=== PATIENT | female | born 1980 | race African-American/Black ===

== ENCOUNTER → 2022-03-19 09:12 | Outpatient (BNVA) | payer OTHER, SELFPAY | PROVIDERS: PCP Internal Medicine; Visit Provider Internal Medicine Rheumatology | DX: Z13.89 Encounter for screening for other disorder (principal) ==

== ENCOUNTER 2022-06-19 11:01 | Outpatient (REF) | payer OTHER, SELFPAY ==
[2022-06-19 11:21] LABS: MANUAL DIFF FLAG NO
[2022-06-19 11:35] LABS: Basophils Percent Auto 0.3 % (0-2); Eosinophils Absolute Auto 0.1 X10*3/uL (0.0-0.4); Eosinophils Percent Auto 0.7 % (0-4); Hematocrit 36.7 % (37.0-47.0); Hemoglobin 11.4 g/dl (12.0-16.0); Imm Gran Abs Auto 0.05 X10*3/uL (0.00-0.03); Imm Gran Pct Auto 0.6 % (0.0-0.4); Lymphocytes Absolute Auto 1.2 X10*3/uL (1.2-4.9); Lymphocytes Percent Auto 14.2 % (20-40); Mean Corpuscular HGB Conc 31.1 g/dl (31.0-35.0); Mean Corpuscular Hemoglobin 27.6 pg (27.0-33.0); Mean Corpuscular Volume 88.9 fL (80.0-98.0); Mean Platelet Volume 9.9 fL (9.4-12.3); Monocytes Absolute Auto 0.6 X10*3/uL (0.1-1.2); Monocytes Percent Auto 6.9 % (2-11); Neutrophils Absolute Auto 6.7 x10*3/uL (2.0-8.3); Neutrophils Percent Auto 77.3 % (45-73); Platelet Count 180 X10*3/uL (160-400); Red Blood Count 4.13 X10*6/uL (4.20-5.50); Red Cell Distribution Width 13.2 % (11.0-16.0); White Blood Count 8.7 X10*3/uL (4.8-10.8)
[2022-06-19 12:08] LABS: Estimated Glomerular Filt Rate 36
[2022-06-19 13:09] LABS: Creatinine Urine 136.45 mg/dL; Total Protein Urine Random < 7 mg/dL (<12)
[2022-06-23 11:56] LABS: Complement C3 126 mg/dL (83-193)
[2022-06-23 15:03] LABS: Anti DNA DS Antibody 11 IU/mL
== END 2022-06-19 11:02 | disposition home or self-care (01) ==
LOC: HO.LAB 11:01
PROVIDERS: PCP Internal Medicine; Visit Provider Internal Medicine Rheumatology
DX: M32.14 Glomerular disease in systemic lupus erythematosus (principal); M32.9 Systemic lupus erythematosus, unspecified
CPT/HCPCS: 36415; 82565; 84156; 85025; 86140; 86160; 86225

== ENCOUNTER 2022-10-01 09:51 | Outpatient (REF) | payer OTHER, SELFPAY | END 2022-10-01 09:52 | disposition home or self-care (01) | LOC: HO.10HDL 09:51 | PROVIDERS: Visit Provider Internal Medicine Rheumatology | DX: Z13.89 Encounter for screening for other disorder (principal) ==

== ENCOUNTER 2023-01-26 13:20 | Outpatient (REF) | payer OTHER, SELFPAY ==
[2023-01-30 06:08] LABS: PTT (LAC) Screen 30 sec (<=40)
== END 2023-01-26 13:21 | disposition home or self-care (01) ==
LOC: HO.LAB 13:20
PROVIDERS: PCP Internal Medicine; Visit Provider Internal Medicine Rheumatology
DX: M32.9 Systemic lupus erythematosus, unspecified (principal); Z86.711 Personal history of pulmonary embolism
CPT/HCPCS: 36415; 85597; 85613; 85730

== ENCOUNTER 2023-01-29 08:47 | Outpatient (REF) | payer OTHER, SELFPAY ==
--- NOTE | ~2023-01-29 | XR_ITS ---
EXAMINATION: XR CHEST CLINICAL INFORMATION: Dyspnea COMPARISON: None available. TECHNIQUE: 2 views of the chest were obtained. FINDINGS: The lungs are clear with no focal consolidation. No evidence of pneumothorax, pulmonary edema, or pleural effusions. Cardiac silhouette appears at the upper limits of normal in size. Multilevel endplate osteophytes noted in the spine. Partially visualized gastric band in the upper abdomen. XR/XR chest 2V IMPRESSION: No acute cardiopulmonary findings.
--- NOTE | ~2023-01-29 | XR_ITS ---
EXAMINATION: XR KNEE, LEFT CLINICAL INFORMATION: Left knee pain COMPARISON: None available. TECHNIQUE: Three views of the left knee. FINDINGS: Osseous alignment is anatomic. Joint spaces are relatively well-preserved. Spurring is noted most prominently along the medial and lateral compartments. No evidence of acute fracture. Patellar spurring is present at the attachment sites of the quadriceps and patellar tendons. Trace joint effusion noted. XR/XR knee LT 3V IMPRESSION: No acute osseous findings. Trace joint effusion. Osteophyte formation.
== END 2023-01-29 08:48 | disposition home or self-care (01) ==
LOC: HO.XRAY 08:47
PROVIDERS: PCP Internal Medicine; Visit Provider Internal Medicine Rheumatology
DX: M32.9 Systemic lupus erythematosus, unspecified (principal); E66.01 Morbid (severe) obesity due to excess calories; R06.00 Dyspnea, unspecified; M25.562 Pain in left knee; M32.14 Glomerular disease in systemic lupus erythematosus; D84.821 Immunodeficiency due to drugs; Z86.711 Personal history of pulmonary embolism; Z79.899 Other long term (current) drug therapy
CPT/HCPCS: 71046; 73562

== ENCOUNTER 2023-02-10 14:54 | Outpatient (REF) | payer OTHER, SELFPAY ==
--- NOTE | 2023-02-10 16:51 | PFT_ITS ---
Forced vital capacity 80%, FEV1 80%, FEV1/FVC ratio 81. PCK19-20 69% and MVV is 74%. Post bronchodilator therapy, there is a significant improvement in [id number]. Total lung capacity 78%. Residual volume 92%. Diffusion capacity 113% CONCLUSION: There may be a borderline or very mild degree of restrictive pulmonary disorder. The patient has significant response to bronchodilator therapy indicating mild bronchial asthma. Clinical correlation is recommended. MD MORGAN Hair/AUGUSTINE / [id number]
== END 2023-02-10 14:55 | disposition home or self-care (01) ==
LOC: HO.RESP 14:54
PROVIDERS: PCP Internal Medicine; Visit Provider Internal Medicine Rheumatology
DX: M32.9 Systemic lupus erythematosus, unspecified (principal); R06.00 Dyspnea, unspecified
CPT/HCPCS: 94060; 94727; 94729

== ENCOUNTER → 2023-04-06 14:57 | Outpatient (BNVA) | payer OTHER, SELFPAY | PROVIDERS: PCP Internal Medicine; Visit Provider Hospitalist ==

== ENCOUNTER 2023-04-20 10:04 | Outpatient (REF) | payer OTHER, SELFPAY ==
--- NOTE | ~2023-04-20 | XR_ITS ---
EXAMINATION: XR CHEST CLINICAL INFORMATION: Dyspnea. COMPARISON: None available. TECHNIQUE: 2 views of the chest were obtained. FINDINGS: No significant abnormality is noted involving the heart, lungs, mediastinum, bony thorax or soft tissues. XR/XR chest 2V IMPRESSION: Unremarkable chest examination.
== END 2023-04-20 10:05 | disposition home or self-care (01) ==
LOC: HO.XRAY 10:04
PROVIDERS: PCP Internal Medicine; Visit Provider Hospitalist
DX: I26.99 Other pulmonary embolism without acute cor pulmonale (principal); R06.00 Dyspnea, unspecified
CPT/HCPCS: 71046

== ENCOUNTER → 2023-04-21 13:02 | Outpatient (REF) | payer OTHER, SELFPAY ==
--- NOTE | ~2023-04-21 | NM_ITS ---
EXAMINATION: PULMONARY PERFUSION STUDY CLINICAL INFORMATION: Dyspnea, unspecified. COMPARISON: No previous lung scan is available for comparison. Radiographs the chest dated 04/20/2023 are available for comparison. TECHNIQUE: Following the intravenous injection of 4.0 mCi Tc-99m MAA, the lungs were imaged in the anterior and posterior, left and right lateral and AV, TIWARI, LPO, and RPO projections using a gamma scintillation camera. FINDINGS: No segmental perfusion defects are present. There is homogeneous distribution of activity bilaterally. There are no focal anatomic appearing perfusion defects present. NM/NM pul perfusion IMPRESSION: Normal radionuclide lung perfusion scan.
== END ==
LOC: HO.NUCMED 13:02
PROVIDERS: Visit Provider Hospitalist
DX: R06.00 Dyspnea, unspecified (principal); I26.99 Other pulmonary embolism without acute cor pulmonale
CPT/HCPCS: 78580; A9540

== ENCOUNTER → 2023-04-30 10:55 | Outpatient (REF) | payer OTHER, SELFPAY ==
--- NOTE | 2023-04-30 10:58 | CA_ITS ---
Transthoracic Echocardiogram Patient (Last, First, Middle): Rodri Su, Gender: Female Date of : 1980 Age: 42 Procedure Date: 04/30/2023 Procedure Type: Transthoracic Echocardiogram Location: OP Height: 162.56 cm Weight: 164.66 kg BSA: 2.52 m2 Heart Rate: 60 bpm BP: 150 / 100 mmHg Auto Bumper Straightener: ROSELYN Referring MD: Jah Cole MD Ice Cream Maker: Michael Roger MD Symptoms: I27.20 - Pulmonary hypertension, unspecified Study Quality: Fair ECG Rhythm: Sinus Conclusions: - Essentially normal study with no clear evidence of significant pulmonary hypertension Findings Left Ventricle Normal left ventricular size, thickness, and systolic function. The visually estimated ejection fraction is between 55-60%. Regional wall motion abnormalities can not be excluded due to suboptimal endocardial definition. Spectral Doppler is indicative of a normal filling pattern. Right Ventricle Normal right ventricular cavity size and systolic function. Atria The left atrium is normal in size. Interatrial shunt cannot be excluded. The right atrium was not well visualized. Aortic Valve Normal aortic valve structure and function. There is no aortic valve stenosis. There is no aortic valve regurgitation. Mitral Valve Normal mitral valve structure and function. There is trace mitral valve regurgitation. There is no mitral valve stenosis. Pulmonic Valve The pulmonic valve was not well visualized. Tricuspid Valve Likely normal tricuspid valve structure and function. There is trace tricuspid valve regurgitation. The right ventricular systolic pressure is normal. The right ventricular systolic pressure is 18 mmHg. Normal right atrial pressure. There is no evidence of pulmonary hypertension. Great Vessels All visible segments of the aorta are normal in size. The pulmonary artery was not well visualized. Venous The inferior vena cava is normal in size and collapses greater than 50% with inspiration. There is evidence of a dilated coronary sinus. Consider possibility of persistent left superior vena cava, consider saline contrast study Pericardium/Pleural There is no evidence of pericardial effusion. Prior Study Comparison No prior study available for comparison. Recommendations, Care & Conclusions Recommend contrast in the future to improve endocardial definition and saline contrast study for persistent left sided SVC. Measurements 2D Linear Measurements IVSd: 0.98 0.6-0.9/0.6-1.0 cm LVIDd: 5.55 3.9-5.3/4.2-5.9 cm LVIDd Index: 2.20 2.4-3.2/2.2-3.1 cm/m2 LVIDs: 3.62 2.0-3.6 cm LVPWd: 1.07 0.7-1.1 cm LA Diam: 3.50 2.7-3.8/3.0-4.0 cm LAIDs Index: 1.39 1.5-2.3 cm/m2 LV Mass: 278.92 67-162/88-224 g LV Mass Index: 110.68 43-95/49-115 g/m2 LVOT Diam: 2.20 3.0+(-)1.3 cm 2D Systolic Function EF 4C: 55.90 >55% EF 2C: 57.10 >55% EF BiP: 56.10 >55% Mitral Valve MV Pk E: 1.00 MV PK A: 0.79 MV Decel Time: 229.00 E/A: 1.30 E'Lateral: 8.27 E'Medial: 7.29 E/E' Med: 13.70 E/E' Lat: 12.10 PHT: 67.00 MVA PHT: 3.28 Decel Yellow Medicine: 4.38 Aortic Valve AoV Pk Basim: 1.35 AoV Mn Basim: 1.00 AoV VTI: 0.28 AoV Pk Grad: 7.00 Aov Mn Grad: 4.00 ADRIANNE Cont.VTI: 3.35 LVOT LVOT Pk Basim: 1.12 LVOT Mn Basim: 0.77 LVOT VTI: 0.25 LVOT Pk Grad: 5.00 LVOT Mn Grad: 3.00 LVOT Diam: 2.20 LVOT Area: 3.80 Diastolic Function MV Pk E: 1.00 MV Pk A: 0.79 E/A: 1.30 E'Medial: 7.29 E/E' Med: 13.70 E' Laterial: 8.27 E/E' Lat: 12.10 Right Ventricle TAPSE (mm): 29.00 TVS' Basim: 15.00 Tricuspid Valve TR Pk Basim: 1.62 TR Pk Grad: 10.00 RA Press: 8.00 RVSP: 18.00 Great Vessels Aorta Sinus of Valsalva: 3.30 2.0-3.5 cm Ao Asc: 3.40 2.1-3.4 cm Pulmonary Valve PV Pk Basim: 0.79 Peak PV Grad: 2.00 Updated in Other Vendor System with Status of Final Michael Roger MD electronically signed on 05/02/2023 12:43:38 PM with status of Final
== END ==
LOC: HO.CARD 10:55
PROVIDERS: Visit Provider Hospitalist
DX: I27.20 Pulmonary hypertension, unspecified (principal); R06.00 Dyspnea, unspecified; I26.99 Other pulmonary embolism without acute cor pulmonale
CPT/HCPCS: 93306

== ENCOUNTER → 2023-05-06 08:54 | Outpatient (BNVA) | payer OTHER, SELFPAY | PROVIDERS: PCP Internal Medicine; Visit Provider Internal Medicine Rheumatology ==

== ENCOUNTER 2023-06-23 15:26 | Outpatient (AMB) | payer OTHER, SELFPAY ==
[2023-06-23 15:30] VITALS: PULSE 64; O2SAT 100; BMI 63.1
--- NOTE | 2023-06-23 15:30 | A.OFFVIS_ITS ---
Intake Vital Signs 06/23/23 15:30 Height 5 ft 4 in Weight 367 lb 8.169 oz BMI 63.1 Pulse 64 Pulse Source Pulse Oximeter Pulse Oximetry (%) 100 Oxygen Delivery Method Room Air Intake Visit Reasons: Dyspnea Car Servicer Required: No Allergies hydralazine Allergy (Severe, Verified 06/23/23 15:33) induced lupus Penicillins Allergy (Intermediate, Verified 06/23/23 15:33) hives HPI HPI Comments History of Present Illness Details The patient is a 42-year-old woman with ongoing dyspnea. Per the patient had been in her usual state health until early 2020 when she was diagnosed with lupus. Apparently she was evaluated by Rheumatology at time in felt to be drug induced since she was on hydralazine. Subsequently after that the patient started developing lower extremity edema pain and shortness of breath. She was admitted to the hospital with pulmonary emboli. There was a limited study because of her respiratory symptoms although definitive defect in the right lower lobe vasculature. The patient also had what appeared to be a patchy consolidation in the left lower lobe with small effusion. The patient was not hospital for prolonged care time approximately 2-3 weeks. She was discharged on anticoagulation. After that she ended up having COVID-19. Since then the patient has been having issues with dyspnea on exertion. Mild to moderate with severity. She did undergo pulmonary function studies which I did personally soon early review with her. The patient does have some evidence of small airways disease. In addition to that no other significant findings. During the office visit we did go for a 6 minutes walk test. The patient with activity had a pulse ox of 99%. Although her heart rate did increase to about 120 beats per minute when she was dyspneic with a dyspnea score of 7/10. The patient continues to be on anticoagulation. Based on her event is consider an unprovoked event. Possibly related to her connective tissue disease although is not for certain. Based on her ongoing dyspnea in addition to significant tachycardia with minimal activity will request a V/Q scan to address the question of any chronic thromboembolic disease. In addition to this when echocardiogram will be helpful. She did have an echo back in 2020 although it was poorly visualized in the right ventricle and therefore cannot comment on the right ventricle function or appearance. 06/23/2023 the patient is here for pulmonary follow-up visit. He continues to have dyspnea on exertion. [id number]-ci-[id number] severity. Difficult to perform her activities of daily living though. The patient did have a 6 minute walk test with significant tachycardia with minimal activity during the last visit. We had her undergo an echocardiogram which is reassuring. Pulmonary pressures were estimated to be normal. Subsequently after that had a V/Q scan without any evidence of any residual defects suggesting no further residual clots. However, the patient continued to have symptoms therefore she underwent a cardiopulmonary exercise tolerance test at [facility]. We did follow-up with the results. The patient did have a normal aerobic capacity. However with exercise she did develop significant systemic hypertension. The patient also was noted to have a decreased pulse ox down to 90% with exercise suggesting a pulmonary limitation. 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 Explained to the patient that will have to further evaluate this for definitive diagnosis. If the patient does have pulmonary hypertension that is exercise induced with a history of lupus she will benefit from basal dilatory therapy. The patient also was recommended a referral to [place] to be evaluated by a pulmonary hypertension clinic. The patient is agreeable to this as well. Will try to perform an exercise echo to assess for any cardiac disease in addition to see if we can estimate pulmonary pressures with exercise. In addition to this the patient will be referred to pulmonary rehabilitation for her underlying post COVID syndrome. 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 Pulmonary emboli Pulmonary hypertension Systemic lupus erythematosus Surgical History Hx of laparoscopic gastric banding Social History Household Members: Family Housing: House Are you a primary hospice home care coordinator to a significant other at home: No Do you presently have visiting nurse or other home services: No 75 years or older and lives alone: No Alcohol intake: never Patient Tobacco Use Status: Never used Tobacco e-Cigarette/Vaping Use: Never Used Second Hand Smoke Exposure: No service: No Current occupational status: employed 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 Denies headache(s) Card Details: Negative chest pain, edema and syncope Reports dyspnea and Reports dyspnea on exertion Resp Reports dyspnea, Reports dyspnea on exertion and Denies wheezing GI Details: Negative indigestion/heartburn, nausea, abdominal pain, bowel changes, diarrhea, constipation and bloody stool. Reports no additional complaints Musc Reports no additional complaints Skin/Breast Details: Negative for itching, rash, hives, Raynaud's symptoms, sun sensitivity, and skin cancer Denies rash Neuro Details: Negative for epilepsy, palsy, stroke, changes in speech, tingling and weakness Reports no additional complaints and Denies headache(s) Endo Details: Negative for polyuria and polydypsia Alok/Lymph Details: Negative for excessive bruising or bleeding. Denies easy bleeding and Denies easy bruising Aller/Immun Denies wheezing Physical Exam Vital Signs: Last Vital Signs Pulse 64 06/23/23 15:30 Pulse Ox 100 06/23/23 15:30 Oxygen Delivery Method Room Air 06/23/23 15:30 BMI result Body Mass Index 63.1 Const General: comfortable HEENT Head: Yes normal to inspection Neck Neck: Yes supple Chest Chest palpation & inspection: normal inspection of the chest Resp Effort & Inspection: normal respiratory effort Auscultation: no rhonchi, no wheezes and diminished lung sounds Cardio Rate: tachycardic Rhythm: regular rhythm Heart sounds: S1 normal heart sound present and S2 normal heart sound present GI Palpation (GI): Soft to palpation Extrem General: No clubbing and No cyanosis Assessment & Plan Assessment & Plan (1) DEL ANGEL (dyspnea on exertion): Comment: Likely multifactorial. CPET appears to suggest a pulmonary limitation, suggesting pulmonary vascular disease Code(s): R06.00 - Dyspnea, unspecified (2) Pulmonary emboli: Comment: VQ scan is reassuring Code(s): I26.99 - Other pulmonary embolism without acute cor pulmonale (3) Asthma: Code(s): J45.909 - Unspecified asthma, uncomplicated (4) Pulmonary hypertension: Comment: Exercise induced Code(s): I27.20 - Pulmonary hypertension, unspecified Plan continue Symbicort continue Eliquis BID will be evaluated by Cardiology soon I will request a stress ECHO here to r/o CAD and also assess for the exercise induced pulmonary htn start pulmonary rehab may benifit from a referral to a pulmonary HTN clinic in [place], but will wait to see her respose to rehab/cardiology imput and stress ECHO F/U 2-3 months Orders: Orders Pulmonary Rehab Today U09.9 - Post COVID-19 condition, unspecified CA echo stress exercise Today I27.20 - Pulmonary hypertension, unspecified Coding Level of Care Code Est Pt Level 5 (98826) Diagnoses DEL ANGEL (dyspnea on exertion) R06.00 Pulmonary emboli I26.99 Asthma J45.909 Pulmonary hypertension I27.20 Time Spent (min) 45
== END 2023-06-23 16:11 | disposition home or self-care (01) ==
PROVIDERS: PCP Internal Medicine; Visit Provider Hospitalist
DX: R06.00 Dyspnea, unspecified (principal); I26.99 Other pulmonary embolism without acute cor pulmonale; J45.909 Unspecified asthma, uncomplicated; I27.20 Pulmonary hypertension, unspecified
CPT/HCPCS: 99215

== ENCOUNTER → 2023-06-23 15:26 | Outpatient (BNVA) | payer OTHER, SELFPAY | PROVIDERS: PCP Internal Medicine; Visit Provider Hospitalist | DX: J44.9 Chronic obstructive pulmonary disease, unspecified (principal) ==

== ENCOUNTER → 2023-07-03 10:49 | Outpatient (REF) | payer OTHER, SELFPAY ==
--- NOTE | 2023-07-03 10:52 | CA_ITS ---
Acquisition Time: 2023-07-03 11:00:43 Total Exercise Time: 00:04:28 Test Indications: Dyspnea Medications: SEE HX Protocol: WHITNEY Max HR: 160 BPM 95% of Pred: 167 BPM Max BP: 128/078 mmHG Max Work Load: 6.3 METS Exercise stress test exercise 4 min 28 sec of Whitney protocol achieving 94% MPHR, with moderate to severe SOB, no chest discomfort, without arrhythmias, with normotensive response to exercise, without EKG changes. Echo images obtained by tech at rest and immediately post peak exercise. Definity contrast used. Test reviewed with Dr. Roger Referred By: Jah Cole Overread By: Yuly Khan
== END ==
LOC: HO.CARD 10:49
PROVIDERS: Visit Provider Hospitalist
DX: I27.20 Pulmonary hypertension, unspecified (principal)
CPT/HCPCS: 93350; Q9957

== ENCOUNTER → 2023-07-03 10:52 | Outpatient (BNV) | payer OTHER, SELFPAY | PROVIDERS: Visit Provider Nurse Practitioner | DX: R06.02 Shortness of breath (principal); I27.20 Pulmonary hypertension, unspecified | CPT/HCPCS: 93016; 93018; 93350; 93352 ==

== ENCOUNTER 2023-08-03 10:23 | Outpatient (AMB) | payer OTHER, SELFPAY ==
[2023-08-03 10:43] VITALS: BP 132/72; PULSE 81; TEMP 36.2; O2SAT 99; BMI 64.9
--- NOTE | 2023-08-03 10:43 | MHC.OFFVIS ---
Intake Vital Signs 08/03/23 10:43 Height 5 ft 4 in Weight 377 lb 13.957 oz BMI 64.9 BP 132/72 Blood Pressure Location Lt radial Position Sitting Pulse 81 Pulse Source Pulse Oximeter Temp 97.2 F Temp Source Skin Pulse Oximetry (%) 99 Oxygen Delivery Method Room Air Intake Visit Reasons: sle Intake Note: Patient here to follow up on SLE. Enterprise Architect Manager Required: No Accompanied by: Self / Same As Patient Allergies hydralazine Allergy (Severe, Verified 08/03/23 10:44) induced lupus Penicillins Allergy (Intermediate, Verified 08/03/23 10:44) hives Medication List - Last Reconciled 08/03/23 by Hiren Minor MD albuterol sulfate 90 mcg/actuation (ProAir HFA) 2 puffs inhalation Q6H PRN apixaban (Eliquis) 5 mg PO BID diltiazem HCl ER mg PO diltiazem HCl ER (Tiadylt ER) 180 mg PO DAILY fluticasone propionate 50 mcg/actuation (Allergy Relief (fluticasone)) 2 sprays intranasal DAILY PRN hydroxychloroquine 200 mg PO BID mycophenolate mofetil 1,000 mg PO BID pantoprazole 40 mg PO DAILY prednisone 5 mg (2 x 2.5 mg) PO DAILY Symbicort 160-4.5 mcg/actuation (budesonide-formoterol) 2 puffs inhalation BID 30 days NS HPI HPI Comments History of Present Illness Details The patient returns for evaluation of her SLE. She had called us a few weeks with a flare-up of symptoms. She felt fine in the morning but by the end of the day she had pain and swelling she says in the hands, elbows, shoulders, and knees. She felt miserable and presented to the emergency room. They felt like she had a flare of lupus. They treated her with a 60 mg dose of prednisone and tapered over the next week. She felt better within 2 days. She has remained on the mycophenolate 1 g b.i.d., prednisone 5 mg daily, and hydroxychloroquine 200 mg b.i.d.. She was having persistent exertional dyspnea since episode of COVID last year. Extensive workup failed to reveal any evidence of heart disease or significant pulmonary disease. So now the conclusion is that she suffered from some deconditioning and perhaps some restrictive symptoms related to her obesity. There are plans for her to attend pulmonary rehab. This will be for 2 our sessions, twice a week for 18 weeks. She may need some [facility] support to carry that out. Cardiology switched her from the amlodipine to diltiazem thinking taht it would give her less ankle edema. She has yet to make that that switch. She does see Nephrology again in a few days. 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) Systemic lupus erythematosus Surgical History Hx of laparoscopic gastric banding Social History Household Members: Family Household Members Other:: Mom and brother Housing: House Are you a primary laboratory animal caretaker to a significant other at home: No Do you presently have visiting nurse or other home services: No 75 years or older and lives alone: No Alcohol intake: never Patient Tobacco Use Status: Never used Tobacco e-Cigarette/Vaping Use: Never Used Second Hand Smoke Exposure: No service: No Current occupational status: employed 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 Negative for appetite change, weight change, fever, chills, malaise Eyes Details: Negative for vision change, dry eyes,headaches and dizziness ENT Details: Negative for hearing change, tinnitus, oral ulcer, nose bleeds and oral dryness. Card Details: Negative chest pain, edema and syncope Resp Details: Exertional dyspnea as noted above. She remains on inhalers for asthma. Negative for cough and wheezing GI Details: Negative indigestion/heartburn, nausea, abdominal pain, bowel changes, diarrhea, constipation and bloody stool. Details: Negative for dysuria, hematuria, nocturia, decreased force/flow and genital discharge Skin/Breast Details: Negative for itching, rash, hives, Raynaud's symptoms, sun sensitivity, and skin cancer Psych Details: She is now back to work full-time. Denies anxiety, depression and stress Alok/Lymph Details: Negative for excessive bruising or bleeding. Physical Exam Vital Signs: Last Vital Signs Temp 97.2 F 08/03/23 10:43 Pulse 81 08/03/23 10:43 BP 132/72 08/03/23 10:43 Pulse Ox 99 08/03/23 10:43 Oxygen Delivery Method Room Air 08/03/23 10:43 BMI result Body Mass Index 64.9 APPEARANCE: Patient in no acute distress EYES no redness, pupils equal and reactive to light, eyelids normal EARS: External ear normal, canal clear and tympanic membrane normal. NOSE/SINUS: Airflow through both nares, no nasal discharge, no bleeding THROAT: Oral mucosa moist, no ulcerations NECK: No thyromegaly or masses, no adenopathy, trachea midline. HEART: Regulrar rhythm, S1-S2 heard, no murmurs, rubs or gallops. LUNG: Clear to percussion and auscultation ABD: Normal bowel sounds, no organomegaly, masses or tenderness. EXTREMITIES: No edema, no calf tenderness, normal peripheral pulses. NEURO: Oriented and alert x3. No focal weakness. Reflexes symmetric. Gait normal. SKIN: No inflammatory or neoplastic lesions. Normal color and turgor JOINT EXAM:.?? EXTREMITIES: No edema, no calf tenderness, normal peripheral pulses. NEURO: Oriented and alert x3. No focal weakness. Reflexes symmetric. Gait normal. SKIN: No inflammatory or neoplastic lesions. Normal color and turgor JOINT EXAM:?? Cervical Spine:.? Full range of motion without pain; no tenderness. Thoracic Spine:.? No scoliosis.? No tenderness on palpation. Lumbar Spine:.? Alignment normal.? Full range of motion without pain, no tenderness. Chest Wall:.? No tenderness, swelling, increased warmth or erythema. Hands:.? Normal pain-free range of motion without tenderness, swelling, increased warmth or erythema. Able to make a full fist and has a good social media campaign manager strength. Wrists:.? Normal pain-free range of motion without tenderness, swelling, increased warmth or erythema. Elbows:. Normal pain-free range of motion without tenderness, swelling, increased warmth or erythema. Shoulders:.?? Full range of motion without pain. No tenderness, weakness, swelling, increased warmth or erythema. Hips:.? Full range of motion without pain. Hip bursa:.? No tenderness. Knees:.?? Normal pain-free range of motion without tenderness, swelling, increased warmth or erythema.? There is no effusion or crepitation Ankles:.? Normal pain-free range of motion without tenderness, swelling, increased warmth or erythema. Feet:.? Normal pain-free range of motion without tenderness, swelling, increased warmth or erythema. Tender points:? No tenderness to digital palpation at the occiput, trapezius, second rib, lateral epicondyle, knees, greater trochanter and gluteal area bilaterally. Results Reviewed Results Reviewed: 06/30/2023 lab work from [facility]: White count 4000, hemoglobin 12.2, platelet count 028418, creatinine 1.5 Assessment & Plan Assessment & Plan (1) Morbid obesity due to excess calories: Code(s): E66.01 - Morbid (severe) obesity due to excess calories (2) Systemic lupus erythematosus: Comment: Onset 11/2020 - on hydralazine - ? 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 2020 hydroxychloroquine started: Eye exam okay March 2023 anti-DNA pos. Anti DEE DEE and complements normal. 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 For now we will continue with current mycophenolate, hydroxychlorquine and prednisone. She has appointment with Nephrology where they usually check her kidney function and other markers so I will not draw any blood today. I will put in for lab work to be done before next visit in 3 months. She is course severely obese. I think that contributes to her exertional dyspnea. She questions whether she could go on Ozempic. I told her I did not have much experience with its use so I would send her to the weight Management people. She is afraid of any kind of surgical procedure, apparently a family member after gastric bypass surgery years ago. We will aim for follow-up in about 3 months. Orders: Orders Complement C3 Today M32.9 - Systemic lupus erythematosus, unspecified Complement C4 Today M32.9 - Systemic lupus erythematosus, unspecified Creatinine Today M32.9 - Systemic lupus erythematosus, unspecified Complete Blood Count Auto Diff Today M32.9 - Systemic lupus erythematosus, unspecified C Reactive Protein Today M32.9 - Systemic lupus erythematosus, unspecified Protein Creatinine Ratio, Ur Today M32.9 - Systemic lupus erythematosus, unspecified Referrals Medical Weight Management Referral E66.01 - Morbid (severe) obesity due to excess calories Coding Level of Care Code Est Pt Level 3 (27409) Diagnoses Morbid obesity due to excess calories E66.01 Systemic lupus erythematosus M32.9
== END 2023-08-03 11:41 | disposition home or self-care (01) ==
PROVIDERS: PCP Internal Medicine; Visit Provider Internal Medicine Rheumatology
DX: E66.01 Morbid (severe) obesity due to excess calories (principal); M32.9 Systemic lupus erythematosus, unspecified
CPT/HCPCS: 99213

== ENCOUNTER → 2023-08-03 10:23 | Outpatient (BNVA) | payer OTHER, SELFPAY | PROVIDERS: PCP Internal Medicine; Visit Provider Internal Medicine Rheumatology ==

== ENCOUNTER 2023-08-25 14:51 | Outpatient (AMB) | payer OTHER, SELFPAY ==
[2023-08-25 14:55] VITALS: PULSE 86; O2SAT 95; BMI 63.5
--- NOTE | 2023-08-25 14:55 | MHC.OFFVIS ---
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 Per the patient had been in her usual state health until early 2020 when she was diagnosed with lupus. Apparently she was evaluated by Rheumatology at time in felt to be drug induced since she was on hydralazine. Subsequently after that the patient started developing lower extremity edema pain and shortness of breath. She was admitted to the hospital with pulmonary emboli. There was a limited study because of her respiratory symptoms although definitive defect in the right lower lobe vasculature. The patient also had what appeared to be a patchy consolidation in the left lower lobe with small effusion. The patient was not hospital for prolonged care time approximately 2-3 weeks. She was discharged on anticoagulation. After that she ended up having COVID-19. Since then the patient has been having issues with dyspnea on exertion. Mild to moderate with severity. She did undergo pulmonary function studies which I did personally soon early review with her. The patient does have some evidence of small airways disease. In addition to that no other significant findings. During the office visit we did go for a 6 minutes walk test. The patient with activity had a pulse ox of 99%. Although her heart rate did increase to about 120 beats per minute when she was dyspneic with a dyspnea score of 7/10. The patient continues to be on anticoagulation. Based on her event is consider an unprovoked event. Possibly related to her connective tissue disease although is not for certain. Based on her ongoing dyspnea in addition to significant tachycardia with minimal activity will request a V/Q scan to address the question of any chronic thromboembolic disease. In addition to this when echocardiogram will be helpful. She did have an echo back in 2020 although it was poorly visualized in the right ventricle and therefore cannot comment on the right ventricle function or appearance. 06/23/2023 the patient is here for pulmonary follow-up visit. He continues to have dyspnea on exertion. [id number] severity. Difficult to perform her activities of daily living though. The patient did have a 6 minute walk test with significant tachycardia with minimal activity during the last visit. We had her undergo an echocardiogram which is reassuring. Pulmonary pressures were estimated to be normal. Subsequently after that had a V/Q scan without any evidence of any residual defects suggesting no further residual clots. However, the patient continued to have symptoms therefore she underwent a cardiopulmonary exercise tolerance test at [facility]. We did follow-up with the results. The patient did have a normal aerobic capacity. However with exercise she did develop significant systemic hypertension. The patient also was noted to have a decreased pulse ox down to 90% with exercise suggesting a pulmonary limitation. 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 Explained to the patient that will have to further evaluate this for definitive diagnosis. If the patient does have pulmonary hypertension that is exercise induced with a history of lupus she will benefit from basal dilatory therapy. The patient also was recommended a referral to [place] to be evaluated by a pulmonary hypertension clinic. The patient is agreeable to this as well. Will try to perform an exercise echo to assess for any cardiac disease in addition to see if we can estimate pulmonary pressures with exercise. In addition to this the patient will be referred to pulmonary rehabilitation for her underlying post COVID syndrome. 08/25/2023 the patient is here for a pulmonary follow-up visit. She is starting to feel little better. She did follow-up with Cardiology and she was reassured. The patient is can be starting pulmonary rehabilitation soon which I believe is going to be a great addition to her therapy and hopeful that she will continue to feel better. The patient is aware that if her symptoms worsen or if she does not see any improvement we can also consider referral to [place] to have further evaluation of her dyspnea symptoms. Seems that she is doing better from the lupus standpoint. She had a flare-up sometime in the summer but she is doing better at this time. She is tolerating the Eliquis and therefore she has no recurrence of any clotting at this time. The patient will start pulmonary rehabilitation. Plan to follow-up in 4 months if the patient has any worsening symptoms prior to that she is to call the office for an earlier assessment. 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) Systemic lupus erythematosus Surgical History Hx of laparoscopic gastric banding Social History Household Members: Family Household Members Other:: Mom and brother Housing: House Are you a primary child care sitter to a significant other at home: No Do you presently have visiting nurse or other home services: No 75 years or older and lives alone: No Alcohol intake: never Patient Tobacco Use Status: Never used Tobacco e-Cigarette/Vaping Use: Never Used Second Hand Smoke Exposure: No service: No Current occupational status: employed 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 Denies headache(s) Card Details: Negative chest pain, edema and syncope Reports dyspnea and Reports dyspnea on exertion Resp Reports dyspnea, Reports dyspnea on exertion and Denies wheezing GI Details: Negative indigestion/heartburn, nausea, abdominal pain, bowel changes, diarrhea, constipation and bloody stool. Reports no additional complaints Musc Reports no additional complaints Skin/Breast Details: Negative for itching, rash, hives, Raynaud's symptoms, sun sensitivity, and skin cancer Denies rash Neuro Details: Negative for epilepsy, palsy, stroke, changes in speech, tingling and weakness Reports no additional complaints and Denies headache(s) Endo Details: Negative for polyuria and polydypsia Alok/Lymph Details: Negative for excessive bruising or bleeding. Denies easy bleeding and Denies easy bruising Aller/Immun Denies wheezing Physical Exam Vital Signs: Last Vital Signs Pulse 86 08/25/23 14:55 Pulse Ox 95 08/25/23 14:55 Oxygen Delivery Method Room Air 08/25/23 14:55 BMI result Body Mass Index 63.5 Const General: comfortable HEENT Head: Yes normal to inspection Neck Neck: Yes supple Chest Chest palpation & inspection: normal inspection of the chest Resp Effort & Inspection: normal respiratory effort Auscultation: no rhonchi, no wheezes and diminished lung sounds Cardio Rate: regular rate Rhythm: regular rhythm Heart sounds: S1 normal heart sound present and S2 normal heart sound present GI Palpation (GI): Soft to palpation Extrem General: No clubbing and No cyanosis Assessment & Plan Assessment & Plan (1) DEL ANGEL (dyspnea on exertion): Comment: Likely multifactorial. CPET appears to suggest a pulmonary limitation, suggesting pulmonary vascular disease Code(s): R06.00 - Dyspnea, unspecified (2) Pulmonary emboli: Comment: VQ scan is reassuring Code(s): I26.99 - Other pulmonary embolism without acute cor pulmonale Qualifiers: Pulmonary embolism type: multiple subsegmental (without acute cor pulmonale) Qualified Code(s): I26.94 - Multiple subsegmental pulmonary emboli without acute cor pulmonale (3) Asthma: Code(s): J45.909 - Unspecified asthma, uncomplicated Qualifiers: Asthma complication type: uncomplicated Asthma persistence: persistent Asthma severity: moderate Qualified Code(s): J45.40 - Moderate persistent asthma, uncomplicated (4) Pulmonary hypertension: Comment: Exercise induced Code(s): I27.20 - Pulmonary hypertension, unspecified Plan continue Symbicort continue Eliquis BID start pulmonary rehab if no better may benifit from a referral to a pulmonary HTN clinic in [place], for a level 3 CPET F/U 4-6 months Coding Level of Care Code Est Pt Level 4 (98008) Diagnoses DEL ANGEL (dyspnea on exertion) R06.00 Multiple subsegmental pulmonary emboli without acute cor pulmonale I26.94 Pulmonary embolism type: multiple subsegmental (without acute cor pulmonale) Moderate persistent asthma without complication J45.40 Asthma complication type: uncomplicated Asthma persistence: persistent Asthma severity: moderate Pulmonary hypertension I27.20 Time Spent (min) 16
== END 2023-08-25 15:13 | disposition home or self-care (01) ==
PROVIDERS: PCP Internal Medicine; Visit Provider Hospitalist
DX: R06.00 Dyspnea, unspecified (principal); I26.94 Multiple subsegmental thrombotic pulmonary emboli without acute cor pulmonale; J45.40 Moderate persistent asthma, uncomplicated; I27.20 Pulmonary hypertension, unspecified
CPT/HCPCS: 99214

== ENCOUNTER → 2023-08-25 14:51 | Outpatient (BNVA) | payer OTHER, SELFPAY | PROVIDERS: PCP Internal Medicine; Visit Provider Hospitalist | DX: J44.9 Chronic obstructive pulmonary disease, unspecified (principal); U09.9 Post COVID-19 condition, unspecified; I27.20 Pulmonary hypertension, unspecified ==

== ENCOUNTER 2023-11-02 13:52 | Outpatient (REF) | payer OTHER, SELFPAY ==
[2023-11-02 14:10] LABS: MANUAL DIFF FLAG NO
[2023-11-02 14:28] LABS: Basophils Percent Auto 0.4 % (0-2); Eosinophils Percent Auto 0.1 % (0-4); Hematocrit 38.6 % (37.0-47.0); Hemoglobin 11.9 g/dl (12.0-16.0); Imm Gran Abs Auto 0.03 X10*3/uL (0.00-0.03); Imm Gran Pct Auto 0.4 % (0.0-0.4); Lymphocytes Absolute Auto 1.1 X10*3/uL (1.2-4.9); Lymphocytes Percent Auto 14.3 % (20-40); Mean Corpuscular HGB Conc 30.8 g/dl (31.0-35.0); Mean Corpuscular Hemoglobin 27.4 pg (27.0-33.0); Mean Corpuscular Volume 88.9 fL (80.0-98.0); Mean Platelet Volume 9.7 fL (9.4-12.3); Monocytes Absolute Auto 0.6 X10*3/uL (0.1-1.2); Monocytes Percent Auto 8.1 % (2-11); Neutrophils Percent Auto 76.7 % (45-73); Platelet Count 205 X10*3/uL (160-400); Red Blood Count 4.34 X10*6/uL (4.20-5.50); Red Cell Distribution Width 13.1 % (11.0-16.0); White Blood Count 7.8 X10*3/uL (4.8-10.8)
[2023-11-02 14:50] LABS: C Reactive Protein 0.11 mg/dL (< or = 0.50); Estimated Glomerular Filt Rate 40
[2023-11-02 16:13] LABS: Creatinine Urine 83.73 mg/dL; Protein/Creatinine Ratio, Ur 0.16 (<0.2); Total Protein Urine Random 13 mg/dL (<12)
[2023-11-04 18:18] LABS: Complement C3 133 mg/dL (83-193)
== END 2023-11-02 13:53 | disposition home or self-care (01) ==
LOC: HO.LAB 13:52
PROVIDERS: PCP Internal Medicine; Visit Provider Internal Medicine Rheumatology
DX: M32.9 Systemic lupus erythematosus, unspecified (principal)
CPT/HCPCS: 36415; 82565; 82570; 84156; 85025; 86140; 86160

== ENCOUNTER 2023-11-03 09:29 | Outpatient (AMB) | payer OTHER, SELFPAY ==
[2023-11-03 09:36] VITALS: BP 128/86; PULSE 88; O2SAT 98; BMI 63.3
--- NOTE | 2023-11-03 09:36 | A.OFFVIS_ITS ---
Intake Vital Signs 11/03/23 09:36 Height 5 ft 4 in Weight 368 lb 13.334 oz BMI 63.3 BP 128/86 Blood Pressure Location Lt brachial Position Sitting Pulse 88 Pulse Source Pulse Oximeter Pulse Oximetry (%) 98 Oxygen Delivery Method Room Air Intake Visit Reasons: sle Intake Note: Patient last seen 08/03/23 , presents today for follow up and test results. Coremaker Floor Required: No Accompanied by: Self / Same As Patient Allergies hydralazine Allergy (Severe, Verified 11/03/23 09:41) induced lupus Penicillins Allergy (Intermediate, Verified 11/03/23 09:41) hives Medication List - Last Reconciled 11/03/23 by Hiren Minor MD albuterol sulfate 90 mcg/actuation (ProAir HFA) 2 puffs inhalation Q6H PRN amlodipine 10 mg PO DAILY apixaban (Eliquis) 5 mg PO BID hydroxychloroquine 200 mg PO BID mycophenolate mofetil 1,000 mg PO BID pantoprazole 40 mg PO DAILY prednisone 5 mg (2 x 2.5 mg) PO DAILY Symbicort 160-4.5 mcg/actuation (budesonide-formoterol) 2 puffs inhalation BID 30 days NS HPI HPI Comments History of Present Illness Details The patient returns for evaluation of her SLE. She is going to pulmonary rehab twice a week. This seems to be helpful at improving her exertional dyspnea. She remains on apixaban because of recurrent DVT, hydroxychloroquine 200 b.i.d., mycophenolate 1 g b.i.d., occasional albuterol inhaler, and prednisone 5 mg daily. She has occasional discomfort in the left knee but otherwise does not seem to have any joint pains. There have been no pr oblems recently with chest pain or abdominal pain, oral ulcers, or skin rashes. 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) Systemic lupus erythematosus Surgical History Hx of laparoscopic gastric banding Social History Household Members: Family Household Members Other:: Mom and brother Housing: House Are you a primary career center advisor to a significant other at home: No Do you presently have visiting nurse or other home services: No 75 years or older and lives alone: No Alcohol intake: never Patient Tobacco Use Status: Never used Tobacco e-Cigarette/Vaping Use: Never Used Second Hand Smoke Exposure: No service: No Current occupational status: employed 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 Card Details: Occasional ankle edema on the left where she had her DVT. Negative chest pain, palpitations and syncope Resp Details: Still some exertional dyspnea. Negative for cough and wheezing GI Details: Negative indigestion/heartburn, nausea, abdominal pain, bowel changes, diarrhea, constipation and bloody stool. Skin/Breast Details: Negative for itching, rash, hives, Raynaud's symptoms, sun sensitivity, and skin cancer Neuro Details: Negative for epilepsy, palsy, stroke, changes in speech, tingling and weakness Endo Details: Negative for polyuria and polydypsia Alok/Lymph Details: Negative for excessive bruising or bleeding. Physical Exam Vital Signs: Last Vital Signs Pulse 88 11/03/23 09:36 BP 128/86 11/03/23 09:36 Pulse Ox 98 11/03/23 09:36 Oxygen Delivery Method Room Air 11/03/23 09:36 BMI result Body Mass Index 63.3 APPEARANCE: Patient in no acute distress EYES no redness, pupils equal and reactive to light, eyelids normal EARS: External ear normal, canal clear and tympanic membrane normal. NOSE/SINUS: Airflow through both nares, no nasal discharge, no bleeding THROAT: Oral mucosa moist, no ulcerations NECK: No thyromegaly or masses, no adenopathy, trachea midline. HEART: Regulrar rhythm, S1-S2 heard, no murmurs, rubs or gallops. LUNG: Clear to percussion and auscultation ABD: Normal bowel sounds, no organomegaly, masses or tenderness. EXTREMITIES: No edema, no calf tenderness, normal peripheral pulses. NEURO: Oriented and alert x3. No focal weakness. Reflexes symmetric. Gait normal. SKIN: No inflammatory or neoplastic lesions. Normal color and turgor JOINT EXAM:? The joints have normal pain-free range of motion without tenderness or swelling.? Results Reviewed Results Reviewed: Laboratory Tests 11/02/23 14:08 WBC 7.8 Hgb 11.9 L Plt Count 205 Creatinine 1.42 H C-Reactive Protein 0.11 Laboratory Tests 11/02/23 11/02/23 14:06 14:08 C-Reactive Protein 0.11 Protein/Creatinin Ratio 0.16 Assessment & Plan Assessment & Plan (1) Immunodeficiency due to treatment with immunosuppressive medication: Code(s): D84.821 - Immunodeficiency due to drugs; Z79.899 - Other group home (current) drug therapy (2) Systemic lupus erythematosus: Comment: Onset 11/2020 - on hydralazine - ? 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 2020 hydroxychloroquine started: Eye exam okay March 2023 anti-DNA pos. Anti DEE DEE and complements normal. 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 She does have history of renal disease currently treated in nephrology with the mycophenolate. The proteinuria is minimal at the most currently. Creatinine is stable in the 1.4 range. She does not seem to have any active synovitis, skin rash or mucosal ulcers suggesting lupus activity. I encouraged her to follow through with pulmonary rehab. I will ask her to try to reduce the prednisone to 2.5 mg daily in the middle November. Follow-up in 2 months is recommended. Orders: Orders Anti DNA DS Antibody Today D84.821 - Immunodeficiency due to drugs, M32.9 - Systemic lupus erythematosus, unspecified, Z79.899 - Other group home (current) drug therapy C Reactive Protein 1 Month D84.821 - Immunodeficiency due to drugs, M32.9 - Systemic lupus erythematosus, unspecified, Z79.899 - Other group home (current) drug therapy Comprehensive Met. Panel Today D84.821 - Immunodeficiency due to drugs, M32.9 - Systemic lupus erythematosus, unspecified, Z79.899 - Other rat exterminator (current) drug therapy Protein Creatinine Ratio, Ur Today D84.821 - Immunodeficiency due to drugs, M32.9 - Systemic lupus erythematosus, unspecified, Z79.899 - Other group home (current) drug therapy Erythrocyte Sedimentation Rate Today D84.821 - Immunodeficiency due to drugs, M32.9 - Systemic lupus erythematosus, unspecified, Z79.899 - Other group home (current) drug therapy Complement C3 Today D84.821 - Immunodeficiency due to drugs, M32.9 - Systemic lupus erythematosus, unspecified, Z79.899 - Other rat exterminator (current) drug therapy Complement C4 Today D84.821 - Immunodeficiency due to drugs, M32.9 - Systemic lupus erythematosus, unspecified, Z79.899 - Other rat exterminator (current) drug therapy Complete Blood Count Auto Diff 1 Month D84.821 - Immunodeficiency due to drugs, M32.9 - Systemic lupus erythematosus, unspecified, Z79.899 - Other group home (current) drug therapy Coding Level of Care Code Est Pt Level 3 (61304) Diagnoses Immunodeficiency due to treatment with immunosuppressive medication D84.821; Z79.899 Systemic lupus erythematosus M32.9
== END 2023-11-03 10:14 | disposition home or self-care (01) ==
PROVIDERS: PCP Internal Medicine; Visit Provider Internal Medicine Rheumatology
DX: D84.821 Immunodeficiency due to drugs (principal); Z79.899 Other long term (current) drug therapy; M32.9 Systemic lupus erythematosus, unspecified
CPT/HCPCS: 99213

== ENCOUNTER → 2023-11-03 09:29 | Outpatient (BNVA) | payer OTHER, SELFPAY | PROVIDERS: PCP Internal Medicine; Visit Provider Internal Medicine Rheumatology ==

== ENCOUNTER 2023-12-01 08:30 | Outpatient (RCR) | payer OTHER, SELFPAY ==
[2023-07-13 13:07] VITALS: PULSE 61
--- NOTE | 2023-07-13 14:52 | MHC.PR.IN ---
[address] [phone] F: [phone] Pulmonary Rehabilitation Individual Treatment Plan Rodri Su is a 42 year old (F) who was referred to the Pulmonary Rehabilitation program by Jah Cole. This patient who has a primary diagnosis of Post Covid will begin pulmonary rehabilitation with monitored exercise and education to optimize both physical and social performance, autonomy, increase strength and endurance, and control dypsnea. The following information was gathered from the patient: Smoking History Current smoking status: Never Smoked Years smoked: Last time smoked: Quit Date: Assistance with quitting needed: Past Medical History Medical History: Pulmonary Embolism Pneumonia Vision Problems Surgeries: Past Pulmonary Hospitalizations # of hospitalizations in the past year: # of ER vists due to breathing troubles in the past year: 3 for upper respiratory issues august/November/February Current Pulmonary Medications Symbicort once daily Albuterol PRN Elliquis 2X daily micophenalate Amodepine Pantoprazol prednisone Allergy History Allergies: hydralazine/ penicillin Current Oxygen Use Supplemental Oxygen Device Used: Liter flow: How often: Pulmonary History Cough: No Sputum: Sleep device: No Other pulmonary devices: Peak flow meter: No Nebulizer: No Suction: No Ventilator: No Secretion clearance: No PEP: No Influenza vaccine: No Pneumonia vaccine: No Patient Questionaire Scores MRC Dyspnea Scale (mRC): 3 CAT Score: PHQ-9 Score: 2 Pulmonary Function Test and Vital Signs Pulmonary Function Test Date of PFT FVC Actual % FVC Predicted % FEV1 Actual % FEV1 Predicted % FEV1/FVC Actual % FEV1/FVC Predicted % DLCO Vital Signs Heart Rate 61 Blood Pressure SpO2 100% Respiratory Rate 18 normal shallow breaths Six Minute Walk Test Supplemental Oxygen O2 L/min: RA FiO2: Resting Vitals SpO2: 99% BP: 158/90mmHg HR: 78 bpm Total Distance 630 Number/ Time of Rests (sec) 3 rests for 6/30/10 seconds in that order 3 AMNA 0 METS 1.91 SpO2 100 HR (bpm) 61 MPH 1.19 Meters/Minute 32 Post-walk Vitals SpO2: 99 BP: 152/88 HR: 91 Performance Observations Pt walker a moderate pace, unassisted, for 6 minutes. Pt took 3 breaks and began testing again after recovery without prompts. Pulmonary Rehabilitation Plan Topic Problem Goal Plan Comment Education Knowledge deficit of disease self management strategies Verbalize adequate disease self-management skills Effective control of dyspnea Advanced directives Disease overview Exacerbation prevention and management Home exercise program Panic Control Respiratory medication education initiated and ongoing. Educated on A&P of good lung vs. bad lungs, and how lungs work. Pt educated on pulmonary embolism and post covid. Hypoxia N/A, no s/s of hypoxemia SpO2 >90 Appropriate portable oxygen system obtained Using oxygen as ordered Monitor oxygen saturation with rest and exercise Recommend appropriate liter flow to patient and physician Educate appropriate use of oxygen at rest and with activity Pt does not require oxygen use at this time. Psychosocial N/A, PHQ-9 score <5 Adequate treatment of depression Referral to MD for counseling Verbalizes improved psychosocial coping strategies & mechanisms Review screening results Benefits of exercise Coping techniques Stress management On medications currently Stress/coping/and worry education initiated and ongoing. Activities of Daily Living Impaired ADL management ADL management and control of dyspnea ADL performance with pacing and pursed lip breathing Educate on pursed lip breathing and pacing with stairs and activity Mcallister coughing and diaphragmatic breathing education initiated and ongoing. Nutrition & Weight Management Obese Lose weight during program Education classes Education re ongoing weight monitoring Nutrition consult Pt states she has always been obese. She would like to lose weight during program. Dash diet education initiated and ongoing. Tobacco Managment NA pt has never been a smoker Medication Medication non-adherence Adherence to prescribed medications Importance of medication compliance Medications purpose Medication schedule Medication side-effects Prescribed medications PT states she uses all medications as prescribed. Medication purpose/side effects education initiated and ongoing. Inhaled Medication Incorrect inhaled prescription use Correct technique/timing and care of inhaled medications Demo of MDI with spacer device MDI with spacer device Spacer teaching and cleaning education initiated and ongoing. Secretion Management Ineffective airway clearance Patient demonstrates effective cough and airway clearance Patient demonstrates effective cough and airway clearance education inititated and ongoing. Exercise & Fitness Decreased strength & endurance Knowledge deficit of exercise guidelines & safety No regular exercise Pulmonary Rehab 2-3x/week Weight or resistance training 2-3x/week Aerobic Exercise: 30-60mins x 9 weeks Review benefits & core components of exercise program Review how to measure and monitor dyspnea level Review exercise safety guidelines Review frequency and duration of exercise Review exercise intensity AMNA RPD 3-4/10 Review home exercise guidelines 6 minute walk UBE RPD 3 1.5 METs Treadmill RPD 3-4 METS 1.56 Nustep RPD 3 METs 1.72 Diabetes Management Does patient have DM?: No Diabetes Type: Current Blood Glucose Level: Current A1C Level: Self Check: PT is not a diabetic Patient's Goals and Concerns Pt states she would like to get back to her baseline breathing. Pt states she is ready to feel better and committed to giving it her all during our program. . 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 The treatment plan and goals support the patient's needs and abilities, and thereby recommend that the exercise plan be completed as documented. Special precautions or modifications to the treatment plan include:
--- NOTE | 2023-09-16 07:15 | MHC.PR.DC ---
[address] [phone] F: [phone] Pulmonary Rehabilitation Discharge Rodri Su is a 42 year old (F) who was referred to the Pulmonary Rehabilitation program by Jah Cole. This patient who has a primary diagnosis of Post Covid has completed sessions of the pulmonary rehabilitation program with monitored exercise and education to optimize both physical and social performance, autonomy, increase strength and endurance, and control dypsnea. They were evaluated on . Discharge summary and tests are below. Initial MRC Score: 3 Discharge MRC Score: Six Minute Walk Test Initial 6MWT Discharge 6MWT Supplemental Oxygen O2 L/min: RA FiO2: O2 L/min: FiO2: Resting Vitals SpO2: 99% BP: 158/90mmHg HR: 78 bpm SpO2: % BP: mmHg HR: bpm Total Distance (ft) 630 Number/ Time of Rests (sec) 3 rests for 6/30/10 seconds in that order 3 AMNA 0 Walk Vitals SpO2: 100 HR: 61 SpO2: HR: Post-Walk Vitals SpO2: 99 BP: 152/88 HR: 91 SpO2: BP: HR: Performance Observations Pt walker a moderate pace, unassisted, for 6 minutes. Pt took 3 breaks and began testing again after recovery without prompts. Exercise Assessment on : Pre-exercise Post-exercise SpO2 Heart Rate AMNA METS Exercise Assessment on : Pre-exercise Post-exercise SpO2 Heart Rate AMNA METS Exercise Assessment on : Pre-exercise Post-exercise SpO2 Heart Rate AMNA METS Topic Education/Progress Progress Comments Education Hypoxia Current oxygen Use: Psychosocial PHQ-9 Score: 2 Activities of Daily Living Nutrition and Weight Managment Current weight: 372 BMI: Weight change: Tobacco Stages of Change: Tobacco Use: Cigerettes/Day: Any nicotine replacement: Any cessation medication: Smoking quit date: Smokeless tobacco use and amount: Medications Inhaled Medications Patient verbalizes correct technique of: MDI: DPI: SMI: NEBULIZER: Secretion Management Patient provides adequate return demonstration of: Controlled cough: Mcallister cough: Acapella/ PEP Device: CPT: Sputum management: Exercise and Fitness Aerobic Exercise Frequency: Target heart range: Heart rate range: SpO2 Range: AMNA RPD: Time (minutes): O2 use with exercise: Current HEP: Discharge Assessment: Discharged Discharge Reason: Pt never participated in rehab Discharge Recommendation: :
--- NOTE | 2023-11-02 09:37 | MHC.PR.RE ---
[address] [phone] F: [phone] Pulmonary Rehabilitation Reassessment Rodri Su is a 42 year old (F) who was referred to the Pulmonary Rehabilitation program by Jah oCle. This patient who has a primary diagnosis of Post Covid has completed 10 sessions of the pulmonary rehabilitation program thus far with monitored exercise and education to optimize both physical and social performance, autonomy, increase strength and endurance, and control dypsnea. They were evaluated on 11/02/23. Reassessment Type: 30-day reassessment Topic Education/ Progress Progress Comments Education Demonstrates disease self-management strategies Using medications as directed Mobilizes secretions successfully Demonstrates strategies for anxiety and depression management Hypoxia Current oxygen Use: Demonstrates knowledge of O2 prescription at rest & with activity Demonstrates knowledge of O2 safety Pt non adherent; notify MD Pt using per Rx 100% of time Psychosocial PHQ-9 Score: 2 Activities of Daily Living Management of ADL with Control of Dyspnea Appropriate Stair Climbing Goal Met Progressing Not Progressing Nutrition & Weight Management Current weight: 372 BMI: Weight change: Weight Stable Progressing Tobacco Stages of Change: Tobacco Use: Cigerettes/Day: Any nicotine replacement: Any cessation medication: Smoking quit date: Smokeless tobacco use and amount: Medication Met, taking 100% of time Symbicort once daily Albuterol PRN Elliquis 2X daily micophenalate Amodepine Pantoprazol prednisone Inhaled Medication Patient verbalizes correct technique of: MDI: Yes DPI: Yes SMI: Yes NEBULIZER: Yes Secretion Management Patient provides adequate return demonstration of: Controlled cough: Yes Mcallister cough: Acapella/ PEP Device: CPT: Sputum management: Exercise & Fitness Aerobic Exercise Frequency: 2X weekly Target heart range: 120 Heart rate range: SpO2 Range: AMNA RPD: 3-4 Time (minutes): 31 O2 use with exercise: Current HEP: treadmill 2X weekly 11 min elliptical 2x weekly 10 min ube 2x weekly 11 minutes 10 min warm up 10 min cool down] Retail Operations Specialist Review I have reviewed the outcome re-assessment and treatment plan. The treatment plan and goals support the patient's needs and abilities, and thereby recommend that the exercise plan be completed as documented. Special precautions or modifications to the treatment plan include:
--- NOTE | 2023-11-27 07:16 | MHC.PR.RE ---
[address] [phone] F: [phone] Pulmonary Rehabilitation Reassessment Rodri Su is a 42 year old (F) who was referred to the Pulmonary Rehabilitation program by Jah Cole. This patient who has a primary diagnosis of Post Covid has completed 17 sessions of the pulmonary rehabilitation program thus far with monitored exercise and education to optimize both physical and social performance, autonomy, increase strength and endurance, and control dypsnea. They were evaluated on 11/27/23. Reassessment Type: 60-day reassessment Topic Education/ Progress Progress Comments Education Demonstrates disease self-management strategies Using medications as directed Mobilizes secretions successfully Demonstrates strategies for anxiety and depression management Hypoxia Current oxygen Use: Demonstrates knowledge of O2 prescription at rest & with activity Demonstrates knowledge of O2 safety Pt non adherent; notify MD Pt using per Rx 100% of time Psychosocial PHQ-9 Score: 2 Activities of Daily Living Management of ADL with Control of Dyspnea Appropriate Stair Climbing Goal Met Progressing Not Progressing Nutrition & Weight Management Current weight: 372 BMI: Weight change: Weight Stable Progressing Tobacco Stages of Change: Tobacco Use: Cigerettes/Day: Any nicotine replacement: Any cessation medication: Smoking quit date: Smokeless tobacco use and amount: Medication Met, taking 100% of time Symbicort once daily Albuterol PRN Elliquis 2X daily micophenalate Amodepine Pantoprazol prednisone Inhaled Medication Patient verbalizes correct technique of: MDI: Yes DPI: Yes SMI: Yes NEBULIZER: Yes Secretion Management Patient provides adequate return demonstration of: Controlled cough: Yes Mcallister cough: Acapella/ PEP Device: CPT: Sputum management: Exercise & Fitness Aerobic Exercise Frequency: 2X weekly Target heart range: 120 Heart rate range: SpO2 Range: AMNA RPD: 3-4 Time (minutes): 31 O2 use with exercise: Current HEP: treadmill 2X weekly 11 min elliptical 2x weekly 10 min ube 2x weekly 11 minutes 10 min warm up 10 min cool down] Biomedical Engineer Review I have reviewed the outcome re-assessment and treatment plan. The treatment plan and goals support the patient's needs and abilities, and thereby recommend that the exercise plan be completed as documented. Special precautions or modifications to the treatment plan include:
--- NOTE | 2023-12-02 09:28 | MHC.PR.DC ---
[address] [phone] F: [phone] Pulmonary Rehabilitation Discharge Rodri Su is a 42 year old (F) who was referred to the Pulmonary Rehabilitation program by Jah Cole. This patient who has a primary diagnosis of Post Covid has completed 17 sessions of the pulmonary rehabilitation program with monitored exercise and education to optimize both physical and social performance, autonomy, increase strength and endurance, and control dypsnea. They were evaluated on 11/27/23. Discharge summary and tests are below. Initial MRC Score: 3 Discharge MRC Score: Six Minute Walk Test Initial 6MWT Discharge 6MWT Supplemental Oxygen O2 L/min: RA FiO2: O2 L/min: FiO2: Resting Vitals SpO2: 99% BP: 158/90mmHg HR: 78 bpm SpO2: % BP: mmHg HR: bpm Total Distance (ft) 630 920 Number/ Time of Rests (sec) 3 rests for 6/30/10 seconds in that order 3 0 AMNA 0 4 Walk Vitals SpO2: 100 HR: 61 SpO2: 98 HR: 124 Post-Walk Vitals SpO2: 99 BP: 152/88 HR: 91 SpO2: 98 BP: HR: 83 Performance Observations Pt walker a moderate pace, unassisted, for 6 minutes. Pt took 3 breaks and began testing again after recovery without prompts. Pt walked unassisted at a moderate pace, with a boot on her foot from a recent injury. She did not stop to take a break Exercise Assessment on : Pre-exercise Post-exercise SpO2 Heart Rate AMNA METS Exercise Assessment on : Pre-exercise Post-exercise SpO2 Heart Rate AMNA METS Exercise Assessment on : Pre-exercise Post-exercise SpO2 Heart Rate AMNA METS Topic Education/Progress Progress Comments Education Demonstrates disease self-management strategies Using medications as directed Mobilizes secretions successfully Demonstrates strategies for anxiety and depression management Hypoxia Current oxygen Use: Demonstrates knowledge of O2 prescription at rest & with activity Demonstrates knowledge of O2 safety Pt non adherent; notify MD Pt using per Rx 100% of time Psychosocial PHQ-9 Score: 2 Activities of Daily Living Management of ADL with Control of Dyspnea Appropriate Stair Climbing Goal Met Progressing Not Progressing Nutrition and Weight Managment Current weight: 372 BMI: Weight change: Weight Stable Progressing Tobacco Stages of Change: Tobacco Use: Cigerettes/Day: Any nicotine replacement: Any cessation medication: Smoking quit date: Smokeless tobacco use and amount: Medications Met, taking 100% of time Inhaled Medications Patient verbalizes correct technique of: MDI: Yes DPI: Yes SMI: Yes NEBULIZER: Yes Secretion Management Patient provides adequate return demonstration of: Controlled cough: Yes Mcallister cough: Acapella/ PEP Device: CPT: Sputum management: Exercise and Fitness Aerobic Exercise Frequency: 2X weekly Target heart range: 120 Heart rate range: SpO2 Range: AMNA RPD: 3-4 Time (minutes): 31 O2 use with exercise: Current HEP: treadmill 2X weekly 11 min elliptical 2x weekly 10 min ube 2x weekly 11 minutes 10 min warm up 10 min cool down] Discharge Assessment: Discharged Discharge Reason: Pt completed pulmonary rehab. Pt documentation on LSI Discharge Recommendation: :
== END 2023-12-02 09:29 | disposition home or self-care (01) ==
LOC: HO.PR 08:30
PROVIDERS: PCP Internal Medicine; Visit Provider Hospitalist
DX: U09.9 Post COVID-19 condition, unspecified (principal)
CPT/HCPCS: 94625; G0239

== ENCOUNTER 2024-01-19 14:36 | Outpatient (REF) | payer OTHER, SELFPAY ==
[2024-01-19 14:54] LABS: MANUAL DIFF FLAG NO
[2024-01-19 16:13] LABS: Basophils Percent Auto 0.5 % (0-2); Eosinophils Absolute Auto 0.1 X10*3/uL (0.0-0.4); Eosinophils Percent Auto 1.2 % (0-4); Hematocrit 37.8 % (37.0-47.0); Hemoglobin 11.7 g/dl (12.0-16.0); Imm Gran Abs Auto 0.02 X10*3/uL (0.00-0.03); Imm Gran Pct Auto 0.3 % (0.0-0.4); Lymphocytes Absolute Auto 1.3 X10*3/uL (1.2-4.9); Lymphocytes Percent Auto 22.3 % (20-40); Mean Corpuscular Hemoglobin 27.1 pg (27.0-33.0); Mean Corpuscular Volume 87.5 fL (80.0-98.0); Monocytes Absolute Auto 0.5 X10*3/uL (0.1-1.2); Monocytes Percent Auto 8.4 % (2-11); Neutrophils Percent Auto 67.3 % (45-73); Platelet Count 228 X10*3/uL (160-400); Red Blood Count 4.32 X10*6/uL (4.20-5.50); Red Cell Distribution Width 13.5 % (11.0-16.0); White Blood Count 5.9 X10*3/uL (4.8-10.8)
[2024-01-19 16:46] LABS: Creatinine Urine 110.77 mg/dL; Protein/Creatinine Ratio, Ur 0.09 (<0.2); Total Protein Urine Random 10 mg/dL (<12)
[2024-01-19 16:50] LABS: Alanine Aminotransferase 6 U/L (0-31); Alkaline Phosphatase 65 U/L (39-117); Anion Gap 11 (12-20); Aspartate Amino Transferase 14 U/L (5-31); Bilirubin Total 0.7 mg/dL (0.0-1.0); Blood Urea Nitrogen 18 mg/dL (9-16); C Reactive Protein 0.22 mg/dL (< or = 0.50); Carbon Dioxide 23 mmol/L (22-29); Chloride 106 mmol/L (96-108); Estimated Glomerular Filt Rate 36; Glucose Random 70 mg/dL (60-115); Potassium 4.4 mmol/L (3.3-5.1); Sodium 136 mmol/L (135-145); Total Protein 7.3 g/dL (6.5-8.0)
[2024-01-19 16:58] LABS: Erythrocyte Sedimentation Rate 17 MM/HR (0-20)
[2024-01-20 13:34] LABS: Anti DNA DS Antibody 7 IU/mL
[2024-01-20 19:29] LABS: Complement C3 142 mg/dL (83-193)
== END 2024-01-19 14:37 | disposition home or self-care (01) ==
LOC: HO.LAB 14:36
PROVIDERS: PCP Internal Medicine; Referring Provider Student in an Organized Health Care Education/Training Program; Visit Provider Internal Medicine Rheumatology
DX: M32.9 Systemic lupus erythematosus, unspecified (principal); D84.821 Immunodeficiency due to drugs; Z79.899 Other long term (current) drug therapy
CPT/HCPCS: 36415; 80053; 82570; 84156; 85025; 85652; 86140; 86160; 86225

== ENCOUNTER 2024-01-21 11:03 | Outpatient (AMB) | payer OTHER, SELFPAY ==
--- NOTE | 2024-01-21 11:25 | MHC.OFFVIS ---
Intake Vital Signs 01/21/24 11:26 Height 5 ft 4 in Weight 356 lb 4.272 oz BMI 61.1 BP 118/72 Blood Pressure Location Lt radial Position Sitting Pulse 97 Pulse Source Pulse Oximeter Pulse Oximetry (%) 96 Oxygen Delivery Method Room Air Intake Visit Reasons: SLE Intake Note: Patient last seen by Dr Minor on 11/03/23 presents today for follow up and test results. Recovering from shingles going on 5 weeks. She was seen at [facility] in [facility] 01/14 discharged 01/15; treated with IV abx, gabapentin, tylenol. Electronic Controls Repairer Supervisor Required: No Accompanied by: Self / Same As Patient Allergies hydralazine Allergy (Severe, Verified 01/21/24 11:28) induced lupus Penicillins Allergy (Intermediate, Verified 01/21/24 11:28) hives Medication List - Last Reconciled 01/21/24 by Nicole Hoffman MD acetaminophen ER 650 mg PO Q8H PRN albuterol sulfate 90 mcg/actuation (ProAir HFA) 2 puffs inhalation Q6H PRN amlodipine 10 mg PO DAILY apixaban (Eliquis) 5 mg PO BID doxycycline hyclate 100 mg PO BID gabapentin 300 mg PO TID hydroxychloroquine 200 mg PO BID mycophenolate mofetil 1,000 mg PO BID pantoprazole 40 mg PO DAILY prednisone 2.5 mg PO DAILY Symbicort 160-4.5 mcg/actuation (budesonide-formoterol) 2 puffs inhalation BID 30 days NS HPI HPI Comments History of Present Illness Details 43-year-old female with SLE returns for follow-up. She is on hydroxychloroquine 200 mg Twice daily and CellCept 1 g Twice daily. Is on 2.5 mg daily since November. She stated that last month she developed burning rash on her left leg. She went to the ER and was told that she had shingles and was told that she was out of the window for antivirals. She was prescribed a short prednisone taper and discharged. Last week she presented to the hospital with cellulitis of her left lower extremity. She stated that her wounds got infected she was admitted for 24 hours, received IV doxycycline, she is currently finishing up a 9 day course of doxycycline. Her shingles lesions have crusted over. She has been feeling well otherwise. She denies any chest pain or shortness of breath. No other rashes. No oral ulcers. States that she will follow-up next month with her production control technologist Dr. Swain and there is a chance she will reduce her CellCept. Most recent history by Dr. Minor's 10/2023: The patient returns for evaluation of her SLE. She is going to pulmonary rehab twice a week. This seems to be helpful at improving her exertional dyspnea. She remains on apixaban because of recurrent DVT, hydroxychloroquine 200 b.i.d., mycophenolate 1 g b.i.d., occasional albuterol inhaler, and prednisone 5 mg daily. She has occasional discomfort in the left knee but otherwise does not seem to have any joint pains. There have been no problems recently with chest pain or abdominal pain, oral ulcers, or skin rashes. 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) Systemic lupus erythematosus Surgical History Hx of laparoscopic gastric banding Social History Household Members: Family Household Members Other:: Mom and brother Housing: House Are you a primary care program director to a significant other at home: No Do you presently have visiting nurse or other home services: No 75 years or older and lives alone: No Alcohol intake: never Patient Tobacco Use Status: Never used Tobacco e-Cigarette/Vaping Use: Never Used Second Hand Smoke Exposure: No service: No Current occupational status: employed 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 Review of Systems [facility] Denies arthralgias and Denies joint swelling Skin/Breast Details: Left leg cellulitis Physical Exam Vital Signs: Last Vital Signs Pulse 97 01/21/24 11:26 BP 118/72 01/21/24 11:26 Pulse Ox 96 01/21/24 11:26 Oxygen Delivery Method Room Air 01/21/24 11:26 BMI result Body Mass Index 61.1 Const General: cooperative, healthy appearing and comfortable Nutritional Appearance: obese morbidly obese Orientation/consciousness: patient oriented x3 Limitations: no limitations HEENT Head: Yes normocephalic and Yes atraumatic Mouth: moist mucous membranes Resp Effort & Inspection: normal respiratory effort and able to speak in complete sentences Cardio Rate: regular rate Skin Other: Multiple small crusted over lesions left leg Erythema and warmth of left leg Neuro General: patient oriented x3 Extrem Other: No active synovitis Normal nailfold capillaroscopy Assessment & Plan Assessment & Plan (1) Systemic lupus erythematosus: Comment: Onset 11/2020 - on hydralazine - ? 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 2020 hydroxychloroquine started: Eye exam okay March 2023 anti-DNA pos. Anti DEE DEE and complements normal. 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 She is doing well overall from lupus standpoint. Creatinine stable, normal C3/C4, dsDNA stable, no proteinuria. She is on CellCept 1 g Twice daily, hydroxychloroquine 200 mg Twice daily and prednisone 2.5 mg daily. She had shingles infection of left leg followed by cellulitis. She is currently finishing up a doxycycline course for cellulitis. Continue current meds. She states that she has a follow-up appointment next month with her production control technologist Dr. Swain and there is a chance her CellCept dose will be reduced. Follow-up in about 4 months. I advised patient to send us any blood work she does with her production control technologist before her next appointment with me Plan I spent 45 minutes reviewing patient's chart, evaluating patient, ordering diagnostic workup, counseling patient and documenting in the chart Coding Level of Care Code Est Pt Level 4 (46286) Diagnoses Other systemic lupus erythematosus with glomerular disease M32.14 Systemic lupus erythematosus type: other Systemic lupus erythematosus organ involvement: glomerular disease
[2024-01-21 11:26] VITALS: BP 118/72; PULSE 97; O2SAT 96; BMI 61.1
== END 2024-01-21 11:55 | disposition home or self-care (01) ==
PROVIDERS: PCP Internal Medicine; Visit Provider Student in an Organized Health Care Education/Training Program
DX: M32.14 Glomerular disease in systemic lupus erythematosus (principal)
CPT/HCPCS: 99214

== ENCOUNTER → 2024-01-21 11:03 | Outpatient (BNVA) | payer OTHER, SELFPAY | PROVIDERS: PCP Internal Medicine; Visit Provider Student in an Organized Health Care Education/Training Program ==

== ENCOUNTER 2024-01-29 14:16 | Outpatient (AMB) | payer OTHER, SELFPAY ==
[2024-01-29 14:27] VITALS: PULSE 77; O2SAT 97; BMI 60.8
--- NOTE | 2024-01-29 14:27 | MHC.OFFVIS ---
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 Per the patient had been in her usual state health until early 2020 when she was diagnosed with lupus. Apparently she was evaluated by Rheumatology at time in felt to be drug induced since she was on hydralazine. Subsequently after that the patient started developing lower extremity edema pain and shortness of breath. She was admitted to the hospital with pulmonary emboli. There was a limited study because of her respiratory symptoms although definitive defect in the right lower lobe vasculature. The patient also had what appeared to be a patchy consolidation in the left lower lobe with small effusion. The patient was not hospital for prolonged care time approximately 2-3 weeks. She was discharged on anticoagulation. After that she ended up having COVID-19. Since then the patient has been having issues with dyspnea on exertion. Mild to moderate with severity. She did undergo pulmonary function studies which I did personally soon early review with her. The patient does have some evidence of small airways disease. In addition to that no other significant findings. During the office visit we did go for a 6 minutes walk test. The patient with activity had a pulse ox of 99%. Although her heart rate did increase to about 120 beats per minute when she was dyspneic with a dyspnea score of 7/10. The patient continues to be on anticoagulation. Based on her event is consider an unprovoked event. Possibly related to her connective tissue disease although is not for certain. Based on her ongoing dyspnea in addition to significant tachycardia with minimal activity will request a V/Q scan to address the question of any chronic thromboembolic disease. In addition to this when echocardiogram will be helpful. She did have an echo back in 2020 although it was poorly visualized in the right ventricle and therefore cannot comment on the right ventricle function or appearance. 06/23/2023 the patient is here for pulmonary follow-up visit. He continues to have dyspnea on exertion. [id number] severity. Difficult to perform her activities of daily living though. The patient did have a 6 minute walk test with significant tachycardia with minimal activity during the last visit. We had her undergo an echocardiogram which is reassuring. Pulmonary pressures were estimated to be normal. Subsequently after that had a V/Q scan without any evidence of any residual defects suggesting no further residual clots. However, the patient continued to have symptoms therefore she underwent a cardiopulmonary exercise tolerance test at [facility]. We did follow-up with the results. The patient did have a normal aerobic capacity. However with exercise she did develop significant systemic hypertension. The patient also was noted to have a decreased pulse ox down to 90% with exercise suggesting a pulmonary limitation. 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 Explained to the patient that will have to further evaluate this for definitive diagnosis. If the patient does have pulmonary hypertension that is exercise induced with a history of lupus she will benefit from basal dilatory therapy. The patient also was recommended a referral to [place] to be evaluated by a pulmonary hypertension clinic. The patient is agreeable to this as well. Will try to perform an exercise echo to assess for any cardiac disease in addition to see if we can estimate pulmonary pressures with exercise. In addition to this the patient will be referred to pulmonary rehabilitation for her underlying post COVID syndrome. 08/25/2023 the patient is here for a pulmonary follow-up visit. She is starting to feel little better. She did follow-up with Cardiology and she was reassured. The patient is can be starting pulmonary rehabilitation soon which I believe is going to be a great addition to her therapy and hopeful that she will continue to feel better. The patient is aware that if her symptoms worsen or if she does not see any improvement we can also consider referral to [facility] to have further evaluation of her dyspnea symptoms. Seems that she is doing better from the lupus standpoint. She had a flare-up sometime in the summer but she is doing better at this time. She is tolerating the Eliquis and therefore she has no recurrence of any clotting at this time. The patient will start pulmonary rehabilitation. Plan to follow-up in 4 months if the patient has any worsening symptoms prior to that she is to call the office for an earlier assessment. 01/29/2024 the patient is here for a pulmonary follow-up visit. The patient overall has been feeling better. She did complete pulmonary rehabilitation. She did find a very useful and helpful for her. In addition to that she is working with a new bioinformatics programmer. They are working on getting her off the mycophenolate and then potentially a different regimen. Unfortunately she did develop a course of cellulitis in her lower extremity and then developed significant shingles in the lower extremity as well. Therefore, the immunosuppression due to the immunomodulator therapy has resulted in significant issues. Therefore she will work closely with bioinformatics programmer in regards of her lupus and immunosuppressive therapy. From a respiratory status the patient has been doing a lot better. Denies any significant shortness of breath at rest. Mild dyspnea on exertion with activity. She continues on the Eliquis 5 mg b.i.d.. At this point is still considered unprovoked and the patient is high risk for developing a recurrent clot if she stopped the anticoagulation. Therefore she should continue with lifelong anticoagulation at this time. We did briefly talk about the prophylactic dose but I am wary about the dose in view of her body weight A medication distribution. 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) Systemic lupus erythematosus Surgical History Hx of laparoscopic gastric banding Social History Household Members: Family Household Members Other:: Mom and brother Housing: House Are you a primary customer care professional to a significant other at home: No Do you presently have visiting nurse or other home services: No 75 years or older and lives alone: No Alcohol intake: never Patient Tobacco Use Status: Never used Tobacco e-Cigarette/Vaping Use: Never Used Second Hand Smoke Exposure: No service: No Current occupational status: employed 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 Denies headache(s) Card Details: Negative chest pain, edema and syncope Reports dyspnea and Reports dyspnea on exertion Resp Reports dyspnea, Reports dyspnea on exertion and Denies wheezing GI Details: Negative indigestion/heartburn, nausea, abdominal pain, bowel changes, diarrhea, constipation and bloody stool. Reports no additional complaints Musc Reports no additional complaints Skin/Breast Details: Negative for itching, rash, hives, Raynaud's symptoms, sun sensitivity, and skin cancer Denies rash Neuro Details: Negative for epilepsy, palsy, stroke, changes in speech, tingling and weakness Reports no additional complaints and Denies headache(s) Endo Details: Negative for polyuria and polydypsia Alok/Lymph Details: Negative for excessive bruising or bleeding. Denies easy bleeding and Denies easy bruising Aller/Immun Denies wheezing Physical Exam Vital Signs: Last Vital Signs Pulse 77 01/29/24 14:27 Pulse Ox 97 01/29/24 14:27 Oxygen Delivery Method Room Air 01/29/24 14:27 BMI result Body Mass Index 60.8 Const General: comfortable HEENT Head: Yes normal to inspection Neck Neck: Yes supple Chest Chest palpation & inspection: normal inspection of the chest Resp Effort & Inspection: normal respiratory effort Auscultation: no rhonchi, no wheezes and diminished lung sounds Cardio Rate: regular rate Rhythm: regular rhythm Heart sounds: S1 normal heart sound present and S2 normal heart sound present GI Palpation (GI): Soft to palpation Extrem General: No clubbing and No cyanosis Assessment & Plan Assessment & Plan (1) DEL ANGEL (dyspnea on exertion): Comment: Likely multifactorial. CPET appears to suggest a pulmonary limitation, suggesting pulmonary vascular disease Code(s): R06.00 - Dyspnea, unspecified (2) Pulmonary emboli: Comment: VQ scan is reassuring Code(s): I26.99 - Other pulmonary embolism without acute cor pulmonale Qualifiers: Pulmonary embolism type: multiple subsegmental (without acute cor pulmonale) Qualified Code(s): I26.94 - Multiple subsegmental pulmonary emboli without acute cor pulmonale (3) Asthma: Code(s): J45.909 - Unspecified asthma, uncomplicated Qualifiers: Asthma complication type: uncomplicated Asthma persistence: persistent Asthma severity: moderate Qualified Code(s): J45.40 - Moderate persistent asthma, uncomplicated (4) Pulmonary hypertension: Comment: Exercise induced Code(s): I27.20 - Pulmonary hypertension, unspecified Plan continue Symbicort continue Eliquis 5mg BID for the unprovoked PE. Should continue on the anticoagulation completed pulmonary rehab F/U 8-12 months Coding Level of Care Code Est Pt Level 4 (59643) Diagnoses DEL ANGEL (dyspnea on exertion) R06.00 Multiple subsegmental pulmonary emboli without acute cor pulmonale I26.94 Pulmonary embolism type: multiple subsegmental (without acute cor pulmonale) Moderate persistent asthma without complication J45.40 Asthma complication type: uncomplicated Asthma persistence: persistent Asthma severity: moderate Pulmonary hypertension I27.20 Time Spent (min) 17
== END 2024-01-29 14:51 | disposition home or self-care (01) ==
PROVIDERS: PCP Internal Medicine; Visit Provider Hospitalist
DX: R06.00 Dyspnea, unspecified (principal); I26.94 Multiple subsegmental thrombotic pulmonary emboli without acute cor pulmonale; J45.40 Moderate persistent asthma, uncomplicated; I27.20 Pulmonary hypertension, unspecified
CPT/HCPCS: 99214

== ENCOUNTER → 2024-01-29 14:16 | Outpatient (BNVA) | payer OTHER, SELFPAY | PROVIDERS: PCP Internal Medicine; Visit Provider Hospitalist | DX: J44.9 Chronic obstructive pulmonary disease, unspecified (principal); U09.9 Post COVID-19 condition, unspecified; I27.20 Pulmonary hypertension, unspecified ==

== ENCOUNTER 2024-07-26 10:38 | Outpatient (AMB) | payer OTHER, SELFPAY ==
--- NOTE | 2024-07-26 10:51 | MHC.OFFVIS ---
Vital Signs 07/26/24 10:56 Height 5 ft 4 in Weight 346 lb 2.012 oz BMI 59.4 BP 128/72 Blood Pressure Location Lt brachial Position Sitting Pulse 66 Pulse Source Pulse Oximeter Pulse Oximetry (%) 97 Oxygen Delivery Method Room Air Intake Visit Reasons: SLE/CM Intake Note: Patient presents for SLE. Allergies hydralazine Allergy (Severe, Verified 07/26/24 10:54) induced lupus Penicillins Allergy (Intermediate, Verified 07/26/24 10:54) hives Medication List - Last Reconciled 07/26/24 by Nicole Hoffman MD acetaminophen ER 650 mg PO Q8H PRN albuterol sulfate 90 mcg/actuation (ProAir HFA) 2 puffs inhalation Q6H PRN amlodipine 10 mg PO DAILY apixaban (Eliquis) 5 mg PO BID gabapentin 300 mg PO TID hydroxychloroquine 200 mg PO BID mycophenolate mofetil 1,000 mg PO BID pantoprazole 40 mg PO DAILY prednisone 2.5 mg PO DAILY Symbicort 160-4.5 mcg/actuation (budesonide-formoterol) 2 puffs inhalation BID 30 days NS HPI Comments Details: 43-year-old female with SLE returns for follow-up. She is on prednisone 2.5 mg daily, hydroxychloroquine 200 mg Twice daily and CellCept 500 mg Twice daily. She states that her SLE is doing relatively well overall. She states that the CellCept is being tapered by her patient coordinator. She is now down to CellCept 500 mg Twice daily. She gets blood work monthly now. She states that the shingles infection of her left leg has cleared up. She states that she was quite active with her hands at work over the last 2 weeks, she has noted intermittent tingling of her left thumb and left index fingers. Most recent history by Dr. Minor's 10/2023: The patient returns for evaluation of her SLE. She is going to pulmonary rehab twice a week. This seems to be helpful at improving her exertional dyspnea. She remains on apixaban because of recurrent DVT, hydroxychloroquine 200 b.i.d., mycophenolate 1 g b.i.d., occasional albuterol inhaler, and prednisone 5 mg daily. She has occasional discomfort in the left knee but otherwise does not seem to have any joint pains. There have been no problems recently with chest pain or abdominal pain, oral ulcers, or skin rashes. 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) Systemic lupus erythematosus Surgical History Hx of laparoscopic gastric banding Social History Household Members: Family Household Members Other:: Mom and brother Housing: House Are you a primary child care group leader to a significant other at home: No Do you presently have visiting nurse or other home services: No 75 years or older and lives alone: No Alcohol intake: never Patient Tobacco Use Status: Never used Tobacco e-Cigarette/Vaping Use: Never Used Second Hand Smoke Exposure: No service: No Current occupational status: employed 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 Review of Systems [facility] [place] arthralgias, Denies joint swelling and Reports numbness Neuro Reports numbness Physical Exam Vital Signs: Last Vital Signs Pulse 66 07/26/24 10:56 BP 128/72 07/26/24 10:56 Pulse Ox 97 07/26/24 10:56 Oxygen Delivery Method Room Air 07/26/24 10:56 BMI result Body Mass Index 59.4 Const General: cooperative, healthy appearing and comfortable Nutritional Appearance: obese morbidly obese Orientation/consciousness: patient oriented x3 Limitations: no limitations HEENT Head: Yes normocephalic and Yes atraumatic Mouth: moist mucous membranes Resp Effort & Inspection: normal respiratory effort and able to speak in complete sentences Cardio Rate: regular rate Skin Other: multiple hyperpigmented lesions of left leg Neuro General: patient oriented x3 Extrem Other: No active synovitis Normal nailfold capillaroscopy Positive Durkan's test left hand Assessment & Plan Assessment & Plan (1) Systemic lupus erythematosus: Comment: Onset 11/2020 - on hydralazine - ? 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 2020 hydroxychloroquine started: Eye exam okay March 2023 anti-DNA pos. Anti DEE DEE and complements normal. 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 She is on hydroxychloroquine 200 mg Twice daily, CellCept 500 mg Twice daily and prednisone 2.5 mg daily. Patient has been following up regularly with her patient coordinator Dr. Swain. States that he is trying to taper her CellCept. She has been getting monthly labs. On clinical exam I do not see any signs of active SLE. Advised patient to discuss with her patient coordinator, send me most recent set of labs Continue meds Follow-up in 1 month to do FMLA paperwork (2) Need for shingles vaccine: Code(s): Z23 - Encounter for immunization Category: Medical Plan: Patient developed shingles infection her left leg. I think patient would benefit from Shingrix vaccine. Patient has lupus and is immune suppressed and should get Shingrix vaccine. Advised patient to to get the Shingrix vaccine and let us know if there is any paperwork required on our and (3) Left hand paresthesia: Code(s): R20.2 - Paresthesia of skin Category: Medical Plan: Minimal symptoms, possible mild carpal tunnel that was provoked by increased manual activity over the last few weeks. If symptoms persist, we will consider EMG/NCV of left upper extremity and/or left wrist splint Plan I spent 25 minutes reviewing patient's chart, evaluating patient, counseling patient and documenting in the chart Coding Level of Care Code Est Pt Level 4 (15675) Diagnoses Other systemic lupus erythematosus with glomerular disease M32.14 Systemic lupus erythematosus type: other Systemic lupus erythematosus organ involvement: glomerular disease Need for shingles vaccine Z23 Left hand paresthesia R20.2
[2024-07-26 10:56] VITALS: BP 128/72; PULSE 66; O2SAT 97; BMI 59.4
== END 2024-07-26 11:31 | disposition home or self-care (01) ==
PROVIDERS: PCP Internal Medicine; Visit Provider Student in an Organized Health Care Education/Training Program
DX: M32.14 Glomerular disease in systemic lupus erythematosus (principal); Z23 Encounter for immunization; R20.2 Paresthesia of skin
CPT/HCPCS: 99214

== ENCOUNTER → 2024-07-26 10:38 | Outpatient (BNVA) | payer OTHER, SELFPAY | PROVIDERS: PCP Internal Medicine; Visit Provider Student in an Organized Health Care Education/Training Program ==

== ENCOUNTER 2024-08-30 08:38 | Outpatient (AMB) | payer OTHER, SELFPAY ==
--- NOTE | 2024-08-30 08:46 | A.OFFVIS_ITS ---
Vital Signs 08/30/24 08:49 Height 5 ft 4 in Weight 348 lb 12.34 oz BMI 59.9 BP 120/70 Blood Pressure Location Rt radial Pulse 81 Pulse Source Pulse Oximeter Pulse Oximetry (%) 99 Oxygen Delivery Method Room Air Intake Visit Reasons: SLE Intake Note: Patient presents for SLE. Allergies hydralazine Allergy (Severe, Verified 08/30/24 08:49) induced lupus Penicillins Allergy (Intermediate, Verified 08/30/24 08:49) hives Medication List - Last Reconciled 08/30/24 by Nicole Hoffman MD acetaminophen ER 650 mg PO Q8H PRN albuterol sulfate 90 mcg/actuation (ProAir HFA) 2 puffs inhalation Q6H PRN amlodipine 10 mg PO DAILY apixaban (Eliquis) 5 mg PO BID gabapentin 300 mg PO TID hydroxychloroquine 200 mg PO BID mycophenolate mofetil 1,000 mg PO BID pantoprazole 40 mg PO DAILY prednisone 2.5 mg PO DAILY Symbicort 160-4.5 mcg/actuation (budesonide-formoterol) 2 puffs inhalation BID 30 days NS HPI Comments Details: 43-year-old female with SLE returns for [place] paperwork completion. Most recent history by Dr. Minor's 10/2023: The patient returns for evaluation of her SLE. She is going to pulmonary rehab twice a week. This seems to be helpful at improving her exertional dyspnea. She remains on a pixaban because of recurrent DVT, hydroxychloroquine 200 b.i.d., mycophenolate 1 g b.i.d., occasional albuterol inhaler, and prednisone 5 mg daily. She has occasional discomfort in the left knee but otherwise does not seem to have any joint pains. There have been no problems recently with chest pain or abdominal pain, oral ulcers, or skin rashes. 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) Systemic lupus erythematosus Surgical History Hx of laparoscopic gastric banding Social History Household Members: Family Household Members Other:: Mom and brother Housing: House Are you a primary home care music therapist to a significant other at home: No Do you presently have visiting nurse or other home services: No 75 years or older and lives alone: No Alcohol intake: never Patient Tobacco Use Status: Never used Tobacco e-Cigarette/Vaping Use: Never Used Second Hand Smoke Exposure: No service: No Current occupational status: employed 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 Review of Systems [facility] [place] Reports arthralgias Physical Exam Vital Signs: Last Vital Signs Pulse 81 08/30/24 08:49 BP 120/70 08/30/24 08:49 Pulse Ox 99 08/30/24 08:49 Oxygen Delivery Method Room Air 08/30/24 08:49 BMI result Body Mass Index 59.9 Const General: cooperative, healthy appearing and comfortable Nutritional Appearance: obese morbidly obese Orientation/consciousness: patient oriented x3 Limitations: no limitations HEENT Head: Yes normocephalic and Yes atraumatic Resp Effort & Inspection: normal respiratory effort and able to speak in complete sentences Neuro General: patient oriented x3 Assessment & Plan Assessment & Plan (1) Systemic lupus erythematosus: Comment: Onset 11/2020 - on hydralazine - ? 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 2020 hydroxychloroquine started: Eye exam okay March 2023 anti-DNA pos. Anti DEE DEE and complements normal. 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 Paperwork completed in the office today Follow-up in 4 months Plan I spent 15 minutes reviewing patient's chart, completing FMLA paperwork & documenting in the chart Coding Level of Care Code Est Pt Level 3 (19446) Diagnoses Other systemic lupus erythematosus with glomerular disease M32.14 Systemic lupus erythematosus type: other Systemic lupus erythematosus organ involvement: glomerular disease
[2024-08-30 08:49] VITALS: BP 120/70; PULSE 81; O2SAT 99; BMI 59.9
== END 2024-08-30 09:12 | disposition home or self-care (01) ==
PROVIDERS: PCP Internal Medicine; Visit Provider Student in an Organized Health Care Education/Training Program
DX: M32.14 Glomerular disease in systemic lupus erythematosus (principal)
CPT/HCPCS: 99213

== ENCOUNTER → 2024-08-30 08:38 | Outpatient (BNVA) | payer OTHER, SELFPAY | PROVIDERS: PCP Internal Medicine; Visit Provider Student in an Organized Health Care Education/Training Program ==

== ENCOUNTER 2024-11-10 07:43 | Outpatient (AMB) | payer OTHER, SELFPAY ==
--- NOTE | 2024-11-10 07:45 | MHC.OFFVIS ---
Vital Signs 11/10/24 07:48 Height 5 ft 4 in Weight 362 lb 7.039 oz BMI 62.2 BP 142/84 H Blood Pressure Location Rt brachial Position Sitting Pulse 52 Pulse Source Pulse Oximeter Pulse Oximetry (%) 99 Oxygen Delivery Method Simple Mask Intake Visit Reasons: FMLA paperwork discussion Intake Note: Patient presents for FMLA paperwork discussion. Allergies hydralazine Allergy (Severe, Verified 11/10/24 07:48) induced lupus Penicillins Allergy (Intermediate, Verified 11/10/24 07:48) hives Medication List - Last Reconciled 11/10/24 by Nicole Hoffman MD acetaminophen ER 650 mg PO Q8H PRN albuterol sulfate 90 mcg/actuation (ProAir HFA) 2 puffs inhalation Q6H PRN amlodipine 10 mg PO DAILY apixaban (Eliquis) 5 mg PO BID Benlysta (belimumab) 200 mg subcut QWEEK NS gabapentin 300 mg PO TID hydroxychloroquine 200 mg PO BID mycophenolate mofetil 500 mg PO BID pantoprazole 40 mg PO DAILY prednisone 2.5 mg PO DAILY Symbicort 160-4.5 mcg/actuation (budesonide-formoterol) 2 puffs inhalation BID 30 days NS HPI Comments Details: 43-year-old female with SLE returns for for follow-up and FMLA paperwork completion. She states that she has been following up regularly with her jeweler apprentice Dr. Grey's. There has been no major change in her medication regimen. She remains on mycophenolate 500 mg Twice daily, prednisone 2.5 mg daily, hydroxychloroquine 200 mg Twice daily. Benlysta was approved but has not been shipped yet she states that she will have her lap band removed in the near future and then will have a sleeve operation Most recent history by Dr. Minor'natalie 10/2023: The patient returns for evaluation of her SLE. She is going to pulmonary rehab twice a week. This seems to be helpful at improving her exertional dyspnea. She remains on apixaban because of recurrent DVT, hydroxychloroquine 200 b.i.d., mycophenolate 1 g b.i.d., occasional albuterol inhaler, and prednisone 5 mg daily. She has occasional discomfort in the left knee but otherwise does not seem to have any joint pains. There have been no problems recently with chest pain or abdominal pain, oral ulcers, or skin rashes. 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) Systemic lupus erythematosus Surgical History Hx of laparoscopic gastric banding Social History Household Members: Family Household Members Other:: Mom and brother Housing: House Are you a primary healthcare business analyst to a significant other at home: No Do you presently have visiting nurse or other home services: No 75 years or older and lives alone: No Alcohol intake: never Patient Tobacco Use Status: Never used Tobacco e-Cigarette/Vaping Use: Never Used Second Hand Smoke Exposure: No service: No Current occupational status: employed 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 Reports myalgias and Denies joint swelling Physical Exam Vital Signs: Last Vital Signs Pulse 52 11/10/24 07:48 BP 142/84 H 11/10/24 07:48 Pulse Ox 99 11/10/24 07:48 Oxygen Delivery Method Simple Mask 11/10/24 07:48 BMI result Body Mass Index 62.2 Const General: cooperative, healthy appearing and comfortable Nutritional Appearance: obese morbidly obese Orientation/consciousness: patient oriented x3 Limitations: no limitations HEENT Head: Yes normocephalic and Yes atraumatic Resp Effort & Inspection: normal respiratory effort and able to speak in complete sentences Cardio Rate: regular rate Rhythm: regular rhythm Skin General skin exam: no rashes or lesions noted Neuro General: patient oriented x3 Extrem Other: No active synovitis today Normal range of motion of hands, wrists, elbows and shoulders without pain Normal nailfold capillaroscopy Proximal muscle strength 5/5 all 4 extremities Assessment & Plan Assessment & Plan (1) Systemic lupus erythematosus: Comment: Onset 11/2020 - on hydralazine - ? 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 2020 hydroxychloroquine started: Eye exam okay March 2023 anti-DNA pos. Anti DEE DEE and complements normal. 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 She is on hydroxychloroquine 200 mg Twice daily, CellCept 500 mg Twice daily and prednisone 2.5 mg daily. Patient has been following up regularly with her jeweler apprentice Dr. Swain. Per patient in the last 1-2 months her kidney function has declined and she had required monthly labs as well as multiple office visits to closely monitor her kidney function. She has been off of work since October 03 due to her active lupus with generalized fatigue, weakness, brain fog. Inability to perform at her job. We had discussed adding Benlysta injections. It has been approved and is waiting on delivery at this time. I completed her short term disability paperwork. Patient is to return to work 11/17/2023. Follow-up in 2 months Plan I spent 25 minutes reviewing patient's chart, evaluating patient, counseling patient completing short term disability paperwork and documenting in the chart Coding Level of Care Code Est Pt Level 4 (68382) Diagnoses Other systemic lupus erythematosus with glomerular disease M32.14 Systemic lupus erythematosus type: other Systemic lupus erythematosus organ involvement: glomerular disease
[2024-11-10 07:48] VITALS: BP 142/84; PULSE 52; O2SAT 99; BMI 62.2
== END 2024-11-10 08:17 | disposition home or self-care (01) ==
PROVIDERS: PCP Internal Medicine; Visit Provider Student in an Organized Health Care Education/Training Program
DX: M32.14 Glomerular disease in systemic lupus erythematosus (principal)
CPT/HCPCS: 99214

== ENCOUNTER 2024-12-02 09:59 | Outpatient (AMB) | payer OTHER, SELFPAY ==
--- NOTE | 2024-12-02 10:00 | MHC.OFFVIS ---
Vital Signs 12/02/24 10:02 Height 5 ft 4 in Weight 356 lb 0.745 oz BMI 61.1 BP 138/76 Blood Pressure Location Rt brachial Position Sitting Pulse 75 Pulse Source Pulse Oximeter Pulse Oximetry (%) 100 Oxygen Delivery Method Room Air Intake Visit Reasons: asthma Allergies hydralazine Allergy (Severe, Verified 12/02/24 10:07) induced lupus Penicillins Allergy (Intermediate, Verified 12/02/24 10:07) hives HPI Comments Details: The patient is a 43-year-old woman with ongoing dyspnea. Per the patient had been in her usual state health until early 2020 when she was diagnosed with lupus. Apparently she was evaluated by Rheumatology at time in felt to be drug induced since she was on hydralazine. Subsequently after that the patient started developing lower extremity edema pain and shortness of breath. She was admitted to the hospital with pulmonary emboli. There was a limited study because of her respiratory symptoms although definitive defect in the right lower lobe vasculature. The patient also had what appeared to be a patchy consolidation in the left lower lobe with small effusion. The patient was not hospital for prolonged care time approximately 2-3 weeks. She was discharged on anticoagulation. After that she ended up having COVID-19. Since then the patient has been having issues with dyspnea on exertion. Mild to moderate with severity. She did undergo pulmonary function studies which I did personally soon early review with her. The patient does have some evidence of small airways disease. In addition to that no other significant findings. During the office visit we did go for a 6 minutes walk test. The patient with activity had a pulse ox of 99%. Although her heart rate did increase to about 120 beats per minute when she was dyspneic with a dyspnea score of 7/10. The patient continues to be on anticoagulation. Based on her event is consider an unprovoked event. Possibly related to her connective tissue disease although is not for certain. Based on her ongoing dyspnea in addition to significant tachycardia with minimal activity will request a V/Q scan to address the question of any chronic thromboembolic disease. In addition to this when echocardiogram will be helpful. She did have an echo back in 2020 although it was poorly visualized in the right ventricle and therefore cannot comment on the right ventricle function or appearance. 06/23/2023 the patient is here for pulmonary follow-up visit. He continues to have dyspnea on exertion. [id number] severity. Difficult to perform her activities of daily living though. The patient did have a 6 minute walk test with significant tachycardia with minimal activity during the last visit. We had her undergo an echocardiogram which is reassuring. Pulmonary pressures were estimated to be normal. Subsequently after that had a V/Q scan without any evidence of any residual defects suggesting no further residual clots. However, the patient continued to have symptoms therefore she underwent a cardiopulmonary exercise tolerance test at [facility]. We did follow-up with the results. The patient did have a normal aerobic capacity. However with exercise she did develop significant systemic hypertension. The patient also was noted to have a decreased pulse ox down to 90% with exercise suggesting a pulmonary limitation. 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 Explained to the patient that will have to further evaluate this for definitive diagnosis. If the patient does have pulmonary hypertension that is exercise induced with a history of lupus she will benefit from basal dilatory therapy. The patient also was recommended a referral to [place] to be evaluated by a pulmonary hypertension clinic. The patient is agreeable to this as well. Will try to perform an exercise echo to assess for any cardiac disease in addition to see if we can estimate pulmonary pressures with exercise. In addition to this the patient will be referred to pulmonary rehabilitation for her underlying post COVID syndrome. 08/25/2023 the patient is here for a pulmonary follow-up visit. She is starting to feel little better. She did follow-up with Cardiology and she was reassured. The patient is can be starting pulmonary rehabilitation soon which I believe is going to be a great addition to her therapy and hopeful that she will continue to feel better. The patient is aware that if her symptoms worsen or if she does not see any improvement we can also consider referral to [place] to have further evaluation of her dyspnea symptoms. Seems that she is doing better from the lupus standpoint. She had a flare-up sometime in the summer but she is doing better at this time. She is tolerating the Eliquis and therefore she has no recurrence of any clotting at this time. The patient will start pulmonary rehabilitation. Plan to follow-up in 4 months if the patient has any worsening symptoms prior to that she is to call the office for an earlier assessment. 01/29/2024 the patient is here for a pulmonary follow-up visit. The patient overall has been feeling better. She did complete pulmonary rehabilitation. She did find a very useful and helpful for her. In addition to that she is working with a new lens generator. They are working on getting her off the mycophenolate and then potentially a different regimen. Unfortunately she did develop a course of cellulitis in her lower extremity and then developed significant shingles in the lower extremity as well. Therefore, the immunosuppression due to the immunomodulator therapy has resulted in significant issues. Therefore she will work closely with lens generator in regards of her lupus and immunosuppressive therapy. From a respiratory status the patient has been doing a lot better. Denies any significant shortness of breath at rest. Mild dyspnea on exertion with activity. She continues on the Eliquis 5 mg b.i.d.. At this point is still considered unprovoked and the patient is high risk for developing a recurrent clot if she stopped the anticoagulation. Therefore she should continue with lifelong anticoagulation at this time. We did briefly talk about the prophylactic dose but I am wary about the dose in view of her body weight A medication distribution. 12/02/2024 the patient is here for a pulmonary follow-up visit. Overall she is doing well. She continues on the Symbicort. She completed happened now she exercising on her own. She is about to start Benlysta for her lupus. Although she needs to 1st get her shingles vaccine and also get a potentially other vaccines. Looks like she needs to get her pertussis booster and also should get her pneumonia shot. She will talk to the pharmacist when she goes to the pharmacy. I did send her a script to get the Shingrix because although she is not 48 the patient is significantly immunocompromised. No recent imaging to review will plan to have her have imaging studies the next visit. Will have her come back in the fall. As far as the hypercoagulable state she continues on the Eliquis good good results. No evidence of any minor major bleeding. The patient has not had any further recurrent clotting while on the Eliquis. 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) Systemic lupus erythematosus Surgical History Hx of laparoscopic gastric banding Social History Household Members: Family Household Members Other:: Mom and brother Housing: House Are you a primary career technical supervisor to a significant other at home: No Do you presently have visiting nurse or other home services: No 75 years or older and lives alone: No Alcohol intake: never Patient Tobacco Use Status: Never used Tobacco e-Cigarette/Vaping Use: Never Used Second Hand Smoke Exposure: No service: No Current occupational status: employed 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 Denies headache(s) Card Details: Negative chest pain, edema and syncope Reports dyspnea on exertion Resp Reports dyspnea on exertion and Denies wheezing GI Details: Negative indigestion/heartburn, nausea, abdominal pain, bowel changes, diarrhea, constipation and bloody stool. Reports no additional complaints Musc Reports no additional complaints Skin/Breast Details: Negative for itching, rash, hives, Raynaud's symptoms, sun sensitivity, and skin cancer Denies rash Neuro Details: Negative for epilepsy, palsy, stroke, changes in speech, tingling and weakness Reports no additional complaints and Denies headache(s) Endo Details: Negative for polyuria and polydypsia Alok/Lymph Details: Negative for excessive bruising or bleeding. Denies easy bleeding and Denies easy bruising Aller/Immun Denies wheezing Physical Exam Vital Signs: Last Vital Signs Pulse 75 12/02/24 10:02 BP 138/76 12/02/24 10:02 Pulse Ox 100 12/02/24 10:02 Oxygen Delivery Method Room Air 12/02/24 10:02 BMI result Body Mass Index 61.1 Const General: comfortable HEENT Head: Yes normal to inspection Neck Neck: Yes supple Chest Chest palpation & inspection: normal inspection of the chest Resp Effort & Inspection: normal respiratory effort Auscultation: no rhonchi, no wheezes and diminished lung sounds Cardio Rate: regular rate Rhythm: regular rhythm Heart sounds: S1 normal heart sound present and S2 normal heart sound present GI Palpation (GI): Soft to palpation Extrem General: No clubbing and No cyanosis Assessment & Plan Assessment & Plan (1) DEL ANGEL (dyspnea on exertion): Comment: Likely multifactorial. CPET appears to suggest a pulmonary limitation, suggesting pulmonary vascular disease Code(s): R06.00 - Dyspnea, unspecified Category: Medical (2) Pulmonary emboli: Comment: VQ scan is reassuring Code(s): I26.99 - Other pulmonary embolism without acute cor pulmonale Category: Medical Qualifiers: Pulmonary embolism type: multiple subsegmental (without acute cor pulmonale) Qualified Code(s): I26.94 - Multiple subsegmental pulmonary emboli without acute cor pulmonale (3) Asthma: Code(s): J45.909 - Unspecified asthma, uncomplicated Category: Medical Qualifiers: Asthma complication type: uncomplicated Asthma persistence: persistent Asthma severity: moderate Qualified Code(s): J45.40 - Moderate persistent asthma, uncomplicated (4) Pulmonary hypertension: Comment: Exercise induced Code(s): I27.20 - Pulmonary hypertension, unspecified Category: Medical (5) Systemic lupus erythematosus: Comment: Onset 11/2020 - on hydralazine - ? 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 2020 hydroxychloroquine started: Eye exam okay March 2023 anti-DNA pos. Anti DEE DEE and complements normal. 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 Should continue on the anticoagulation completed pulmonary rehab should get Shingrix before starting Benlysta F/U 8-12 months Medications: New varicella-zoster gE-AS01B (PF) 50 mcg/0.5 mL (Shingrix (PF)) 0.5 mL IM ONCE 1 ea 0RF D84.821 - Immunodeficiency due to drugs, M32.14 - Glomerular disease in systemic lupus erythematosus, Z79.899 - Other continuous churn buttermaker (current) drug therapy varicella-zoster gE-AS01B (PF) 50 mcg/0.5 mL (Shingrix (PF)) 0.5 mL IM ONCE 1 ea 0RF D84.821 - Immunodeficiency due to drugs, M32.14 - Glomerular disease in systemic lupus erythematosus, Z79.899 - Other jail (current) drug therapy varicella-zoster gE-AS01B (PF) 50 mcg/0.5 mL (Shingrix (PF)) 0.5 mL IM ONCE 1 ea 0RF D84.821 - Immunodeficiency due to drugs, M32.14 - Glomerular disease in systemic lupus erythematosus, Z79.899 - Other jail (current) drug therapy varicella-zoster gE-AS01B (PF) 50 mcg/0.5 mL (Shingrix (PF)) 0.5 mL IM ONCE 1 ea 0RF D84.821 - Immunodeficiency due to drugs, M32.14 - Glomerular disease in systemic lupus erythematosus, Z79.899 - Other jail (current) drug therapy Coding Level of Care Code Est Pt Level 4 (80381) Diagnoses DEL ANGEL (dyspnea on exertion) R06.00 Multiple subsegmental pulmonary emboli without acute cor pulmonale I26.94 Pulmonary embolism type: multiple subsegmental (without acute cor pulmonale) Moderate persistent asthma without complication J45.40 Asthma complication type: uncomplicated Asthma persistence: persistent Asthma severity: moderate Pulmonary hypertension I27.20 Other systemic lupus erythematosus with glomerular disease M32.14 Systemic lupus erythematosus organ involvement: glomerular disease Systemic lupus erythematosus type: other Immunodeficiency due to treatment with immunosuppressive medication D84.821; Z79.899 Time Spent (min) 16
[2024-12-02 10:02] VITALS: BP 138/76; PULSE 75; O2SAT 100; BMI 61.1
== END 2024-12-02 10:25 | disposition home or self-care (01) ==
PROVIDERS: PCP Internal Medicine; Visit Provider Hospitalist
DX: R06.00 Dyspnea, unspecified (principal); I26.94 Multiple subsegmental thrombotic pulmonary emboli without acute cor pulmonale; J45.40 Moderate persistent asthma, uncomplicated; I27.20 Pulmonary hypertension, unspecified; M32.14 Glomerular disease in systemic lupus erythematosus; D84.821 Immunodeficiency due to drugs; Z79.899 Other long term (current) drug therapy
CPT/HCPCS: 99214

== ENCOUNTER → 2024-12-02 09:59 | Outpatient (BNVA) | payer OTHER, SELFPAY | PROVIDERS: PCP Internal Medicine; Visit Provider Hospitalist ==

== ENCOUNTER 2024-12-29 08:17 | Outpatient (REF) | payer OTHER, SELFPAY ==
--- OUTSIDE RECORDS SUMMARY | 2024-12-29 09:46 | XMS_ITS | Encounter Summary ---
Author Organization [facility], Address [address] [place] [address] Phone Care Team Providers Care Residential Door Unit Installer Name Role Phone Sruthi Liao MD Primary Care Provider [phone] Encounter Details Date Type Department Care Team (Late st Contact Info) Description 12/02/2024 2:15 PM EST Office Visit [facility] [address] [place] [phone] Scott Swain MD [address] [place] [address] [place] [phone] Social History Tobacco Use Types Packs/Day Years Used Date Smoking Tobacco: Never Smokeless Tobacco: Never Alcohol Use Standard Drinks/Week Comments No 0 (1 standard drink = 0.6 oz pur e alcohol) Comments Unknown Sex and Gender Information Value Date Recorded Sex Assigned at Not on file Legal Sex Female 4:33 PM EST Gender Identity Not on file Sexual Orientation Not on file documented as of this encounter Last Filed Vital Signs Vital Sign Reading Time Taken Comments Blood Pressure 127/84 12/02/2024 2:39 PM EST Pulse - - Temperature - - Respiratory Rate - - Oxygen Saturation - - Inhaled Oxygen Concentration - - Weight - - Height - - Body Mass Index - - documented in this encounter Plan of Treatment Upcoming Encounters Date Type Department Care Team (Late st Contact Info) Description 03/03/2025 2:15 PM EDT Office Visit [facility] [address] [place] [address] Scott Swain MD [address] [place] [address] documented as of this encounter Visit Diagnoses Not on filedocumented in this encounter Care Teams Residential Door Unit Installer Relationship Specialty Start Date End Date Sruthi Liao MD PCP - General 09/20/19 documented as of this encounter
--- OUTSIDE RECORDS SUMMARY | 2024-12-29 09:46 | XMS_ITS | Encounter Summary ---
Author Organization [facility], Address [address] [place] [address] Phone Care Team Providers Care Pneumatic Tester Name Role Phone Sruthi Liao MD Primary Care Provider [phone] Encounter Details Date Type Department Care Team (Late st Contact Info) Description 07/26/2024 Documentation Only [facility] [address] [place] [address] Elenita Nichols [address] [place] [address] Social History Tobacco Use Types Packs/Day Years [...] on file documented as of this encounter Plan of Treatment Upcoming Encounters Date Type Department Care Team (Late st Contact Info) Description 03/03/2025 2:15 PM EDT Office Visit [facility] [address] [place] [address] Scott Swain MD [address] [place] [address] [place] [address] documented as of this encounter Visit Diagnoses Not on filedocumented in this encounter Care Teams Pneumatic Tester Relationship Specialty Start Date End Date Sruthi Liao MD PCP - General 09/20/19 documented as of this encounter
--- OUTSIDE RECORDS SUMMARY | 2024-12-29 09:46 | XMS_ITS | Encounter Summary ---
Author Organization [facility] [place], Address [address] [place] [address] Phone Care Team Providers Care Hr Consultant Name Role Phone Sruthi Liao MD Primary Care Provider [phone] Encounter Details Date Type Department Care Team (Late st Contact Info) Description 12/13/2024 Documentation Only [facility] [address] [place] [address] Elenita Nichols [address] [place] [phone] Social History Tobacco Use Types Packs/Day Years [...] Visit [facility] [place], [address] [place] [address] Scott Swain MD [address] [place] [address] [place] [address] documented as of this encounter Visit Diagnoses Not on filedocumented in this encounter Care Teams Hr Consultant Relationship Specialty Start Date End Date Sruthi Liao MD PCP - General 09/20/19 documented as of this encounter
--- OUTSIDE RECORDS SUMMARY | 2024-12-29 09:46 | XMS_ITS | Clinical Summary ---
Author Organization [facility], Address [address] [place] [address] [place] [address] Phone Care Team Providers Care Telesales Manager Name Role Phone Sruthi Liao MD Primary Care Provider [phone] Allergies Active Allergy Reactions Criticality Noted Date Comments Azithromycin Other (see comments) 01/04/2020 Hydralazine Other (see comments) High 08/28/2021 Ibuprofen 07/01/2024 Penicillins Other (see comments),Rash Low 0 Prednisone Other (see comments) High 01/04/2020 Medications albuterol HFA (PROAIR HFA) 108 (90 Base) MCG/ACT inhaler ProAir HFA 90 mcg/actuation aerosol inhaler INHALE 2 PUFFS INTO THE LUNGS EVERY 6 HOURS NEEDED FOR COUGH, WHEEZING OR SHORTNESS OF BREATH. Active fluticasone (FLONASE) 50 MCG/ACT nasal spray fluticasone propionate 50 mcg/actuation nasal spray,suspension USE 2 SPRAYS IN EACH NOSTRIL ONCE A DAY Active lisinopril (PRINIVIL,ZESTR IL) 40 MG tablet Take 40 mg by mouth 1 (one) time each day Active Eliquis 5 MG tablet Take 5 mg by mouth 1 Active cloNIDine (CATAPRES) 0.1 MG tablet TAKE 1 TAB BY MOUTH AT BEDTIME FOR 180 DAYS. 1 Active hydroxychloroqu ine (PLAQUENIL) 200 MG tablet Take 200 mg by mouth 1 Active pantoprazole (PROTONIX) 40 MG EC tablet Take 40 mg by mouth 1 (one) time each day For 30 days 1 Active predniSONE (DELTASONE) 10 MG tablet Take 15 mg by mouth 1 (one) time each day 1 Active predniSONE (DELTASONE) 20 MG tablet TAKE 2 TABLETS BY MOUTH EVERY MORNING AND 1 TABLET IN THE EVENING. TAKE WITH FOOD OR MILK 1 Active furosemide (LASIX) 20 MG tablet Take 1 tablet (20 mg total) by mouth 1 (one) time each day 30 tablet 6 1 Active carvedilol (Coreg) 3.125 MG tablet Take 1 tablet (3.125 mg total) by mouth in the morning and 1 tablet (3.125 mg total) in the evening. Take with meals. 60 tablet 5 2 Active mycophenolate (CellCept) 250 MG capsule Take 3 capsules (750 mg total) by mouth in the morning and 3 capsules (750 mg total) in the evening. 180 capsule 11 4 04/01/20 25 Active ferrous sulfate (Fe Tabs) 325 (65 Fe) MG EC tablet Take 1 tablet (325 mg total) by mouth 1 (one) time each day Do not crush, chew, or split. 30 tablet 11 4 09/02/20 25 Active amLODIPine (NORVASC) 10 MG tablet TAKE 1 TABLET BY MOUTH 1 TIME EACH DAY. 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/2024): secondary to hydralazine History of acute kidney injury Resolved Problems Problem Noted Date Diagnosed Date Resolved Date Morbid obesity 01/04/2020 08/29/2020 Vertigo 05/04/2017 08/29/2020 Menorrhagia 10/17/2016 08/29/2020 Encounters Date Type Department Care Team Description 12/13/2024 Documentation Only [facility], [address] [place] [id number] Elenita Nichols 12/02/2024 2:15 PM EST Office Visit [facility], [address] [address] Scott Swain MD 10/31/2024 Refill [facility], [address] [place] [address] Scott Swain MD from Last 3 Months Immunizations Name Administration Dates Next Due DTP 04/16/1983,01/14/1981,02/15/1980 ,06/16/1979,02/14/1979 Hepatitis B 10/16/1997,11/16/1996,09/16/1996 MMR 06/02/1991,05/09/1980 OPV 04/16/1983,01/14/1981,06/16/1979 ,03/16/1979,01/14/1979 Td 06/04/2021,02/08/2004 Td, Unspecified 06/04/2021,02/08/2004 Tdap 04/21/2011 Social History Tobacco Use Types Packs/Day Years Used Date Smoking Tobacco: Never Smokeless Tobacco: Never Alcohol Use Standard Drinks/Week Comments No 0 (1 standard drink = 0.6 oz pur e alcohol) Comments Unknown Sex and Gender Information Value Date Recorded Sex Assigned at Not on file Legal Sex Female 4:33 PM EST Gender Identity Not on file Sexual Orientation Not on file Last Filed Vital Signs Vital Sign Reading Time Taken Comments Blood Pressure 127/84 12/02/2024 2:39 PM EST Pulse 80 04/21/2023 3:55 PM EDT Temperature - - Respiratory Rate - - Oxygen Saturation - - Inhaled Oxygen Concentration - - Weight 170 kg (374 lb 6.4 oz) 01/20/2020 9:31 AM EST Height 162.6 cm (5' 4 ) 01/04/2020 2:20 PM EST Body Mass Index 64.27 01/04/2020 2:20 PM EST Plan of Treatment Upcoming Encounters Date Type Department Care Team (Late st Contact Info) Description 03/03/2025 2:15 PM EDT Office Visit [facility], [address] [place] [phone] Scott Swain MD [address] [place] [phone] Health Maintenance Due Date Last Done Comments Pneumococcal Vaccine: Pediat rics (0 to 5 Years) and At-Risk Patients (6 to 64 Years) (1 of 2 - PCV) 1984 Influenza Vaccine (#1) 2024 Hepatitis B Vaccine Completed 10/16/1997, 11/16/1996, 09/16/1996 Procedures Procedure Name Priority Date/Time Associated Diagnosis Comments REFLEXIVE URINE CULTURE (HC) Routine 11/29/2024 1:41 PM EST URINALYSIS, COMPLETE Routine 11/29/2024 1:41 PM EST Stage 3a chronic kidney disease (HCC) SLE glomerulonephritis syndrome (HCC) History of acute kidney injury Drug-induced systemic lupus erythematosus (HCC) Hypertension Routine general medical examination at a health care facility PROTEIN / CREATININE RATIO, URINE Routine 11/29/2024 1:41 PM EST Stage 3a chronic kidney disease (HCC) SLE glomerulonephritis syndrome (HCC) History of acute kidney injury Drug-induced systemic lupus erythematosus (HCC) Hypertension Routine general medical examination at a health care facility VITAMIN D 25 HYDROXY Routine 11/29/2024 1:41 PM EST Stage 3a chronic kidney disease (HCC) SLE glomerulonephritis syndrome (HCC) History of acute kidney injury Drug-induced systemic lupus erythematosus (HCC) Hypertension Routine general medical examination at a health care facility URINE ALBUMIN / CREATININE RATIO Routine 11/29/2024 1:41 PM EST Stage 3a chronic kidney disease (HCC) SLE glomerulonephritis syndrome (HCC) History of acute kidney injury Drug-induced systemic lupus erythematosus (HCC) Hypertension Routine general medical examination at a health care facility CYSTATIN C WITH EGFR Routine 11/29/2024 1:41 PM EST Stage 3a chronic kidney disease (HCC) SLE glomerulonephritis syndrome (HCC) History of acute kidney injury Drug-induced systemic lupus erythematosus (HCC) Hypertension Routine general medical examination at a health care facility ANTI-DNA ANTIBODY, DOUBLE-STRANDED Routine 11/29/2024 1:41 PM EST Stage 3a chronic kidney disease (HCC) SLE glomerulonephritis syndrome (HCC) History of acute kidney injury Drug-induced systemic lupus erythematosus (HCC) Hypertension Routine general medical examination at a health care facility C4 COMPLEMENT Routine 11/29/2024 1:41 PM EST Stage 3a chronic kidney disease (HCC) SLE glomerulonephritis syndrome (HCC) History of acute kidney injury Drug-induced systemic lupus erythematosus (HCC) Hypertension Routine general medical examination at a health care facility C3 COMPLEMENT Routine 11/29/2024 1:41 PM EST Stage 3a chronic kidney disease (HCC) SLE glomerulonephritis syndrome (HCC) History of acute kidney injury Drug-induced systemic lupus erythematosus (HCC) Hypertension Routine general medical examination at a health care facility PTH, INTACT Routine 11/29/2024 1:41 PM EST Stage 3a chronic kidney disease (HCC) SLE glomerulonephritis syndrome (HCC) History of acute kidney injury Drug-induced systemic lupus erythematosus (HCC) Hypertension Routine general medical examination at a health care facility FERRITIN Routine 11/29/2024 1:41 PM EST Stage 3a chronic kidney disease (HCC) SLE glomerulonephritis syndrome (HCC) History of acute kidney injury Drug-induced systemic lupus erythematosus (HCC) Hypertension Routine general medical examination at a health care facility IRON PANEL (FE, TIBC, TSAT) Routine 11/29/2024 1:41 PM EST Stage 3a chronic kidney disease (HCC) SLE glomerulonephritis syndrome (HCC) History of acute kidney injury Drug-induced systemic lupus erythematosus (HCC) Hypertension Routine general medical examination at a health care facility CBC AND DIFFERENTIAL Routine 11/29/2024 1:41 PM EST Stage 3a chronic kidney disease (HCC) SLE glomerulonephritis syndrome (HCC) History of acute kidney injury Drug-induced systemic lupus erythematosus (HCC) Hypertension Routine general medical examination at a health care facility RENAL FUNCTION PANEL Routine 11/29/2024 1:41 PM EST Stage 3a chronic kidney disease (HCC) SLE glomerulonephritis syndrome (HCC) History of acute kidney injury Drug-induced systemic lupus erythematosus (HCC) Hypertension Routine general medical examination at a health care facility MICROSCOPIC EXAMINATION - DO NOT USE Routine 11/29/2024 1:41 PM EST from Last 3 Months Results * Reflexive Urine Culture (11/29/2024 1:41 PM EST) Culture Result, Urine Final report [facility] Result Comment [facility] Comment: Mixed urogenital katelynn 50,000-100,000 colony forming units per mL 11/29/2024 1:41 PM EST 11/29/2024 Scott Swain MD LAB [id number] SOLICITED RESULTS Final Result [facility] [address], [address] [place] [address] * (ABNORMAL) CYSTATIN C W EGFR (11/29/2024 1:41 PM EST) Cystatin C 1.24(H) 0.60 - 1.00 mg/L [facility] [place] eGFR by Cystatin C 58(L) >59 mL/min/1.7 3 [facility] 11/29/2024 1:41 PM EST 11/29/2024 Scott Swain MD LAB BLOOD ORDERABLES Final Re sult [facility] [address] [place] [address] * (ABNORMAL) Urinalysis, Complete w/reflex to Culture (11/29/2024 1:41 PM EST) Specific [place], Urine 1.019 1.005 - 1.030 [facility] pH Urine 6.0 5.0 - 7.5 [facility] [phone] Color, Urine Yellow Yellow [facility] Appearance Urine Clear [facility] [place] [facility] [phone] WBC Esterase Urine Negative Negative [facility] Protein, Ur Trace Negative/Tra ce [facility] Glucose, Ur Negative Negative [facility] Ketones, Urine Negative Negative [facility] [place] Blood Urine Trace(A) Negative [facility] Bilirubin Urine Negative Negative [facility] [place] Urobilinogen Urine 0.2 0.2 - 1.0 mg/dL [facility] Nitrite, Urine Negative Negative [facility] Microscopic Examination See below: [facility] Comment:Microscopic was maritza cated and was performed. URINALYSIS REFLEX Comment [facility] Comment:This specimen has re flexed to a Urine Culture. Urine (Urine, Clean Catch) 11/29/2024 1:41 PM EST 11/29/2024 us Scott Swain MD LAB URINE ORDERABLES Final Re sult [facility] [address] [place] [address] * (ABNORMAL) Microscopic Examination (11/29/2024 1:41 PM EST) Pathologist [facility] WBC, Urine >30(A) 0 - 5 /hpf [facility] RBC, Urine 0-2 0 - 2 /hpf [facility] Squamous Epithelial, Urine 0-10 0 - 10 /hpf [facility] Casts None seen None seen /lpf [facility] Bacteria, Urine Few None seen/Few [facility] 11/29/2024 1:41 PM EST 11/29/2024 Scott Swain MD LAB MICROBIOLOGY - GENERAL OR DERABLES Final Result Performing Organization Address [facility] Co de Phone Number [facility] [address] [place] [address] * (ABNORMAL) Iron Panel (Fe, TIBC, TSAT) (11/29/2024 1:41 PM EST) Pathologist [facility] TIBC 345 250 - 450 ug/dL [facility] UIBC 304 131 - 425 ug/dL [facility] Iron 41 27 - 159 ug/dL [facility] Iron Saturation (TSat) 12(L) 15 - 55 % [facility] Blood (Blood, Venous) 11/29/2024 1:41 PM EST 11/29/2024 Scott Swain MD LAB BLOOD ORDERABLES Final Re sult Performing Organization Address City/[facility]/ZIP Co de Phone Number [facility] [address] [place] [address] * Urine Protein / creatinine ratio (11/29/2024 1:41 PM EST) Pathologist [facility] Creatinine, Ur 119.8 Not Estab. mg/dL [facility] Protein, Ur 21.5 Not Estab. mg/dL [facility] Urine Protein/Creatin ine Ratio 179 0 - 200 mg/g creat [facility] Urine (Urine, Clean Catch) 11/29/2024 1:41 PM EST 11/29/2024 Scott Swain MD LAB URINE ORDERABLES Final Re sult Performing Organization Address [facility] de Phone Number [facility] [address] [place] [address] * (ABNORMAL) Urine Albumin / Creatinine Ratio (11/29/2024 1:41 PM EST) [facility] Albumin, Urine 65.5 Not Estab. ug/mL [facility] Albumin/Creatin ine Ratio 55(H) 0 - 29 mg/g creat [facility] Comment: ? Normal: ?0 - ??29 ? Moderately increased: 30 - 300 ? Severely increased: ? >300 Urine (Urine, Clean Catch) 11/29/2024 1:41 PM EST 11/29/2024 Scott Swain MD LAB URINE ORDERABLES Final Re sult Performing Organization Address [facility] de Phone Number [facility] [address] [place] [address] * Anti-DNA antibody, double-stranded (11/29/2024 1:41 PM EST) [facility] DS DNA Ab 7 0 - 9 IU/mL [facility] Comment: ? Negative ?<5 ? Equivocal ??5 - 9 ? Positive ?>9 Blood (Blood, Venous) 11/29/2024 1:41 PM EST 11/29/2024 us Scott Swain MD LAB BLOOD ORDERABLES Final Re sult [facility] [address] [place] [address] * (ABNORMAL) Vitamin D 25 hydroxy (11/29/2024 1:41 PM EST) Vitamin D, 25-OH, Total 14.3(L) 30.0 - 100.0 ng/mL [facility] Comment: Vitamin D deficiency has been defined by the [place] of [employer] and an Endocrine Society practice guideline as a level of serum 25-OH vitamin D less than 20 ng/mL (1,2). The Endocrine Society went on to further define vitamin D insufficiency as a level between 21 and 29 ng/mL (2). 1. IOM ([place] [employer]). 2010. Dietary reference ?? intakes for calcium and D. [place]: The ?? National Academies Press. 2. Umang MF, Kristy NC, Delmar GUSTAFSON, et al. ?? Evaluation, treatment, and prevention of vitamin D ?? deficiency: an Endocrine Society clinical practice ?? guideline. JCEM. 2010; 96(7):1911-30. Blood (Blood, Venous) 11/29/2024 1:41 PM EST 11/29/2024 us Scott Swain MD LAB BLOOD ORDERABLES Final Re sult [facility] [address] [place] [address] * (ABNORMAL) CBC and differential (11/29/2024 1:41 PM EST) WBC 6.2 3.4 - 10.8 x10E3/uL [facility] RBC 4.61 3.77 - 5.28 x10E6/uL [facility] Hemoglobin 12.4 11.1 - 15.9 g/dL [facility] Hematocrit 39.6 34.0 - 46.6 % [facility] MCV 86 79 - 97 fL [facility] MCH 26.9 26.6 - 33.0 pg [facility] MCHC 31.3(L) 31.5 - 35.7 g/dL [facility] RDW 15.0 11.7 - 15.4 % [facility] Platelets 214 150 - 450 x10E3/uL [facility] Neutrophils Relative 65 Not Estab. % [facility] Lymphocytes Relative 23 Not Estab. % [facility] Monocytes 9 Not Estab. % [facility] Eosinophils Relative 1 Not Estab. % [facility] Basophils Relative 1 Not Estab. % [facility] Neutrophils Absolute 4.2 1.4 - 7.0 x10E3/uL [facility] Lymphocytes Absolute 1.4 0.7 - 3.1 x10E3/uL [facility] Monocytes Absolute 0.6 0.1 - 0.9 x10E3/uL [facility] Eosinophils Absolute 0.0 0.0 - 0.4 x10E3/uL [facility] Basophils Absolute 0.0 0.0 - 0.2 x10E3/uL [facility] Immature Granulocytes 1 Not Estab. % [facility] Immature Grans (Absolute) 0.0 0.0 - 0.1 x10E3/uL [facility] Blood (Blood, Venous) 11/29/2024 1:41 PM EST 11/29/2024 Scott Swain MD LAB BLOOD ORDERABLES Final Re sult Performing Organization Address City/[facility]/ZIP Co de Phone Number [facility] [address] [place] [address] * C3 complement (11/29/2024 1:41 PM EST) C3 Complement 132 82 - 167 mg/dL [facility] Blood (Blood, Venous) 11/29/2024 1:41 PM EST 11/29/2024 us Scott Swain MD LAB BLOOD ORDERABLES Final Re sult Performing Organization Address City/[facility]/ZIP Co de Phone Number [facility] [address] [place] [address] * C4 complement (11/29/2024 1:41 PM EST) C4 Complement 36 12 - 38 mg/dL [facility] Blood (Blood, Venous) 11/29/2024 1:41 PM EST 11/29/2024 us Scott Swain MD LAB BLOOD ORDERABLES Final Re sult Performing Organization Address City/[facility]/ZIP Co de Phone Number [facility] [address] [place] [address] * (ABNORMAL) PTH, intact (11/29/2024 1:41 PM EST) Pathologist [facility] PTH 72(H) 15 - 65 pg/mL [facility] Blood (Blood, Venous) 11/29/2024 1:41 PM EST 11/29/2024 Scott Swain MD LAB BLOOD ORDERABLES Final Re sult Performing Organization Address City/[facility]/ZIP Co de Phone Number [facility] [address] [place] [address] * Ferritin (11/29/2024 1:41 PM EST) Pathologist [facility] Ferritin 17 15 - 150 ng/mL [facility] Blood (Blood, Venous) 11/29/2024 1:41 PM EST 11/29/2024 Scott Swain MD LAB BLOOD ORDERABLES Final Re sult Performing Organization Address City/[facility] Co de Phone Number [facility] [address] [place] [address] * (ABNORMAL) Renal function panel (11/29/2024 1:41 PM EST) Pathologist [facility] Glucose 79 70 - 99 mg/dL [facility] BUN 20 6 - 24 mg/dL [facility] Sodium 138 134 - 144 mmol/L [facility] Potassium 4.9 3.5 - 5.2 mmol/L [facility] Chloride 102 96 - 106 mmol/L [facility] Bicarbonate (CO2) 22 20 - 29 mmol/L [facility] Calcium 9.3 8.7 - 10.2 mg/dL [facility] Phosphorus 3.9 3.0 - 4.3 mg/dL [facility] Albumin 4.3 3.9 - 4.9 g/dL [facility] Creatinine 1.54(H) 0.57 - 1.00 mg/dL [facility] eGFR CKD-EPI CR 2020 42(L) >59 mL/min/1.7 3 [facility] BUN/Creatinine Ratio 13 9 - 23 [facility] Blood (Blood, Venous) 11/29/2024 1:41 PM EST 11/29/2024 us Scott Swain MD LAB BLOOD ORDERABLES Final Re sult [facility] [address] [place] [address] from Last 3 Months Insurance [facility] Care Teams Telesales Manager Relationship Specialty Start Date End Date Sruthi Liao MD [facility] - General 09/20/19
--- OUTSIDE RECORDS SUMMARY | 2024-12-29 09:46 | XMS_ITS ---
Author Organization [facility] Address [address] [place] [address] Care Team Providers Care Rate Reviewer Name Role Phone COY FOX Unavailable [phone] KOSTAS IVAN Unavailable [phone] REASON FOR VISIT .25 Encounters Encounter Location Date Provider Diagnosis [facility] [address] [place] [phone] 08/05/2024 KOSTAS IVAN PLAN OF TREATMENT No Information Progress Notes * GEORGES AdelinaaDOB: [birth year] (44 yo F)Acc No.[id number]:08/05/2024 Patient:??GEORGES Rodri Provider:??Kostas Ivan MD :1980?Age:43 Y?Sex:Fe male Date:08/05/2024 Address:[address] [place], [place] [id number] Subjective: * Chief Complaints: * ?1. .25. * Medical History:?? Objective: Assessment: Plan: * Treatment: * Images: Billing Information: * Visit Code:?? * Procedure Codes:?? * Sign off status: Pending * Provider:??Kostas Ivan MD Date:??08/05
--- OUTSIDE RECORDS SUMMARY | 2024-12-29 09:46 | XMS_ITS ---
Author Organization [facility] Address [address] [facility] [address] [place] [address] Care Team Providers Care Wellness Nurse Name Role Phone Sruthi Liao Primary Care Provider HATTIE Valles Unavailable [phone] Allergies Allergen (clinical drug ingredient) Drug/Non Drug Allergy documented on EMR Reaction Allergy Type Onset Date Status hydralazine hydrALAZINE HCl lupus syndrome Drug Allergy Active Penicillin hives/urticaria Drug Allergy Active REASON FOR VISIT 2 MONTH Medications Medication SIG (Take, Route, Frequency, Duration) Notes Start Date End Date Status Furosemide 20 MG 1 tablet Orally Once a day Not-Taking Symbicort PRN Active Iron Active Apixaban 5 MG as directed Orally BID 5 mg PO BID Active amLODIPine Besylate 10 MG 1 tablet Orall y Once a day Active Diclofenac Sodium 1 % 1 gm to the affected foot Externally twice daily for 30 days 02/11/2022 Not-Taking Acyclovir 200 MG 1 capsule Orally five times a day for 10 days 12/31/2023 Not-Taking Carvedilol 3.125 MG 1 tablet with food Orally Twice a day Not-Taking Doxycycline Monohydrate 100 MG 1 capsule Orally Twice a day Not-Taking predniSONE 5 MG 1 tablet Orally Once a day for 14 days 01/22/2024 Not-Taking Albuterol Sulfate 108 (90 Base) MCG/ACT 1 puff as needed Inhalation every 4 hrs PRN Active predniSONE 2.5 MG as directed Orally Once a day Active Diclofenac Sodium 1 % 1 gm to the left foot Externally Twice a day for 30 days Active Ketoconazole 2 % 1 application to each affected toenail Externally Once a day for 30 days PRN Active Gabapentin 300 MG 1 capsule Orally Three times a day Not-Taking Hydroxychloroquine Sulfate 200 MG as directed Orally BID Active Mycophenolate Mofetil 500 MG as directed Orally BID Active Pantoprazole Sodium 40 MG 1 tablet Orall y Once a day Active Vital Signs Weight 348.6 lbs 10/03/2024 Height 5ft 4in in 10/03/2024 BMI 59.83 kg/m2 10/03/2024 Heart Rate 86 /min 10/03/2024 Temperature 97.6 degrees Fahrenheit 10/03/20 Respiratory Rate 16 /min 10/03/2024 Encounters Encounter Location Date Provider Diagnosis [facility] [address] [place] [address] 10/03/2024 HATTIE CERVANTES Peroneal tendinitis, left M76.72 ; Pain in left foot M79.672 and Pes planus of left foot M21.42 Assessments Encounter Date Diagnosis (ICD Code) Assessment Notes Treatment Notes Treatment Clinical Notes Section Notes 10/03/2024 Peroneal tendinitis, left (ICD-10 - M76.72) Her strength is greatly improved, and I see no evidence of returned peroneal tendinitis though the sheath, and she has no pain on ROM or movement. Her peroneal tendinitis is resolved. She has weighted bands at home and continues to do the exercises daily. The lymphedema wraps should help with compression. We discussed uneven surfaces may be a trigger for her right now. She is back into most of her normal shoes. At this point, her issue has resolved. I encouraged the patient to contact my office if anything changes. She is in agreement with this plan. 10/03/2024 Pain in left foot (ICD-10 - M79.672) 10/03/2024 Pes planus of left foot (ICD-10 - M21.42) Plan Of Treatment Treatment Notes Assessment Notes Peroneal tendinitis, left Her strength is greatly improved, and I see no evidence of returned peroneal tendinitis though the sheath, and she has no pain on ROM or movement. Her peroneal tendinitis is resolved. She has weighted bands at home and continues to do the exercises daily. The lymphedema wraps should help with compression. We discussed uneven surfaces may be a trigger for her right now. She is back into most of her normal shoes. At this point, her issue has resolved. I encouraged the patient to contact my office if anything changes. She is in agreement with this plan. Next Appt Details Follow Up: prn, Reason: Progress Notes * Amisha SUB: 9 (43 yo F)Acc No.[id number]:10/03/2024 Progress Note Patient:?Rodri SU Provider:?Hattie Cervantes DPM :1980???Age:43 Y???Sex:Female D ate:10/03/2024 Address:[address] [place] [id number] Pcp:Sruthi Liao Subjective: * Chief Complaints: * ???2 MONTH * HPI: ???Constitutional:? This 43 y/o female returns to my office as a follow-up to left foot pain. She was discharged from physical therapy about 6 weeks ago. She states the foot has been improving. She states the tenderness on the lateral side of the foot has resolved. 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 She has been wearing her dress shoes 1-2 times a week when she is not standing as much at work. She has been using her lymphedema wraps with some improvement. She has no other foot complaints this visit. * ROS:?GENERAL: Pt denies nausea, fever, vomiting, chills, or shortness of breath. Pt in NAD. ALLERGY: patient denies any new allergy HEME/ONC: patient denies any bleeding or clotting disorders CARDIOLOGY: pt denies chest pain, palpitations LUNGS: pt denies shortness of breath ABDOMEN: patient denies any bloating, abdominal pain, or swelling MUSCULOSKELETAL: See HPI, otherwise no joint pain or swelling, back pain, or muscle pain. SKIN: see HPI, otherwise no lesions, rash or itching NEURO: No persistent headache, weakness or numbness PSYCH: patient denies any current anxiety or depression The remainder of the review of systems is noncontributory. * Medical History:? * Surgical History:?lap adjust able gastric band * Hospitalization/Major Diagno stic Procedure:?respiratory and renal failure (Lupus) hospitalized for 22 days 2/2021left leg cellulitis 01/15/2024 * Family History:? Mother: Arthritis Father: HTN, hemorrhagic stroke Maternal Gma: Diabetes, CA Breast (age 75), Arthritis Cousin: post gastric bypass surgery. * Social History:?Tobacco: no Alcohol: no. * Medications:?TakingIron Symb icort , Notes to Pharmacist: PRNamLODIPine Besylate 10 MG Tablet 1 tablet Orally Once a day Apixaban 5 MG Tablet as directed Orally BID , Notes to Pharmacist: 5 mg PO BIDHydroxychloroquine Sulfate 200 MG Tablet as directed Orally BID Pantoprazole Sodium 40 MG Tablet Delayed Release 1 tablet Orally Once a day Mycophenolate Mofetil 500 MG Tablet as directed Orally BID predniSONE 2.5 MG Tablet as directed Orally Once a day Albuterol Sulfate 108 (90 Base) MCG/ACT Aerosol Powder Breath Activated 1 puff as needed Inhalation every 4 hrs , Notes to Pharmacist: PRNKetoconazole 2 % Cream 1 application to each affected toenail Externally Once a day , Notes to Pharmacist: PRNDiclofenac Sodium 1 % Gel 1 gm to the left foot Externally Twice a day Taking Iron Taking Symbicort , Notes to Pharmacist: PRNTaking amLODIPine Besylate 10 MG Tablet 1 tablet Orally Once a day Taking Apixaban 5 MG Tablet as directed Orally BID , Notes to Pharmacist: 5 mg PO BIDTaking Hydroxychloroquine Sulfate 200 MG Tablet as directed Orally BID Taking Pantoprazole Sodium 40 MG Tablet Delayed Release 1 tablet Orally Once a day Taking Mycophenolate Mofetil 500 MG Tablet as directed Orally BID Taking predniSONE 2.5 MG Tablet as directed Orally Once a day Taking Albuterol Sulfate 108 (90 Base) MCG/ACT Aerosol Powder Breath Activated 1 puff as needed Inhalation every 4 hrs , Notes to Pharmacist: PRNTaking Ketoconazole 2 % Cream 1 application to each affected toenail Externally Once a day , Notes to Pharmacist: PRNTaking Diclofenac Sodium 1 % Gel 1 gm to the left foot Externally Twice a day Not-TakingGabapentin 300 MG Capsule 1 capsule Orally Three times a day Doxycycline Monohydrate 100 MG Capsule 1 capsule Orally Twice a day predniSONE 5 MG Tablet 1 tablet Orally Once a day Acyclovir 200 MG Capsule 1 capsule Orally five times a day Diclofenac Sodium 1 % Gel 1 gm to the affected foot Externally twice daily Carvedilol 3.125 MG Tablet 1 tablet with food Orally Twice a day Furosemide 20 MG Tablet 1 tablet Orally Once a day Medication List reviewed and reconciled with the patientNot-Taking Gabapentin 300 MG Capsule 1 capsule Orally Three times a day Not-Taking Doxycycline Monohydrate 100 MG Capsule 1 capsule Orally Twice a day Not-Taking predniSONE 5 MG Tablet 1 tablet Orally Once a day Not-Taking Acyclovir 200 MG Capsule 1 capsule Orally five times a day Not- Taking Diclofenac Sodium 1 % Gel 1 gm to the affected foot Externally twice daily Not- Taking Carvedilol 3.125 MG Tablet 1 tablet with food Orally Twice a day Not-Taking Furosemide 20 MG Tablet 1 tablet Orally Once a day Medication List reviewed and reconciled with the patient * Allergies:?hydrALAZINE HCl: lupus syndromePenicillin: hives/urticariano[Allergies Verified] Objective: * Vitals:?Wt:348.6lbs, Ht: 5ft 4in, BMI:59.83Index, HR:86/min, Temp:97.6F, RR:16/min, Ht-cm: 162.56, Wt-k.12 kg. * Examination: ???General Examination: ???GENERAL: Patient appears well nourished, with NAD. ?VASCULAR: Dorsalis pedis pulses are 2/4 bilaterally and Posterior tibial pulses are 2/4 bilaterally. Capillary filling time within normal limits the digits. No pallor on elevation or rubor on dependency. Each foot temperature is within normal limits. ?NEUROLOGICAL: Sharp/dull sensation intact bilaterally, position sense intact bilaterally to the tibial tuberosity. ?ORTHOPEDIC: Muscle strength 4/5 of all flexors and extensors. Dorsi flexion of ankle , 0 degrees, plantar flexion WNL. No muscle atrophy. Pes planus bilaterally. No pain on palpation of the 5th metatarsophalangeal joint of the left foot. No tenderness on palpation of the styloid process of the left foot, no pain along the peroneal brevis, no pain on inversion or eversion of the left foot with 4/5 weakness. ?DERMATOLOGICAL: Edema of the left leg. Normal skin temperature, normal skin turgor. Dystrophic 5th toenails of both feet. ?SHOES: sneakers. Assessment: * Assessment: 1.?Peroneal tendinitis, left - M76.72 (Primary)?2.?Pain in left foot - M79.672?3.?Pes planus of left foot - M21.42? Plan: * Treatment: * Procedure Codes:? * Follow Up:?prn * Billing Information: * Visit Code:? 18128 Office Visit, Est Pt., Level 3. * Procedure Codes:? * Sign off status: Completed true * Provider:?Hattie Cervantes DPM Date:? 10/03/2024 Generated for Renu mccormick/Sheila/Nancy on:?12/29/2024 09:45 AM EST History and Physical Notes * HPI (History of Present Illness) Category Sub-Category Detail Notes Category Not es Constitutional This 43 y/o f kb returns to my office as a follow-up to left foot pain. She was discharged from physical therapy about 6 weeks ago. She states the foot has been improving. She states the tenderness on the lateral side of the foot has resolved. She notes one or two days of rebound discomfort but overall, nothing skilled nursing. She did get new sneakers which is helping. She has been wearing her dress shoes 1-2 times a week when she is not standing as much at work. She has been using her lymphedema wraps with some improvement. She has no other foot complaints this visit. Examination Category Sub-Category Detail Notes Category Not es General Examination GENERAL: Patient appears well nourished, with NAD. VASCULAR: Dorsalis pedis pulses are 2/4 bilaterally and Posterior tibial pulses are 2/4 bilaterally. Capillary filling time within normal limits the digits. No pallor on elevation or rubor on dependency. Each foot temperature is within normal limits. NEUROLOGICAL: Sharp/dull sensation intact bilaterally, position sense intact bilaterally to the tibial tuberosity. ORTHOPEDIC: Muscle strength 4/5 of all flexors and extensors. Dorsi flexion of ankle , 0 degrees, plantar flexion WNL. No muscle atrophy. Pes planus bilaterally. No pain on palpation of the 5th metatarsophalangeal joint of the left foot. No tenderness on palpation of the styloid process of the left foot, no pain along the peroneal brevis, no pain on inversion or eversion of the left foot with 4/5 weakness. DERMATOLOGICAL: Edema of the left leg. Normal skin temperature, normal skin turgor. Dystrophic 5th toenails of both feet. SHOES: sneakers
--- OUTSIDE RECORDS SUMMARY | 2024-12-29 09:46 | XMS_ITS | Encounter Summary ---
Author Organization [facility], Address [address] [place] [address] Phone Care Team Providers Care Speedometer Inspector Name Role Phone Sruthi Liao MD Primary Care Provider [phone] Encounter Details Date Type Department Care Team (Late st Contact Info) Description 07/27/2024 Documentation Only [facility] [address] [place] [address] [place] [address] [place] [address] Social History Tobacco Use Types [...] Visit [facility] [address] [place] [address] Scott Swain MD [address] [place] [address] documented as of this encounter Visit Diagnoses Not on filedocumented in this encounter Care Teams Speedometer Inspector Relationship Specialty Start Date End Date Sruthi Liao MD PCP - General 09/20/19 documented as of this encounter
--- OUTSIDE RECORDS SUMMARY | 2024-12-29 09:46 | XMS_ITS ---
Author Organization [facility] Address [address] [place] [address] Care Team Providers Care Production Specialist Name Role Phone COY FOX Unavailable [phone] KOSTAS IVAN Unavailable [phone] REASON FOR VISIT pt is here for sema 0.25....pt signed consent and left the office in stable condition MEDICATIONS Medication SIG (Take, Route, Frequency, Duration) Notes Start Date End Date Status Pantoprazole Sodium 40 MG 1 tablet Orall y Once a day Active predniSONE 2.5 MG 1 tablet Orally Once a day Active Hydroxychloroquine Sulfate 2 00 MG as directed Orally twice daily Active amLODIPine Besylate 10 MG 1 tablet Orall y Once a day Active Mycophenolate Mofetil 500 MG 750 mg Oral ly Twice a day Active Eliquis 5 MG 1 tablet Orally Twic e a day Active Encounters Encounter Location Date Provider Diagnosis [facility] [address] [place] [id number] 07/30/2024 KOSTAS IVAN PLAN OF TREATMENT No Information MEDICATIONS ADMINISTERED Medication Instructions Date of Administration Dosage Notes Semaglutide 07/30/2024 0.25 mg Progress Notes * Amisha SUB: 9 (44 yo F)Acc No.[id number]:07/30/2024 Patient:??Rodri SU Provider:??Kostas Ivan MD :1980?Age:43 Y?Sex:Fe male Date:07/30/2024 Address:[address] [place], [place] [id number] Subjective: * Chief Complaints: * ?1. Pt is here for sema 0.25....pt signed consent and left the office in stable condition. * Medical History:?? * Medications:??Taking amLODIP ine Besylate 10 MG Tablet 1 tablet Orally Once a day , Taking Pantoprazole Sodium 40 MG Tablet Delayed Release 1 tablet Orally Once a day , Taking Hydroxychloroquine Sulfate 200 MG Tablet as directed Orally twice daily , Taking predniSONE 2.5 MG Tablet 1 tablet Orally Once a day , Taking Eliquis 5 MG Tablet 1 tablet Orally Twice a day , Taking Mycophenolate Mofetil 500 MG Tablet 750 mg Orally Twice a day Objective: Assessment: Plan: * Treatment: * Therapeutic Injections:? Semaglutide : 0.25 mg (Route: Subcutaneous) given by Sergei Canales on left arm subcutaneous * Images: Billing Information: * Visit Code:?? * Procedure Codes:?? * Sign off status: Pending * Provider:??Kostas Ivan MD Date:??07/30
--- OUTSIDE RECORDS SUMMARY | 2024-12-29 09:46 | XMS_ITS | Encounter Summary ---
Author Organization [facility], Address [address] [place] [address] Phone Care Team Providers Care Vp Purchasing Name Role Phone Sruthi Liao MD Primary Care Provider [phone] Encounter Details Date Type Department Care Team (Late st Contact Info) Description 07/01/2024 Documentation Only [facility] [address] [place] [address] Elenita Nichols [address] [place] [address] Social History Tobacco Use Types [...] Visit [facility] [address] [place] [address] Scott Swain MD [address] [place] [address] [place] [address] documented as of this encounter Visit Diagnoses Not on filedocumented in this encounter Care Teams Vp Purchasing Relationship Specialty Start Date End Date Sruthi Liao MD PCP - General 09/20/19 documented as of this encounter
--- OUTSIDE RECORDS SUMMARY | 2024-12-29 09:46 | XMS_ITS ---
Author Organization [facility] Address [address] [facility] [address] [place] [address] Care Team Providers Care Hospice Volunteer Name Role Phone Sruthi Liao Primary Care Provider HATTIE Valles Unavailable [phone] Allergies Allergen (clinical drug ingredient) Drug/Non Drug Allergy documented on EMR Reaction Allergy Type Onset Date Status hydralazine hydrALAZINE HCl lupus syndrome Drug Allergy Active Penicillin hives/urticaria Drug Allergy Active REASON FOR VISIT 4 wk f/u Medications Medication SIG (Take, Route, Frequency, Duration) Notes Start Date End Date Status Pantoprazole Sodium 40 MG 1 tablet Orall y Once a day Active Hydroxychloroquine Sulfate 200 MG as directed Orally BID Active Apixaban 5 MG as directed Orally BID 5 mg PO BID Active amLODIPine Besylate 10 MG 1 tablet Orall y Once a day Active Mycophenolate Mofetil 500 MG as directed Orally BID 750MG BID Active Carvedilol 3.125 MG 1 tablet with food Orally Twice a day Not-Taking Diclofenac Sodium 1 % 1 gm to the affected foot Externally twice daily for 30 days 02/11/2022 Not-Taking Acyclovir 200 MG 1 capsule Orally five times a day for 10 days 12/31/2023 Not-Taking Furosemide 20 MG 1 tablet Orally Once a day Not-Taking Symbicort PRN Active predniSONE 5 MG 1 tablet Orally Once a day for 14 days 01/22/2024 Not-Taking Ketoconazole 2 % 1 application to each affected toenail Externally Once a day for 30 days PRN Active Gabapentin 300 MG 1 capsule Orally Three times a day Not-Taking Diclofenac Sodium 1 % 1 gm to the left foot Externally Twice a day for 30 days Active Doxycycline Monohydrate 100 MG 1 capsule Orally Twice a day Not-Taking Albuterol Sulfate 108 (90 Base) MCG/ACT 1 puff as needed Inhalation every 4 hrs PRN Active predniSONE 2.5 MG as directed Orally Once a day Active Encounters Encounter Location Date Provider Diagnosis [facility] [address] [facility] [address] [place] [address] 08/01/2024 HATTIE CERVANTES Peroneal tendinitis, left M76.72 ; Pain in left foot M79.672 and Pes planus of left foot M21.42 Assessments Encounter Date Diagnosis (ICD Code) Assessment Notes Treatment Notes Treatment Clinical Notes Section Notes 08/01/2024 Peroneal tendinitis, left (ICD-10 - M76.72) Her strength is greatly improved this visit. She also bought new sneakers which are helping. She has no tenderness at the styloid process this visit. I see no evidence of returned peroneal tendinitis though the sheath, and she has no pain on ROM or movement. She has weighted bands at home and continues to do the exercises daily. We discussed a discharge from physical therapy after next week. She is in agreement with this plan. At this time, she can try to wear her dress shoes starting with an hour or two at a time. If no pain, she can slowly increase. The lymphedema wraps should help with compression. We discussed uneven surfaces may be a trigger for her right now. I would like to see her back in 2 months. She is in agreement with this plan. 08/01/2024 Pain in left foot (ICD-10 - M79.672) 08/01/2024 Pes planus of left foot (ICD-10 - M21.42) Plan Of Treatment Treatment Notes Assessment Notes Peroneal tendinitis, left Her strength is greatly improved this visit. She also bought new sneakers which are helping. She has no tenderness at the styloid process this visit. I see no evidence of returned peroneal tendinitis though the sheath, and she has no pain on ROM or movement. She has weighted bands at home and continues to do the exercises daily. We discussed a discharge from physical therapy after next week. She is in agreement with this plan. At this time, she can try to wear her dress shoes starting with an hour or two at a time. If no pain, she can slowly increase. The lymphedema wraps should help with compression. We discussed uneven surfaces may be a trigger for her right now. I would like to see her back in 2 months. She is in agreement with this plan. Next Appt Details Follow Up: 2 Months, Reason: Progress Notes * Amisha SUB: 9 (43 yo F)Acc No.[id number]:08/01/2024 Progress Note Patient:?Rodri SU Provider:?Hattie Cervantes DPM :1980???Age:43 Y???Sex:Female D ate:08/01/2024 Address:[address] [place], [place] [id number] Pcp:Sruthi Liao Subjective: * Chief Complaints: * ???4 wk f/u * HPI: ???Constitutional:? This 43 y/o female returns to my office as a follow-up to left foot pain. She has been going to physical therapy once a week. They have been working on strength and have started her proprioception training. She states if her foot is inflamed, they do give her a session of manipulation and not strengthening. She states the foot has been improving. She states the tenderness on the lateral side of the foot has improved. She did get new sneakers which is helping. She has been wearing her dress shoes 1-2 times a week when she is not standing as much at work.She has been using her lymphedema wraps for 1 week with some improvement. She has no other [...] renal failure (Lupus) hospitalized for 22 days eft leg cellulitis 01/15/2024 * Family History:? Mother: Arthritis Father: HTN, hemorrhagic stroke Maternal Gma: Diabetes, CA Breast (age 75), Arthritis Cousin: post gastric bypass surgery. * Social History:?Tobacco: no Alcohol: no. * Medications:?TakingSymbicort , Notes to Pharmacist: PRNamLODIPine Besylate 10 MG Tablet 1 tablet Orally Once a day Apixaban 5 MG Tablet as directed Orally BID , Notes to Pharmacist: 5 mg PO BIDHydroxychloroquine Sulfate 200 MG Tablet as directed Orally BID Pantoprazole Sodium 40 MG Tablet Delayed Release 1 tablet Orally Once a day Mycophenolate Mofetil 500 MG Tablet as directed Orally BID , Notes to Pharmacist: 750MG BIDpredniSONE 2.5 MG Tablet as directed Orally Once [...] left foot Externally Twice a day Taking Symbicort , Notes to Pharmacist: PRNTaking [...] 500 MG Tablet as directed Orally BID , Notes to Pharmacist: 750MG BIDTaking predniSONE 2.5 MG Tablet as directed Orally [...] 1 tablet Orally Once a day Not-Taking Gabapentin 300 MG Capsule 1 capsule Orally Three times a day Not- Taking Doxycycline Monohydrate 100 MG Capsule 1 capsule Orally Twice a day Not-Taking predniSONE 5 MG Tablet 1 tablet Orally Once a day Not-Taking Acyclovir 200 MG Capsule 1 capsule Orally five times a day Not-Taking Diclofenac Sodium 1 % Gel 1 gm to the affected foot Externally twice daily Not-Taking Carvedilol 3.125 MG Tablet 1 tablet with food Orally Twice a day Not-Taking Furosemide 20 MG Tablet 1 tablet Orally Once a day * Allergies:?hydrALAZINE HCl: lupus syndromePenicillin: hives/urticaria Objective: * Examination: ???General Examination: ???GENERAL: Patient appears [...] * Treatment: * Procedure Codes:? * Follow Up:?2 Months * Billing Information: * Visit Code:? 94896 Office Visit, Est Pt., Level 3. * Procedure Codes:? * Sign off status: Completed true * Provider:?Hattie Cervantes DPM Date:? 08/01/2024 Generated for Renu mccormick/Sheila/Treyitting on:?12/29/2024 09:46 AM EST History and Physical Notes * HPI (History of Present Illness) Category Sub-Category Detail Notes Category Not es Constitutional This 43 y/o f kb returns to my office as a follow-up to left foot pain. She has been going to physical therapy once a week. They have been working on strength and have started her proprioception training. She states if her foot is inflamed, they do give her a session of manipulation and not strengthening. She states the foot has been improving. She states the tenderness on the lateral side of the foot has improved. She did get new sneakers which is helping. She has been wearing her dress shoes 1-2 times a week when she is not standing as much at work.She has been using her lymphedema wraps for 1 week with some improvement. She has no other [...]
--- OUTSIDE RECORDS SUMMARY | 2024-12-29 09:47 | XMS_ITS | Encounter Summary ---
Author Organization [facility], Address [address] [place] [address] Phone Care Team Providers Care Instructional Assistant Name Role Phone Sruthi Liao MD Primary Care Provider [phone] Encounter Details Date Type Department Care Team (Late st Contact Info) Description 02/10/2023 Documentation Only [facility] [address] [place] [address] Hiren Minor MD [address] [place] [address] [address] [place] [address] Social History Tobacco Use Types Packs/Day Years Used Date Smoking Tobacco: Never Alcohol Use Standard Drinks/Week Comments [...] Visit [facility] [address] [place] [address] Scott Swain MD [address] [place] [address] [place] [address] documented as of this encounter Visit Diagnoses Not on filedocumented in this encounter Care Teams Instructional Assistant Relationship Specialty Start Date End Date Sruthi Liao MD PCP - General 09/20/19 documented as of this encounter
--- OUTSIDE RECORDS SUMMARY | 2024-12-29 09:47 | XMS_ITS | Encounter Summary ---
Author Organization [facility], Address [address] [place] [address] Phone Care Team Providers Care Glass Beveller Name Role Phone Sruthi Liao MD Primary Care Provider [phone] Encounter Details Date Type Department Care Team (Late st Contact Info) Description 08/04/2023 Documentation Only [facility] [address] [place] [address] Hiren Minor MD [address] [place] [address] [address] [place] [address] Social History Tobacco Use Types Packs/Day Years [...] Visit [facility] [address] [place] [address] Scott Swain MD [address] [place] [address] [place] [address] documented as of this encounter Visit Diagnoses Not on filedocumented in this encounter Care Teams Glass Beveller Relationship Specialty Start Date End Date Sruthi Liao MD PCP - General 09/20/19 documented as of this encounter
--- OUTSIDE RECORDS SUMMARY | 2024-12-29 09:47 | XMS_ITS | Encounter Summary ---
Author Organization [facility], Address [address] [place] [address] Phone Care Team Providers Care Rod Greaser Name Role Phone Sruthi Liao MD Primary Care Provider [phone] Encounter Details Date Type Department Care Team (Late st Contact Info) Description 01/25/2024 Documentation Only [facility] [address] [place] [address] [place] [address] [place] [id number] Social History Tobacco Use Types Packs/Day Years [...] Visit [facility] [address] [place] [address] Scott Swain MD [address] [place] [address] [place] [phone] documented as of this encounter Visit Diagnoses Not on filedocumented in this encounter Care Teams Rod Greaser Relationship Specialty Start Date End Date Sruthi Liao MD PCP - General 09/20/19 documented as of this encounter
--- OUTSIDE RECORDS SUMMARY | 2024-12-29 09:47 | XMS_ITS | Encounter Summary ---
Author Organization [facility], Address [address] [place] [address] Phone Care Team Providers Care Firearms Expert Name Role Phone Sruthi Liao MD Primary Care Provider [phone] Encounter Details Date Type Department Care Team (Late st Contact Info) Description 03/27/2023 Documentation Only [facility] [address] [place] [address] Scott Swain MD [address] [place] [address] [place] [address] Social History Tobacco Use Types Packs/Day Years [...] Visit [facility] [address] [place] [address] Scott Swain MD [address] [place] [address] [place] [address] documented as of this encounter Procedures Procedure Name Priority Date/Time Associated Diagnosis Comments URINE ALBUMIN / CREATININE RATIO Routine 03/27/2023 2:04 PM EDT SLE glomerulonephritis syndrome (HCC) ANTI-DNA ANTIBODY, DOUBLE-STRANDED Routine 03/27/2023 2:04 PM EDT SLE glomerulonephritis syndrome (HCC) URINALYSIS WITH MICROSCOPIC Routine 03/27/2023 2:04 PM EDT SLE glomerulonephritis syndrome (HCC) CBC AND DIFFERENTIAL Routine 03/27/2023 2:04 PM EDT SLE glomerulonephritis syndrome (HCC) C3 COMPLEMENT Routine 03/27/2023 2:04 PM EDT SLE glomerulonephritis syndrome (HCC) C4 COMPLEMENT Routine 03/27/2023 2:04 PM EDT SLE glomerulonephritis syndrome (HCC) RENAL FUNCTION PANEL Routine 03/27/2023 2:04 PM EDT SLE glomerulonephritis syndrome (HCC) documented in this encounter Results * (ABNORMAL) C4 Complement (03/27/2023 2:04 PM EDT) C4 Complement 44(H) (10-40) MG/DL [facility] Comment: Testing performed or reported by [facility], a Service of [facility], [address] [place] [address] Jasen Finley MD, Manager Integrated [facility]# [id number] Blood (Blood, Venous) 03/27/2023 2:04 PM EDT 03/27/2023 2:05 PM EDT us Scott Swain MD LAB BLOOD ORDERABLES Final Re sult [facility] * C3 Complement (03/27/2023 2:04 PM EDT) C3 Complement 141 (90-180) MG/DL [facility] Comment: Testing performed or reported by [facility], a Service of [address] [address] Jasen Finley MD, Manager Integrated [facility]# [id number] Blood (Blood, Venous) 03/27/2023 2:04 PM EDT 03/27/2023 2:05 PM EDT Scott Swain MD LAB BLOOD ORDERABLES Final Re sult Performing Organization Address [facility] Co de Phone Number [facility] * Anti-DNA antibody, double-stranded (03/27/2023 2:04 PM EDT) Anti DNA, [place] [address] [facility] Comment: Reference range: 0 to 9 Unit: IU/mL (NOTE) ?Negative ?<5 ?Equivocal ??5 - 9 ?Positive ?>9 [facility], [address] [place] [address] Testing performed or reported by [facility], a Service of [facility], [address] [place] [address] Jasen Finley MD, Manager Integrated [facility]# [id number] Blood (Blood, Venous) 03/27/2023 2:04 PM EDT 03/27/2023 2:05 PM EDT Scott Swain MD LAB BLOOD ORDERABLES Final Re sult Performing Organization Address [facility] de Phone Number [facility] * (ABNORMAL) Urine Albumin / Creatinine Ratio (03/27/2023 2:04 PM EDT) Urine Microalbumin 50.5(H) (<20) MG/L [facility] Comment: The urine microalbumin test is designed to monitor renal function. When screening for Bence Uribe proteinuria, urine electrophoresis is recommended. Microalbumin/Creati nine Ratio 142.3(H) (0-20) MG/GM [facility] Microalb/Creat Ratio 35.5 MG/DL [facility] Comment: Testing performed or reported by [facility], a Service of [facility], [address] [place] [address] Jasen Finley MD, Manager Integrated [facility]# [id number] Urine (Urine, Clean Catch) 03/27/2023 2:04 PM EDT 03/27/2023 2:06 PM EDT Scott Swain MD LAB URINE ORDERABLES Final Re sult Performing Organization Address [facility] de Phone Number [facility] * (ABNORMAL) Urinalysis with microscopic (03/27/2023 2:04 PM EDT) Appearance COLORLESS [facility] Comment:CLEAR Specific [place] 1.007 (1.002-1. 030) [facility] pH Urine 7.0 (5.0-8.0) [facility] Albumin, Urine NEGATIVE (NEG) [facility] Glucose, Ur NEGATIVE (NEG) [facility] Ketones, Urine NEGATIVE (NEG) [facility] Bilirubin Urine NEGATIVE (NEG) [facility] Hemoglobin Presence in Urine 1+(A) (NEG) [facility] Nitrite, Urine NEGATIVE (NEG) [facility] Leukocyte Esterase Urine NEGATIVE (NEG) [facility] Urobilinogen Urine NORMAL (NORM) MG/DL [facility] WBC, Urine <1 (0-5) /HPF [facility] RBC, Urine 1 (0-3) /HPF [facility] Squamous Epithelial, Urine 2 (0-8) /HPF [facility] Comment: Testing performed or reported by [facility], a Service of [facility], [address] [place] [address] Jasen Finley MD, Manager Integrated CLIA# [id number] Urine (Urine, Clean Catch) 03/27/2023 2:04 PM EDT 03/27/2023 2:06 PM EDT Scott Swain MD LAB URINE ORDERABLES Final Re sult Performing Organization Address [facility] Co de Phone Number [facility] * (ABNORMAL) Renal Function Panel (03/27/2023 2:04 PM EDT) Glucose 90 (70-99) MG/DL [facility] BUN 14 (6-20) MG/DL [facility] Creatinine 1.5(H) (0.5-1.0) MG/DL [facility] Sodium 138 (133-145) MMOL/L [facility] Potassium 4.6 (3.6-5.2) MMOL/L [facility] Chloride 104 (98-107) MMOL/L [facility] Bicarbonate (CO2) 23 (22-29) MMOL/L [facility] Anion Gap 11 (4-17) [facility] Albumin 4.6 (3.4-4.8) GM/DL [facility] Calcium 9.6 (8.6-10.5) MG/DL [facility] Phosphorus, Serum 3.7 (2.5-4.5) MG/DL [facility] Est GFR Non 46 ML/MIN/1.7 3 M2 [facility] Comment: Creatinine based estimated glomerular filtration (eGFR) in adults is calculated using the National [employer] recommended 2020 CKD-EPI equation. Estimates GFR from serum creatinine, age and sex. Testing performed or reported by [facility], a Service of [facility], [address] [place] [address] Jasen Finley MD, Manager Integrated [facility]# [id number] Blood (Blood, Venous) 03/27/2023 2:04 PM EDT 03/27/2023 2:05 PM EDT us Scott Swain MD LAB BLOOD ORDERABLES Final Re sult Performing Organization Address [facility] de Phone Number [facility] * (ABNORMAL) CBC and Differential (03/27/2023 2:04 PM EDT) White Blood Cells 7.0 (4.0-11.0) K/MM3 [facility] RBC 4.41 (4.20-5.40 ) M/MM3 [facility] Hgb 11.8 (11.7-15.5 ) GM/DL [facility] Hematocrit 39.5 (35.7-45.8 ) % [facility] MCV 89.6 (80.0-100. 0) FL [facility] MCH 26.8(L) (27.0-34.0 ) PG [facility] MCHC 29.9(L) (33.0-37.0 ) g/dL [facility] Platelets 212 (150-460) K/MM3 [facility] RDW-SD 44.1 (<47.0) FL [facility] MPV 10.7 (9.4-12.4) [place] [facility] nRBC Count 0.0 #/100 WBC'S [facility] NRBC Absolute 0.0 K/MM3 [facility] Neutrophils Abs Auto 4.9 (1.3-7.0) K/MM3 [facility] Lymphocytes Relative 1.5 (0.8-3.1) K/MM3 [facility] Monocytes 0.6 (0.4-0.9) K/MM3 [facility] Eosinophils Relative 0.0 (0.0-0.4) K/MM3 [facility] Basophil ABS 0.0 (0.0-0.1) K/MM3 [facility] Granulocytes Absolute 0.0 K/MM3 [facility] Neutrophils % Auto 69.0 (44-76) % [facility] Lymphs 20.9 (15-43) % [facility] Monocytes Absolute 8.9 (4.5-10.5) % [facility] Eosinophils 0.6 (0-6) % [facility] Basophils Relative 0.3 (0-2) % [facility] Immature Granulocytes 0.3 % [facility] Comment: Testing performed or reported by [facility], a Service of [facility], [address] [place] [address] Jasen Finley MD, Manager Integrated [facility]# [id number] Blood (Blood, Venous) 03/27/2023 2:04 PM EDT 03/27/2023 2:05 PM EDT us Scott Swain MD LAB BLOOD ORDERABLES Final Re sult [facility] documented in this encounter Visit Diagnoses Diagnosis SLE glomerulonephritis syndrome (HCC)- Primary documented in this encounter Care Teams Firearms Expert Relationship Specialty Start Date End Date Sruthi Liao MD PCP - General 11/5/19 documented as of this encounter
--- OUTSIDE RECORDS SUMMARY | 2024-12-29 09:47 | XMS_ITS ---
Author Organization [facility] Address [address] [place] [address] Care Team Providers Care Wet And Dry Sugar Bin Operator Name Role Phone COY FOX Unavailable [phone] Encounters Encounter Location Date Provider Diagnosis [facility] [address] [place] [address] 08/03/2024 COY FOX PLAN OF TREATMENT No Information Progress Notes * GEORGESManiEllisB: 9 (44 yo F)Acc No.[id number]:08/03/2024 Patient:??Mani SUdonovan Provider:??COY FOX PA-C :1980?Age:43 Y?Sex:Fe male Date:08/03/2024 Address:[address] [place], [place] [id number] Subjective: * Chief Complaints: * ? * Medical History:?? Objective: Assessment: Plan: * Treatment: * Images: Billing Information: * Visit Code:?? * Procedure Codes:?? * Sign off status: Pending * Provider:??COY FOX PA-C Date:??07/17
--- OUTSIDE RECORDS SUMMARY | 2024-12-29 09:47 | XMS_ITS | Clinical Summary ---
Author Organization [address] [place] [address] [place] [phone] Phone Care Team Providers Care Vessel Crew Member Name Role Phone Sruthi Liao MD Primary Care Provider [phone] Allergies Active Allergy Reactions Criticality Noted Date Comments Azithromycin Other,Swelling 01/03/2019 Submandibular swelling Hydralazine Other High 01/16/2021 Lupus syndrome Ibuprofen 07/01/2024 Penicillins Hives,Other,Rash Low 02/09/2011 Prednisone Other High 01/04/2020 Medications amLODIPine (NORVASC) 10 mg tablet Take 1 tablet (10 mg total) by mouth 1 (one) time each day. 4 Active albuterol HFA (PROAIR HFA ; PROVENTIL HFA ; VENTOLIN HFA) 90 mcg/actuation inhaler Inhale 2 puffs by mouth. 4 Active acetaminophen (TYLENOL 8 HOUR) 650 mg 8 hr tablet Take 1 tablet (650 mg total) by mouth every 8 (eight) hours if needed. 4 Active Eliquis 5 mg tablet Take 1 tablet (5 mg total) by mouth 2 (two) times a day. 1 Active Symbicort 160-4.5 mcg/actuation inhaler INHALE 2 PUFFS BY MOUTH 2 TIMES A DAY FOR 30 DAYS 3 Active carvediloL (COREG) 3.125 mg tablet Take 1 tablet (3.125 mg total) by mouth. 2 Active cloNIDine (CATAPRES) 0.1 mg tablet TAKE 1 TAB BY MOUTH AT BEDTIME FOR 180 DAYS. 1 Active diclofenac (VOLTAREN) 1 % topical gel APPLY 1 GM TO THE LEFT FOOT EXTERNALLY TWICE A DAY 30 DAYS 4 Active ferrous sulfate 325 mg (65 mg iron) EC tablet TAKE 1 TABLET (325 MG TOTAL) BY MOUTH 1 (ONE) TIME EACH DAY DO NOT CRUSH, CHEW, OR SPLIT. 4 Active fluticasone propionate (FLONASE) 50 mcg/actuation nasal spray Administer 1 spray into affected nostril(s). 4 Active furosemide (LASIX) 20 mg tablet Take 1 tablet (20 mg total) by mouth 1 (one) time each day. 1 Active gabapentin (NEURONTIN) 300 mg capsule Take 1 capsule (300 mg total) by mouth. 4 Active ketoconazole (NIZORAL) 2 % cream APPLY TO EACH AFFECTED TOENAIL EXTERNALLY ONCE A DAY 30 DAYS Active lisinopril (PRINIVIL,ZESTR IL) 40 mg tablet Take 1 tablet (40 mg total) by mouth 1 (one) time each day. Active loratadine (CLARITIN) 10 mg tablet TAKE 1 TABLET BY MOUTH DAILY NEEDED FOR ALLERGIES. Active Lagevrio, EUA, 200 mg capsule TAKE 4 CAPSULES BY MOUTH TWICE A DAY FOR 5 DAYS 4 Active mycophenolate (CELLCEPT) 500 mg tablet TAKE 2 TABLETS BY MOUTH IN THE MORNING AND 2 TABLETS IN THE EVENING 1 Active oxyCODONE (ROXICODONE) 5 mg immediate release tablet TAKE 1 TABLET BY MOUTH EVERY 6 HOURS FOR 5 DAYS NEEDED FOR PAIN 4 Active pantoprazole (PROTONIX) 40 mg EC tablet Take 1 tablet (40 mg total) by mouth. 1 Active predniSONE (DELTASONE) 10 mg tablet Take 1.5 tablets (15 mg total) by mouth 1 (one) time each day. 1 Active predniSONE (DELTASONE) 1 mg tablet Take 2.5 tablets (2.5 mg total) by mouth. 4 Active predniSONE (DELTASONE) 50 mg tablet Take 1 tablet (50 mg total) by mouth 1 (one) time each day. for 5 days 4 Active sulfamethoxazol e-trimethoprim (BACTRIM DS,SEPTRA DS) 800-160 mg per tablet Take 1 tablet by mouth 2 (two) times a day. for 10 days 4 Active triamcinolone (KENALOG) 0.5 % ointment APPLY 1 EACH TOPICALLY 2 TIMES DAILY. 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 anti-DNA pos. Anti DEE DEE and complements normal. 02/2021 rnenal biopsy showing class III GN Cellcept started - March 2021 Vitamin D deficiency 01/17/2019 Acne vulgaris 02/16/2013 Seborrheic dermatitis 02/16/2013 Allergic rhinitis 04/21/2011 Wheezing 04/21/2011 Diverticulosis of sigmoid colon 11/17/2009 Overview (11/11/2024): On CT scan 2005 Spina bifida occulta 01/19/2006 Encounters Date Type Department Care Team Description 10/01/2024 11:30 AM EST Office Visit [facility] - [address] [address] Lizett Higuera NP Upper respiratory tract infection, unspecified type (Primary Dx) from Last 3 Months Immunizations Name Administration Dates Next Due DTP 04/16/1983, 1,02/15/1980,1978,02/14/1979 Hepatitis B (Itcqeww-Z-Bvlet , Recombivax HB-Adult) 19yo and older 10/16/1997,11/16/1996,09/16/1996 MMR, measles mumps and rubel la Live (Priorix; M-M-R II) 12mo and older 06/02/1991,05/09/1980 OPV 04/16/1983, 1,06/16/1979,1978,01/14/1979 Td Tetanus diptheria (Tdvax) 7yo and older 06/04/2021,02/08/2004 Td, Unspecified 02/08/2004 Tdap Tetanus diptheria acell ular pertussis (Boostrix; Adacel) 7yo and older 04/21/2011 Surgical History Surgery Date Site/Laterality Comments LAPAROSCOPIC GASTRIC BANDING PROCEDURE: LAP ADJUSTABLE GASTRIC BAND Medical History Medical History Date Comments Morbid obesity ([facility]) 01/19/2006 DX:Morb id obesity ([facility]) Lumbago 01/19/2006 DX:Lumbago Spina bifida occulta 01/19/2006 DX:Spina bi fida occulta Historical Medical DX 11/17/2009 DX:Diverti culosis of sigmoid Allergic rhinitis 04/21/2011 DX:Allergic rh initis Wheezing 04/21/2011 DX:Wheezing Acne vulgaris 02/16/2013 DX:Acne vulgaris Seborrheic dermatitis 02/16/2013 DX:Seborrh eic dermatitis HTN (hypertension) DX:HTN (hyper tension) H/O bariatric surgery 06/28/2018 DX:H/O bar iatric surgery; COMMENT: Lap band 01/03 Vitamin D deficiency 01/17/2019 DX:Vitamin D deficiency SLE (systemic lupus erythema tosus) ([facility]) 01/11/2021 DX:SLE (systemic lupus eryth ematosus) ([facility]); COMMENT: Onset 11/2020 DVT (deep venous thrombosis) ([facility]) 01/16/2021 DX:DVT (deep venous thrombosis) ([facility]); COMMENT: 01/06 left gastroc DVT Pulmonary emboli ([facility]) 04/01/2021 DX:Pu lmonary emboli ([facility]); COMMENT: 02/03 right lower lung History of pulmonary embolism 04/01/2021 DX :History of pulmonary embolism; COMMENT: February 2021: 02/03 right lower lung Family History Medical History Relation Name Comments Other: hemorrhagic stroke Father hy pertension Arthritis Maternal Grandmother Diabetes Maternal Grandmother breast cancer age 75 Arthritis Mother Other: alive and well Mother Other: obesity Other cousin- post gastric bypass surgery Relation Name Status Comments Brother Alive Father Alive Maternal Grandfather (Age 77) Nic green's Maternal Grandmother Alive Mother Alive Other Paternal Grandfather Paternal Grandmother in a fire Social History Tobacco Use Types Packs/Day Years Used Date Smoking Tobacco: Never Smokeless Tobacco: Never Alcohol Use Standard Drinks/Week Comments No 0 (1 standard drink = 0.6 oz pur e alcohol) Comments Unknown Sex and Gender Information Value Date Recorded Sex Assigned at Not on file Legal Sex Female 11:34 PM EST Gender Identity Not on file Sexual Orientation Not on file Obstetrics History Last Filed Vital Signs Vital Sign Reading Time Taken Comments Blood Pressure 126/66 10/01/2024 11:41 AM EST Pulse 78 10/01/2024 11:41 AM EST Temperature 35.9 ??C (96.6 ??F) 10/01/2024 11:[address] Respiratory Rate - - Oxygen Saturation 99% 10/01/2024 11:41 AM EST Inhaled Oxygen Concentration - - Weight 160 kg (352 lb) 05/04/2024 8:31 AM EDT Height 162.6 cm (5' 4 ) 05/04/2024 8:31 AM EDT Body Mass Index 60.42 05/04/2024 8:31 AM EDT Plan of Treatment Health Maintenance Due Date Last Done Comments Breast Cancer Screening 1978 COVID-19 Vaccine (#1) 1983 Pneumococcal Vaccine: Pediatrics (0 to 5 Years) and At-Risk Patients (6 to 64 Years) (1 of 2 - PCV) 1997 Cervical Cancer Screening: Pap Smear 10/20/2016 10/20/2013, 10/20/2013 Colorectal Cancer Screening: Colonoscopy 10/19/2022 Depression Screening 10/19/2022 Social Influencers of Health Screening 10/19/2022 Cholesterol Screening (Lipid Panel) 12/10/2023 12/10/2018 Hypertension/CHF/CAD Annual BMP Blood Test 05/15/2024 05/15/2023 Influenza Vaccine (#1) 2024 DTaP,Tdap,and Td Vaccines (10 - Td or Tdap) 06/04/2031 06/04/2021, 04/21/2011, 02/08/2004, Additional history exists IPV Vaccines Completed 04/16/1983, 11/1980, 06/16/1979, Additional history exists MMR Vaccines Completed 06/02/1991, 05/09/1980 Hepatitis B Vaccines Completed 10/16/1997, 11/16/1996, 09/16/1996 HIV Screening Completed 02/12/2009 Hepatitis C Screening Completed 02/12/2009 HIB Vaccines Aged Out No longer eligi ble based on patient's age to complete this topic HPV Vaccines Aged Out No longer eligi ble based on patient's age to complete this topic Hepatitis A Vaccines Aged Out No long er eligible based on patient's age to complete this topic Meningococcal ACWY Vaccine Aged Out N o longer eligible based on patient's age to complete this topic Meningococcal B Vacine Aged Out No lo nger eligible based on patient's age to complete this topic RSV Immunization Patients Under 20 months Aged Out No longer eligible based on patient's age to complete this topic Varicella Vaccines Aged Out No longer eligible based on patient's age to complete this topic Procedures Procedure Name Priority Date/Time Associated Diagnosis Comments POC RAPID [id number], MOLECULAR Routine 10/01/2024 11:55 AM EST Upper respiratory tract infection, unspecified type ANNUAL BMP BLOOD TEST Routine 05/15/2023 LIPID PANEL Routine 12/10/2018 HPV Routine 10/20/2013 HEPATITIS C SCREENING Routine 02/12/2009 HIV SCREENING Routine 02/12/2009 from Last 3 Months or Most Recently Relevant to Health Maintenance Results * Poc Rapid [id number], MOLECULAR (10/01/2024 11:55 AM EST) COVID-19/SARS- COV-2 Rapid POC Negative Negative Internal Control Pass Yes Yes Swab Nasopharyngeal structure / Unknown 10/01/2024 11:55 AM EST Lizett Higuera NP POINT OF CARE TEST ENTER/EDIT ORDERABLES Final Result * Annual BMP Blood Test (05/15/2023) [facility] Annual BMP Blood Test Abstracted Historical Provider HEALTH MAINTENANCE Final Result * Lipid panel (12/10/2018) [facility] LDL/HDL Ratio 3 0 - 4 Triglycerides 53 0 - 150 mg/dL Cholesterol 154 0 - 200 mg/dL HDL 60 >=40 mg/dL LDL Cholesterol 84 0 - 100 mg/dL Blood Venous blood specimen / Unknown Result [facility] Historical Provider LAB BLOOD ORDERABLES Viridiana l Result * Cervical Cancer Screening: HPV (10/20/2013) [facility] Cervical Cancer Screening: HPV Negative, Abstracted [facility] Provider HEALTH MAINTENANCE Final Result * HIV Screening (02/12/2009) [facility] HIV Screening Abstracted Historical Provider HEALTH MAINTENANCE Final Result * Hepatitis C Screening (02/12/2009) [facility] Hepatitis C Screening Abstracted Historical Provider HEALTH MAINTENANCE Final Result from Last 3 Months or Most Recently Relevant to Health Maintenance Insurance [facility] Care Teams Vessel Crew Member Relationship Specialty Start Date End Date Sruthi Liao MD [address] [place] [address] PCP - General 09/27/03
--- OUTSIDE RECORDS SUMMARY | 2024-12-29 09:47 | XMS_ITS | Encounter Summary ---
Author Organization [facility], Address [address] [place] [address] Phone Care Team Providers Care Crew Member Name Role Phone Sruthi Liao MD Primary Care Provider [phone] Encounter Details Date Type Department Care Team (Late st Contact Info) Description 07/01/2024 Documentation Only [facility] [address] [place] [address] Elenita Nichols [address] [place] [address] Social History Tobacco Use Types [...] Visit [facility] [address] [place] [address] Scott Swain MD [address] [place] [address] [place] [address] documented as of this encounter Visit Diagnoses Not on filedocumented in this encounter Care Teams Crew Member Relationship Specialty Start Date End Date Sruthi Liao MD PCP - General 09/20/19 documented as of this encounter
--- OUTSIDE RECORDS SUMMARY | 2024-12-29 09:47 | XMS_ITS | Encounter Summary ---
Author Organization [facility], Address [address] [place] [address] Phone Care Team Providers Care Rental Manager Name Role Phone Sruthi Liao MD Primary Care Provider [phone] Encounter Details Date Type Department Care Team (Late st Contact Info) Description 06/22/2024 Documentation Only [facility], [address] [place] [address] Elenita Nichols [address] [place] [phone] Social History Tobacco Use Types Packs/Day Years [...] Visit [facility], [address] [place] [address] Scott Swain MD [address] [place] [address] [place] [address] documented as of this encounter Visit Diagnoses Not on filedocumented in this encounter Care Teams Rental Manager Relationship Specialty Start Date End Date Sruthi Liao MD PCP - General 09/20/19 documented as of this encounter
--- OUTSIDE RECORDS SUMMARY | 2024-12-29 09:47 | XMS_ITS | Encounter Summary ---
Author Organization [facility], Address [address] [place] [address] Phone Care Team Providers Care Charge Entry Specialist Name Role Phone Sruthi Liao MD Primary Care Provider [phone] Reason for Visit * Reason Comments Med Refill Encounter Details Date Type Department Care Team (Late st Contact Info) Description 05/29/2020 Refill [facility] [address] [place] [phone] Anai Garcia MD Social History Tobacco Use Types Packs/Day Years Used Date Smoking Tobacco: Never Alcohol Use Standard Drinks/Week Comments No 0 (1 standard drink = 0.6 oz pur e alcohol) Comments Unknown Sex and Gender Information Value Date Recorded Sex Assigned at Not on file Legal Sex Female 4:33 PM EST Gender Identity Not on file Sexual Orientation Not on file COVID-19 Exposure Response Date Recorded In the last month, have you been in contact with someone who was confirmed or suspected to have Coronavirus / COVID-19? No / Unsure 05/03/2020 11:07 AM EDT documented as of this encounter Plan of Treatment Upcoming Encounters Date Type Department Care Team (Late st Contact Info) Description 03/03/2025 2:15 PM EDT Office Visit [facility], [address] [place] [phone] Scott Swain MD [address] [place] [phone] documented as of this encounter Visit Diagnoses Not on filedocumented in this encounter Care Teams Charge Entry Specialist Relationship Specialty Start Date End Date Sruthi Liao MD PCP - General 09/20/19 documented as of this encounter
--- OUTSIDE RECORDS SUMMARY | 2024-12-29 09:47 | XMS_ITS | Data Portability ---
Author Organization [place] [facility],, ZAYRA WHALEY MD Address [address] [address] Care Team Providers Care Commercial Finance Analyst Name Role Phone DYLAN CAMP Primary Care Provider [phone] Assessment No assessment recorded. Plan of Treatment Reminders Order Date Submit Date Provider Last Modified By Organization Details Last Modified Time Details Appointments None recorded. Lab biopsy, endometria l 2023 024 [email or web address], [address] [place], [address], 4 07:17:04 test, urine 2023 024 [email or web address] 1 In-Office Order, Internal Use Only DO Not Attach Compendium DO Not Attach Compendium, Do Not Delete/merge, [id number] 4 10:53:52 cytology report, thin prep, smear or scraping, cervical or vaginal 2023 024 L[place]ETTE [facility], [address], [place], [address], 4 12:06:16 hemoglobin , gastrointe stinal, stool 2023 024 [email or web address] 1 In-Office Order, Internal Use Only DO Not Attach Compendium DO Not Attach Compendium, Do Not Delete/merge, [id number] 4 12:12:05 beta-HCG, qualitativ e, serum or plasma 2023 024 [place] [facility], [address] [place], [address], 4 23:44:23 lh + FSH, serum 2023 024 [email or web address] [facility], [address] [place], [address], 4 08:46:56 CBC w/ auto diff 2023 024 CROG[facility]AN [facility], [address] [place], [address], 4 20:04:23 TSH + free T4, serum 2023 024 [facility], [address] [place], [address], 4 07:57:45 Referral None recorded. Procedures None recorded. Surgeries None recorded. Imaging MAMMO, screening, digital, bilateral - Breast Aspiration and/or Biopsy if needed 2023 024 [facility], [address], [address], [place], [address], 4 16:27:46 US, pelvis, transabdom inal + transvagin al 2023 024 [facility], [address], [place], [address], 4 11:07:31 Medication Orders None recorded. Patient TargetsNo targets recorded. Patient Instructions Encounter Date Encounter Id Patient Instructions Last Modified By Organization Details Last Modified Time 12/15/2023 [id number] heavy menstrual periods: care instructions Not available 12/15/2023 10:59:03 This visit is a phone telehealth visit. The patient consented to the visit by phone. The patient was at home at the time of the call and the provider and patient were the only people on the line. I was at [address] [facility], [address], [place], [place], at the time of the call. She has had 4 periods in 2 months and is worried. She has not been sexually active in 12 years. She was recently discharged from pulmonary rehab. She had PE after covid. She has lost 10 pounds in the past month. She saw Dr. Hankins and has changed her diet and exercise. she is going to see Dr. Bey next month for weight management. Menses were 10/16/23, 11/10/23, 11/30/23, and now again today 12/15/24. Full cycles, full heavy, 5 days, everything. She has new onset menorrhagia, check FSH, lh, tsh, and serum hcg. Check pelvic sonogram to look for thickening of endometrium as her BMI is 54. All questions answered. The patient was agreeable to this plan. She is aware of the limitations caused by the covid restrictions, and this phone call. Face to face discussion 21 minutes [email or web address] Not available 12/15/2023 11:31:31 02/11/2024 [id number] heavy menstrual periods: care instructions [place] [id number] Not available 02/11/2024 16:05:18 This visit is a phone telehealth visit. The patient consented to the visit by phone. The patient was in her car in the [employer] parking lot, at the time of the call and the provider and patient were the only people on the line. I was at [address] [place] [address], [address], [place], [place], at the time of the call. She had a recent sonogram to assess the uterus due to abnormal uterine bleeding. the sono shows a 5 mm likely endometrial polyp, and possible adenomyosis, but no other abnormality. She notes that since we last spoke in November her menses have gone back to normal, without abnormal flow or timing anymore. ____ Note from 12/15/23: She has had 4 periods in 2 months and is worried. She has not been sexually active in 12 years. She was recently discharged from pulmonary rehab. She had PE after covid. She has lost 10 pounds in the past month. She saw Dr. Hankins and has changed her diet and exercise. she is going to see Dr. Bey next month for weight management. Menses were 10/16/23, 11/10/23, 11/30/23, and now again today 12/15/24. Full cycles, full heavy, 5 days, everything. She has new onset menorrhagia, check FSH, lh, tsh, and serum hcg. Check pelvic sonogram to look for thickening of endometrium as her BMI is 54. All questions answered. __ We discussed al lthis at length. All questions answered. Since the bleeding has normalized, no additional testing is required at this time. Call if cramping resumes then we would check to see if polyp enlarges or spontaneously regresses. The adenomyosis is not symptomatic. We discussed posible IUD or depo provera to create amenorrhea, at present she declines. The patient was agreeable to this plan. She is aware of the limitations caused by the covid restrictions, and this phone call. Face to face discussion 12 minutes [email or web address] Not available 02/11/2024 16:07:19 08/11/2024 [id number] learning about healthy weight Not available 08/11/2024 12:12:05 She is here for annual, doing well. Still on Elaquis after her DVT/PE. 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 She is abstinent. Note from 2022: She is here for annual, doing well, but still wants to lose 150 pounds. Had lap band but it is not helping. Had covid, a PE, now is pulmonary rehab. She appears to be doing well. Monthly self breast exam was taught, and stressed, and is advised to call if she discovers any new mass in the breast. Not available 08/11/2024 12:11:57 10/04/2024 [id number] abnormal uterine bleeding: care instructions Not available 10/04/2024 10:53:52 endometrial biop sy: about this test Not available 10/04/2024 10:53:52 She is here for emb after pap with endometrial cells, and a sono that suggests a possible 5 mm endometrial polyp. Menses regular, abstinent for over 5 years, had a lupus flare recently. She had a DVT with covid, on Elaquis now. She tolerated emb well, tissue was unusually lush, await results. We discussed pathology possible results, including normal, hyperplasia, atypia, EIN and cancer, and the options for treatment for each. Not available 10/04/2024 10:54:54 11/03/2024 [id number] She is here for discussion of her recent emb. It showed disordered proliferative endometrium. She is at increased risk of endometrial cancer due to her morbid obesity. She had a DVT and is on Elaquis now. ___ Note from 10/04/24: She is here for emb after pap with endometrial cells, and a sono that suggests a possible 5 mm endometrial polyp. Menses regular, abstinent for over 5 years, had a lupus flare recently. She had a DVT with covid, on Elaquis now. She tolerated emb well, tissue was unusually lush, await results. We had a long discussion about all this. Normally we would give her oral provera to manage her thickened endometrium, however that could put her at a slightly increased risk for blood clot, and she is on Elaquis. For now we will wait as she is planning on losing weight soon, is in management for this. We discussed the pathophysiology of endometrial pathology, all questions answered. IF she needs treatment we could consider a progestin IUD as that would give her lower blood levels than the oral pills. If she needs to she will discuss with with her social media assistant, but for now the weight loss may help overall in this regard. Face to face discussion, chart review and coordination of care: 25 minutes Not available 11/03/2024 11:54:58 Reason for Referral None Reported. Results Created Date Observation Date Name Description Value Unit Range Abnormal Flag Note LastModifiedBy Organization Detail LastModifiedTime 12/15/19 24 12/15/2023 COMPL ETE CBC WITH DIFF WBC 6.0 K/mm3 (4.0-1 1.0) Not Available [facility] [address], [place], [address], 12/15/2023 20:04:23 12/15/19 24 12/15/2023 COMPL ETE CBC WITH DIFF RBC 4.49 M/mm3 (4.20- 5.40) Not Available [facility] [address], [address], 12/15/2023 20:04:23 12/15/19 24 12/15/2023 COMPL ETE CBC WITH DIFF HGB 12.1 gm/dL (11.7- 15.5) Not Available [facility] [address] [place], [address], 12/15/2023 20:04:23 12/15/19 24 12/15/2023 COMPL ETE CBC WITH DIFF HCT 39.5 % (35.7- 45.8) Not Available [facility] [address] [place], [address], 12/15/2023 20:04:23 12/15/19 24 12/15/2023 COMPL ETE CBC WITH DIFF MCV 88.0 fL (80.0- 100.0) Not Available [facility] [address] [place], [address], 12/15/2023 20:04:23 12/15/19 24 12/15/2023 COMPL ETE CBC WITH DIFF MCH 26.9 pg (27.0- 34.0) low Not Available [facility] [address] [place], [address], 12/15/2023 20:04:23 12/15/19 24 12/15/2023 COMPL ETE CBC WITH DIFF MCHC 30.6 g/dL (33.0- 37.0) low Not Available [facility] [address] [place], [address], 12/15/2023 20:04:23 12/15/19 24 12/15/2023 COMPL ETE CBC WITH DIFF plt 205 K/mm3 (150-4 60) Not Available [facility] [address] [place], [address], 12/15/2023 20:04:23 12/15/19 24 12/15/2023 COMPL ETE CBC WITH DIFF RDW-SD 43.5 fL (<47.0 ) Not Available [facility] [address] [place], [address], 12/15/2023 20:04:23 12/15/19 24 12/15/2023 COMPL ETE CBC WITH DIFF MPV 10.7 fL (9.4-1 2.4) Not Available [facility] [address] [place], [address], 12/15/2023 20:04:23 12/15/19 24 12/15/2023 COMPL ETE CBC WITH DIFF automated NRBC 0.0 #/100 _WBC' s Not Available [facility] [address] [place], [address], 12/15/2023 20:04:23 12/15/19 24 12/15/2023 COMPL ETE CBC WITH DIFF abs. NRBC 0.0 K/mm3 Not Available [facility] [address] [place], [address], 12/15/2023 20:04:23 12/15/19 24 12/15/2023 COMPL ETE CBC WITH DIFF neut # 4.0 K/mm3 (1.3-7 .0) Not Available [facility] [address], [address], 12/15/2023 20:04:23 12/15/19 24 12/15/2023 COMPL ETE CBC WITH DIFF lymph # 1.4 K/mm3 (0.8-3 .1) Not Available [facility] [address] [place], [address], 12/15/2023 20:04:23 12/15/19 24 12/15/2023 COMPL ETE CBC WITH DIFF mono# 0.5 K/mm3 (0.4-0 .9) Not Available [facility] [address] [place], [address], 12/15/2023 20:04:23 12/15/19 24 12/15/2023 COMPL ETE CBC WITH DIFF eo # 0.1 K/mm3 (0.0-0 .4) Not Available [facility] [address] [place], [address], 12/15/2023 20:04:23 12/15/19 24 12/15/2023 COMPL ETE CBC WITH DIFF baso # 0.0 K/mm3 (0.0-0 .1) Not Available [facility] [address] [place], [address], 12/15/2023 20:04:23 12/15/19 24 12/15/2023 COMPL ETE CBC WITH DIFF abs. imm gran 0.0 K/mm3 Not Available [facility] [address] [place], [address], 12/15/2023 20:04:23 12/15/19 24 12/15/2023 COMPL ETE CBC WITH DIFF neut 66.5 % (44-76 ) Not Available [facility] [address] [place], [address], 12/15/2023 20:04:23 12/15/19 24 12/15/2023 COMPL ETE CBC WITH DIFF lymph 23.0 % (15-43 ) Not Available [facility] [address] [place], [address], 12/15/2023 20:04:23 12/15/19 24 12/15/2023 COMPL ETE CBC WITH DIFF monocyte 8.8 % (4.5-1 0.5) Not Available [facility] [address] [place], [address], 12/15/2023 20:04:23 12/15/19 24 12/15/2023 COMPL ETE CBC WITH DIFF eo 1.0 % (0-6) Not Available [facility] [address] [place], [address], 12/15/2023 20:04:23 12/15/19 24 12/15/2023 COMPL ETE CBC WITH DIFF baso 0.5 % (0-2) Not Available [facility] [address] [place], [address], 12/15/2023 20:04:23 12/15/19 24 12/15/2023 COMPL ETE CBC WITH DIFF imm gran 0.2 % Not Available [facility] [address] [place], [address], 12/15/2023 20:04:23 12/15/19 24 12/15/2023 FREE T4 free T4 1.17 NG/dL (0.70- 1.80) Not Available [facility] [address] [place], [address], 12/15/2023 21:51:31 12/15/19 24 12/15/2023 TSH TSH 0.44 uIU/m L (0.4-4 .2) Not Available [facility] [address] [place], [address], 12/15/2023 21:51:32 12/15/19 24 12/15/2023 HCG PLUS BETA HCG plus beta <1 mIU/m L (<5) Males and non-p regna nt femal es: <5 mIU/m L Femal e Pregn leticia (week s of gesta tion) : 4 weeks 5-100 mIU/m L 5 weeks 200-3 000 mIU/m L 6 weeks 10,00 0-80, 000 mIU/m L 7-14 weeks 90,00 0-500 ,000 mIU/m L 15-26 weeks 5,000 -80,0 00 mIU/m L Peak: Late 1st Trime ster 300,0 00 mIU/m L Inter preta tion: hCG level s incre ase expon entia lly durin g very early pregn leticia, after reach ing a plate au durin g the late first trime ster. hCG level s stead donis decli ne until a stead y state which is seen throu ghout the secon d and third trime sters . Altho ugh the main clini kristina utili ty of hCG level s lies withi n early pregn leticia, these findi ngs under line the impor tance of hCG throu ghout gesta rika l physi ology and sugge st that varia tions in hCG level s may be assoc iated with adver se clini kristina outco mes such as loss, preec lamps ia, prete rm deliv pierce and growt h restr ictio n. Not Available [facility] [address], [place], [address], 12/15/2023 23:44:23 08/11/20 24 08/17/2024 IGP, RFX APTIM A HPV ASCU diagnosis: Commen t OTHER : NEGAT ANDRIY FOR SQUAM OUS INTRA EPITH ELIAL LESIO N (NSI) . ENDOM ETRIA L CELLS ARE PRESE NT IN A WOMAN >= 45 YEARS OF AGE. THE VAIBHAV ING OF ENDOM ETRIA L CELLS IN CHRIS- POST MENOP AUSAL WOMEN MAY REPRE SENT BENIG N ENDOM ETRIA L LESIO NS, HORMO NAL ALTER ATION S OR UNCOM MONLY , ENDOM ETRIA L ABNOR MALIT IES. THIS SPECI MEN WAS RESCR EENED PART OF OUR QUALI TY CONTR OL PROGR AM. Not Available [facility] ([facility]) [address] [place], [address], 08/17/2024 12:06:16 08/11/20 24 08/17/2024 IGP, RFX APTIM A HPV ASCU specimen adequacy: Commen t Satis facto ry for evalu ation . Not Available [facility] ([facility]) [address] [place], [address], 08/17/2024 12:06:16 08/11/20 24 08/17/2024 IGP, RFX APTIM A HPV ASCU clinician provided ICD10: Commen t Z01.4 19 Not Available [facility] ([facility]) [address] [place], [address], 08/17/2024 12:06:16 08/11/20 24 08/17/2024 IGP, RFX APTIM A HPV ASCU performed by: Robyn Dejesus , Cytot echno logis t (ASCP ) Not Available [facility] ([facility]) [address] [place], [address], 08/17/2024 12:06:16 08/11/20 24 08/17/2024 IGP, RFX APTIM A HPV ASCU QC reviewed by: Robyn Jones, Cytot echno logis t (ASCP ) Not Available [facility] ([facility]) [address] [place], [address], 08/17/2024 12:06:16 08/11/20 24 08/17/2024 IGP, RFX APTIM A HPV ASCU . . Not Available [facility] ([facility]) [address] [place], [address], 08/17/2024 12:06:16 08/11/20 24 08/17/2024 IGP, RFX APTIM A HPV ASCU note: Robyn angeles The Pap smear is a scree phuc test desig odell to aid in the detec tion of magno ligna nt and malig nant condi tions of the uteri ne cervi x. It is not a diagn ostic proce dure and shoul d not be used as the sole means of detec ting cervi kristina cance r. Both false -posi tive and false -nega tive repor ts do occur . Not Available [facility] ([facility]) [address] [place], [address], 08/17/2024 12:06:16 08/11/20 24 08/17/2024 IGP, RFX APTIM A HPV ASCU test methodology: Robyn angeles This liqui d based ThinP rep(R ) pap test was scree odell with the use of an image guide [place]. Not Available [facility] ([facility]) [address] [facility], [place], [address], 08/17/2024 12:06:16 08/11/20 24 08/17/2024 IGP, RFX APTIM A HPV ASCU . Commen t The HPV DNA refle x crite sahra were not met with this speci men resul t there fore, no HPV testi ng was perfo rmed. Not Available [facility] ([facility]) [address] [facility], [place], [address], 08/17/2024 12:06:16 08/11/20 24 08/11/2024 hemog lobin , gastr ointe niraj l, stool Occult Blood negati ve Not Available In-Office Order Internal Use Only DO Not Attach Compendium DO Not Attach Compendium, Do Not Delete/merge, [id number] 08/11/2024 10:49:41 10/04/20 24 10/04/2024 [facility] SURGI KRISTINA PATHO LOGY results Patie nt Name: JAYSON CADE NA Lab Acces selvin #: [id number] Bela nt : [phone] (Age: 43) Colle ction Date: 10/04 Acces selvin Date: 10/05 Sign Out Date: 10/14 Tissu e Sourc e: 1:EMB Final Diagn osis: Endom etriu m, biops y: - 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 Prima ry Patho logis t:Augustin Landin M.D., Ph.D. elect man sage ildefonso d out by: Daniela Landin M.D., Ph.D. / [facility] [place] Clini kristina Histo ry: Oligo -ovul atory dysfu nctio nal uteri ne bleed ing Gross Descr iptio n: The requi sitio n indic ates endo metri al biops y . Recei ronda in forma liz is a 2.2 x 2.0 x 0.[address] of red, rascon tissu e with trans lucen t mucus . The speci men is entir addison submi tted. 1-mul tiple piece s, x 2. (EG)* As of January 23, 2024, the speci men proce ssing and stain ing is perfo rmed at [facility] [place] [facility] , [address], [place] (CLIA #[id number]). Its perfo rmanc e gaston cteri stics deter mined by [facility]p. Tg Blunt M.D. Medic al D[facility] tor of Surgi kristina Sandra Pierce M.D. Medic al Direc tor Cytop athol ogy Phone #: [phone], On-Ca ll Patho logis t: [id number] Not Available [facility] [address], [place], [address], 10/14/2024 09:22:23 10/04/20 24 10/04/2024 pregn leticia test, urine HCG negati ve Not Available In-Office Order Internal Use Only DO Not Attach Compendium DO Not Attach Compendium, Do Not Delete/merge, [id number] 10/04/2024 10:51:50 01/21/20 24 01/21/2024 US, pelvi s, trans abdom inal + trans vagin al No observ ation record ed. [email or web address] [address] [place], [address], 02/01/2024 11:17:44 10/18/20 24 10/17/2024 MAMMO , scree phuc, digit al, bilat eral No observ ation record ed. [facility] [address], [place], [address], 10/19/2024 07:54:36 Result Notes None recorded. 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 Zayra Whaley MD [address], [place], [address], [place] [facility], 1 09:49:07 Endometria l polyp Active 2023 Zayra Whaley MD [address], [place], [address], [place] [facility], 4 16:05:01 Uterine adenomyosi s 078295001 Active 2023 Zayra Whaley MD [address], [place], [address], [place] [facility], 4 16:05:11 Notes:Has something going on in her lungs, will now be having pulonary therapy. Problem Notes None recorded. Procedures Surgical History Date Name Laterality Status Provider Name and Address Organization Details Recorded Time 4 Endometrial Biopsy completed Zayra Whaley MD [address], [place], [address], [place] - [facility], 10/04/2024 10:55:43 3 Most Recent Mammogram completed Amy Coronel in [facility], 02/11/2024 14:18:08 1 kidney biopsy completed Amy Coronel in [facility], 05/28/2021 09:30:14 8 Other completed Amy Coronel in [facility], 05/04/2018 15:32:37 6 Endometrial Biopsy completed Zayra Whaley MD [address] [facility],[address], [place], [address], [place] in [facility], 06/20/2016 09:42:00 Imaging Results Imaging Date Name Status LastModified by Organization Details LastModified Time 01/21/2024 US, pelvis, transabdominal + transvaginal completed [email or web address] [address] [place], [address], 02/01/2024 11:17:44 10/17/2024 MAMMO, screening, digital, bilateral completed [facility] [address] [place], [address], 10/19/2024 07:54:36 Procedure Notes None recorded. Medical Equipment None Reported. Allergies Allergen ID Allergen Name Allergen Category Reaction Reaction Severity Criticality Documentation Date Start Date Code Code System Note Provider Name and Address Organization Details Recorded Time 55781 Product containin g penicilli n and antibioti c (product) medicatio n rash Not available Not available 05/06/2016 36470 05 SNOMED [place] Field in [facility], 6 09:24:15 97116 prednison e medicatio n other severe Not available 05/06/2016 8640 RxNorm blood clot in lungs Mariella [place] Iqbal in [facility], 2 10:46:06 51657 hydralazi ne medicatio n other severe Not available 05/28/2021 5470 RxNorm lupus [place] Field in [facility], 1 09:23:50 Medications Name Sig Start Date Stop Date Status Note LastModified by Organization Details LastModified Time cyclobenzap rine 10 mg tablet TAKE 1 TAB BY MOUTH DAILY NEEDED FOR MUSCLE SPASMS. AT BEDTIME 05/06 completed Not Available Not Available Not Available medroxyprog esterone 10 mg tablet TAKE 1 TABLET BY MOUTH EVERY DAY FOR 10 DAYS 05/04 completed Not Available Not Available Not Available clonidine HCl 0.1 mg tablet TAKE 1 TAB BY MOUTH AT BEDTIME FOR 180 DAYS. 05/28 completed Not Available Not Available Not Available prednisone 10 mg tablet PLEASE SEE ATTACHED FOR DETAILED DIRECTION S 12/15 completed Not Available Not Available Not Available doxycycline hyclate 100 mg capsule TAKE 1 CAPSULE BY MOUTH 2X/DAY FOR 10 DAYS WITH AT LEAST 8OZ OF WATER DON'T LIE DOWN FOR 30 MIN active Not Available Not Available No t Available ketoconazol e 2 % shampoo APPLY TO DRY SCALP 10 MIN, THEN LATHER FOLLOW WITH MOISTURIZ ING SHAMPOO 05/04 completed Not Available Not Available Not Available cetirizine 10 mg tablet 10/20 completed Not Available Not Available Not Available cefpodoxime 200 mg tablet TAKE 1 TABLET BY MOUTH EVERY 12 HOURS FOR 3 DAYS 05/28 completed Not Available Not Available Not Available azithromyci n 250 mg tablet TAKE 2 TABLETS BY MOUTH TODAY, THEN TAKE 1 TABLET DAILY FOR 4 DAYS 05/12 completed Not Available Not Available Not Available fluconazole 150 mg tablet TAKE 1 TABLET(S) EVERY DAY BY MOUTH AT BEDTIME FOR 1 DAY. 05/28 completed Not Available Not Available Not Available benzonatate 200 mg capsule TAKE 1 CAPSULE 3 TIMES DAILY NEEDED FOR COUGH 06/05 completed Not Available Not Available Not Available tretinoin 0.025 % topical cream APPLY PEA SIZED AMOUNT AT BED EVERY OTHER 3RD NIGHT X 1 WK, EVERY OTHER NIGHT X 1 WK, THEN NIGHTLY 05/04 completed Not Available Not Available Not Available mycophenola te mofetil 250 mg capsule TAKE 3 CAPSULES (750 MG TOTAL) BY MOUTH IN THE MORNING AND 3 CAPSULES (750 MG TOTAL) IN THE EVENING. active Not Available Not Available No t Available ondansetron HCl 4 mg tablet TAKE 1 TAB BY MOUTH EVERY 8 HOURS NEEDED FOR NAUSEA FOR UP TO 7 DAYS. 05/28 completed Not Available Not Available Not Available prednisone 20 mg tablet TAKE 2 TABLETS BY MOUTH EVERY MORNING AND 1 TABLET IN THE EVENING. TAKE WITH FOOD OR MILK 12/15 completed Not Available Not Available Not Available prednisone 5 mg tablet TAKE 3 TABS DAILY FOR 5 DAYS, THEN 2 TABS DAILY FOR 5 DAYS THEN 1 TAB DAILY FOR 5 DAYS THEN STOP 10/04 completed Not Available Not Available Not Available Diocto 50 mg/5 mL oral liquid (NOT COVERED)T REENA 12ML BY MOUTH TWICE A DAY FOR 7 DAYS 05/04 completed Not Available Not Available Not Available hydralazine 25 mg tablet TAKE 1 TABLET BY MOUTH EVERY DAY 05/28 completed Not Available Not Available Not Available triamcinolo ne acetonide 0.5 % topical ointment APPLY 1 EACH TOPICALLY 2 TIMES DAILY. active Not Available Not Available No t Available phentermine 37.5 mg tablet TAKE 1 TABLET BY MOUTH EVERY DAY 05/04 completed Not Available Not Available Not Available acetaminoph en 300 mg-codeine 30 mg tablet 07/02 completed Not Available Not Available Not Available chlorthalid one 25 mg tablet TAKE 1 TABLET BY MOUTH DAILY 05/28 completed Not Available Not Available Not Available amlodipine 5 mg tablet TAKE 1 TABLET BY MOUTH EVERY DAY 05/28 completed Not Available Not Available Not Available sulfamethox azole 800 mg-trimetho prim 160 mg tablet TAKE 1 TABLET BY MOUTH TWICE A DAY FOR 10 DAYS 02/10 completed Not Available Not Available Not Available doxycycline monohydrate 100 mg tablet TAKE 1 TABLET BY MOUTH TWICE A DAY 08/11 completed Not Available Not Available Not Available acetaminoph en 500 mg tablet TAKE 1 TAB BY MOUTH EVERY 6 HOURS NEEDED FOR PAIN FOR UP TO 10 DAYS. 05/28 completed Not Available Not Available Not Available carvedilol 3.125 mg tablet TAKE 1 TABLET BY MOUTH TWICE A DAY WITH MEALS 06/05 completed Not Available Not Available Not Available acetaminoph en ER 650 mg tablet,exte nded release TAKE 1 TABLET BY MOUTH EVERY 8 HOURS NEEDED FOR PAIN active Not Available Not Available No t Available mycophenola te mofetil 500 mg tablet TAKE 2 TABLETS BY MOUTH IN THE MORNING AND 2 TABLETS IN THE EVENING active Not Available Not Available No t Available oxycodone-a cetaminophe n 5 mg-325 mg tablet TAKE 1 - 2 TABLETS BY MOUTH EVERY 6 HOURS NEEDED FOR PAIN 05/28 completed Not Available Not Available Not Available hydrocortis one 2.5 % lotion 05/16 completed Not Available Not Available Not Available meclizine 25 mg tablet TAKE 1 TAB BY MOUTH 3 TIMES DAILY. 05/16 completed Not Available Not Available Not Available amlodipine 10 mg tablet TAKE 1 TABLET BY MOUTH 1 TIME EACH DAY. active Not Available Not Available No t Available prednisone 2.5 mg tablet TAKE 1 TABLET BY MOUTH EVERY DAY active Not Available Not Available No t Available pantoprazol e 40 mg tablet,latonia yed release TAKE 1 TABLET BY MOUTH EVERY DAY active Not Available Not Available No t Available prednisone 50 mg tablet TAKE 1 TABLET BY MOUTH EVERY DAY FOR 5 DAYS 02/10 completed Not Available Not Available Not Available gabapentin 300 mg capsule TAKE 1 CAPSULE BY MOUTH THREE TIMES A DAY 02/10 completed Not Available Not Available Not Available codeine 10 mg-guaifene sin 100 mg/5 mL oral liquid GIVE 10ML BY MOUTH EVERY NIGHT NEEDED FOR COUGH 06/05 completed Not Available Not Available Not Available hydrochloro thiazide 25 mg tablet TAKE 1 TABLET BY MOUTH EVERY DAY 05/28 completed Not Available Not Available Not Available furosemide 20 mg tablet TAKE 1 TABLET BY MOUTH EVERY DAY 07/06 completed Not Available Not Available Not Available ergocalcife rol (vitamin D2) 1,250 mcg (50,000 unit) capsule TAKE 1 CAPSULE BY MOUTH WEEKLY FOR 12 WEEKS 06/05 completed Not Available Not Available Not Available hydroxychlo roquine 200 mg tablet TAKE 1 TABLET BY MOUTH TWICE A DAY active Not Available Not Available No t Available ibuprofen 600 mg tablet 05/28 completed Not Available Not Available Not Available albuterol sulfate HFA 90 mcg/actuati on aerosol inhaler INHALE 2 PUFFS INTO THE LUNGS EVERY 6 HOURS NEEDED FOR COUGH, WHEEZING OR SHORTNESS OF BREATH. active Not Available Not Available No t Available ferrous sulfate 325 mg (65 mg iron) tablet,latonia yed release TAKE 1 TABLET (325 MG TOTAL) BY MOUTH 1 (ONE) TIME EACH DAY DO NOT CRUSH, CHEW, OR SPLIT. active Not Available Not Available No t Available ketoconazol e 2 % topical cream APPLY TO EACH AFFECTED TOENAIL EXTERNALL Y ONCE A DAY 30 DAYS active Not Available Not Available No t Available lisinopril 40 mg tablet TAKE 1 TABLET BY MOUTH EVERY DAY 05/28 completed Not Available Not Available Not Available fluticasone propionate 50 mcg/actuati on nasal spray,suspe nsion USE 2 SPRAYS IN EACH NOSTRIL ONCE A DAY active Not Available Not Available No t Available doxycycline hyclate 100 mg tablet TAKE 1 TABLET BY MOUTH TWICE A DAY FOR 9 DAYS 02/10 completed Not Available Not Available Not Available loratadine 10 mg tablet TAKE 1 TABLET BY MOUTH DAILY NEEDED FOR ALLERGIES . active Not Available Not Available No t Available naproxen 500 mg tablet 05/28 completed Not Available Not Available Not Available oxycodone 5 mg tablet TAKE 1 TABLET BY MOUTH EVERY 6 HOURS FOR 5 DAYS NEEDED FOR PAIN 02/10 completed Not Available Not Available Not Available azithromyci n 500 mg tablet TAKE 1 TABLET BY MOUTH EVERY DAY FOR 3 DAYS 05/28 completed Not Available Not Available Not Available Inger-Ramón he/FS Scalp Oil 0.01 % MASSAGE INTO SCALP OVERNIGHT BEFORE BED THEN WASH WITH KETOCONAZ OLE SHAMPOO 2-3X PER WEEK *BACKORDE R 05/04 completed Not Available Not Available Not Available doxycycline hyclate 100 mg tablet,latonia yed release TAKE 1 TABLET BY MOUTH TWICE A DAY FOR 7 DAYS 07/06 completed Not Available Not Available Not Available Iron (ferrous sulfate) active Not Available Not Available Not Available Delta 3 10/20 completed Not Available Not Available Not Available clobetasol- emollient 0.05 % topical foam APPLY TO SCALP 1-2 TIMES A DAY NEEDED FOR ITCHING 05/04 completed Not Available Not Available Not Available clindamycin 1.2 % (1 % base)-benzo yl peroxide 5 % topical gel 05/04 completed Not Available Not Available Not Available Symbicort 160 mcg-4.5 mcg/actuati on HFA aerosol inhaler INHALE 2 PUFFS BY MOUTH 2 TIMES A DAY FOR 30 DAYS 08/11 completed Not Available Not Available Not Available Flovent Diskus 50 mcg/actuati on powder for inhalation INAHEL 1 PUFF INTO LUNGS 2 TIMES A DAY 07/06 completed Not Available Not Available Not Available diclofenac 1 % topical gel APPLY 1 GM TO THE LEFT FOOT EXTERNALL Y TWICE A DAY 30 DAYS 08/11 completed Not Available Not Available Not Available Eliquis 5 mg tablet TAKE 1 TABLET BY MOUTH TWICE A DAY active Not Available Not Available No t Available Multi Vitamin 10/20 completed Not Available Not Available Not Available Benlysta 200 mg/mL subcutaneou s auto-inject or active Not Available Not Available Not Available Tiadylt ER 180 mg capsule,ext ended release TAKE 1 CAPSULE BY MOUTH EVERY DAY 02/10 completed Not Available Not Available Not Available Lagevrio 200 mg capsule (EUA) TAKE 4 CAPSULES BY MOUTH TWICE A DAY FOR 5 DAYS 08/11 completed Not Available Not Available Not Available Vitals Date Recorded Body height Provider Name an d Address Organization Details Last Updated DateTime 12/15/2023 167.64 cm Amy Barton MA - [facility], 12/15/2023 10:42:31 Date Recorded Body height Provider Name an d Address Organization Details Last Updated DateTime 02/11/2024 167.64 cm Amy elmore in [facility], 02/11/2024 14:15:13 Date Recorded Body weight Body mass index (BMI) Body height Body temperature Heart rate Systolic blood pressure Diastolic blood pressure Provider Name and Address Organization Details Last Updated DateTime 4 639218. 3 g 54.6 kg/m2 165.1 cm 98.1 [degF] 88 /min 141 mm[Hg] 66 mm[Hg] Amy Coronel in [facility], 4 10:46:02 Date Recorded Body height Body mass index (BMI) Body weight Body temperature Heart rate Systolic blood pressure Diastolic blood pressure Provider Name and Address Organization Details Last Updated DateTime 4 165.1 cm 57.9 kg/m2 909396. 14 g 97.6 [degF] 84 /min 147 mm[Hg] 80 mm[Hg] Amy Coronel in [facility], 4 10:30:44 Date Recorded Body height Body mass index (BMI) Body weight Heart rate Systolic blood pressure Diastolic blood pressure Provider Name and Address Organization Details Last Updated DateTime 4 165.1 cm 59.1 kg/m2 871495. 29 g 70 /min 163 mm[Hg] 88 mm[Hg] Amy Broussardkathy Coronel in [facility], 4 09:57:06 Social History Question Answer Notes LastModified by Organizat ion Details LastModified Time Tobacco Smoking Status Never Smoker Amy Larioshomeryoav [place] in [facility], 05/06/2016 09:29:52 What Is Your Level Of Alcohol Consumption? None Information not available 05/06/2016 What Is Your Level Of Caffeine Consumption? Occasional Information not available 05/06/2016 In The 14 Days Before Symptom Onset, Have You Had Close Contact With A Laboratory-confi rmed COVID-19 While That Case Was Ill? No Information not available 06/05/2022 In The 14 Days Before Symptom Onset, Have You Had Close Contact With A Person Who Is Under Investigation For COVID-19 While That Person Was Ill? No Information not available 06/05/2022 Have You Been To An Area Known To Be High Risk For COVID-19? No Information not available 06/05/2022 Are You Currently Employed? Yes Information not available 06/05/2022 What Type Of Diet Are You Following? REGULAR Information not available 05/06/2016 Which Illicit Or Recreational Drugs Have You Used? No Information not available 05/06/2016 Do You Reside In Or Have You Traveled To An Area Where Ebola Virus Transmission Is Active? No Information not available 05/06/2016 Do You Or Have You Ever Used E-cigarettes Or Vape? 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 [employer] Information not available 06/05/2022 What Is Your Occupation? [employer] Information not available 06/05/2022 How Many Days In The Past Year Have You Had A Heavy Drinking Consumption (4+ Female, 5+ Male)? 0 Information not available 07/08/2016 Are There Any Guns Present In Your Home? No Information not available 06/05/2022 High Number Of Sexual Partners Yes Information not available 05/06/2016 To Which Gender Do You Self-identify? Female Information not available 05/06/2016 Marital Status Single Informatio n not available 05/06/2016 What Was The Date Of Your Most Recent Tobacco Screening? 10/04/2024 Information not available 10/04/2024 What Is Your Relationship Status? Single Information not available 06/05/2022 Are You Sexually Active? No Information not available 05/06/2016 Do You Or Have You Ever Used Smokeless Tobacco? Never Used Smokeless Tobacco Information not available 05/16/2020 How Much Tobacco Do You Smoke? No Information not available 05/06/2016 General Stress Level Medium Information not available 12/15/2023 Do You Feel Stressed (tense, Restless, Nervous, Or Anxious, Or Unable To Sleep At Night)? [id number] Information not available 06/05/2022 Do You Use Any Illicit Or Recreational Drugs? No Information not available 06/05/2022 How Many Years Have You Smoked Tobacco? 0 [email or web address] Information not available 05/04/2017 Have You Recently (within The Last 12 Weeks, Or During A Current ) Traveled To Or Lived In A Zika-affected Area? No Information not available 05/06/2016 Do You Or Have You Ever Used Any Other Forms Of Tobacco Or Nicotine? No Information not available 06/05/2022 Sex: Female Functional Status Question Answer Note LastModified by Organizat ion Details LastModified Time What is your exercise level? Occasional Information not available 05/06/2016 Mental Status None recorded. Family History Relationship Description Onset Age of this Age Resolved Age Notes LastModified by Organization Details LastModified Time Maternal Grandmother Malignant tumor of breast [email or web address] Not available 2015 09:27:59 Father Cerebrovascu lar accident [email or web address] Not available 09:28:33 Notes:mother side oesteo art hritis and fibromyalgia several in family Medical History Condition Response Anesthesia complications N High Blood Pressure Y Candidate for MyRisk panel N Autoimmune Condition Y Thyroid Problems N Kidney or Bladder Problems Y GI Problems N Lung Disease N Depression N Defects or Inherited Disease N History of Ovarian Cancer N Anemia N History of Breast Cancer N JOSE exposure N BRCA testing in past N Osteopenia N Psychiatric Illness N Anxiety Disorder N Diabetes N Arthritis N Headaches or Migraines N Infertility N Asthma N History of Cancer N Endometriosis N Hepatitis N Heart Disease N Hypertension Y Osteoporosis N Gynecological History Statement/Question Response Dysmenorrhea Y Flow Heavy Date of LMP 09/29/2024 Frequency of Cycle (Q days) 28 Menses Monthly Y Duration of Flow (days) 5 Age at Menarche 11 Current Control Method Abstinence Most Recent Mammogram 10/03/2023 Age at First Child 1 Obstetrics History GPAL:G 0 P 0 0 0 0 Type Value Living 0 Total 0 Immunizations Vaccine Type Date Status Note Provider Nam e and Address Organization Details Recorded Time MMR 0 completed Amy Meczywor null, [place] - [facility], 12/15/2023 10:42:52 MMR 1 completed Amy Meczywor null, [place] - [facility], 12/15/2023 10:42:52 Td(adult) unspecified formulation 4 completed Amy Meczywor null, [place] - [facility], 12/15/2023 10:42:52 Tdap 1 completed Amy Meczywor null[place] - [facility], 12/15/2023 10:42:52 DTP 1 completed Amy Meczywor null, [place] - [facility], 12/15/2023 10:42:52 DTP 9 completed Amy Meczywor null, [place] - [facility], 12/15/2023 10:42:52 DTP 0 completed Amy Meczywor null, [place] - [facility], 12/15/2023 10:42:52 DTP 3 completed Amy Meczywor null, [place] - [facility], 12/15/2023 10:42:52 DTP 9 completed Amy Meczywor null, [place] - [facility], 12/15/2023 10:42:52 OPV 9 completed Amy Meczywor null, [place] - [facility], 12/15/2023 10:42:52 OPV 1 completed Amy Meczywor null, [place] - [facility], 12/15/2023 10:42:52 OPV 9 completed Amy Meczywor null, [place] - [facility], 12/15/2023 10:42:52 OPV 3 completed Amy Meczywor null, [place] - [facility], 12/15/2023 10:42:52 OPV 9 completed Amy Meczywor null, [place] - [facility], 12/15/2023 10:42:52 Td (adult), 2 Lf tetanus toxoid, preservative free, adsorbed 1 completed Amy Meczywor null, [place] - [facility], 12/15/2023 10:42:52 Hep B, adult 7 completed Amy Meczywor null, [place] - [facility], 12/15/2023 10:42:52 Hep B, adult 6 completed Amy Meczywor null, [place] - [facility], 12/15/2023 10:42:52 Hep B, adult 7 completed Amy Meczywor null, [place] - [facility], 12/15/2023 10:42:52 Past Encounters Encounter ID Performer Location Encounter Start Date Encounter Closed Date Diagnosis/Indication Diagnosis SNOMED-CT Code Diagnosis ICD10 Code Diagnosis Note [id number] MD ZAYRA Spears MD [address] [place] [address] [address] [place] [address] 05/06/2016 09:10:55 05/06/2016 15:32:04 Specialized medical examination 31791384 Z01.419 Venereal d isease screening 238826128 Z11.3 Dysfunctio nal uterine bleeding 12323717 N93.8 [id number] MD ZAYRA Spears MD [address] [place] [address], [place] [address] 05/15/2016 14:59:53 05/16/2016 08:36:34 Dysfunctional uterine bleeding 02304400 N93.8 Menorrhagia 149774866 N9 2.0 Endometrium thickened 44 9243639 R93.8 [id number] MD ZAYRA Spears MD [address] [place] [address], [place] [address] 06/20/2016 08:55:25 06/20/2016 10:14:45 Oligoovulatory dysfunctional uterine bleeding 721049520 N93.8 [id number] MD ZAYRA Spears MD [address] [place] [address] [place] [address] 07/08/2016 15:00:54 07/08/2016 16:13:12 Dysfunctional uterine bleeding 63493375 N93.8 Endometrium thickened 44 3061707 R93.8 [id number] MD ZAYRA Spears MD [address] [place] [address], [place] [address] 10/20/2016 13:27:26 10/20/2016 15:01:41 Menorrhagia 067939137 N92.0 [id number] MD ZAYRA Spears MD [address] [place] [address], [place] [address] 05/04/2017 14:36:05 05/04/2017 15:12:39 Specialized medical examination 20806004 Z01.419 Venereal d isease screening 466857965 Z11.3 [id number] MD ZAYRA Spears MD [address] [place] [address], [place] [address] 05/04/2018 15:16:36 05/04/2018 16:12:16 Specialized medical examination 24493221 Z01.419 Venereal d isease screening 792358843 Z11.3 [id number] MD ZAYRA Spears MD [address] [place] [address],[place] [address] 10/21/2018 12:49:48 10/21/2018 14:46:17 Menorrhagia 642228025 N92.0 [id number] MD ZAYRA Spears MD [address] [place] [address],[place] [address] 05/12/2019 08:08:12 05/12/2019 10:38:45 Specialized medical examination 88867127 Z01.419 Screening for malignant neoplasm of rectum 555210826 Z12.12 Screening mammography 24 663870 Z12.31 [id number] MD ZAYRA Spears MD [address] [place] [address] [place] [address] 05/16/2020 09:52:17 05/16/2020 10:56:43 Specialized medical examination 61989961 Z01.419 Screening for malignant neoplasm of rectum 352390357 Z12.12 Screening mammography 24 733249 Z12.31 [id number] MD ZAYRA Spears MD [address] [place] [address], [place] [address] 07/02/2020 14:59:01 07/02/2020 15:47:49 Abscess of vulva 10123521 N76.4 [id number] MD ZAYRA Spears MD [address] [place] [address] [place] [address] 07/06/2020 08:23:18 07/06/2020 08:53:42 Abscess of vulva 67735541 N76.4 Candidal vulvovaginitis 14911321 B37.3 [id number] MD ZAYRA Spears MD [address] [place], [place] [address] [address] 07/09/2020 08:49:00 07/09/2020 10:15:02 Abscess of vulva 56206440 N76.4 [id number] MD ZAYRA Spears MD [address] [place] [address] [place] [address] 05/28/2021 09:12:09 05/28/2021 10:20:30 Specialized medical examination 94949237 Z01.419 Screening for malignant neoplasm of rectum 893504271 Z12.12 Screening mammography 24 441346 Z12.31 Lupus erythematosus 2008 08006 L93.0 [id number] MD ZAYRA Spears MD [address] [place], [place] [address]E [place] [address] 06/05/2022 10:37:39 06/05/2022 13:44:04 Specialized medical examination 90985321 Z01.419 Screening for malignant neoplasm of rectum 319204850 Z12.12 Screening mammography 24 857454 Z12.31 [id number] MD ZAYRA Spears MD [address] [place], [place] [address] [place] [address] 07/06/2023 08:36:57 07/06/2023 09:53:07 Specialized medical examination 44430634 Z01.419 Screening for malignant neoplasm of rectum 853409401 Z12.12 Screening mammography 24 808141 Z12.31 [id number] MD ZAYRA Spears MD [address] [place] [address] [place] [address] 12/15/2023 10:41:49 12/16/2023 10:33:09 Menorrhagia 338067837 N92.0 Abnormal u terine bleeding 7610791604 9100 N93.9 [id number] MD ZAYRA Spears MD [address] [place] [address] [place] [address] 02/11/2024 13:27:16 02/11/2024 16:27:37 Endometrial polyp 8909845867 N84.0 Menorrhagia 668329180 N9 2.0 Uterine adenomyosis 7843 45036 N80.03 [id number] MD ZAYRA Spears MD [address] [place], [place] [address] [place] [address] 08/11/2024 10:39:32 08/11/2024 12:17:17 Specialized medical examination 55128750 Z01.419 Screening for malignant neoplasm of rectum 589110870 Z12.12 Screening mammography 24 328094 Z12.31 [id number] MD ZAYRA Spears MD [address] [place] [address],[place] [place] [address] 10/04/2024 10:25:59 10/04/2024 15:48:14 Oligoovulatory dysfunctional uterine bleeding 038621753 N93.8 [id number] MD ZAYRA Spears MD [address] [place] [address], [address] [place] [address] 11/03/2024 09:50:33 11/03/2024 13:16:08 Abnormal uterine bleeding 7414241525 9100 N93.9 Endometrium thickened 44 6788589 R93.89 Health Concerns Section Related Observation LastModified by Organization Detai ls LastModified Time None Recorded Concern Status LastModified by Organization Details LastModified Time None Recorded Advance Directives Directive None Recorded Payers Encounter Date Sequence Insurance Name Policy Number Policy Bonilla Covered Member ID Bonilla Member ID Guarantor Name 12/15/2023 1 [facility] [id number] 1 Rodri Su [id number] Rodri Su 02/11/2024 1 [facility] [id number] 1 Rodri Su [id number] Rodri Su 08/11/2024 1 [facility] [id number] 1 Rodri Su [id number] Rodri Su 10/04/2024 1 [facility] [id number] 1 Rodri Su [id number] Rodri Su 11/03/2024 1 [facility] [id number] 1 Rodri Su [id number] Rodri Su Notes Date Note Type Note Provider Name and Address Organization Details Recorded Time 12/15/2023 text/html This visit is a phone telehealth visit. The patient consented to the visit by phone.The patient was at home at the time of the call and the provider and patient were the only people on the line.I was at [address] [facility], [address] [facility], [place], [place], at the time of the call. She has had 4 periods in 2 months and is worried. She has not been sexually active in 12 years. She was recently discharged from pulmonary rehab. She had PE after covid. She has lost 10 pounds in the past month. She saw Dr. Hankins and has changed her diet and exercise. she is going to see Dr. Bey next month for weight management. Menses were 10/16/23, 11/10/23, 11/30/23, and now again today 12/15/24. Full cycles, full heavy, 5 days, everything. Zayra Whaley MD [address] [facility],[address], [place], [address], [place] [facility], 12/15/2023 11:31:52 02/11/2024 text/html This visit is a phone telehealth visit. The patient consented to the visit by phone. The patient was in her car in the [employer] parking lot, at the time of the call and the provider and patient were the only people on the line. I was at [address] [facility], [address], [place], [place], at the time of the call. She had a recent sonogram to assess the uterus due to abnormal uterine bleeding. the sono shows a 5 mm likely endometrial polyp, and possible adenomyosis, but no other abnormality. She notes that since we last spoke in November her menses have gone back to normal, without abnormal flow or timing anymore. ____ Note from 12/15/23: She has had 4 periods in 2 months and is worried. She has not been sexually active in 12 years.She was recently discharged from pulmonary rehab. She had PE after covid.She has lost 10 pounds in the past month. She saw Dr. Hankins and has changed her diet and exercise. she is going to see Dr. Bey next month for weight management.Menses were 10/16/23, 11/10/23, 11/30/23, and now again today 12/15/24. Full cycles, full heavy, 5 days, everything. She has new onset menorrhagia, check FSH, lh, tsh, and serum hcg.Check pelvic sonogram to look for thickening of endometrium as her BMI is 54.All questions answered. Zayra Whaley MD [address] [facility],[address], [place], [address], [facility], 02/11/2024 16:07:47 08/11/2024 text/html She is here for annual, doing well. Still on Elaquis after her DVT/PE. 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 She is abstinent. Note from 2022: She is here for annual, doing well, but still wants to lose 150 pounds. Had lap band but it is not helping.Had covid, a PE, now is pulmonary rehab. Zayra Whaley MD [address], [place], [address], [place] [facility], 08/11/2024 12:15:41 10/04/2024 text/html She is here for emb after pap with endometrial cells, and a sono that suggests a possible 5 mm endometrial polyp. Menses regular, abstinent for over 5 years, had a lupus flare recently. She had a DVT with covid, on Elaquis now. Zayra Whaley MD [address], [place], [address], [place] [facility], 10/04/2024 10:56:00 11/03/2024 text/html She is here for discussion of her recent emb. It showed disordered proliferative endometrium. She is at increased risk of endometrial cancer due to her morbid obesity. She had a DVT and is on Elaquis now. ___ Note from 10/04/24: She is here for emb after pap with endometrial cells, and a sono that suggests a possible 5 mm endometrial polyp.Menses regular, abstinent for over 5 years, had a lupus flare recently.She had a DVT with covid, on Elaquis now.She tolerated emb well, tissue was unusually lush, await results. Zayra Whaley MD [address], [place], [address], [place] - [facility], 11/03/2024 11:55:17 OBGyn Episode No OBEpisode recorded.
--- OUTSIDE RECORDS SUMMARY | 2024-12-29 09:47 | XMS_ITS | Encounter Summary ---
Author Organization [facility], Address [address] [place] [address] Phone Care Team Providers Care Driller Multiple Spindle Name Role Phone Sruthi Liao MD Primary Care Provider [phone] Encounter Details Date Type Department Care Team (Late st Contact Info) Description 05/07/2023 Documentation Only [facility] [address] [place] [address] Hiren [place] MD [address] [place] [address] [address] [place] [address] Social History Tobacco Use Types Packs/Day Years [...] Visit [facility] [address] [place] [address] Scott Swain MD [address] [place] [address] [place] [address] documented as of this encounter Visit Diagnoses Not on filedocumented in this encounter Care Teams Driller Multiple Spindle Relationship Specialty Start Date End Date Sruthi Liao MD PCP - General 09/20/19 documented as of this encounter
--- OUTSIDE RECORDS SUMMARY | 2024-12-29 09:47 | XMS_ITS ---
Author Organization [facility] Address [address] [address] Care Team Providers Care Art Objects Salesperson Name Role Phone Sruthi Liao Primary Care Provider AMISHA Valles [phone] REASON FOR VISIT Referral [facility] Encounters Encounter Location Date Provider Diagnosis [facility] [address] [address] 06/28/2024 AMISHA VIDAL Plan Of Treatment No Information Progress Notes * Amisha SUB: 9 (43 yo F)Acc No.[id number]:06/28/2024 Patient:?Rodri SU :1980???Age:43 Y???Sex:Female Address:[address] [place] [id number] * true * Date:? Generated for Renu mccormick/Sheila/eTransmitting on:?12/29/2024 09:46 AM EST
--- OUTSIDE RECORDS SUMMARY | 2024-12-29 09:48 | XMS_ITS | Encounter Summary ---
Author Organization [facility], Address [address] [place] [address] Phone Care Team Providers Care Research Contracts Supervisor Name Role Phone Sruthi Liao MD Primary Care Provider [phone] Encounter Details Date Type Department Care Team (Late st Contact Info) Description 07/11/2022 Documentation Only [facility] [address] [place] [address] Hiren [place] MD [address] [place] [address] [address] [place] [address] Social History Tobacco Use Types Packs/Day Years [...] Visit [facility] [address] [place] [address] Scott Swain MD [address] [place] [address] [place] [address] documented as of this encounter Visit Diagnoses Not on filedocumented in this encounter Care Teams Research Contracts Supervisor Relationship Specialty Start Date End Date Sruthi Liao MD PCP - General 09/20/19 documented as of this encounter
--- OUTSIDE RECORDS SUMMARY | 2024-12-29 09:48 | XMS_ITS | Encounter Summary ---
Author Organization [facility], Address [address] [place] [address] Phone Care Team Providers Care Building Equipment Operator Name Role Phone Sruthi Liao MD Primary Care Provider [phone] Encounter Details Date Type Department Care Team (Late st Contact Info) Description 03/26/2022 Documentation Only [facility] [address] [place] [address] Hiren [place] MD [address] [place] [address] [address] [place] [address] Social History Tobacco Use Types Packs/Day Years [...] Visit [facility] [address] [place] [address] Scott Swain MD [address] [place] [address] [place] [address] documented as of this encounter Visit Diagnoses Not on filedocumented in this encounter Care Teams Building Equipment Operator Relationship Specialty Start Date End Date Sruthi Liao MD PCP - General 09/20/19 documented as of this encounter
--- OUTSIDE RECORDS SUMMARY | 2024-12-29 09:48 | XMS_ITS | Patient Health Record ---
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 Penicillin hives/urticaria Drug Allergy Active Reason For Referral Reason Patient requests [facility] Address: [address] [place] [address] - Referral for left foot peroneal tendinitis, strengthening and gait training Diagnosis 1 Peroneal tendinitis, left (M76.72) Referral Organization [facility] Referring Provider First Name AMISHA Referring Provider Last Name YOUNG Referring Provider Speciality Podiatry Referred Provider Specialty Physical The rapist General Notes Mariella Yost 08:30:39 AM > Faxed referral, progress note 03/25/2024 and medical summary to [facility] [address] [place] [address] and phone number [phone]. Confirmation received fax scanned into chart. They will contact the patient to schedule appointment. Clinical Notes Mariella Yost 08:42:36 AM > Appointment scheduled 03/30/2024 at 5:30pm. Referral Priority Routine Reason [facility] in [facility]- already being seen. I evaluated the left foot, the lump is her styloid process. She has some insertion tenderness on palpation of the peroneal brevis, but no pain on movement. I am recommending to progress to non weight bearing strengthening with resistance bands. Thank you. Diagnosis 1 Peroneal tendinitis, left (M76.72) Referral Organization [facility] Referring Provider First Name AMISHA Referring Provider Last Name YOUNG Referring Provider Speciality Podiatry Referred Provider Specialty Physical The rapist General Notes Mariella Yost 04:17:19 PM > Faxed updated referral, progress note 04/29/2024 and medical summary to [facility] [address] [place], [place] [phone] and phone number [phone]. Confirmation received fax scanned into chart. Referral Priority Routine Reason Please send new orde r to [facility]- patient is cleared to progress to weight training, gait training, and strengthening of the left side. Thank you. Diagnosis 1 Peroneal tendinitis, left (M76.72) Referral Organization [facility] Referring Provider First Name AMISHA Referring Provider Last Name YOUNG Referring Provider Speciality Podiatry Referred Provider Specialty Physical The rapist General Notes Mariella Yost 08/2024 04:11:17 PM > Faxed updated referral via EMR with progress note 05/25/2024 to [facility] [address] [place] [address] and phone number [phone]. Referral Priority Routine Reason Please send new orde r to [facility] in [place] (see previous referral)- patient is cleared to progress to gait training, strengthening, and proprioception training. If back to baseline in 2-4 weeks, okay to discharge. Thank you. Diagnosis 1 Peroneal tendinitis, left (M76.72) Diagnosis 2 Pain in left foot (M 79.672) Referral Organization [facility] Referring Provider First Name AMISHA Referring Provider Last Name YOUNG Referring Provider Speciality Podiatry Referred Provider Specialty Physical The rapist General Notes Jaylan Mcfadden 06/16 10:57:40 AM >Appointment is 07/04/2024 Referral Priority Routine Medications Medication SIG (Take, Route, Frequency, Duration) Notes Start Date End Date Status Hydroxychloroquine Sulfate 200 MG as directed Orally BID Active Diclofenac Sodium 1 % 1 gm to the affected foot Externally twice daily for 30 days 02/11/2022 Not-Taking Acyclovir 200 MG 1 capsule Orally five times a day for 10 days 12/31/2023 Not-Taking Mycophenolate Mofetil 500 MG as directed Orally BID Active Furosemide 20 MG 1 tablet Orally Once a day Not-Taking Pantoprazole Sodium 40 MG 1 tablet Orall y Once a day Active Carvedilol 3.125 MG 1 tablet with food Orally Twice a day Not-Taking Albuterol Sulfate [...] a day for 30 days PRN Active Symbicort PRN Active Doxycycline Monohydrate 100 MG 1 capsule Orally Twice a day Not-Taking Iron Active Gabapentin 300 MG 1 capsule Orally Three times a day Not-Taking Apixaban 5 MG as directed Orally BID 5 mg PO BID Active amLODIPine Besylate 10 MG 1 tablet Orall y Once a day Active predniSONE 5 MG 1 tablet Orally Once a day for 14 days 01/22/2024 Not-Taking Vital Signs Heart Rate 86 /min 10/03/2024 Temperature 97.6 degrees Fahrenheit 10/03/2024 Respiratory Rate 16 /min 10/03/2024 Height 5ft 4in in 10/03/2024 Weight 348.6 lbs 10/03/2024 BMI 59.83 kg/m2 10/03/2024 Encounters Encounter Location Date Provider Diagnosis [facility] [address] [address] 01/22/2024 AMISHA VIDAL Peroneal tendinitis, left M76.72 ; Capsulitis of metatarsophalangeal (MTP) joint of left foot M77.52 ; Pain in left foot M79.672 and Pes planus of left foot M21.42 [facility] [address] [address] 02/26/2024 AMISHA VIDAL Peroneal tendinitis, left M76.72 ; Capsulitis of metatarsophalangeal (MTP) joint of left foot M77.52 ; Pain in left foot M79.672 and Pes planus of left foot M21.42 [facility] [address] 03/25/2024 AMISHA VIDAL Peroneal tendinitis, left M76.72 ; Pain in left foot M79.672 and Pes planus of left foot M21.42 [facility] [address] 04/29/2024 AMISHA VIDAL Peroneal tendinitis, left M76.72 ; Pain in left foot M79.672 and Pes planus of left foot M21.42 [facility] [address] 05/25/2024 AMISHA VIDAL Peroneal tendinitis, left M76.72 ; Pain in left foot M79.672 and Pes planus of left foot M21.42 [facility] [address] 06/27/2024 AMISHA VIDAL Peroneal tendinitis, left M76.72 ; Pain in left foot M79.672 and Pes planus of left foot M21.42 [facility] [address] 08/01/2024 AMISHA VIDAL Peroneal tendinitis, left M76.72 ; Pain in left foot M79.672 and Pes planus of left foot M21.42 [facility] [address] 10/03/2024 AMISHA VIDAL Peroneal tendinitis, left M76.72 ; Pain in left foot M79.672 and Pes planus of left foot M21.42 [facility] [address] 12/31/2023 AMISHA VIDAL [facility] [address] 05/06/2024 AMISHA VIDAL [facility] [address] 06/28/2024 AMISHA VIDAL Assessments Encounter Date Diagnosis (ICD Code) Assessment Notes Treatment Notes Treatment Clinical Notes Section Notes 01/22/2024 Peroneal tendinitis, left (ICD-10 - M76.72) We discussed she has tendinitis of the distal peroneal tendons of the left ankle. I reviewed her x-rays, and she has no evidence of a fracture. I explained that she can get peroneal subluxation which is when her peroneal tendons can temporarily move out from the fibular groove. She has no evidence of a tear or rupture of the peroneal tendons. She has no weakness of the tendon groups on examination today. We discussed tendon injuries typically do worsen with use or activity. I explained it can take 4-8 weeks for the areas to heal from the point of injury. We discussed ice can be helpful at first, but now I would recommend heat instead. I also recommended that she continue using the Voltaren gel. I also sent Prednisone 5mg PO x 14 days to the pharmacy for the patient. We discussed that she has been unable to wear the walking boot due to the shingles and cellulitis. I am recommending she return to the boot once her cellulitis has resolved. She had improvement of the left foot while using the walking boot for 2 weeks. I would like her to continue in the walking boot multimedia production assistant for another 4 weeks. After 4 weeks, I would like her to wear the boot while at work. I would like her to not use the boot at home during those two weeks. A letter was written for work. I will see the patient back in 4 weeks for another assessment. She is in agreement with this plan. 02/26/2024 Peroneal tendinitis, left (ICD-10 - M76.72) We discussed she has tendinitis of the distal peroneal tendons of the left ankle. I reviewed her x-rays, and she has no evidence of a fracture. I explained that she can get peroneal subluxation which is when her peroneal tendons can temporarily move out from the fibular groove. She has no evidence of a tear or rupture of the peroneal tendons. She has no weakness of the tendon groups on examination today. We discussed tendon injuries typically do worsen with use or activity. I explained it can take 4-8 weeks for the areas to heal from the point of injury. We discussed ice can be helpful at first, but now I would recommend heat instead. I also recommended that she continue using the Voltaren gel. She has improvement of the left foot while using the walking boot for 4 weeks. I would like her to continue in the walking boot multimedia production assistant for another 2 weeks. After 2 weeks, I would like her to wear the boot while at work. I would like her to not use the boot at home during those two weeks. A letter was written for work. I will see the patient back in 4 weeks for another assessment. She is in agreement with this plan. 03/25/2024 Peroneal tendinitis, left (ICD-10 - M76.72) We discussed she has tendinitis of the distal peroneal tendons of the left ankle. I reviewed her x-rays, and she has no evidence of a fracture. I explained that she can get peroneal subluxation which is when her peroneal tendons can temporarily move out from the fibular groove. She has no evidence of a tear or rupture of the peroneal tendons. She has no weakness of the tendon groups on examination today. We discussed tendon injuries typically do worsen with use or activity. I explained it can take 4-8 weeks for the areas to heal from the point of injury. We discussed ice can be helpful at first, but now I would recommend heat instead. I also recommended that she continue using the Voltaren gel. She has been transitioning out of the walking boot. She is wearing it approximately 50% of the time. She had a few episodes of rebound pain but overall improvement. I would like her to try transitioning down to 25% of the time in the boot. Overall the left foot is weak. I would like to refer her to physical therapy for strengthening and gait training. She is in agreement with this plan and requests [facility] in [place]. If she has no pain in 3 weeks, she can try fully transitioning out of the walking boot. She is in agreement with this plan. 04/29/2024 Peroneal tendinitis, left (ICD-10 - M76.72) I discussed with the patient that the lump on the outside is her styloid process which is where her peroneal brevis inserts. We discussed her strength is still very weak. I explained this can keep cycle of discomfort going as the weakness will stress the peroneal brevis more. I see no evidence of returned peroneal tendinitis though the sheath, and she has no pain on ROM or movement. I am recommending they start non weight-bearing strengthening of the peroneal tendons, as I believe the weakness is caused for the insertional pain. She is in agreement with this plan. I will send a letter to physical therapy. She is also fully out of the walking boot. I would like her to continue gait training, and wearing supportive shoes. I would like to see her back in 4 weeks. 05/25/2024 Peroneal tendinitis, left (ICD-10 - M76.72) I discussed with the patient that the lump on the outside is her styloid process which is where her peroneal brevis inserts. We discussed her strength is still slowly improving. I explained this can keep cycle of discomfort going as the weakness will stress the peroneal brevis more. I see no evidence of returned peroneal tendinitis though the sheath, and she has no pain on ROM or movement. At this time, she can progress to weight-bearing strengthening of the left foot and gait training. She is in agreement with this plan. I will send a letter to physical therapy. I would like her to continue gait training, and wearing supportive shoes. We discussed appropriate sneakers for her foot type. I would like to see her back in 4 weeks. 06/27/2024 Peroneal tendinitis, left (ICD-10 - M76.72) Her strength is greatly improved this visit. She also bought new sneakers which are helping. She has no tenderness at the styloid process this visit. I see no evidence of returned peroneal tendinitis though the sheath, and she has no pain on ROM or movement. At this time, she can progress to weight-bearing strengthening/pr oprioception training of the left foot and gait training. She is in agreement with this plan. I will send a letter to physical therapy. At this time, she can try to wear her dress shoes starting with an hour or two at a time. If no pain, she can slowly increase. The lymphedema wraps should help with compression. We discussed uneven surfaces may be a trigger for her right now. We discussed she likely will need another 2-4 weeks to complete physical therapy. She is in agreement with this plan. 08/01/2024 Peroneal tendinitis, left (ICD-10 - M76.72) [...] is in agreement with this plan. 10/03/2024 Peroneal tendinitis, left (ICD-10 - M76.72) [...] in left foot (ICD-10 - M79.672) 08/01/2024 Pain in left foot (ICD-10 - M79.672) 06/27/2024 Pain in left foot (ICD-10 - M79.672) 05/25/2024 Pain in left foot (ICD-10 - M79.672) 04/29/2024 Pain in left foot (ICD-10 - M79.672) 03/25/2024 Pain in left foot (ICD-10 - M79.672) 01/22/2024 Capsulitis of metatarsophalangeal (MTP) joint of left foot (ICD-10 - M77.52) 02/26/2024 Capsulitis of metatarsophalangeal (MTP) joint of left foot (ICD-10 - M77.52) 01/22/2024 Pain in left foot (ICD-10 - M79.672) 02/26/2024 Pain in left foot (ICD-10 - M79.672) 03/25/2024 Pes planus of left foot (ICD-10 - M21.42) I examined her new orthotics. We discussed she is looking for something low profile that will fit in her dress shoes. I will send a letter to [facility] to review the type of orthotic I believe would benefit this patient for the shoes she is looking to use them in. She is in agreement with this plan. 04/29/2024 Pes planus of left foot (ICD-10 - M21.42) I examined her new orthotics. We discussed she is looking for something low profile that will fit in her dress shoes. I will send a letter to [facility] to review the type of orthotic I believe would benefit this patient for the shoes she is looking to use them in. She is in agreement with this plan. 05/25/2024 Pes planus of left foot (ICD-10 - M21.42) I examined her new orthotics. We discussed she is looking for something low profile that will fit in her dress shoes. I will send a letter to [facility] to review the type of orthotic I believe would benefit this patient for the shoes she is looking to use them in. She is in agreement with this plan. 06/27/2024 Pes planus of left foot (ICD-10 - M21.42) I examined her new orthotics. We discussed she is looking for something low profile that will fit in her dress shoes. I will send a letter to [facility] to review the type of orthotic I believe would benefit this patient for the shoes she is looking to use them in. She is in agreement with this plan. 08/01/2024 Pes planus of left foot (ICD-10 - M21.42) 10/03/2024 Pes planus of left foot (ICD-10 - M21.42) 02/26/2024 Pes planus of left foot (ICD-10 - M21.42) I examined her new orthotics. We discussed she is looking for something low profile that will fit in her dress shoes. I will send a letter to [facility] to review the type of orthotic I believe would benefit this patient for the shoes she is looking to use them in. She is in agreement with this plan. 01/22/2024 Pes planus of left foot (ICD-10 - M21.42) I examined her new orthotics. We discussed she is looking for something low profile that will fit in her dress shoes. I will send a letter to [facility] to review the type of orthotic I believe would benefit this patient for the shoes she is looking to use them in. She is in agreement with this plan. 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 Personal history of pulmonary embolism Z 86.711 Acute embolism and thrombosi s of unspecified deep veins of unspecified lower extremity I82.409 Systemic lupus erythematosus, unspecifie d M32.9 Stage 3a chronic kidney disease N18.31 Vitamin D deficiency E55.9 Bariatric surgery status Z98.84 Acne vulgaris L70.0 Seborrheic dermatitis, unspecified L21.9 Allergic rhinitis, unspecified J30.9 Wheezing R06.2 Diverticulosis of large inte eliud without perforation or abscess without bleeding K57.30 Morbid obesity E66.01 Body mass index [BMI] 60.0-69.9, adult Z 68.44 Spina bifida occulta Q76.0 + COVID 11/11/2021 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
--- OUTSIDE RECORDS SUMMARY | 2024-12-29 09:48 | XMS_ITS | Encounter Summary ---
Author Organization [facility], Address [address] [place] [address] Phone Care Team Providers Care Medication Administration Professional Name Role Phone Sruthi Liao MD Primary Care Provider [phone] Encounter Details Date Type Department Care Team (Late st Contact Info) Description 06/24/2022 Documentation Only [facility] [address] [place] [address] Hiren Minor MD [address] [place] [address] [address] [place] [address] Social History Tobacco Use Types Packs/Day Years [...] Visit [facility] [address] [place] [address] Scott Swain MD [address] [place] [address] [place] [address] documented as of this encounter Visit Diagnoses Not on filedocumented in this encounter Care Teams Medication Administration Professional Relationship Specialty Start Date End Date Sruthi Liao MD PCP - General 09/20/19 documented as of this encounter
--- OUTSIDE RECORDS SUMMARY | 2024-12-29 09:48 | XMS_ITS | Encounter Summary ---
Author Organization [facility], Address [address] [place] [address] Phone Care Team Providers Care Clarity Specialists Name Role Phone Sruthi Liao MD Primary Care Provider [phone] Encounter Details Date Type Department Care Team (Late st Contact Info) Description 11/21/2021 Documentation Only [facility] [address] [place] [address] Scott Swain MD [address] [place] [address] [place] [address] Social History Tobacco Use Types [...] Visit [facility] [address] [place] [address] Scott Swain MD [address] [place] [address] [place] [address] documented as of this encounter Procedures Procedure Name Priority Date/Time Associated Diagnosis Comments ANTI-DNA ANTIBODY, DOUBLE-STRANDED Routine 11/21/2021 11:33 AM EST SLE glomerulonephritis syndrome (HCC) CBC AND DIFFERENTIAL Routine 11/21/2021 11:33 AM EST SLE glomerulonephritis syndrome (HCC) C3 COMPLEMENT Routine 11/21/2021 11:33 AM EST SLE glomerulonephritis syndrome (HCC) C4 COMPLEMENT Routine 11/21/2021 11:33 AM EST SLE glomerulonephritis syndrome (HCC) RENAL FUNCTION PANEL Routine 11/21/2021 11:33 AM EST SLE glomerulonephritis syndrome (HCC) PROTEIN / CREATININE RATIO, URINE Routine 11/21/2021 11:15 AM EST SLE glomerulonephritis syndrome (HCC) URINALYSIS WITH MICROSCOPIC Routine 11/21/2021 11:15 AM EST SLE glomerulonephritis syndrome (HCC) documented in this encounter Results * (ABNORMAL) Anti-DNA antibody, double-stranded (11/21/2021 11:33 AM EST) Anti DNA, [place] [address] 14(H) [facility] Comment: Reference range: 0 to 9 Unit: IU/mL (NOTE) ?Negative ?<5 ?Equivocal ??5 - 9 ?Positive ?>9 Test performed by [facility], [address], [place] [address] Testing performed or reported by [facility], a Service of [facility], [address], [place] [address] Jasen Finley MD, Manager Lighting [facility]# [id number] Blood (Blood, Venous) 11/21/2021 11:33 AM EST 11/21/2021 11:54 AM EST Scott Swain MD LAB BLOOD ORDERABLES Final Re sult Performing Organization Address [facility] de Phone Number [facility] * (ABNORMAL) C4 complement (11/21/2021 11:33 AM EST) C4 Complement 42(H) (10-40) MG/DL [facility] Comment: Testing performed or reported by [facility], [place] [address] Delonte Sampson MD, Manager Lighting CLIA# [id number] Blood (Blood, Venous) 11/21/2021 11:33 AM EST 11/21/2021 11:54 AM EST Scott Swain MD LAB BLOOD ORDERABLES Final Re sult Performing Organization Address [facility] de Phone Number [facility] * C3 complement (11/21/2021 11:33 AM EST) C3 Complement 114 (90-180) MG/DL [facility] Comment: Testing performed or reported by [facility], a Service of [facility], [address] [place] [address] Delonte Sampson MD, Manager Lighting CLIA# [id number] Blood (Blood, Venous) 11/21/2021 11:33 AM EST 11/21/2021 11:54 AM EST Scott Swain MD LAB BLOOD ORDERABLES Final Re sult Performing Organization Address [facility] [address]/[facility] Co de Phone Number [facility] * (ABNORMAL) Renal function panel (11/21/2021 11:33 AM EST) Glucose 86 (70-99) MG/DL [facility] BUN 19 (6-20) MG/DL [facility] Creatinine 1.5(H) (0.5-1.0) MG/DL [facility] Sodium 139 (133-145) MMOL/L [facility] Potassium 4.4 (3.6-5.2) MMOL/L [facility] Chloride 103 (98-107) MMOL/L [facility] Bicarbonate (CO2) 29 (22-29) MMOL/L [facility] Anion Gap 7 (4-17) [facility] Albumin 4.6 (3.4-4.8) GM/DL [facility] Calcium 9.5 (8.6-10.5) MG/DL [facility] Phosphorus, Serum 3.6 (2.5-4.5) MG/DL [facility] Est GFR Non 43 ML/MIN/1.7 3 M2 [facility] Comment: Effective 08/07/2021, race modifiers will no longer be included in our creatinine-based CKD-EPI eGFR calculations. Accordingly, eGFR lab report descriptors (i.e., EST GFR NON , EST GFR ) will be discontinued. Please take this into account when utilizing creatinine-based formulations to diagnose and manage chronic kidney disease. Creatinine based estimated glomerular filtration rate (eGFR) is calculated using the Chronic Kidney Disease Epidemiology Collaboration (CKD-EPI). The CKD-EPI calculation is not validated in children (<18 years), woman or in racial or ethnic subgroups. Testing performed or reported by [facility], a Service of [facility], [address] [place] [address] Delonte Sampson MD, Manager Lighting [facility]# [id number] Blood (Blood, Venous) 11/21/2021 11:33 AM EST 11/21/2021 11:54 AM EST us Scott Swain MD LAB BLOOD ORDERABLES Final Re sult [facility] * (ABNORMAL) CBC and differential (11/21/2021 11:33 AM EST) White Blood Cells 8.1 (4.0-11.0) K/MM3 [facility] RBC 4.23 (4.20-5.40 ) M/MM3 [facility] Hgb 11.9 (11.7-15.5 ) GM/DL [facility] Hematocrit 38.3 (35.7-45.8 ) % [facility] MCV 90.5 (80.0-100. 0) FL [facility] MCH 28.1 (27.0-34.0 ) PG [facility] MCHC 31.1(L) (33.0-37.0 ) g/dL [facility] Platelets 237 (150-460) K/MM3 [facility] RDW-SD 41.9 (<47.0) FL [facility] MPV 10.3 (9.4-12.4) FL [facility] nRBC Count 0.0 #/100 WBC'S [facility] NRBC Absolute 0.0 K/MM3 [facility] Neutrophils Abs Auto 6.1 (1.3-7.0) K/MM3 [facility] Lymphocytes Relative 1.4 (0.8-3.1) K/MM3 [facility] Monocytes 0.6 (0.4-0.9) K/MM3 [facility] Eosinophils Relative 0.0 (0.0-0.4) K/MM3 [facility] Basophil ABS 0.0 (0.0-0.1) K/MM3 [facility] Granulocytes Absolute 0.1 K/MM3 [facility] Neutrophils % Auto 74.6 (44-76) % [facility] Lymphs 17.5 (15-43) % [facility] Monocytes Absolute 6.9 (4.5-10.5) % [facility] Eosinophils 0.1 (0-6) % [facility] Basophils Relative 0.2 (0-2) % [facility] Immature Granulocytes 0.7 % [facility] Comment: Testing performed or reported by [facility], a Service of [facility], [address] [place] [address] Delonte Sampson MD, Manager Lighting [facility]# [id number] Blood (Blood, Venous) 11/21/2021 11:33 AM EST 11/21/2021 11:54 AM EST us Scott Swain MD LAB BLOOD ORDERABLES Final Re sult [facility] * Urine Protein / creatinine ratio (11/21/2021 11:15 AM EST) Protein/Creatin e Ratio 0.09 (0-0.2) [facility] Protein, Urine 7 MG/DL [facility] Creatinine, Urine 79.3 MG/DL [facility] Comment: Testing performed or reported by [facility], a Service of [address] [address] Delonte Sampson MD, Manager Lighting CLIA# [id number] Urine (Urine, Clean Catch) 11/21/2021 11:15 AM EST 11/21/2021 11:54 AM EST Scott Swain MD LAB URINE ORDERABLES Final Re sult Performing Organization Address [facility] [address] [facility] Co de Phone Number [facility] * (ABNORMAL) Urinalysis with microscopic (11/21/2021 11:15 AM EST) Appearance COLORLESS [facility] Comment:CLEAR Specific [place] 1.011 (1.002-1. 030) [facility] pH Urine 5.5 (5.0-8.0) [facility] Albumin, Urine NEGATIVE (NEG) [facility] Glucose, Ur NEGATIVE (NEG) [facility] Ketones, Urine NEGATIVE (NEG) [facility] Bilirubin Urine NEGATIVE (NEG) [facility] Hemoglobin Presence in Urine 2+(A) (NEG) [facility] Nitrite, Urine NEGATIVE (NEG) [facility] Leukocyte Esterase Urine NEGATIVE (NEG) [facility] Urobilinogen Urine NORMAL (NORM) MG/DL [facility] WBC, Urine <1 (0-5) /HPF [facility] RBC, Urine 3 (0-3) /HPF [facility] Mucus, Urine SLIGHT /LPF [facility] Squamous Epithelial, Urine 1 (0-8) /HPF [facility] Comment: Testing performed or reported by [facility], a Service of [address] [address] Delonte Sampson MD, Manager Lighting [place]# [id number] Urine (Urine, Clean Catch) 11/21/2021 11:15 AM EST 11/21/2021 11:54 AM EST Scott Swain MD LAB URINE ORDERABLES Final Re sult Performing Organization Address [facility] [address]/ZIP Co de Phone Number [facility] documented in this encounter Visit Diagnoses Diagnosis SLE glomerulonephritis syndrome (HCC)- Primary documented in this encounter Care Teams Clarity Specialists Relationship Specialty Start Date End Date Sruthi Liao MD PCP - General 09/20/19 documented as of this encounter
--- OUTSIDE RECORDS SUMMARY | 2024-12-29 09:48 | XMS_ITS | Encounter Summary ---
Author Organization [facility], Address [address] [place] [address] Phone Care Team Providers Care Flooring Installer Name Role Phone Sruthi Liao MD Primary Care Provider [phone] Encounter Details Date Type Department Care Team (Late st Contact Info) Description 10/02/2022 Documentation Only [facility] [address] [place] [address] Hiren Minor MD [address] [place] [address] [address] [place] [address] Social History Tobacco Use Types Packs/Day Years [...] Visit [facility] [address] [place] [address] Scott Swain MD [address] [place] [address] [place] [address] documented as of this encounter Visit Diagnoses Not on filedocumented in this encounter Care Teams Flooring Installer Relationship Specialty Start Date End Date rSuthi Liao MD PCP - General 09/20/19 documented as of this encounter
--- OUTSIDE RECORDS SUMMARY | 2024-12-29 09:48 | XMS_ITS | Patient Health Record ---
Author Organization [facility] Address [address] [place] [address] Care Team Providers Care Asphalt Layer Name Role Phone COY FOX Unavailable [phone] IVANMARCIANO LAWS Unavailable [phone] ALLERGIES Allergen (clinical drug ingredient) Drug/Non Drug Allergy documented on EMR Reaction Allergy Type Onset Date Status hydralazine Hydralazine lupus Drug Allergy Act aliyah Penicillin rash Drug Allergy Active REASON FOR REFERRAL No Information MEDICATIONS Medication SIG (Take, Route, Frequency, Duration) [...] tablet Orally Twic e a day Active PROBLEMS Problem Type ICD Code Onset Dates Problem Status W/U Status Risk SNOMED Code Notes Problem Other obesity (E66.8) Active confirmed 756051523 Problem Essential hypertension (I10) Active confirmed 62226174 Problem Lupus (M32.9) Active confirmed 93237865 3 Problem Chronic GERD (K21.9) Active confirmed 517744191 Problem BMI 60.0-69.9, adult (Z68.44) Active confirmed 928791398 VITAL SIGNS Heart Rate 83 /min 05/25/2024 Oximetry 98 % 05/25/2024 Blood pressure diastolic 86 mm Hg 05/25/2024 Height 63 in 05/25/2024 Blood pressure systolic 126 mm Hg 05/25/2024 Weight 360.2 lbs 05/25/2024 BMI 63.8 kg/m2 05/25/2024 Encounters Encounter Location Date Provider Diagnosis [facility] [address] [place] [address] 04/25/2024 COY RUDDY [facility] [address] [place] [address] 07/26/2024 MARCIANO IVAN [facility] [address] [facility] [facility] [place] [address] 07/30/2024 TALNOMAN IVAN [facility] [address] [facility] [facility] [place] [address] 08/03/2024 COY RUDDY [facility] [address] [place] [address] 08/05/2024 MARCIANO IVAN [facility] [address] [facility] [address] [facility] [place] [address] 03/29/2024 COY RUDDY Other obesity E66.8 ; BMI 60.0-69.9, adult Z68.44 ; Essential hypertension I10 ; Chronic GERD K21.9 and Lupus M32.9 [facility] [address] [facility] [place] [address] 05/25/2024 COY RUDDY Other obesity E66.8 ; BMI 60.0-69.9, adult Z68.44 ; Essential hypertension I10 ; Chronic GERD K21.9 and Lupus M32.9 [facility] [address] [facility] [address] [facility] [place] [address] 03/28/2024 COY RUDDY ASSESSMENTS Encounter Date Diagnosis Assessment Notes Treatment Notes Treatment Clinical Notes Section Notes 03/29/2024 BMI 60.0-69.9, adult (ICD-10 - Z68.44) Rodri Is a 43-year-old female who presents the office for weight management consultation. Patient is new patient to the practice today for new patient paperwork reviewed. Medical conditions managed as stated below. 03/29/2024:Weight two 349.8, BMI 61.96. Patient welcomed to the practice. Extensively educated on lifestyle modifications occluding high-protein foods, low carb rigid snacks, healthy fats, sleep hygiene, stress reduction. Provided with educational documentation in regards to all of this. Patient is interested in weight management medications. Had a gastric sleeve in 2018, lost 60 pounds and was able to maintain it. Wants to submit for Wegovy. Is aware of national shortage, and prior authorization process. Discussed semaglutide which she would not like to start at this time, would like to see if she can get the medication covered through health insurance # Hypertension: Continue amlodipine 10 mg, mycophenolate 500 mg twice daily # GERD: Continue pantoprazole 40 mg # Lupus: Continue hydroxychloroquine 200 mg twice daily, prednisone 2.5 mg once daily, Eliquis 5 mg Patient was reassured and welcomed to the practice. We discussed that we stress a hollistic medical approach with emphasis on lifestyle modification. Patient was informed that a healthy lifestyle with exercise and good eating habits can help reduce his risk of medical complications. Patient is explained that obesity increases his risk of diabetes, cardiovascular disease, or organ damage. We spent a lot of time discussing the relationship between food, exercise, sleep, mental health and obesity. Patient was counseled on the importance EATING local, organic food when possible. Patient was educated on clean 15 and dirty dozen. I provided information about reading books called The Food Rules by Ld Bennett and Eat Fat Get Lean by Dr Can Son. Self education is important in the journey for weight management. Patient was offered diagnostic testing/ SECA scale. We want to measure visceral adiposity, advanced body composition, adverse lipids, fatty acid balance, risk for heart disease and atherosclerosis, markers of inflammation and genetic susceptibility. Patient was counseled on weight management and was advised to lose weight using A. Meal Replacement Products Patient was educated on the replacement products called optifast. This is a good way of taking fixed amount of calories. It has been shown in studies to be ineffective weight management tool. This however has to be coupled with lifestyle intervention as well as laboratory data and EKG monitoring. It is impossible to know how a person will tolerate complete meal replacement. The side effects of meal replacement and weight loss could include syncopal attacks, dizziness, gallstones, potential cholecystectomy, possible heart attack and even . The benefits of meal replacement would be potential weight loss but no guarantees can be made. Meal replacement products are not covered by insurance. Once the patient has bought these products we cannot return them B. Lifestyle management which includes several strategies as below 1. Eat a low carbohydrate good fat good protein diet. Eliminate refined carbohydrates from the diet. Limit sugared beverages. Eat local organic when possible. Cook your own meals. Read food labels. Focus on healthy snacks. Portion control and food with low glycemic index 2. Exercise regularly. Try to get at least 6000 steps a day. Use a predominant to track activity level. Consider using apps like 7 minute excercise, [employer], lose it, stick as needed for self-monitoring and weight management. Consider group exercises. Consider hiring a racehorse trainer. Regular exercise is hood to sustainable health and prevents as a buffer against weight regain 3. Sleep is most important for healing. Try to sleep at least 6-8 hours a night. A good quality sleep needs a sleep ritual with ideal room temperature of around 68. It might help to take a shower and have no electronics in the room and sleep in a very dark room without artificial light. Start sleep routine and get up early in the morning and go to bed on time. 4. Make a social connection. Surround yourself with positive people with positive energy. Connect with friends and family. 5. Get into the habit of meditating and mindfulness while doing everything. 6. Go outside and connect with nature. C. Prescription medications Patient was educated on the use of prescription medications for medical weight loss. This is a growing list and includes phentermine, Topamax,Qsymia, contrave, belviq and saxenda, wegovy etc. All prescription medications could have side effects including but not limited to kidney stones, seizure disorder cardiac arrhythmias heart attack pancreatitis, GI effects, Etc. Patient was encouraged to read the prescription insert and have coaching with their pharmacist and make an informed decision about taking medication and know that these medications are being prescribed with good intentions and we do not know how a patient would react to her medication. Some medications are FDA approved for weight loss and there is also off label use depending on patient's inability to afford medications in an attempt to lose weight D. Behavioral counseling was done to establish a relationship between food and an mood. Patient was provided information about local counseling and psychiatry and Dr Strange at [facility]. We would like to cover regular topics and build on low glycemic eating exercise mindful eating, using yoga and meditation along with deep breathing and connecting with friends and family. E. MASS PAT reviewed, Patient's current medications were reviewed and opinion was given on medication that can cause weight gain and can be substituted F. Patient was assessed for risk with obesity including and not limiting to atherosclerosis heart disease stroke kidney disease, restrictive lung disease, irritable bowel syndrome and overall mortality. Risk of developing prediabetes diabetes and metabolic syndrome was discussed G. Therapeutic plan: We have decided to make therapeutic plan which would include choosing wisely on calories restricting portion getting active, tracking weight, getting good quality sleep and working on time management H. Patient will follow up in 4 weeks for weight management Total time spent today was 60 minutes of which greater than 50% was spent on coordinating and counseling Case discussed with collaborating physician Cory Ivan who reviewed the assessment and plan. Chart, medications, labs, vital signs reviewed. Dictation was accomplished with the use of [employer] voice recognition software, prone to medical misidentifications and grammatical errors. This is unintentional and the practitioner does try to identify and correct these, but some could still be present. Please do not hesitate to contact practitioner for clarification. All quetsions answered to patients satisfaction. Patient verbalized understanding of diagnosis and treatments explained. To call sooner prior to next visit it any questions/concerns arise. 05/25/2024 Other obesity (ICD-10 - E66.8) Rodri Is a 43-year-old female who presents the office for weight management f/u. 03/29/2024:Weight two 349.8, BMI 61.96. Patient welcomed to the practice. Extensively educated on lifestyle modifications occluding high-protein foods, low carb rigid snacks, healthy fats, sleep hygiene, stress reduction. Provided with educational documentation in regards to all of this. Patient is interested in weight management medications. Had a gastric sleeve in 2018, lost 60 pounds and was able to maintain it. Wants to submit for Wegovy. Is aware of national shortage, and prior authorization process. Discussed semaglutide which she would not like to start at this time, would like to see if she can get the medication covered through health insurance 05/25/2024: Weight 360, BMI 63.8. Patient has gained weight since last visit but when reviewing body scan she has lost 1 pound of fat, and gained 6 pounds of muscle. Has been going to physical therapy for tendinitis. Wegovy was denied because she has not followed with our weight loss program for 6 consecutive months, but she has followed with a weight loss program with gastric band in 2018. She was following with Dr. Ford. She is wondering if this can help with an appeal. She is going to contact [employer] to see. Patient is considering trialing compounded semaglutide in office, as Wegovy most likely would not be covered until September. # Hypertension: Continue amlodipine 10 mg, mycophenolate 750 mg twice daily instead of 1000 BID. they are tapering her down. # GERD: Continue pantoprazole 40 mg # Lupus: Continue hydroxychloroquine 200 mg twice daily, prednisone 2.5 mg once daily, Eliquis 5 mg Time sent with patient 30 minutes or greater than 50% of patient case and care coordination. Follow-up in July, sooner as needed. All quetsions answered to patients satisfaction. Patient verbalized understanding of diagnosis and treatments explained. To call sooner prior to next visit it any questions/concerns arise. Case discussed with collaborating physician Taisha Ivan who reviewed the assessment and plan. Chart, medications, labs, vital signs reviewed. Dictation was accomplished with the use of [employer] voice recognition software, prone to medical misidentifications and grammatical errors. This is unintentional and the practitioner does try to identify and correct these, but some could still be present. Please do not hesitate to contact practitioner for clarification. 03/29/2024 Other obesity (ICD-10 - E66.8) Rodri Is a 43-year-old female who presents the office for weight management consultation. Patient is new patient to the practice today for new patient paperwork reviewed. Medical conditions managed as stated below. 03/29/2024:Weight two 349.8, BMI 61.96. Patient welcomed to the practice. Extensively educated on lifestyle modifications occluding high-protein foods, low carb rigid snacks, healthy fats, sleep hygiene, stress reduction. Provided with educational documentation in regards to all of this. Patient is interested in weight management medications. Had a gastric sleeve in 2018, lost 60 pounds and was able to maintain it. Wants to submit for Wegovy. Is aware of national shortage, and prior authorization process. Discussed semaglutide which she would not like to start at this time, would like to see if she can get the medication covered through health insurance # Hypertension: Continue amlodipine 10 mg, mycophenolate 500 mg twice daily # GERD: Continue pantoprazole 40 mg # Lupus: Continue hydroxychloroquine 200 mg twice daily, prednisone 2.5 mg once daily, Eliquis 5 mg Patient was reassured and welcomed to the practice. We discussed that we stress a hollistic medical approach with emphasis on lifestyle modification. Patient was informed that a healthy lifestyle with exercise and good eating habits can help reduce his risk of medical complications. Patient is explained that obesity increases his risk of diabetes, cardiovascular disease, or organ damage. We spent a lot of time discussing the relationship between food, exercise, sleep, mental health and obesity. Patient was counseled on the importance EATING local, organic food when possible. Patient was educated on clean 15 and dirty dozen. I provided information about reading books called The Food Rules by Ld Bennett and Eat Fat Get Lean by Dr Can Son. Self education is important in the journey for weight management. Patient was offered diagnostic testing/ SECA scale. We want to measure visceral adiposity, advanced body composition, adverse lipids, fatty acid balance, risk for heart disease and atherosclerosis, markers of inflammation and genetic susceptibility. Patient was counseled on weight management and was advised to lose weight using A. Meal Replacement Products Patient was educated on the replacement products called optifast. This is a good way of taking fixed amount of calories. It has been shown in studies to be ineffective weight management tool. This however has to be coupled with lifestyle intervention as well as laboratory data and EKG monitoring. It is impossible to know how a person will tolerate complete meal replacement. The side effects of meal replacement and weight loss could include syncopal attacks, dizziness, gallstones, potential cholecystectomy, possible heart attack and even . The benefits of meal replacement would be potential weight loss but no guarantees can be made. Meal replacement products are not covered by insurance. Once the patient has bought these products we cannot return them B. Lifestyle management which includes several strategies as below 1. Eat a low carbohydrate good fat good protein diet. Eliminate refined carbohydrates from the diet. Limit sugared beverages. Eat local organic when possible. Cook your own meals. Read food labels. Focus on healthy snacks. Portion control and food with low glycemic index 2. Exercise regularly. Try to get at least 6000 steps a day. Use a predominant to track activity level. Consider using apps like 7 minute excercise, [employer], lose it, stick as needed for self-monitoring and weight management. Consider group exercises. Consider hiring a racehorse trainer. Regular exercise is hood to sustainable health and prevents as a buffer against weight regain 3. Sleep is most important for healing. Try to sleep at least 6-8 hours a night. A good quality sleep needs a sleep ritual with ideal room temperature of around 68. It might help to take a shower and have no electronics in the room and sleep in a very dark room without artificial light. Start sleep routine and get up early in the morning and go to bed on time. 4. Make a social connection. Surround yourself with positive people with positive energy. Connect with friends and family. 5. Get into the habit of meditating and mindfulness while doing everything. 6. Go outside and connect with nature. C. Prescription medications Patient was educated on the use of prescription medications for medical weight loss. This is a growing list and includes phentermine, Topamax,Qsymia, contrave, belviq and saxenda, wegovy etc. All prescription medications could have side effects including but not limited to kidney stones, seizure disorder cardiac arrhythmias heart attack pancreatitis, GI effects, Etc. Patient was encouraged to read the prescription insert and have coaching with their pharmacist and make an informed decision about taking medication and know that these medications are being prescribed with good intentions and we do not know how a patient would react to her medication. Some medications are FDA approved for weight loss and there is also off label use depending on patient's inability to afford medications in an attempt to lose weight D. Behavioral counseling was done to establish a relationship between food and an mood. Patient was provided information about local counseling and psychiatry and Dr Strange at [facility]. We would like to cover regular topics and build on low glycemic eating exercise mindful eating, using yoga and meditation along with deep breathing and connecting with friends and family. E. MASS PAT reviewed, Patient's current medications were reviewed and opinion was given on medication that can cause weight gain and can be substituted F. Patient was assessed for risk with obesity including and not limiting to atherosclerosis heart disease stroke kidney disease, restrictive lung disease, irritable bowel syndrome and overall mortality. Risk of developing prediabetes diabetes and metabolic syndrome was discussed G. Therapeutic plan: We have decided to make therapeutic plan which would include choosing wisely on calories restricting portion getting active, tracking weight, getting good quality sleep and working on time management H. Patient will follow up in 4 weeks for weight management Total time spent today was 60 minutes of which greater than 50% was spent on coordinating and counseling Case discussed with collaborating physician Cory Ivan who reviewed the assessment and plan. Chart, medications, labs, vital signs reviewed. Dictation was accomplished with the use of [employer] voice recognition software, prone to medical misidentifications and grammatical errors. This is unintentional and the practitioner does try to identify and correct these, but some could still be present. Please do not hesitate to contact practitioner for clarification. All quetsions answered to patients satisfaction. Patient verbalized understanding of diagnosis and treatments explained. To call sooner prior to next visit it any questions/concerns arise. 03/29/2024 Essential hypertension (ICD-10 - I10) Rodri Is a 43-year-old female who presents the office for weight management consultation. Patient is new patient to the practice today for new patient paperwork reviewed. Medical conditions managed as stated below. 03/29/2024:Weight two 349.8, BMI 61.96. Patient welcomed to the practice. Extensively educated on lifestyle modifications occluding high-protein foods, low carb rigid snacks, healthy fats, sleep hygiene, stress reduction. Provided with educational documentation in regards to all of this. Patient is interested in weight management medications. Had a gastric sleeve in 2018, lost 60 pounds and was able to maintain it. Wants to submit for [employer]. Is aware of national shortage, and prior authorization process. Discussed semaglutide which she would not like to start at this time, would like to see if she can get the medication covered through health insurance # Hypertension: Continue amlodipine 10 mg, mycophenolate 500 mg twice daily # GERD: Continue pantoprazole 40 mg # Lupus: Continue hydroxychloroquine 200 mg twice daily, prednisone 2.5 mg once daily, Eliquis 5 mg Patient was reassured and welcomed to the practice. We discussed that we stress a hollistic medical approach with emphasis on lifestyle modification. Patient was informed that a healthy lifestyle with exercise and good eating habits can help reduce his risk of medical complications. Patient is explained that obesity increases his risk of diabetes, cardiovascular disease, or organ damage. We spent a lot of time discussing the relationship between food, exercise, sleep, mental health and obesity. Patient was counseled on the importance EATING local, organic food when possible. Patient was educated on clean 15 and dirty dozen. I provided information about reading books called The Food Rules by Ld Bennett and Eat Fat Get Lean by Dr Can Son. Self education is important in the journey for weight management. Patient was offered diagnostic testing/ SECA scale. We want to measure visceral adiposity, advanced body composition, adverse lipids, fatty acid balance, risk for heart disease and atherosclerosis, markers of inflammation and genetic susceptibility. Patient was counseled on weight management and was advised to lose weight using A. Meal Replacement Products Patient was educated on the replacement products called optifast. This is a good way of taking fixed amount of calories. It has been shown in studies to be ineffective weight management tool. This however has to be coupled with lifestyle intervention as well as laboratory data and EKG monitoring. It is impossible to know how a person will tolerate complete meal replacement. The side effects of meal replacement and weight loss could include syncopal attacks, dizziness, gallstones, potential cholecystectomy, possible heart attack and even . The benefits of meal replacement would be potential weight loss but no guarantees can be made. Meal replacement products are not covered by insurance. Once the patient has bought these products we cannot return them B. Lifestyle management which includes several strategies as below 1. Eat a low carbohydrate good fat good protein diet. Eliminate refined carbohydrates from the diet. Limit sugared beverages. Eat local organic when possible. Cook your own meals. Read food labels. Focus on healthy snacks. Portion control and food with low glycemic index 2. Exercise regularly. Try to get at least 6000 steps a day. Use a predominant to track activity level. Consider using apps like 7 minute excercise, myfitnesspal, lose it, stick as needed for self-monitoring and weight management. Consider group exercises. Consider hiring a racehorse trainer. Regular exercise is hood to sustainable health and prevents as a buffer against weight regain 3. Sleep is most important for healing. Try to sleep at least 6-8 hours a night. A good quality sleep needs a sleep ritual with ideal room temperature of around 68. It might help to take a shower and have no electronics in the room and sleep in a very dark room without artificial light. Start sleep routine and get up early in the morning and go to bed on time. 4. Make a social connection. Surround yourself with positive people with positive energy. Connect with friends and family. 5. Get into the habit of meditating and mindfulness while doing everything. 6. Go outside and connect with nature. C. Prescription medications Patient was educated on the use of prescription medications for medical weight loss. This is a growing list and includes phentermine, Topamax,Qsymia, contrave, belviq and saxenda, wegovy etc. All prescription medications could have side effects including but not limited to kidney stones, seizure disorder cardiac arrhythmias heart attack pancreatitis, GI effects, Etc. Patient was encouraged to read the prescription insert and have coaching with their pharmacist and make an informed decision about taking medication and know that these medications are being prescribed with good intentions and we do not know how a patient would react to her medication. Some medications are FDA approved for weight loss and there is also off label use depending on patient's inability to afford medications in an attempt to lose weight D. Behavioral counseling was done to establish a relationship between food and an mood. Patient was provided information about local counseling and psychiatry and Dr Strange at [facility]. We would like to cover regular topics and build on low glycemic eating exercise mindful eating, using yoga and meditation along with deep breathing and connecting with friends and family. E. MASS PAT reviewed, Patient's current medications were reviewed and opinion was given on medication that can cause weight gain and can be substituted F. Patient was assessed for risk with obesity including and not limiting to atherosclerosis heart disease stroke kidney disease, restrictive lung disease, irritable bowel syndrome and overall mortality. Risk of developing prediabetes diabetes and metabolic syndrome was discussed G. Therapeutic plan: We have decided to make therapeutic plan which would include choosing wisely on calories restricting portion getting active, tracking weight, getting good quality sleep and working on time management H. Patient will follow up in 4 weeks for weight management Total time spent today was 60 minutes of which greater than 50% was spent on coordinating and counseling Case discussed with collaborating physician Cory Ivan who reviewed the assessment and plan. Chart, medications, labs, vital signs reviewed. Dictation was accomplished with the use of [employer] voice recognition software, prone to medical misidentifications and grammatical errors. This is unintentional and the practitioner does try to identify and correct these, but some could still be present. Please do not hesitate to contact practitioner for clarification. All quetsions answered to patients satisfaction. Patient verbalized understanding of diagnosis and treatments explained. To call sooner prior to next visit it any questions/concerns arise. 05/25/2024 BMI 60.0-69.9, adult (ICD-10 - Z68.44) Rodri Is a 43-year-old female who presents the office for weight management f/u. 03/29/2024:Weight two 349.8, BMI 61.96. Patient welcomed to the practice. Extensively educated on lifestyle modifications occluding high-protein foods, low carb rigid snacks, healthy fats, sleep hygiene, stress reduction. Provided with educational documentation in regards to all of this. Patient is interested in weight management medications. Had a gastric sleeve in 2018, lost 60 pounds and was able to maintain it. Wants to submit for Wegovy. Is aware of national shortage, and prior authorization process. Discussed semaglutide which she would not like to start at this time, would like to see if she can get the medication covered through health insurance 05/25/2024: Weight 360, BMI 63.8. Patient has gained weight since last visit but when reviewing body scan she has lost 1 pound of fat, and gained 6 pounds of muscle. Has been going to physical therapy for tendinitis. Wegovy was denied because she has not followed with our weight loss program for 6 consecutive months, but she has followed with a weight loss program with gastric band in 2018. She was following with Dr. Ford. She is wondering if this can help with an appeal. She is going to contact [employer] [facility] to see. Patient is considering trialing compounded semaglutide in office, as Wegovy most likely would not be covered until September. # Hypertension: Continue amlodipine 10 mg, mycophenolate 750 mg twice daily instead of 1000 BID. they are tapering her down. # GERD: Continue pantoprazole 40 mg # Lupus: Continue hydroxychloroquine 200 mg twice daily, prednisone 2.5 mg once daily, Eliquis 5 mg Time sent with patient 30 minutes or greater than 50% of patient case and care coordination. Follow-up in July, sooner as needed. All quetsions answered to patients satisfaction. Patient verbalized understanding of diagnosis and treatments explained. To call sooner prior to next visit it any questions/concerns arise. Case discussed with collaborating physician Taisha Ivan who reviewed the assessment and plan. Chart, medications, labs, vital signs reviewed. Dictation was accomplished with the use of Dragon voice recognition software, prone to medical misidentifications and grammatical errors. This is unintentional and the practitioner does try to identify and correct these, but some could still be present. Please do not hesitate to contact practitioner for clarification. 03/29/2024 Chronic GERD (ICD-10 - K21.9) Rodri Is a 43-year-old female who presents the office for weight management consultation. Patient is new patient to the practice today for new patient paperwork reviewed. Medical conditions managed as stated below. 03/29/2024:Weight two 349.8, BMI 61.96. Patient welcomed to the practice. Extensively educated on lifestyle modifications occluding high-protein foods, low carb rigid snacks, healthy fats, sleep hygiene, stress reduction. Provided with educational documentation in regards to all of this. Patient is interested in weight management medications. Had a gastric sleeve in 2018, lost 60 pounds and was able to maintain it. Wants to submit for Wegovy. Is aware of national shortage, and prior authorization process. Discussed semaglutide which she would not like to start at this time, would like to see if she can get the medication covered through health insurance # Hypertension: Continue amlodipine 10 mg, mycophenolate 500 mg twice daily # GERD: Continue pantoprazole 40 mg # Lupus: Continue hydroxychloroquine 200 mg twice daily, prednisone 2.5 mg once daily, Eliquis 5 mg Patient was reassured and welcomed to the practice. We discussed that we stress a hollistic medical approach with emphasis on lifestyle modification. Patient was informed that a healthy lifestyle with exercise and good eating habits can help reduce his risk of medical complications. Patient is explained that obesity increases his risk of diabetes, cardiovascular disease, or organ damage. We spent a lot of time discussing the relationship between food, exercise, sleep, mental health and obesity. Patient was counseled on the importance EATING local, organic food when possible. Patient was educated on clean 15 and dirty dozen. I provided information about reading books called The Food Rules by Ld Bennett and Eat Fat Get Lean by Dr Can Son. Self education is important in the journey for weight management. Patient was offered diagnostic testing/ SECA scale. We want to measure visceral adiposity, advanced body composition, adverse lipids, fatty acid balance, risk for heart disease and atherosclerosis, markers of inflammation and genetic susceptibility. Patient was counseled on weight management and was advised to lose weight using A. Meal Replacement Products Patient was educated on the replacement products called optifast. This is a good way of taking fixed amount of calories. It has been shown in studies to be ineffective weight management tool. This however has to be coupled with lifestyle intervention as well as laboratory data and EKG monitoring. It is impossible to know how a person will tolerate complete meal replacement. The side effects of meal replacement and weight loss could include syncopal attacks, dizziness, gallstones, potential cholecystectomy, possible heart attack and even . The benefits of meal replacement would be potential weight loss but no guarantees can be made. Meal replacement products are not covered by insurance. Once the patient has bought these products we cannot return them B. Lifestyle management which includes several strategies as below 1. Eat a low carbohydrate good fat good protein diet. Eliminate refined carbohydrates from the diet. Limit sugared beverages. Eat local organic when possible. Cook your own meals. Read food labels. Focus on healthy snacks. Portion control and food with low glycemic index 2. Exercise regularly. Try to get at least 6000 steps a day. Use a predominant to track activity level. Consider using apps like 7 minute excercise, [employer], lose it, stick as needed for self-monitoring and weight management. Consider group exercises. Consider hiring a racehorse trainer. Regular exercise is hood to sustainable health and prevents as a buffer against weight regain 3. Sleep is most important for healing. Try to sleep at least 6-8 hours a night. A good quality sleep needs a sleep ritual with ideal room temperature of around 68. It might help to take a shower and have no electronics in the room and sleep in a very dark room without artificial light. Start sleep routine and get up early in the morning and go to bed on time. 4. Make a social connection. Surround yourself with positive people with positive energy. Connect with friends and family. 5. Get into the habit of meditating and mindfulness while doing everything. 6. Go outside and connect with nature. C. Prescription medications Patient was educated on the use of prescription medications for medical weight loss. This is a growing list and includes phentermine, Topamax,Qsymia, contrave, belviq and saxenda, wegovy etc. All prescription medications could have side effects including but not limited to kidney stones, seizure disorder cardiac arrhythmias heart attack pancreatitis, GI effects, Etc. Patient was encouraged to read the prescription insert and have coaching with their pharmacist and make an informed decision about taking medication and know that these medications are being prescribed with good intentions and we do not know how a patient would react to her medication. Some medications are FDA approved for weight loss and there is also off label use depending on patient's inability to afford medications in an attempt to lose weight D. Behavioral counseling was done to establish a relationship between food and an mood. Patient was provided information about local counseling and psychiatry and Dr Strange at [facility]. We would like to cover regular topics and build on low glycemic eating exercise mindful eating, using yoga and meditation along with deep breathing and connecting with friends and family. E. MASS PAT reviewed, Patient's current medications were reviewed and opinion was given on medication that can cause weight gain and can be substituted F. Patient was assessed for risk with obesity including and not limiting to atherosclerosis heart disease stroke kidney disease, restrictive lung disease, irritable bowel syndrome and overall mortality. Risk of developing prediabetes diabetes and metabolic syndrome was discussed G. Therapeutic plan: We have decided to make therapeutic plan which would include choosing wisely on calories restricting portion getting active, tracking weight, getting good quality sleep and working on time management H. Patient will follow up in 4 weeks for weight management Total time spent today was 60 minutes of which greater than 50% was spent on coordinating and counseling Case discussed with collaborating physician Cory Ivan who reviewed the assessment and plan. Chart, medications, labs, vital signs reviewed. Dictation was accomplished with the use of [employer] voice recognition software, prone to medical misidentifications and grammatical errors. This is unintentional and the practitioner does try to identify and correct these, but some could still be present. Please do not hesitate to contact practitioner for clarification. All quetsions answered to patients satisfaction. Patient verbalized understanding of diagnosis and treatments explained. To call sooner prior to next visit it any questions/concerns arise. 05/25/2024 Essential hypertension (ICD-10 - I10) Rodri Is a 43-year-old female who presents the office for weight management f/u. 03/29/2024:Weight two 349.8, BMI 61.96. Patient welcomed to the practice. Extensively educated on lifestyle modifications occluding high-protein foods, low carb rigid snacks, healthy fats, sleep hygiene, stress reduction. Provided with educational documentation in regards to all of this. Patient is interested in weight management medications. Had a gastric sleeve in 2018, lost 60 pounds and was able to maintain it. Wants to submit for Wegovy. Is aware of national shortage, and prior authorization process. Discussed semaglutide which she would not like to start at this time, would like to see if she can get the medication covered through health insurance 05/25/2024: Weight 360, BMI 63.8. Patient has gained weight since last visit but when reviewing body scan she has lost 1 pound of fat, and gained 6 pounds of muscle. Has been going to physical therapy for tendinitis. Wegovy was denied because she has not followed with our weight loss program for 6 consecutive months, but she has followed with a weight loss program with gastric band in 2018. She was following with Dr. Ford. She is wondering if this can help with an appeal. She is going to contact [employer] [facility] to see. Patient is considering trialing compounded semaglutide in office, as Wegovy most likely would not be covered until September. # Hypertension: Continue amlodipine 10 mg, mycophenolate 750 mg twice daily instead of 1000 BID. they are tapering her down. # GERD: Continue pantoprazole 40 mg # Lupus: Continue hydroxychloroquine 200 mg twice daily, prednisone 2.5 mg once daily, Eliquis 5 mg Time sent with patient 30 minutes or greater than 50% of patient case and care coordination. Follow-up in July, sooner as needed. All quetsions answered to patients satisfaction. Patient verbalized understanding of diagnosis and treatments explained. To call sooner prior to next visit it any questions/concerns arise. Case discussed with collaborating physician Taisha Ivan who reviewed the assessment and plan. Chart, medications, labs, vital signs reviewed. Dictation was accomplished with the use of [employer] voice recognition software, prone to medical misidentifications and grammatical errors. This is unintentional and the practitioner does try to identify and correct these, but some could still be present. Please do not hesitate to contact practitioner for clarification. 05/25/2024 Chronic GERD (ICD-10 - K21.9) Rodri Is a 43-year-old female who presents the office for weight management f/u. 03/29/2024:Weight two 349.8, BMI 61.96. Patient welcomed to the practice. Extensively educated on lifestyle modifications occluding high-protein foods, low carb rigid snacks, healthy fats, sleep hygiene, stress reduction. Provided with educational documentation in regards to all of this. Patient is interested in weight management medications. Had a gastric sleeve in 2018, lost 60 pounds and was able to maintain it. Wants to submit for Wegovy. Is aware of national shortage, and prior authorization process. Discussed semaglutide which she would not like to start at this time, would like to see if she can get the medication covered through health insurance 05/25/2024: Weight 360, BMI 63.8. Patient has gained weight since last visit but when reviewing body scan she has lost 1 pound of fat, and gained 6 pounds of muscle. Has been going to physical therapy for tendinitis. Wegovy was denied because she has not followed with our weight loss program for 6 consecutive months, but she has followed with a weight loss program with gastric band in 2018. She was following with Dr. Ford. She is wondering if this can help with an appeal. She is going to contact [facility] to see. Patient is considering trialing compounded semaglutide in office, as Wegovy most likely would not be covered until September. # Hypertension: Continue amlodipine 10 mg, mycophenolate 750 mg twice daily instead of 1000 BID. they are tapering her down. # GERD: Continue pantoprazole 40 mg # Lupus: Continue hydroxychloroquine 200 mg twice daily, prednisone 2.5 mg once daily, Eliquis 5 mg Time sent with patient 30 minutes or greater than 50% of patient case and care coordination. Follow-up in July, sooner as needed. All quetsions answered to patients satisfaction. Patient verbalized understanding of diagnosis and treatments explained. To call sooner prior to next visit it any questions/concerns arise. Case discussed with collaborating physician Taisha Ivan who reviewed the assessment and plan. Chart, medications, labs, vital signs reviewed. Dictation was accomplished with the use of [employer] voice recognition software, prone to medical misidentifications and grammatical errors. This is unintentional and the practitioner does try to identify and correct these, but some could still be present. Please do not hesitate to contact practitioner for clarification. 03/29/2024 Lupus (ICD-10 - M32.9) Rodri Is a 43-year-old female who presents the office for weight management consultation. Patient is new patient to the practice today for new patient paperwork reviewed. Medical conditions managed as stated below. 03/29/2024:Weight two 349.8, BMI 61.96. Patient welcomed to the practice. Extensively educated on lifestyle modifications occluding high-protein foods, low carb rigid snacks, healthy fats, sleep hygiene, stress reduction. Provided with educational documentation in regards to all of this. Patient is interested in weight management medications. Had a gastric sleeve in 2018, lost 60 pounds and was able to maintain it. Wants to submit for Wegovy. Is aware of national shortage, and prior authorization process. Discussed semaglutide which she would not like to start at this time, would like to see if she can get the medication covered through health insurance # Hypertension: Continue amlodipine 10 mg, mycophenolate 500 mg twice daily # GERD: Continue pantoprazole 40 mg # Lupus: Continue hydroxychloroquine 200 mg twice daily, prednisone 2.5 mg once daily, Eliquis 5 mg Patient was reassured and welcomed to the practice. We discussed that we stress a hollistic medical approach with emphasis on lifestyle modification. Patient was informed that a healthy lifestyle with exercise and good eating habits can help reduce his risk of medical complications. Patient is explained that obesity increases his risk of diabetes, cardiovascular disease, or organ damage. We spent a lot of time discussing the relationship between food, exercise, sleep, mental health and obesity. Patient was counseled on the importance EATING local, organic food when possible. Patient was educated on clean 15 and dirty dozen. I provided information about reading books called The Food Rules by Ld Bennett and Eat Fat Get Lean by Dr Can Son. Self education is important in the journey for weight management. Patient was offered diagnostic testing/ SECA scale. We want to measure visceral adiposity, advanced body composition, adverse lipids, fatty acid balance, risk for heart disease and atherosclerosis, markers of inflammation and genetic susceptibility. Patient was counseled on weight management and was advised to lose weight using A. Meal Replacement Products Patient was educated on the replacement products called optifast. This is a good way of taking fixed amount of calories. It has been shown in studies to be ineffective weight management tool. This however has to be coupled with lifestyle intervention as well as laboratory data and EKG monitoring. It is impossible to know how a person will tolerate complete meal replacement. The side effects of meal replacement and weight loss could include syncopal attacks, dizziness, gallstones, potential cholecystectomy, possible heart attack and even . The benefits of meal replacement would be potential weight loss but no guarantees can be made. Meal replacement products are not covered by insurance. Once the patient has bought these products we cannot return them B. Lifestyle management which includes several strategies as below 1. Eat a low carbohydrate good fat good protein diet. Eliminate refined carbohydrates from the diet. Limit sugared beverages. Eat local organic when possible. Cook your own meals. Read food labels. Focus on healthy snacks. Portion control and food with low glycemic index 2. Exercise regularly. Try to get at least 6000 steps a day. Use a predominant to track activity level. Consider using apps like 7 minute excercise, [employer]art[employer]seekpal, lose it, stick as needed for self-monitoring and weight management. Consider group exercises. Consider hiring a racehorse trainer. Regular exercise is hood to sustainable health and prevents as a buffer against weight regain 3. Sleep is most important for healing. Try to sleep at least 6-8 hours a night. A good quality sleep needs a sleep ritual with ideal room temperature of around 68. It might help to take a shower and have no electronics in the room and sleep in a very dark room without artificial light. Start sleep routine and get up early in the morning and go to bed on time. 4. Make a social connection. Surround yourself with positive people with positive energy. Connect with friends and family. 5. Get into the habit of meditating and mindfulness while doing everything. 6. Go outside and connect with nature. C. Prescription medications Patient was educated on the use of prescription medications for medical weight loss. This is a growing list and includes phentermine, Topamax,Qsymia, contrave, belviq and saxenda, wegovy etc. All prescription medications could have side effects including but not limited to kidney stones, seizure disorder cardiac arrhythmias heart attack pancreatitis, GI effects, Etc. Patient was encouraged to read the prescription insert and have coaching with their pharmacist and make an informed decision about taking medication and know that these medications are being prescribed with good intentions and we do not know how a patient would react to her medication. Some medications are FDA approved for weight loss and there is also off label use depending on patient's inability to afford medications in an attempt to lose weight D. Behavioral counseling was done to establish a relationship between food and an mood. Patient was provided information about local counseling and psychiatry and Dr Strange at [facility]. We would like to cover regular topics and build on low glycemic eating exercise mindful eating, using yoga and meditation along with deep breathing and connecting with friends and family. E. MASS PAT reviewed, Patient's current medications were reviewed and opinion was given on medication that can cause weight gain and can be substituted F. Patient was assessed for risk with obesity including and not limiting to atherosclerosis heart disease stroke kidney disease, restrictive lung disease, irritable bowel syndrome and overall mortality. Risk of developing prediabetes diabetes and metabolic syndrome was discussed G. Therapeutic plan: We have decided to make therapeutic plan which would include choosing wisely on calories restricting portion getting active, tracking weight, getting good quality sleep and working on time management H. Patient will follow up in 4 weeks for weight management Total time spent today was 60 minutes of which greater than 50% was spent on coordinating and counseling Case discussed with collaborating physician Cory Ivan who reviewed the assessment and plan. Chart, medications, labs, vital signs reviewed. Dictation was accomplished with the use of [employer] voice recognition software, prone to medical misidentifications and grammatical errors. This is unintentional and the practitioner does try to identify and correct these, but some could still be present. Please do not hesitate to contact practitioner for clarification. All quetsions answered to patients satisfaction. Patient verbalized understanding of diagnosis and treatments explained. To call sooner prior to next visit it any questions/concerns arise. 05/25/2024 Lupus (ICD-10 - M32.9) Rodri Is a 43-year-old female who presents the office for weight management f/u. 03/29/2024:Weight two 349.8, BMI 61.96. Patient welcomed to the practice. Extensively educated on lifestyle modifications occluding high-protein foods, low carb rigid snacks, healthy fats, sleep hygiene, stress reduction. Provided with educational documentation in regards to all of this. Patient is interested in weight management medications. Had a gastric sleeve in 2018, lost 60 pounds and was able to maintain it. Wants to submit for Wegovy. Is aware of national shortage, and prior authorization process. Discussed semaglutide which she would not like to start at this time, would like to see if she can get the medication covered through health insurance 05/25/2024: Weight 360, BMI 63.8. Patient has gained weight since last visit but when reviewing body scan she has lost 1 pound of fat, and gained 6 pounds of muscle. Has been going to physical therapy for tendinitis. Wegovy was denied because she has not followed with our weight loss program for 6 consecutive months, but she has followed with a weight loss program with gastric band in 2018. She was following with Dr. Ford. She is wondering if this can help with an appeal. She is going to contact [employer] to see. Patient is considering trialing compounded semaglutide in office, as Wegovy most likely would not be covered until September. # Hypertension: Continue amlodipine 10 mg, mycophenolate 750 mg twice daily instead of 1000 BID. they are tapering her down. # GERD: Continue pantoprazole 40 mg # Lupus: Continue hydroxychloroquine 200 mg twice daily, prednisone 2.5 mg once daily, Eliquis 5 mg Time sent with patient 30 minutes or greater than 50% of patient case and care coordination. Follow-up in July, sooner as needed. All quetsions answered to patients satisfaction. Patient verbalized understanding of diagnosis and treatments explained. To call sooner prior to next visit it any questions/concerns arise. Case discussed with collaborating physician Taisha Ivan who reviewed the assessment and plan. Chart, medications, labs, vital signs reviewed. Dictation was accomplished with the use of [employer] voice recognition software, prone to medical misidentifications and grammatical errors. This is unintentional and the practitioner does try to identify and correct these, but some could still be present. Please do not hesitate to contact practitioner for clarification. PLAN OF TREATMENT No Information Insurance Providers Payer Name Payer Address Payer Phone Subscriber Number Group Number Insured Name Patient Relationship to Insured Coverage Start Date Coverage End Date [facility] [address] [facility] [place] [id number] Rodri Su Self - patient is the insured 3 MEDICATIONS ADMINISTERED Medication Instructions Date of Administration Dosage Notes Semaglutide 07/30/2024 0.25 mg MEDICAL (GENERAL) HISTORY Medical History History ICD Code lupus weight gain GERD HTN Surgical History Surgery Date(Month/Year) lap band 2017 Hospitalization History Reason Date(Month/Year) shingles January 2024 lupus 2020
[2024-12-29 09:49] LABS: MANUAL DIFF FLAG NO
[2024-12-29 10:26] LABS: Basophils Percent Auto 0.6 % (0-2); Eosinophils Percent Auto 0.6 % (0-4); Hematocrit 37.7 % (37.0-47.0); Hemoglobin 11.6 g/dl (12.0-16.0); Imm Gran Abs Auto 0.03 X10*3/uL (0.00-0.03); Imm Gran Pct Auto 0.5 % (0.0-0.4); Lymphocytes Absolute Auto 1.2 X10*3/uL (1.2-4.9); Lymphocytes Percent Auto 17.8 % (20-40); Mean Corpuscular HGB Conc 30.8 g/dl (31.0-35.0); Mean Corpuscular Hemoglobin 27.2 pg (27.0-33.0); Mean Corpuscular Volume 88.5 fL (80.0-98.0); Mean Platelet Volume 10.3 fL (9.4-12.3); Monocytes Absolute Auto 0.6 X10*3/uL (0.1-1.2); Monocytes Percent Auto 8.9 % (2-11); Neutrophils Absolute Auto 4.7 x10*3/uL (2.0-8.3); Neutrophils Percent Auto 71.6 % (45-73); Platelet Count 201 X10*3/uL (160-400); Red Blood Count 4.26 X10*6/uL (4.20-5.50); Red Cell Distribution Width 14.2 % (11.0-16.0); White Blood Count 6.5 X10*3/uL (4.8-10.8)
[2024-12-29 10:54] LABS: Alanine Aminotransferase 13 U/L (0-31); Albumin Level 3.9 g/dL (3.5-5.0); Alkaline Phosphatase 62 U/L (39-117); Anion Gap 11 (12-20); Aspartate Amino Transferase 22 U/L (5-31); Bilirubin Total 0.8 mg/dL (0.0-1.0); Blood Urea Nitrogen 18 mg/dL (9-16); Calcium 9.1 mg/dL (8.4-10.2); Carbon Dioxide 24 mmol/L (22-29); Chloride 106 mmol/L (96-108); Estimated Glomerular Filt Rate 46; Glucose Random 84 mg/dL (60-115); Potassium 4.2 mmol/L (3.3-5.1); Sodium 137 mmol/L (135-145); Total Protein 7.4 g/dL (6.5-8.0)
[2024-12-29 11:08] LABS: Erythrocyte Sedimentation Rate 13 MM/HR (0-20)
[2024-12-29 11:16] LABS: HBS Num1 1.56 mIU/mL (0-7.99); HBsAGNum1 0.24 S/CO (0.00-0.99); HIV AB/AG Nonreactive (Nonreactive); HIV Num 1 0.06 S/CO (0.00-0.99); Hepatitis A Antibody IgM 0.18 Index (0-0.79); Hepatitis B Core Antibody Nonreactive (Nonreactive); Hepatitis B Surface Antigen Negative (Negative); ~HepC Num1 0.09 S/CO (0.00-0.79); ~Hepatitis A Antibody IgM Nonreactive (Nonreactive); ~Hepatitis B Surface Antibody NONREACTIVE (Nonreactive); ~Hepatitis C Antibody Nonreactive (Nonreactive)
[2024-12-30 12:29] LABS: Complement C3 136 mg/dL (83-193)
[2024-12-30 17:57] LABS: Anti DNA DS Antibody 6 IU/mL
[2025-01-01 17:59] LABS: TS Negative Control Passed; TS Panel A 0; TS Panel B 0; TS Positive Control Passed; TSpotTB Negative (Negative)
[2025-01-03 06:08] LABS: Beta-2 Glycoprotein IgA <2.0 U/mL (<20.0); Beta-2 Glycoprotein IgG <2.0 U/mL (<20.0); Beta-2 Glycoprotein IgM <2.0 U/mL (<20.0)
[2025-01-03 08:44] LABS: Cardiolipin IgG Ab <2.0 GPL-U/mL; Cardiolipin IgM Ab <2.0 MPL-U/mL
[2025-01-03 22:32] LABS: PTT (LAC) Screen 38 sec (<=40)
== END 2024-12-29 08:18 | disposition home or self-care (01) ==
LOC: HO.LAB 08:17
PROVIDERS: PCP Internal Medicine; Visit Provider Student in an Organized Health Care Education/Training Program
DX: M32.14 Glomerular disease in systemic lupus erythematosus (principal); Z51.81 Encounter for therapeutic drug level monitoring; Z79.620 Long term (current) use of immunosuppressive biologic; Z79.52 Long term (current) use of systemic steroids; Z79.624 Long term (current) use of inhibitors of nucleotide synthesis; Z79.899 Other long term (current) drug therapy
CPT/HCPCS: 36415; 80053; 85025; 85597; 85598; 85613; 85652; 85730; 86140; 86146; 86147; 86160; 86225; 86481; 86704; 86706; 86709; 86803; 87340; 87389

== ENCOUNTER 2024-12-29 08:17 | Outpatient (AMB) | payer OTHER, SELFPAY ==
--- NOTE | 2024-12-29 08:28 | A.OFFVIS_ITS ---
Vital Signs 12/29/24 08:31 Height 5 ft 4 in Weight 362 lb 14.094 oz BMI 62.3 BP 132/90 H Blood Pressure Location Rt brachial Position Sitting Pulse 80 Pulse Source Pulse Oximeter Pulse Oximetry (%) 99 Oxygen Delivery Method Room Air Intake Visit Reasons: SLE Intake Note: Patient presents for SLE. Allergies hydralazine Allergy (Severe, Verified 12/29/24 08:31) induced lupus Penicillins Allergy (Intermediate, Verified 12/29/24 08:31) hives Medication List - Last Reconciled 12/29/24 by Nadiya Zaidi MD acetaminophen ER 650 mg PO Q8H PRN albuterol sulfate 90 mcg/actuation (ProAir HFA) 2 puffs inhalation Q6H PRN amlodipine 10 mg PO DAILY apixaban (Eliquis) 5 mg PO BID Benlysta (belimumab) 200 mg subcut QWEEK NS gabapentin 300 mg PO TID hydroxychloroquine 200 mg PO BID mycophenolate mofetil 500 mg PO BID pantoprazole 40 mg PO DAILY prednisone 2.5 mg PO DAILY Symbicort 160-4.5 mcg/actuation (budesonide-formoterol) 2 puffs inhalation BID 30 days NS varicella-zoster [id number]-AS01B (PF) 50 mcg/0.5 mL (Shingrix (PF)) 0.5 mL IM ONCE HPI Comments Details: Patient is a 44-year-old female with hypertension, history of PE/DVT on Eliquis and lupus complicated by pulmonary hypertension, and lupus nephritis class 3. Interval History: Last seen 11/10/[address] Hoffman. At that time patient was stable and no changes were made to her medications. She completed FMLA disability paperwork during that visit She was continuing to have flares of her lupus and Benlysta was added to her regimen but this was not started at the visit although it was approved. Today, Started the Benlysta about 1 week ago. Was waiting to get the shingles vaccine In the process of weaning off MMF with nephrology Has been noticing hair loss at the periphery No ulcers in the mouth Joint pain: - lots of pain in her hands and her left knee - No prolonged AM stiffness (about 30 mins) Rheumatologic History: Onset 11/2020 - on hydralazine - ? 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 2020 hydroxychloroquine started: Eye exam okay March 2023 anti-DNA pos. Anti DEE DEE and complements normal. 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 Prednisone 2.5 mg daily Plaquenil 200 mg b.i.d. 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) Systemic lupus erythematosus Surgical History Hx of laparoscopic gastric banding Social History Household Members: Family Household Members Other:: Mom and brother Housing: House Are you a primary pet care attendant to a significant other at home: No Do you presently have visiting nurse or other home services: No 75 years or older and lives alone: No Alcohol intake: never Patient Tobacco Use Status: Never used Tobacco e-Cigarette/Vaping Use: Never Used Second Hand Smoke Exposure: No service: No Current occupational status: employed 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 Review of Systems Const Details: Review of Systems Constitutional: Denies fever, chills, weight loss ENT: Denies vision changes, eye pain or eye redness, dental caries, dry mouth GI: Denies nausea, vomiting, diarrhea, abdominal pain, change in BM Pulm: Denies SOB, DEL ANGEL, hemoptysis, wheezing Cards: Denies chest pain, palpitations Skin: Denies Raynaud's, rash, nail changes, photosensitivity, CLIENT HR MANAGER: Denies headaches, weakness, paresthesias, recurrent falls MSK: as per HPI All other systems reviewed and are unremarkable except noted above Physical Exam Vital signs reviewed Physical Examination CONSTITUITIONAL Patient alert and cooperative. Well appearing and in no apparent painful distress HEENT Conjunctiva and sclera clear. ?Pupils equal round and reactive to light. ?No lymphadenopathy. ? CHEST/RESPIRATORY SYSTEM Normal respiratory effort and able to speak in complete sentences. ?Clear to auscultation bilaterally. ?No crackles, rales, rhonchi, wheezes heard. CARDIAC SYSTEM Regular rate and rhythm. ?S1 and S2 heard no murmurs. ?Radial pulses intact bilaterally MSK Hands: ?Good engraver picture strength bilaterally. No deformities noted. ?No synovitis noted to the MCPs, PIPs or DIPs. ?MIld TTP of the right 2nd MCP Wrists: ?Full range of motion at the wrists without pain. ?No tenderness to palpation or synovitis noted to the wrists. Elbows: Full range of motion without pain. No tenderness, weakness, swelling, increased warmth or erythema. Shoulders: Full range of motion without pain. No tenderness, weakness, swelling, increased warmth or erythema. Hips: Full range of motion without pain. Hip bursa: No tenderness to palpation Knees: ?Full range of motion. ?No tenderness, swelling, increased warmth or erythema.?No effusion or crepitations Ankles: Full range of motion. ?No tenderness, swelling, increased warmth or erythema.? Feet: ?Negative squeeze test. ?No tenderness to palpation or swelling of the MTPs. Tender points:?No tenderness to palpation of the bilateral trapezius, supraspinatus, greater trochanters, anterior costochondral junctions, bilateral gluteal areas, bilateral suboccipital muscle insertions SKIN Skin intact without rashes. Results Reviewed Results Reviewed: Labs reviewed in scanned document WBC 6.6 Hemoglobin 11.9 Platelets 227 UA trace protein Upc 176 (normal range) C3 127 C4 36 DsDNA 7 Creatinine 1.29 improved from 1.47 06/2024 XR Left Knee 2022 (my read) Medial joint space narrowing Subchondral sclerosis Osteophytes Early OA Assessment & Plan Assessment & Plan (1) Systemic lupus erythematosus: Comment: Onset 11/2020 - on hydralazine - ? 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 X-rays showing classic osteoarthritic changes. 2020 hydroxychloroquine started: Eye exam okay March 2023 anti-DNA pos. Anti DEE DEE and complements normal. 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 Has periodic issues with her joints. I definitely think that her knee pain is more related to osteoarthritis than her lupus as evidenced by her x-ray showing classic arthritic changes. With respect to her history of DVT and PE my concern is that she may have APLS and if this is so Eliquis may not be the best medication for preventing r ecurrence of clots. In 2021 they compared apixaban with warfarin for the management of clots in antiphospholipid syndrome and they found that apixaban was inferior to warfarin in its ability to prevent future clotting. 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): Comment: Induction: Mycophenolate and steroids Code(s): M32.14 - Glomerular disease in systemic lupus erythematosus Category: Medical Plan: #LN Class III UPC is normal and kidney function is stable Plan - Follow up with nephrology - Taper MMF as per nephrology (3) Osteoarthritis of left knee: Code(s): M17.12 - Unilateral primary osteoarthritis, left knee Category: Medical Qualifiers: Osteoarthritis type: primary Qualified Code(s): M17.12 - Unilateral primary osteoarthritis, left knee Plan: #Left knee OA Patient with left knee OA as evidenced by x-rays Plan - PT - Topical diclofenac (4) Long-term use of Plaquenil: Code(s): Z79.899 - Other 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 driver (current) drug therapy Category: Medical Plan: #Long-term Use of Hydroxychloroquine Discussed with patient the risks and benefits of hydroxychloroquine in managing the rheumatic condition Benefits include: - Reduced pain, reduce mortality, maintenance of remission and reduction of flares Risks include: - GI upset, skin hyperpigmentation, retinal toxicity (especially after more than 5 years of use), myopathy Advised yearly ophthalmology visits (5) Encounter for detention use of mycophenolate mofetil: Code(s): Z79.624 - terminal operations manager (current) use of inhibitors of nucleotide synthesis Category: Medical Plan: #Long-term Use of Mycophenolate/Mycophenolic Acid Discussed with patient the benefits and risks of mycophenolate/mycophenolic acid for the management of the rheumatic condition Benefits include improved disease control and reduction of mortality Risks include GI upset especially diarrhea, anemia, leukopenia, hepatotoxicity, lymphoproliferative malignancies, PML Mycophenolate and mycophenolic acid are teratogenic and should be avoided in patients who are desiring the Monitoring: ?CBC, LFTs, BMP Recommended holding medication during and for up to 1 week after resolution of a febrile illness (6) terminal 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: Code(s): Z79.52 - terminal operations manager (current) use of systemic steroids Category: Medical Plan: #Long-term Use of Steroids Discussed with patient the risks and benefits of steroid for managing the rheumatic condition Benefits include: - Reduced pain, improved mobility, increased participation in activities, and decreased progression of disease Risks include: - GI upset, potential ultrasound worsening or formation (especially in patients > 65 years old), elevated blood pressure/worsening hypertension, elevated blood sugar/worsening diabetes control, worsening of bone density, elevated lipids/worsening triglycerides, cataract formation, weight gain Recommended using proton pump inhibitors (PPIs) for the duration of steroid use to reduce the risk of gastric ulcers and vitamin-D daily to reduce the risk of osteoporosis Labs checked: ?A1c, T spot, hepatitis-B and C serologies Pneumocystis jiroveci prophylaxis: ?Patient with risk factors including steroids greater than 50 mg for more than 30 days, age greater than 60 years, and lung involvement from underlying rheumatic disease requires prophylaxis and will be given so (7) Encounter for monitoring of belimumab therapy: Code(s): Z51.81 - Encounter for therapeutic drug level monitoring; Z79.620 - terminal operations manager (current) use of immunosuppressive biologic Category: Medical Plan: #terminal operations manager use of Belimumab (Benlysta) Discussed with patient the risks and benefits of steroid for managing the rheumatic condition Benefits include: - Reduced pain, improved mobility, increased participation in activities, and decreased progression of disease Risks include: - GI upset, hypersensitivity reaction, infections, psychiatric disturbances such as depression/insomnia/suicidal ideation Monitoring: CBC, CMP, hepatitis panel and T spot Plan I spent 35 minutes reviewing the record and labs, taking a history, examining the patient, discussing the treatment plan and documenting in the medical record Orders: Orders Lupus Anticoagulant Panel Today M32.14 - Glomerular disease in systemic lupus erythematosus, Z51.81 - Encounter for therapeutic drug level monitoring, Z79.52 - terminal operations manager (current) use of systemic steroids, Z79.620 - jail (current) use of immunosuppressive biologic, Z79.624 - terminal operations manager (current) use of inhibitors of nucleotide synthesis, Z79.899 - Other intermodal truck driver (current) drug therapy Cardiolipin Antibodies Today M32.14 - Glomerular disease in systemic lupus erythematosus, Z51.81 - Encounter for therapeutic drug level monitoring, Z79.52 - jail (current) use of systemic steroids, Z79.620 - terminal operations manager (current) use of immunosuppressive biologic, Z79.624 - jail (current) use of inhibitors of nucleotide synthesis, Z79.899 - Other detention (current) drug therapy Complement C3 Today M32.14 - Glomerular disease in systemic lupus erythematosus, Z51.81 - Encounter for therapeutic drug level monitoring, Z79.52 - jail (current) use of systemic steroids, Z79.620 - terminal operations manager (current) use of immunosuppressive biologic, Z79.624 - jail (current) use of inhibitors of nucleotide synthesis, Z79.899 - Other detention (current) drug therapy Complement C4 Today M32.14 - Glomerular disease in systemic lupus erythematosus, Z51.81 - Encounter for therapeutic drug level monitoring, Z79.52 - jail (current) use of systemic steroids, Z79.620 - jail (current) use of immunosuppressive biologic, Z79.624 - terminal operations manager (current) use of inhibitors of nucleotide synthesis, Z79.899 - Other detention (current) drug therapy Complete Blood Count Auto Diff Today M32.14 - Glomerular disease in systemic lupus erythematosus, Z51.81 - Encounter for therapeutic drug level monitoring, Z79.52 - terminal operations manager (current) use of systemic steroids, Z79.620 - terminal operations manager (current) use of immunosuppressive biologic, Z79.624 - terminal operations manager (current) use of inhibitors of nucleotide synthesis, Z79.899 - Other detention (current) drug therapy Hepatitis A,B,C Profile Today M32.14 - Glomerular disease in systemic lupus erythematosus, Z51.81 - Encounter for therapeutic drug level monitoring, Z79.52 - jail (current) use of systemic steroids, Z79.620 - jail (current) use of immunosuppressive biologic, Z79.624 - terminal operations manager (current) use of inhibitors of nucleotide synthesis, Z79.899 - Other detention (current) drug therapy HIV Ab/Ag Today M32.14 - Glomerular disease in systemic lupus erythematosus, Z51.81 - Encounter for therapeutic drug level monitoring, Z79.52 - jail (current) use of systemic steroids, Z79.620 - terminal operations manager (current) use of immunosuppressive biologic, Z79.624 - terminal operations manager (current) use of inhibitors of nucleotide synthesis, Z79.899 - 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 C Reactive Protein Today M32.14 - Glomerular disease in systemic lupus erythematosus, Z51.81 - Encounter for therapeutic drug level monitoring, Z79.52 - terminal operations manager (current) use of systemic steroids, Z79.620 - jail (current) use of immunosuppressive biologic, Z79.624 - terminal operations manager (current) use of inhibitors of nucleotide synthesis, Z79.899 - Other detention (current) drug therapy Erythrocyte Sedimentation Rate Today M32.14 - Glomerular disease in systemic lupus erythematosus, Z51.81 - Encounter for therapeutic drug level monitoring, Z79.52 - jail (current) use of systemic steroids, Z79.620 - jail (current) use of immunosuppressive biologic, Z79.624 - jail (current) use of inhibitors of nucleotide synthesis, Z79.899 - Other detention (current) drug therapy T Spot TB Today M32.14 - Glomerular disease in systemic lupus erythematosus, Z51.81 - Encounter for therapeutic drug level monitoring, Z79.52 - terminal operations manager (current) use of systemic steroids, Z79.620 - terminal operations manager (current) use of immunosuppressive biologic, Z79.624 - terminal operations manager (current) use of inhibitors of nucleotide synthesis, Z79.899 - Other detention (current) drug therapy Anti DNA DS Antibody Today M32.14 - Glomerular disease in systemic lupus erythematosus Medications: New cholecalciferol (vitamin D3) 125 mcg PO DAILY 90 tabs 1RF E55.9 - Vitamin D deficiency, unspecified diclofenac sodium 1% (Arthritis Pain (diclofenac)) apply to knee 4 times a day 4 grams topical QID 100 grams 4RF M17.12 - Unilateral primary osteoarthritis, left knee Refilled prednisone 2.5 mg PO DAILY 90 tabs 1RF M32.9 - Systemic lupus erythematosus, unspecified Benlysta (belimumab) inject into upper thigh or abdomen; rotate sites 200 mg subcut QWEEK 4 mL 4RF NS M32.14 - Glomerular disease in systemic lupus erythematosus hydroxychloroquine 200 mg PO BID 180 tabs 1RF M32.9 - Systemic lupus erythematosus, unspecified Coding Level of Care Code Est Pt Level 4 (58675) Complex EM visit Add On G2211 Diagnoses Other systemic lupus erythematosus with glomerular disease M32.14 Systemic lupus erythematosus type: other Systemic lupus erythematosus organ involvement: glomerular disease 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
[2024-12-29 08:31] VITALS: BP 132/90; PULSE 80; O2SAT 99; BMI 62.3
== END 2024-12-29 09:13 | disposition home or self-care (01) ==
PROVIDERS: PCP Internal Medicine; Visit Provider Student in an Organized Health Care Education/Training Program
DX: M32.14 Glomerular disease in systemic lupus erythematosus (principal); M17.12 Unilateral primary osteoarthritis, left knee; Z79.899 Other long term (current) drug therapy; Z79.624 Long term (current) use of inhibitors of nucleotide synthesis; Z79.52 Long term (current) use of systemic steroids; Z51.81 Encounter for therapeutic drug level monitoring; Z79.620 Long term (current) use of immunosuppressive biologic
CPT/HCPCS: 99214

== ENCOUNTER → 2025-01-11 13:20 | Outpatient (BNVA) | payer OTHER, SELFPAY | PROVIDERS: PCP Internal Medicine; Visit Provider Student in an Organized Health Care Education/Training Program ==

== ENCOUNTER 2025-04-27 11:11 | Outpatient (REF) | payer OTHER, SELFPAY ==
[2025-04-27 12:39] LABS: MANUAL DIFF FLAG NO
[2025-04-27 13:48] LABS: Basophils Percent Auto 0.6 % (0-2); Eosinophils Percent Auto 0.5 % (0-4); Hematocrit 39.6 % (37.0-47.0); Hemoglobin 12.4 g/dl (12.0-16.0); Imm Gran Abs Auto 0.02 X10*3/uL (0.00-0.03); Imm Gran Pct Auto 0.3 % (0.0-0.4); Lymphocytes Absolute Auto 1.2 X10*3/uL (1.2-4.9); Lymphocytes Percent Auto 18.3 % (20-40); Mean Corpuscular HGB Conc 31.3 g/dl (31.0-35.0); Mean Corpuscular Hemoglobin 27.9 pg (27.0-33.0); Mean Corpuscular Volume 89.2 fL (80.0-98.0); Mean Platelet Volume 10.2 fL (9.4-12.3); Monocytes Absolute Auto 0.5 X10*3/uL (0.1-1.2); Monocytes Percent Auto 8.6 % (2-11); Neutrophils Absolute Auto 4.5 x10*3/uL (2.0-8.3); Neutrophils Percent Auto 71.7 % (45-73); Platelet Count 195 X10*3/uL (160-400); Red Blood Count 4.44 X10*6/uL (4.20-5.50); White Blood Count 6.3 X10*3/uL (4.8-10.8)
[2025-04-27 14:13] LABS: Alanine Aminotransferase 10 U/L (0-31); Albumin Level 4.2 g/dL (3.5-5.0); Alkaline Phosphatase 52 U/L (39-117); Anion Gap 12 (12-20); Aspartate Amino Transferase 21 U/L (5-31); Bilirubin Total 1.1 mg/dL (0.0-1.0); Blood Urea Nitrogen 17 mg/dL (9-16); C Reactive Protein 0.13 mg/dL (< or = 0.50); Calcium 9.1 mg/dL (8.4-10.2); Carbon Dioxide 23 mmol/L (22-29); Chloride 106 mmol/L (96-108); Estimated Glomerular Filt Rate 44; Glucose Random 75 mg/dL (60-115); Potassium 4.4 mmol/L (3.3-5.1); Sodium 137 mmol/L (135-145); Total Protein 7.1 g/dL (6.5-8.0)
[2025-04-27 14:14] LABS: Appearance Urine Clear; Color Urine Yellow; Glucose Urine UA Negative (Negative); Leukocyte Esterase Urine Negative (Negative); Nitrite Urine Negative (Negative); PH 5.5 (5.0-9.0); UMIC TRIGGER UA YES; Urine Blood Trace (Negative); Urine Ketones Negative (Negative); Urine Protein Trace mg/dL (Neg-Trace)
[2025-04-27 14:17] LABS: Bacteria Urine Trace (None Seen); Hyaline Casts Urine 0-2 /LPF (0-2); RBC Urine 0-2 /HPF (0-2); WBC Urine 0-5 /HPF (0-5)
[2025-04-27 14:30] LABS: Erythrocyte Sedimentation Rate 12 MM/HR (0-20)
[2025-04-27 14:51] LABS: Creatinine Urine 198.47 mg/dL; Protein/Creatinine Ratio, Ur 0.07 (<0.2); Total Protein Urine Random 13 mg/dL (<12)
[2025-04-28 16:34] LABS: Anti DNA DS Antibody 6 IU/mL
[2025-04-29 01:58] LABS: Complement C3 142 mg/dL (83-193)
== END 2025-04-27 11:12 | disposition home or self-care (01) ==
LOC: HO.LAB 11:11
PROVIDERS: PCP Internal Medicine; Visit Provider Student in an Organized Health Care Education/Training Program
DX: M32.9 Systemic lupus erythematosus, unspecified (principal); M32.14 Glomerular disease in systemic lupus erythematosus; E55.9 Vitamin D deficiency, unspecified; M17.12 Unilateral primary osteoarthritis, left knee; Z51.81 Encounter for therapeutic drug level monitoring; Z79.620 Long term (current) use of immunosuppressive biologic; Z79.52 Long term (current) use of systemic steroids; Z79.624 Long term (current) use of inhibitors of nucleotide synthesis; Z79.899 Other long term (current) drug therapy
CPT/HCPCS: 36415; 80053; 81001; 82570; 84156; 85025; 85652; 86140; 86160; 86225

== ENCOUNTER 2025-04-27 11:11 | Outpatient (AMB) | payer OTHER, SELFPAY ==
--- NOTE | 2025-04-27 11:16 | A.OFFVIS_ITS ---
Vital Signs 04/27/25 11:21 Height 5 ft 4 in Weight 357 lb 2.382 oz BMI 61.3 BP 132/80 Blood Pressure Location Rt radial Position Sitting Pulse 87 Pulse Source Pulse Oximeter Pulse Oximetry (%) 98 Oxygen Delivery Method Room Air Intake Visit Reasons: SLE Intake Note: Patient presents for SLE follow up. Allergies hydralazine Allergy (Severe, Verified 04/27/25 11:19) induced lupus Penicillins Allergy (Intermediate, Verified 04/27/25 11:19) hives Medication List - Last Reconciled 04/27/25 by Nadiya Zaidi MD acetaminophen ER 650 mg PO Q8H PRN albuterol sulfate 90 mcg/actuation (ProAir HFA) 2 puffs inhalation Q6H PRN amlodipine 10 mg PO DAILY apixaban (Eliquis) 5 mg PO BID Benlysta (belimumab) 200 mg subcut QWEEK NS cholecalciferol (vitamin D3) 125 mcg PO DAILY diclofenac sodium 1% (Arthritis Pain (diclofenac)) 4 grams topical QID gabapentin 300 mg PO TID hydroxychloroquine 200 mg PO BID mycophenolate mofetil 500 mg PO BID pantoprazole 40 mg PO DAILY prednisone 2.5 mg PO DAILY Symbicort 160-4.5 mcg/actuation (budesonide-formoterol) 2 puffs inhalation BID 30 days NS tirzepatide (weight loss) (Zepbound) mg subcut varicella-zoster gE-AS01B (PF) 50 mcg/0.5 mL (Shingrix (PF)) 0.5 mL IM ONCE HPI Comments Details: Patient is a 44-year-old female with hypertension, history of PE/DVT on Eliquis and lupus complicated by pulmonary hypertension, and lupus nephritis class 3. Interval History: Last seen 11/10/[address] Hoffman. At that time patient was stable and no changes were made to her medications. She completed FMLA disability paperwork during that visit She was continuing to have flares of her lupus and Benlysta was added to her regimen but this was not started at the visit although it was approved. Today, Doing well overall Thinks she is starting to have a flare - pain in her shoulders, elbow and feet No recent illness Requesting to switch to infusion formulation of the Benlysta due to frequent misfiring of the Benlysta injection in her abdominal administrations Rheumatologic History: Onset 11/2020 - on hydralazine - ? 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 2020 hydroxychloroquine started: Eye exam okay March 2023 anti-DNA pos. Anti DEE DEE and complements normal. 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 Prednisone 2.5 mg daily Plaquenil 200 mg b.i.d. 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) Systemic lupus erythematosus Surgical History Hx of laparoscopic gastric banding Social History (Updated 04/27/25 @ 11:20 by HOMER Torres) Household Members: Family Household Members Other:: Mom and brother Housing: House Are you a primary rn primary care to a significant other at home: No Do you presently have visiting nurse or other home services: No 75 years or older and lives alone: No Alcohol intake: never Patient Tobacco Use Status: Never used Tobacco e-Cigarette/Vaping Use: Never Used Second Hand Smoke Exposure: No service: No Current occupational status: employed 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 Review of Systems Const Details: Review of Systems Constitutional: Denies fever, chills, weight loss ENT: Denies vision changes, eye pain or eye redness, dental caries, dry mouth GI: Denies nausea, vomiting, diarrhea, abdominal pain, change in BM Pulm: Denies SOB, DEL ANGEL, hemoptysis, wheezing Cards: Denies chest pain, palpitations Skin: Denies Raynaud's, rash, nail changes, photosensitivity, 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 Well appearing and in no apparent painful distress HEENT Conjunctiva and sclera clear. ?Pupils equal round and reactive to light. ?No lymphadenopathy. ? CHEST/RESPIRATORY SYSTEM Normal respiratory effort and able to speak in complete sentences. ?Clear to auscultation bilaterally. ?No crackles, rales, rhonchi, wheezes heard. CARDIAC SYSTEM Regular rate and rhythm. ?S1 and S2 heard no murmurs. ?Radial pulses intact bilaterally MSK Hands: ?Good website designer strength bilaterally. No deformities noted. ?No synovitis noted to the MCPs, PIPs or DIPs. ?MIld TTP of the right 2nd MCP Wrists: ?Full range of motion at the wrists without pain. ?No tenderness to palpation or synovitis noted to the wrists. Elbows: Exquisite tenderness to palpation of the left elbow Shoulders: Full range of motion without pain. No tenderness, weakness, swelling, increased warmth or erythema. Hips: Full range of motion without pain. Hip bursa: No tenderness to palpation Knees: ?Full range of motion. ?No tenderness, swelling, increased warmth or erythema.?No effusion or crepitations Ankles: Full range of motion. ?No tenderness, swelling, increased warmth or erythema.? Feet: ?Negative squeeze test. ?No tenderness to palpation or swelling of the MTPs. Tender points:?No tenderness to palpation of the bilateral trapezius, supraspinatus, greater trochanters, anterior costochondral junctions, bilateral gluteal areas, bilateral suboccipital muscle insertions SKIN Skin intact without rashes. Results Reviewed Results Reviewed: Laboratory Tests 01/19/24 04/27/25 14:52 12:38 WBC 5.9 6.3 RBC 4.32 4.44 Hgb 12.4 Hct 39.6 ESR 12 Sodium 137 Potassium 4.4 Chloride 106 Carbon Dioxide 23 BUN 17 H Creatinine 1.31 AST 21 ALT 10 C-Reactive Protein 0.13 Laboratory Tests 04/27/25 12:30 Urine Color Yellow Urine Blood Trace H Protein/Creatinin Ratio 0.07 Laboratory Tests 12/29/24 04/27/25 09:46 12:38 Double Strand DNA Ab 6 H Pending Complement C3 136 Pending Complement C4 38 Pending Assessment & Plan Assessment & Plan (1) Systemic lupus erythematosus: Comment: Onset 11/2020 - on hydralazine - ? 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 X-rays showing classic osteoarthritic changes. 2020 hydroxychloroquine started: Eye exam okay March 2023 anti-DNA pos. Anti DEE DEE and complements normal. 02/2021 renal biopsy showing class III GN Cellcept started - March 2021 effective Code(s): M32.9 - Systemic lupus erythematosus, unspecified Category: Medical Qualifiers: Systemic lupus erythematosus type: other Systemic lupus erythematosus organ involvement: glomerular disease Qualified Code(s): M32.14 - Glomerular disease in systemic lupus erythematosus Plan: #SLE Patient is a 44-year-old female with SLE here today for follow up. Experiencing a mild flare of her disease. We will give her a short course of prednisone for this. We will not try to taper her prednisone at this time. Patient having difficulty injecting the Benlysta, having frequent misfires and not full medication administration due to body habitus. We will switch to IV infusion. 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): Comment: Induction: Mycophenolate and steroids Code(s): M32.14 - Glomerular disease in systemic lupus erythematosus Category: Medical Plan: #LN Class III UPC is normal and kidney function is stable Plan - Follow up with nephrology - Taper MMF as per nephrology (3) Osteoarthritis of left knee: Code(s): M17.12 - Unilateral primary osteoarthritis, left knee Category: Medical Qualifiers: Osteoarthritis type: primary Qualified Code(s): M17.12 - Unilateral primary osteoarthritis, left knee Plan: #Left knee OA Patient with left knee OA as evidenced by x-rays Plan - PT - Topical diclofenac (4) Long-term use of Plaquenil: Code(s): Z79.899 - Other director long term care (current) drug therapy Category: Medical Plan: #Long-term Use of Hydroxychloroquine Discussed with patient the risks and benefits of hydroxychloroquine in managing the rheumatic condition Benefits include: - Reduced pain, reduce mortality, maintenance of remission and reduction of flares Risks include: - GI upset, skin hyperpigmentation, retinal toxicity (especially after more than 5 years of use), myopathy Advised yearly ophthalmology visits (5) Encounter for snf use of mycophenolate mofetil: Code(s): Z79.624 - USP (current) use of inhibitors of nucleotide synthesis Category: Medical Plan: #Long-term Use of Mycophenolate/Mycophenolic Acid Discussed with patient the benefits and risks of mycophenolate/mycophenolic acid for the management of the rheumatic condition Benefits include improved disease control and reduction of mortality Risks include GI upset especially diarrhea, anemia, leukopenia, hepatotoxicity, lymphoproliferative malignancies, PML Mycophenolate and mycophenolic acid are teratogenic and should be avoided in patients who are desiring the Monitoring: ?CBC, LFTs, BMP Recommended holding medication during and for up to 1 week after resolution of a febrile illness (6) USP systemic steroid user: Code(s): Z79.52 - director long term care (current) use of systemic steroids Category: Medical Plan: #Long-term Use of Steroids Discussed with patient the risks and benefits of steroid for managing the rheumatic condition Benefits include: - Reduced pain, improved mobility, increased participation in activities, and decreased progression of disease Risks include: - GI upset, potential ultrasound worsening or formation (especially in patients > 65 years old), elevated blood pressure/worsening hypertension, elevated blood sugar/worsening diabetes control, worsening of bone density, elevated lipids/worsening triglycerides, cataract formation, weight gain Recommended using proton pump inhibitors (PPIs) for the duration of steroid use to reduce the risk of gastric ulcers and vitamin-D daily to reduce the risk of osteoporosis Labs checked: ?A1c, T spot, hepatitis-B and C serologies Pneumocystis jiroveci prophylaxis: ?Patient with risk factors including steroids greater than 50 mg for more than 30 days, age greater than 60 years, and lung involvement from underlying rheumatic disease requires prophylaxis and will be given so (7) Encounter for monitoring of belimumab therapy: Code(s): Z51.81 - Encounter for therapeutic drug level monitoring; Z79.620 - director long term care (current) use of immunosuppressive biologic Category: Medical Plan: #director long term care use of Belimumab (Benlysta) Discussed with patient the risks and benefits of steroid for managing the rheumatic condition Benefits include: - Reduced pain, improved mobility, increased participation in activities, and decreased progression of disease Risks include: - GI upset, hypersensitivity reaction, infections, psychiatric disturbances such as depression/insomnia/suicidal ideation Monitoring: CBC, CMP, hepatitis panel and T spot Plan I spent 35 minutes reviewing the record and labs, taking a history, examining the patient, discussing the treatment plan and documenting in the medical record Orders: Orders Anti DNA DS Antibody Today M32.14 - Glomerular disease in systemic lupus erythematosus UA w Microscopic Today M32.14 - Glomerular disease in systemic lupus erythematosus Complement C3 Today M32.14 - Glomerular disease in systemic lupus erythematosus Complement C4 Today M32.14 - Glomerular disease in systemic lupus erythematosus Complete Blood Count Auto Diff Today M32.14 - Glomerular disease in systemic lupus erythematosus Comprehensive Met. Panel Today M32.14 - Glomerular disease in systemic lupus erythematosus C Reactive Protein Today M32.14 - Glomerular disease in systemic lupus erythematosus Erythrocyte Sedimentation Rate Today M32.14 - Glomerular disease in systemic lupus erythematosus Protein Creatinine Ratio, Ur Today M32.14 - Glomerular disease in systemic lupus erythematosus Referrals Infusion Center Notification M32.14 - Glomerular disease in systemic lupus erythematosus Medications: New prednisone Take 3 tablets for 4 days then 2 tablets for 4 days then 1 tablet for 4 days then stop 5 mg PO DIRECTED 24 tabs 0RF M32.14 - Glomerular disease in systemic lupus erythematosus Refilled hydroxychloroquine 200 mg PO BID 180 tabs 1RF M32.9 - Systemic lupus erythematosus, unspecified Coding Level of Care Code Est Pt Level 4 (29020) Complex EM visit Add On G2211 Diagnoses Other systemic lupus erythematosus with glomerular disease M32.14 Systemic lupus erythematosus type: other Systemic lupus erythematosus organ involvement: glomerular disease 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
[2025-04-27 11:21] VITALS: BP 132/80; PULSE 87; O2SAT 98; BMI 61.3
--- OUTSIDE RECORDS SUMMARY | 2025-04-27 13:07 | XMS_ITS | Encounter Summary ---
Author Organization [facility], Address [address] [place] [address] Phone Care Team Providers Care Elevated Motorman Name Role Phone Sruthi Liao MD Primary Care Provider [phone] Encounter Details Date Type Department Care Team (Late st Contact Info) Description 12/13/2024 Documentation Only [facility] [address] [place] [address] Elenita Nichols [address] [place] [id number] Social History Tobacco Use Types Packs/Day Years [...] Care Team (Late st Contact Info) Description 06/02/2025 3:15 PM EDT Office Visit [facility], [address] [place] [place] [address] Scott Swain MD [address] [place] [address] [place] [address] documented as of this encounter Visit Diagnoses Not on filedocumented in this encounter Care Teams Elevated Motorman Relationship Specialty Start Date End Date Sruthi Liao MD PCP - General 09/20/19 documented as of this encounter
== END 2025-04-27 12:04 | disposition home or self-care (01) ==
LOC: HO.RHE 11:12
PROVIDERS: PCP Internal Medicine; Visit Provider Student in an Organized Health Care Education/Training Program
DX: M32.14 Glomerular disease in systemic lupus erythematosus (principal); M17.12 Unilateral primary osteoarthritis, left knee; Z79.899 Other long term (current) drug therapy; Z79.624 Long term (current) use of inhibitors of nucleotide synthesis; Z79.52 Long term (current) use of systemic steroids; Z51.81 Encounter for therapeutic drug level monitoring; Z79.620 Long term (current) use of immunosuppressive biologic
CPT/HCPCS: 99214; G2211

== ENCOUNTER 2025-08-08 14:31 | Outpatient (AMB) | payer OTHER, SELFPAY ==
--- OUTSIDE RECORDS SUMMARY | 2025-06-27 04:45 | XMS_ITS ---
Author Organization [facility] [address] Address [address] [place] [address] Care Team Providers Care Marketing Effectiveness Manager Name Role Phone COY MANCERA Unavailable [phone] Encounters Encounter Location Date Provider Diagnosis [facility] [address] [place] [address] 06/27/2025 COY MANCERA Plan Of Treatment Next Appt Details Provider Name:CYO MANCERA, 09/08/2025 10:45:00 AM, [address] , [place], [address], Progress Notes * Amisha SUB: 9 (44 yo F)Acc No.[id number]:06/27/2025 Patient: Rodri MEJÍA Provider: Shabana FOX PA-C :1980 A ge:44 Y S ex:Female Date:06/27/2025 Address:[address] [place], [place] [id number] Subjective: * Chief Complaints: * * Medical History: Objective: * Vitals: Assessment: Plan: * Treatment: * Images: Billing Information: * Visit Code: * Procedure Codes: * Electronic signature of TATUM MANCERA PA-C on 08/08/2025 at 05:43 PM EDT Sign off status: Pending * Provider: Shabana FOX PA-C Date: 0 06/27/2025 Generated for Renu mccormick/Sheila/eTransmitting on: 0 08/08/2025 05:43 PM EDT
--- NOTE | 2025-08-08 14:40 | A.OFFVIS_ITS ---
Vital Signs 08/08/25 14:49 Height 5 ft 4 in Weight 360 lb 14.347 oz BMI 61.9 BP 132/70 Blood Pressure Location Rt radial Position Sitting Pulse 71 Pulse Source Pulse Oximeter Pulse Oximetry (%) 99 Oxygen Delivery Method Room Air Intake Visit Reasons: SLE Intake Note: Patient presents for SLE follow up. Allergies hydralazine Allergy (Severe, Verified 08/08/25 14:48) induced lupus Penicillins Allergy (Intermediate, Verified 08/08/25 14:48) hives Medication List - Last Reconciled 08/08/25 by Nadiya Zaidi MD acetaminophen ER 650 mg PO Q8H PRN albuterol sulfate 90 mcg/actuation (ProAir HFA) 2 puffs inhalation Q6H PRN amlodipine 10 mg PO DAILY apixaban (Eliquis) 5 mg PO BID cholecalciferol (vitamin D3) 125 mcg PO DAILY diclofenac sodium 1% (Arthritis Pain (diclofenac)) 4 grams topical QID hydroxychloroquine 200 mg PO BID pantoprazole 40 mg PO DAILY prednisone 2.5 mg PO DAILY prednisone 5 mg PO DIRECTED Symbicort 160-4.5 mcg/actuation (budesonide-formoterol) 2 puffs inhalation BID 30 days NS tirzepatide (weight loss) (Zepbound) mg subcut varicella-zoster [id number] (PF) 50 mcg/0.5 mL (Shingrix (PF)) 0.5 mL IM ONCE HPI Comments Details: Patient is a 44-year-old female with hypertension, history of PE/DVT on Eliquis and lupus complicated by pulmonary hypertension, and lupus nephritis class 3. Interval History: Last seen 04/27/25 with me - On Benlysta 200mg SC weekly, MMF 500mg bid, prednisone 2.5mg daily and paquenil 200mg bid - Doing well overall - Thinks she is starting to have a flare - pain in her shoulders, elbow and feet - No recent illness - Requesting to switch to infusion formulation of the Benlysta due to frequent misfiring of the Benlysta injection in her abdominal administrations Today - On Benlysta 10mg/kg infusions, MMF 500mg bid, prednisone 2.5mg daily and paquenil 200mg bid - Has not been able to start the Benysta due to issues with finding an infusion center for weekend infusions - Last Benlysta dose 05/2025 - Feels like she is having a flare: wrists, neck, shoulders, elbows - Feels like there is a heat radiating from my body - Ankles swelling - No rashes, no ulcers in the nose/mouth Rheumatologic History: Onset 11/2020 - on hydralazine - ? 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 2020 hydroxychloroquine started: Eye exam okay March 2023 anti-DNA pos. Anti DEE DEE and complements normal. 02/2021 renal biopsy showing class III GN Cellcept started - March 2021 effective Current Rheumatology Medication(s): Benlysta 10mg/kg every 4 weeks (has not started) CellCept 500 mg b.i.d. Prednisone 2.5 mg daily Plaquenil 200 mg b.i.d. 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) Systemic lupus erythematosus Surgical History Hx of laparoscopic gastric banding Social History (Updated 04/27/25 @ 11:20 by HOMER Torres) Household Members: Family Household Members Other:: Mom and brother Housing: House Are you a primary hospice home care coordinator to a significant other at home: No Do you presently have visiting nurse or other home services: No 75 years or older and lives alone: No Alcohol intake: never Patient Tobacco Use Status: Never used Tobacco e-Cigarette/Vaping Use: Never Used Second Hand Smoke Exposure: No service: No Current occupational status: employed 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 Review of Systems Const Details: Review of Systems Constitutional: Denies fever, chills, weight loss ENT: Denies vision changes, eye pain or eye redness, dental caries, dry mouth GI: Denies nausea, vomiting, diarrhea, abdominal pain, change in BM Pulm: Denies SOB, DEL ANGEL, hemoptysis, wheezing Cards: Denies chest pain, palpitations Skin: Denies Raynaud's, rash, nail changes, photosensitivity, POT BUILDER: Denies headaches, weakness, paresthesias, recurrent falls MSK: as per HPI All other systems reviewed and are unremarkable except noted above Physical Exam Exam Exam: Vital signs reviewed Physical Examination CONSTITUITIONAL Patient alert and cooperative. Well appearing and in no apparent painful distress MSK Hands * Right Hand: Able to make a fist. No swelling or tenderness to palpation of the MCPs, PIPs or DIPs. * Left Hand: Able to make a fist. No swelling or tenderness to palpation of the MCPs, PIPs or DIPs. Wrists * Right Wrist: Full ROM to flexion and extension. No swelling or TTP * Left Wrist: Full ROM to flexion and extension. No swelling or TTP Elbows * Right Elbow: Full ROM. No swelling or TTP. No TTP of the medial epicondyle. No TTP of the lateral epicondyle * Left Elbow: Full ROM. No swelling or TTP. No TTP of the medial epicondyle. No TTP of the lateral epicondyle Shoulders * Right shoulder: Full ROM. No swelling noted. No TTP of the AC joint. No TTP of the subacromial bursa. TTP of the posterior shoulder * Left shoulder: Full ROM. No swelling noted. No TTP of the AC joint. No TTP of the subacromial bursa. TTP of the posterior shoulder Hip bursa: No tenderness to palpation bilaterally Knees * Right knee: Full ROM. No swelling noted. No TTP of the knee joint line. No TTP of pes anserine bursa * Left knee: Full ROM. No swelling noted. No TTP of the knee joint line. No TTP of pes anserine bursa. * Crepitations felt bilaterally Ankles * Right ankle: Good ankle dorsiflexion and plantar flexion. No swelling. No TTP of the ankle joint * Left ankle: Good ankle dorsiflexion and plantar flexion. No swelling. No TTP of the ankle joint Feet * Right foot: Negative squeeze test * Left foot: Negative squeeze test Tender points? * No tenderness to palpation of the bilateral trapezius, supraspinatus, anterior costochondral junctions, bilateral suboccipital muscle insertions SKIN No rashes Results Reviewed Results Reviewed: Laboratory Tests 01/19/24 04/27/25 14:52 12:38 WBC 5.9 6.3 RBC 4.32 4.44 Hgb 12.4 Hct 39.6 ESR 12 Sodium 137 Potassium 4.4 Chloride 106 Carbon Dioxide 23 BUN 17 H Creatinine 1.31 AST 21 ALT 10 C-Reactive Protein 0.13 Laboratory Tests 04/27/25 12:30 Urine Color Yellow Urine Blood Trace H Protein/Creatinin Ratio 0.07 Laboratory Tests 12/29/24 04/27/25 09:46 12:38 Double Strand DNA Ab 6 H Pending Complement C3 136 Pending Complement C4 38 Pending Assessment & Plan Assessment & Plan (1) Systemic lupus erythematosus: Comment: Onset 11/2020 - on hydralazine - ? 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 X-rays showing classic osteoarthritic changes. 2020 hydroxychloroquine started: Eye exam okay March 2023 anti-DNA pos. Anti DEE DEE and complements normal. 02/2021 renal biopsy showing class III GN Cellcept started - March 2021 effective Code(s): M32.9 - Systemic lupus erythematosus, unspecified Category: Medical Qualifiers: Systemic lupus erythematosus type: other Systemic lupus erythematosus organ involvement: glomerular disease Qualified Code(s): M32.14 - Glomerular disease in systemic lupus erythematosus Plan: #SLE Patient is a 44-year-old female with SLE here today for follow up. Experiencing a mild flare of her disease on a background of nt being on Benlysta since 05/2025. We will give her a short course of prednisone for this. 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): Comment: Induction: Mycophenolate and steroids Code(s): M32.14 - Glomerular disease in systemic lupus erythematosus Category: Medical Plan: #LN Class III UPC is normal and kidney function is stable Plan - Follow up with nephrology - MMF stopped by nephro (3) Osteoarthritis of left knee: Code(s): M17.12 - Unilateral primary osteoarthritis, left knee Category: Medical Qualifiers: Osteoarthritis type: primary Qualified Code(s): M17.12 - Unilateral primary osteoarthritis, left knee Plan: #Left knee OA Patient with left knee OA as evidenced by x-rays Plan - PT - Topical diclofenac (4) Long-term use of Plaquenil: Code(s): Z79.899 - Other middle or intermediate school principal (current) drug therapy Category: Medical Plan: #Long-term Use of Hydroxychloroquine Discussed with patient the risks and benefits of hydroxychloroquine in managing the rheumatic condition Benefits include: - Reduced pain, reduce mortality, maintenance of remission and reduction of flares Risks include: - GI upset, skin hyperpigmentation, retinal toxicity (especially after more than 5 years of use), myopathy Advised yearly ophthalmology visits (5) 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: Code(s): Z79.52 - [facility] (current) use of systemic steroids Category: Medical Plan: #Long-term Use of Steroids Discussed with patient the risks and benefits of steroid for managing the r heumatic condition Benefits include: - Reduced pain, improved mobility, increased participation in activities, and decreased progression of disease Risks include: - GI upset, potential ultrasound worsening or formation (especially in patients > 65 years old), elevated blood pressure/worsening hypertension, elevated blood sugar/worsening diabetes control, worsening of bone density, elevated lipid s/worsening triglycerides, cataract formation, weight gain Recommended using proton pump inhibitors (PPIs) for the duration of steroid use to reduce the risk of gastric ulcers and vitamin-D daily to reduce the risk of osteoporosis Labs checked: ?A1c, T spot, hepatitis-B and C serologies Pneumocystis jiroveci prophylaxis: ?Patient with risk factors including steroids greater than 50 mg for more than 30 days, age greater than 60 years, and lung involvement from underlying rheumatic disease requires prophylaxis and will be given so (6) Encounter for monitoring of belimumab therapy: Code(s): Z51.81 - Encounter for therapeutic drug level monitoring; Z79.620 - terminal computer operator (current) use of immunosuppressive biologic Category: Medical Plan: #terminal computer operator use of Belimumab (Benlysta) Discussed with patient the risks and benefits of steroid for managing the rheumatic condition Benefits include: - Reduced pain, improved mobility, increased participation in activities, and decreased progression of disease Risks include: - GI upset, hypersensitivity reaction, infections, psychiatric disturbances such as depression/insomnia/suicidal ideation Monitoring: CBC, CMP, hepatitis panel and T spot Plan I spent 35 minutes reviewing the record and labs, taking a history, examining the patient, discussing the treatment plan and documenting in the medical record Orders: Orders Erythrocyte Sedimentation Rate Today M32.9 - Systemic lupus erythematosus, unspecified Complement C3 Today M32.9 - Systemic lupus erythematosus, unspecified Complement C4 Today M32.9 - Systemic lupus erythematosus, unspecified Protein Creatinine Ratio, Ur Today M32.9 - Systemic lupus erythematosus, unspecified Comprehensive Met. Panel 4 Months M32.9 - Systemic lupus erythematosus, unspecified C Reactive Protein 4 Months M32.9 - Systemic lupus erythematosus, unspecified Complement C4 4 Months M32.9 - Systemic lupus erythematosus, unspecified Protein Creatinine Ratio, Ur 4 Months M32.9 - Systemic lupus erythematosus, unspecified Complete Blood Count Auto Diff Today M32.9 - Systemic lupus erythematosus, unspecified Comprehensive Met. Panel Today M32.9 - Systemic lupus erythematosus, unspecified C Reactive Protein Today M32.9 - Systemic lupus erythematosus, unspecified Anti DNA DS Antibody Today M32.9 - Systemic lupus erythematosus, unspecified UA ClnCatch+Micro w/rflx Cult Today M32.9 - Systemic lupus erythematosus, unspecified Complete Blood Count Auto Diff 4 Months M32.9 - Systemic lupus erythematosus, unspecified Erythrocyte Sedimentation Rate 4 Months M32.9 - Systemic lupus erythematosus, unspecified Complement C3 4 Months M32.9 - Systemic lupus erythematosus, unspecified Anti DNA DS Antibody 4 Months M32.9 - Systemic lupus erythematosus, unspecified UA ClnCatch+Micro w/rflx Cult 4 Months M32.9 - Systemic lupus erythematosus, unspecified Medications: Refilled prednisone Take 3 tablets for 4 days then 2 tablets for 4 days then 1 tablet for 4 days then stop 5 mg PO DIRECTED 24 tabs 0RF M32.14 - Glomerular disease in systemic lupus erythematosus hydroxychloroquine 200 mg PO BID 180 tabs 1RF M32.9 - Systemic lupus erythematosus, unspecified Coding Level of Care Code Est Pt Level 4 (65170) Complex EM visit Add On G2211 Diagnoses Other systemic lupus erythematosus with glomerular disease M32.14 Systemic lupus erythematosus type: other Systemic lupus erythematosus organ involvement: glomerular disease 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
[2025-08-08 14:49] VITALS: BP 132/70; PULSE 71; O2SAT 99; BMI 61.9
--- OUTSIDE RECORDS SUMMARY | 2025-08-08 17:43 | XMS_ITS | Clinical Summary ---
Author Organization [address] [place] [address] [place] [id number] Phone Care Team Providers Care Integrity Analyst Name Role Phone Sruthi Liao MD Primary Care Provider [phone] Allergies Active Allergy Reactions Criticality Noted Date Comments Azithromycin Other,Swelling 01/03/2019 Submandibular swelling Hydralazine Other High 01/16/2021 Lupus syndrome Penicillins Hives,Other,Rash Low 02/09/2011 Prednisone Other High [...] 8 (eight) hours if needed. 4 Active diclofenac (VOLTAREN) 1 % topical gel [...] 1 spray into affected nostril(s). 4 Active ketoconazole (NIZORAL) 2 % cream APPLY TO EACH AFFECTED TOENAIL EXTERNALLY ONCE A DAY 30 DAYS Active loratadine (CLARITIN) 10 mg tablet TAKE 1 TABLET BY MOUTH DAILY NEEDED FOR ALLERGIES. Active mycophenolate (CELLCEPT) 500 mg tablet Take 250 mg by mouth 2 (two) times a day. 1 Active predniSONE (DELTASONE) 1 mg tablet Take 2.5 tablets (2.5 mg total) by mouth. 4 Active triamcinolone (KENALOG) 0.5 % ointment APPLY 1 EACH TOPICALLY 2 TIMES DAILY. Active tirzepatide, weight loss, 2.5 mg/0.5 mL solution Inject 2.5 mg under the skin every 7 (seven) days. Active pantoprazole (PROTONIX) 40 mg EC tablet Take 1 tablet (40 mg total) by mouth 1 (one) time each day before breakfast. 90 tablet 1 5 Active lisinopril (PRINIVIL,ZESTR IL) 40 mg tablet Take 1 tablet (40 mg total) by mouth 1 (one) time each day. 90 tablet 1 5 Active apixaban (Eliquis) 5 mg tablet Take 1 tablet (5 mg total) by mouth 2 (two) times a day. 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 Systemic lupus ([facility] V24, [facility] V28) 2020 Overview (11/11/2024): Onset 11/2020 - on hydralazine [...] CT scan 2005 Spina bifida occulta 01/19/2006 H/O bariatric surgery Overview (03/07/2025): Lap band 01/03 Morbid obesity [place] [place], [facility] [place] Immunizations Name Administration Dates Next Due DTP 04/16/1983, 1,02/15/1980,1978,02/14/1979 Hepatitis B (Mmrphxq-F-Eyiea , Recombivax HB-Adult) 19yo and older 10/16/1997,11/16/1996,09/16/1996 MMR, measles mumps and rubel la Live (Priorix; M-M-R II) 12mo and older 06/02/1991,05/09/1980 OPV 04/16/1983, 1,06/16/1979,1978,01/14/1979 Td Tetanus diptheria (Tdvax) 7yo and older 06/04/2021,02/08/2004 Td, Unspecified 02/08/2004 Tdap Tetanus diptheria acell ular pertussis (Boostrix; Adacel) 7yo and older 04/21/2011 Surgical History Surgery Date Site/Laterality Comments LAPAROSCOPIC GASTRIC BANDING Medical History Medical History Date Comments Morbid obesity ([facility] [place], [facility] V28) 01/19/2006 Lumbago 01/19/2006 Spina bifida occulta 01/19/2006 Allergic rhinitis 04/21/2011 Acne vulgaris 02/16/2013 Seborrheic dermatitis 02/16/2013 HTN (hypertension) H/O bariatric surgery 06/28/2018 Lap band 2 18 Vitamin D deficiency 01/17/2019 SLE (systemic lupus erythema tosus) ([facility] [place], [facility] V[facility]) 01/11/2021 Onset 11/2020 DVT (deep venous thrombosis) ([facility] [place], [facility] V[facility]) 01/16/202101/06 left gastroc DVT History of pulmonary embolism 04/01/2021 Ap ril 2020: 02/03 right lower lung Diverticulosis of sigmoid colon 11/17/[address] scan 2005 Lupus nephritis ([facility] [place]24 , [facility] V28) 04/01/2021 Class III on biopsy 02/2021 Family History Medical History Relation Name Comments Hypertension Father hemorrhagic str chelsey Diabetes Maternal Grandmother breast cancer age 75 Arthritis Mother Other: obesity Other cousin- post gastric bypass surgery Relation Name Status Comments Father Alive Maternal Grandfather (Age 77) We rneiroderick's Maternal Grandmother Alive Mother Alive Other Paternal Grandfather Paternal Grandmother in a fire Social History Tobacco Use Types Packs/Day Years Used Date Smoking Tobacco: Never Smokeless Tobacco: Never Tobacco Cessation:Counseling Given: Not Answered Alcohol Use Standard Drinks/Week Comments No 0 (1 standard drink = 0.6 oz pur e alcohol) Comments Unknown Sex and Gender Information Value Date Recorded Sex Assigned at Not on file Legal Sex Female 11:34 PM EST Gender Identity Not on file Sexual Orientation Not on file Obstetrics History Last Filed Vital Signs Vital Sign Reading Time Taken Comments Blood Pressure 128/72 04/18/2025 9:51 AM EDT Pulse 71 04/18/2025 9:51 AM EDT Temperature 35.9 C (96.6 F) 04/18/2025 9:51 AM EDT Respiratory Rate 18 04/18/2025 9:51 AM EDT Oxygen Saturation 99% 04/18/2025 9:51 AM EDT Inhaled Oxygen Concentration - - Weight 162 kg (358 lb 3.2 oz) 04/18/2025 9:51 AM EDT Height 162.6 cm (5' 4 ) 04/18/2025 9:51 AM EDT Body Mass Index 61.48 04/18/2025 9:51 AM EDT Plan of Treatment Upcoming Encounters Date Type Department Care Team (Late st Contact Info) Description 09/14/2025 8:30 AM EDT Office Visit Adult Medicine [address] [phone] [place] [address] [place], [place] Health Maintenance Due Date Last Done Comments Breast Cancer Screening 1978 COVID-19 Vaccine (#1) 1983 Pneumococcal Vaccine: Pediatrics (0 to 5 Years) and At-Risk Patients (6 to 49 Years) (1 of 2 - PCV) 1997 Cervical Cancer Screening: Pap Smear 10/20/2016 10/20/2013, 10/20/2013 Colorectal Cancer Screening: Colonoscopy 10/19/2022 Social Influencers of Health Screening 10/19/2022 Cholesterol Screening (Lipid Panel) 12/10/2023 12/10/2018 Hypertension/CHF/CAD Annual BMP Blood Test 05/15/2024 05/15/2023 Depression Screening 11/16/2024 Influenza Vaccine (#1) 2025 DTaP,Tdap,and Td Vaccines (10 - Td or [...] age to complete this topic Meningococcal B Vaccine Aged Out No l onger eligible based on patient's age to complete this topic RSV Immunization Patients Under 20 months Aged Out No longer eligible based on patient's age to complete this topic Varicella Vaccines Aged Out No longer eligible based on patient's age to complete this topic Procedures Procedure Name Priority Date/Time Associated Diagnosis Comments ANNUAL BMP BLOOD TEST Routine 05/15/2023 LIPID PANEL Routine 12/10/2018 HPV Routine 10/20/2013 HEPATITIS C SCREENING Routine 02/12/2009 HIV SCREENING Routine 02/12/2009 from Last 3 Months or Most Recently Relevant to Health Maintenance Results * Annual BMP Blood Test (05/15/2023) Pathologist [facility] Annual BMP Blood Test Abstracted [facility] Provider HEALTH MAINTENANCE Final Result * Lipid panel (12/10/2018) [facility] LDL/HDL Ratio 3 0 - 4 Triglycerides 53 0 - 150 mg/dL Cholesterol 154 0 - 200 mg/dL HDL 60 >=40 mg/dL LDL Cholesterol 84 0 - 100 mg/dL Blood Venous blood specimen / Unknown [facility] Provider LAB BLOOD ORDERABLES Viridiana l Result * Cervical Cancer Screening: HPV (10/20/2013) [facility] Cervical Cancer Screening: HPV Negative, Abstracted [facility] Provider HEALTH MAINTENANCE Final Result * HIV Screening (02/12/2009) [facility] HIV Screening Abstracted [facility] Provider HEALTH MAINTENANCE Final Result * Hepatitis C Screening (02/12/2009) [facility] Hepatitis C Screening Abstracted [facility] Provider HEALTH MAINTENANCE Final Result from Last 3 Months or Most Recently Relevant to Health Maintenance Insurance Care Teams Integrity Analyst Relationship Specialty Start Date End Date Sruthi Liao MD [address] [place] [id number] PCP - General 09/27/03
--- OUTSIDE RECORDS SUMMARY | 2025-08-08 17:43 | XMS_ITS | Encounter Summary ---
Author Organization [facility] [place], Address [address] [place] [address] Phone Care Team Providers Care Cranberry Grower Name Role Phone Sruthi Liao MD Primary Care Provider [phone] Encounter Details Date Type Department Care Team (Late st Contact Info) Description 11/21/2021 Documentation Only [facility] [address] [place] [address] Scott Swain MD [address] [place] [address] [place] [address] Social History Tobacco Use Types [...] Care Team (Late st Contact Info) Description 09/01/2025 2:30 PM EDT Office Visit [facility] [address] [place] [address] Scott Swain MD [address] [place] [address] [place] [address] documented as of this encounter [...] Anti-DNA antibody, double-stranded (11/21/2021 11:33 AM EST) Pathologist [facility] Anti DNA, [place] 14(H) [facility] Comment: Reference range: 0 to 9 Unit: IU/mL (NOTE) Negative <5 Equivocal 5 - 9 Positive >9 Test performed by [facility], [address] [place] [id number] Testing performed or reported by [facility], a Service of [facility], [facility] [place] [address] Jasen Finley MD, Professor Of Social Work [facility]# [id number] Blood specimen (specimen) Venous blood / Unknown 11/21/2021 11:33 AM EST 11/21/2021 11:54 AM EST us Scott Swain MD LAB BLOOD ORDERABLES Final Re sult [facility] * (ABNORMAL) C4 complement (11/21/2021 11:33 AM EST) Pathologist [facility] C4 Complement 42(H) (10-40) MG/DL [facility] Comment: Testing performed or reported by [facility], a Service of [facility], [address] [place] [address] Delonte Sampson MD, Professor Of Social Work [facility]# [id number] Blood specimen (specimen) Venous blood / Unknown 11/21/2021 11:33 AM EST 11/21/2021 11:54 AM EST Scott Swain MD LAB BLOOD ORDERABLES Final Re sult Performing Organization Address [facility] de Phone Number [facility] * C3 complement (11/21/2021 11:33 AM EST) Pathologist [facility] C3 Complement 114 (90-180) MG/DL [facility] Comment: Testing performed or reported by [facility], a Service of [facility], [address] [place] [address] Delonte Sampson MD, Professor Of Social Work [place]# [id number] Blood specimen (specimen) Venous blood / Unknown 11/21/2021 11:33 AM EST 11/21/2021 11:54 AM EST Scott Swain MD LAB BLOOD ORDERABLES Final Re sult Performing Organization Address [facility] Co de Phone Number [facility] * (ABNORMAL) Renal function panel (11/21/2021 11:33 AM EST) Glucose 86 (70-99) MG/DL [facility] BUN 19 (6-20) MG/DL [facility] Creatinine 1.5(H) (0.5-1.0) MG/DL [facility] Sodium 139 (133-145) MMOL/L [facility] Potassium 4.4 (3.6-5.2) MMOL/L [facility] Chloride 103 (98-107) MMOL/L [facility] Bicarbonate (CO2) 29 (22-29) MMOL/L [facility] Anion Gap 7 (4-17) [facility] Albumin 4.6 (3.4-4.8) GM/DL [facility] Calcium 9.5 (8.6-10.5) MG/DL [facility] Phosphorus, Serum 3.6 (2.5-4.5) MG/DL [facility] Est GFR Non 43 ML/MIN/1.7 3 M2 [facility] Comment: Effective 08/07/2021, race modifiers will [...] ethnic subgroups. Testing performed or reported by [facility], a Service of [facility], [address] [place] [address] Delonte Sampson MD, Professor Of Social Work [facility]# [id number] Blood specimen (specimen) Venous blood / Unknown 11/21/2021 11:33 AM EST 11/21/2021 11:54 AM EST us Scott Swain MD LAB BLOOD ORDERABLES Final Re sult [facility] * (ABNORMAL) CBC and differential (11/21/2021 11:33 AM EST) White Blood Cells 8.1 (4.0-11.0) K/MM3 [facility] RBC 4.23 (4.20-5.40 ) M/MM3 [facility] Hgb 11.9 (11.7-15.5 ) GM/DL [facility] Hematocrit 38.3 (35.7-45.8 ) % [facility] MCV 90.5 (80.0-100. 0) FL [facility] MCH 28.1 (27.0-34.0 ) PG [facility] MCHC 31.1(L) (33.0-37.0 ) g/dL [facility] Platelets 237 (150-460) K/MM3 [facility] RDW-SD 41.9 (<47.0) FL [facility] MPV 10.3 (9.4-12.4) [place] [facility] nRBC Count 0.0 #/100 WBC'S [facility] NRBC Absolute 0.0 K/MM3 [facility] Neutrophils Abs Auto 6.1 (1.3-7.0) K/MM3 [facility] Lymphocytes Relative 1.4 (0.8-3.1) K/MM3 [facility] Monocytes 0.6 (0.4-0.9) K/MM3 [facility] Eosinophils Relative 0.0 (0.0-0.4) K/MM3 [facility] Basophil ABS 0.0 (0.0-0.1) K/MM3 [facility] Granulocytes Absolute 0.1 K/MM3 [facility] Neutrophils % Auto 74.6 (44-76) % [facility] Lymphs 17.5 (15-43) % [facility] Monocytes Absolute 6.9 (4.5-10.5) % [facility] Eosinophils 0.1 (0-6) % [facility] Basophils Relative 0.2 (0-2) % [facility] Immature Granulocytes 0.7 % [facility] Comment: Testing performed or reported by [facility], a Service of [facility], [address] [place] [id number] Delonte Sampson MD, Professor Of Social Work CLIA# [id number] Blood specimen (specimen) Venous blood / Unknown 11/21/2021 11:33 AM EST 11/21/2021 11:54 AM EST us Scott Swain MD LAB BLOOD ORDERABLES Final Re sult [facility] * Urine Protein / creatinine ratio (11/21/2021 11:15 AM EST) Protein/Creatin e Ratio 0.09 (0-0.2) [facility] Protein, Urine 7 MG/DL [facility] Creatinine, Urine 79.3 MG/DL [facility] Comment: Testing performed or reported by [facility], a Service of [facility], [address] [place] [id number] Delonte Sampson MD, Professor Of Social Work CLIA# [id number] Urine specimen (specimen) Urine specimen obtained by clean catch procedure / Unknown 11/21/2021 11:15 AM EST 11/21/2021 11:54 AM EST us Scott Swain MD LAB URINE ORDERABLES Final Re sult Performing Organization Address [facility] de Phone Number [facility] * (ABNORMAL) Urinalysis with microscopic (11/21/2021 11:15 AM EST) Appearance COLORLESS [facility] Comment:CLEAR Specific [place] 1.011 (1.002-1. 030) [facility] pH Urine 5.5 (5.0-8.0) [facility] Albumin, Urine NEGATIVE (NEG) [facility] Glucose, Ur NEGATIVE (NEG) [facility] Ketones, Urine NEGATIVE (NEG) [facility] Bilirubin Urine NEGATIVE (NEG) [facility] Hemoglobin Presence in Urine 2+(A) (NEG) [facility] Nitrite, Urine NEGATIVE (NEG) [facility] Leukocyte Esterase Urine NEGATIVE (NEG) [facility] Urobilinogen Urine NORMAL (NORM) MG/DL [facility] WBC, Urine <1 (0-5) /HPF [facility] RBC, Urine 3 (0-3) /HPF [facility] Mucus, Urine SLIGHT /LPF [facility] Squamous Epithelial, Urine 1 (0-8) /HPF [facility] Comment: Testing performed or reported by [facility], a Service of [facility], [address] [place] [address] Delonte Sampson MD, Professor Of Social Work [facility]# [id number] Urine specimen (specimen) Urine specimen obtained by clean catch procedure / Unknown 11/21/2021 11:15 AM EST 11/21/2021 11:54 AM EST us Scott Swain MD LAB URINE ORDERABLES Final Re scart Performing Organization Address [facility] Co de Phone Number [facility] documented in this encounter Visit Diagnoses Diagnosis SLE glomerulonephritis syndrome (HCC)- Primary documented in this encounter Care Teams Cranberry Grower Relationship Specialty Start Date End Date rSuthi Liao MD PCP - General 09/20/19 documented as of this encounter
--- OUTSIDE RECORDS SUMMARY | 2025-08-08 17:43 | XMS_ITS | Encounter Summary ---
Author Organization [facility] [place], Address [address] [place] [address] Phone Care Team Providers Care Hospital Insurance Representative Name Role Phone Sruthi Laio MD Primary Care Provider [phone] Encounter Details Date Type Department Care Team (Late st Contact Info) Description 03/26/2022 Documentation Only [facility] [address] [place] [address] Hiren Minor MD [address] [place] [address] [address] [place] [address] Social History Tobacco Use Types Packs/Day Years [...] Visit [facility] [address] [place] [address] Scott Swain MD [address] [place] [address] [place] [address] documented as of this encounter Visit Diagnoses Not on filedocumented in this encounter Care Teams Hospital Insurance Representative Relationship Specialty Start Date End Date Sruthi Liao MD PCP - General 09/20/19 documented as of this encounter
--- OUTSIDE RECORDS SUMMARY | 2025-08-08 17:43 | XMS_ITS | Clinical Summary ---
Author Organization [facility] [place], Address [address] [place] [address] [place] [address] Phone Care Team Providers Care Emergency Registrar Name Role Phone Sruthi Liao MD Primary Care Provider [phone] Allergies Active Allergy Reactions Criticality Noted Date [...] with meals. 60 tablet 5 2 Active ferrous sulfate (Fe Tabs) 325 (65 [...] Encounters Date Type Department Care Team Description 06/02/2025 3:15 PM EDT Office Visit [facility] [address] [place] [address] Scott Swain MD SLE glomerulonephritis syndrome (HCC) (Primary Dx) 06/02/2025 Documentation Only [facility] [address] [place] [address] Simone, Elenita 06/02/2025 Documentation Only [facility] [address] [place] [address] Simone, Elenita 06/02/2025 Documentation Only [facility] [address] [place] [address] Elenita Nichols from Last 3 Months Immunizations Immunization Administration Dates Next Due DTP 04/16/1983,01/14/1981,02/15/1980 ,06/16/1979,02/14/1979 [...] Sign Reading Time Taken Comments Blood Pressure 119/78 06/02/2025 3:44 PM EDT Pulse 68 06/02/2025 3:44 PM EDT Temperature - - Respiratory Rate [...] Visit [facility] [address] [place] [phone] Scott Swain MD [address] [place] [address] Health Maintenance Due Date Last Done Comments Pneumococcal Vaccine: Peds ( 0 to 5 Years) and At-Risk Patients (6 to 49 Years) (1 of 2 - PCV) 1997 Influenza Vaccine (#1) 2025 Hepatitis B Vaccine Completed 10/16/1997, 11/16/1996, 09/16/1996 Insurance [facility] Care Teams Emergency Registrar Relationship Specialty Start Date End Date Sruthi Liao MD PCP - General 09/20/19
--- OUTSIDE RECORDS SUMMARY | 2025-08-08 17:43 | XMS_ITS | Clinical Summary ---
Author Organization [facility] Address [address] [place] [address] Phone Care Team Providers Care Evp [employer] Multimedia Sales Name Role Phone Sruthi Liao MD Primary Care Provider [phone] Social History Tobacco Use Types Packs/Day Years Used Date Smoking Tobacco: Never Assessed Education Answer Date Recorded Are you interested in more education? Not on tera e 03/13/2023 Are you concerned about learning? Not on file 03/13/2023 No 03/13/2023 No 03/13/2023 Digital Access Answer Date Recorded No 04/14/2023 No 04/14/2023 Reliable internet access at home? Not on file 04/14/2023 Device with a working camera? Not on file Comments Unknown Sex and Gender Information Value Date Recorded Sex Assigned at Female 05/05/2023 1:37 PM EDT Legal Sex Female 7:11 PM EDT Gender Identity Female 05/05/2023 1:32 PM EDT Sexual Orientation Straight 05/05/2023 1: 37 PM EDT Plan of Treatment Health Maintenance Due Date Last Done Comments LIPID PANEL 1978 DEPRESSION SCREENING 1990 SMOKING Hx and SMOKELESS TOBACCO SCREENING 1991 HEPATITIS C SCREENING 1996 HIV ONE-TIME SCREENING (18-6 5 YEARS) 1996 PAP SMEAR 1999 MAMMOGRAM 2018 COLOGUARD 2023 COLONOSCOPY 2023 COLORECTAL CANCER SCREENING 2023 FIT TEST 2023 FOBT 2023 SIGMOIDOSCOPY 2023 VIRTUAL COLONOSCOPY 2023 INFLUENZA VACCINE (#1) 2025 COVID-19 VACCINE (2023-2 5 season) 2025 Adult Td,Tdap Booster 06/04/2031 06/04/2021 , 04/21/2011, 02/08/2004 HEPATITIS A VACCINES Aged Out No long er eligible based on patient's age to complete this topic HIB VACCINES Aged Out No longer eligi ble based on patient's age to complete this topic MENINGOCOCCAL VACCINES (ACWY) Aged Out No longer eligible based on patient's age to complete this topic MENINGOCOCCAL VACCINES (B) Aged Out N o longer eligible based on patient's age to complete this topic PNEUMOCOCCAL VACCINES (0-49 years) Aged Out No longer eligible b ased on patient's age to complete this topic Medical Devices Not on file Insurance O O O O O O [employer] D[employer] Care Teams [employer] Sales Relationship Specialty Start Date End Date Sruthi Liao MD [address] [place] [address] PCP - General Internal Medicine 05/05/23 Additional Source Comments The information contained in this document represents components of the legal health record. It is not the complete legal health record.[facility]
--- OUTSIDE RECORDS SUMMARY | 2025-08-08 17:43 | XMS_ITS | Encounter Summary ---
Author Organization [facility] [place], Address [address] [place] [address] Phone Care Team Providers Care Tube Builder Name Role Phone Sruthi Liao MD Primary Care Provider Encounter Details Date Type Department Care Team (Late st Contact Info) Description 07/26/2024 Documentation Only [facility] [address] [address] Elenita Nichols [address] [place] [phone] Social History Tobacco Use Types Packs/Day Years [...] Visit [facility] [address] [place] [address] Scott Swain MD [address] [place] [address] [place] [address] documented as of this encounter Visit Diagnoses Not on filedocumented in this encounter Care Teams Tube Builder Relationship Specialty Start Date End Date Sruthi Liao MD PCP - General 09/20/19 documented as of this encounter
--- OUTSIDE RECORDS SUMMARY | 2025-08-08 17:43 | XMS_ITS | Encounter Summary ---
Author Organization [facility] [place], Address [address] [place] [address] Phone Care Team Providers Care Digital Sales Representative Name Role Phone Sruthi Liao MD Primary Care Provider [phone] Encounter Details Date Type Department Care Team (Late st Contact Info) Description 05/07/2023 Documentation Only [facility] [address] [place] [address] Hiren Minor MD [address] [place] [address] [address] [place] [address] Social History Tobacco Use Types Packs/Day Years [...] [facility] [address] [place] [address] Scott Swain MD [address] [place] [address] [place] [address] documented as of this encounter Visit Diagnoses Not on filedocumented in this encounter Care Teams Digital Sales Representative Relationship Specialty Start Date End Date Sruthi Liao MD PCP - General 09/20/19 documented as of this encounter
--- OUTSIDE RECORDS SUMMARY | 2025-08-08 17:43 | XMS_ITS | Encounter Summary ---
Author Organization [facility] [place], Address [address] [place] [address] Phone Care Team Providers Care Lunch Truck Operator Name Role Phone Sruthi Liao MD Primary Care Provider [phone] Encounter Details Date Type Department Care Team (Late st Contact Info) Description 02/10/2023 Documentation Only [facility] [address] [place] [address] Hiren Minor MD [address] [place] [address] [address] [place] [address] Social History Tobacco Use Types Packs/Day Years [...] Visit [facility] [address] [place] [address] Scott Swain MD [address] [place] [address] [place] [address] documented as of this encounter Visit Diagnoses Not on filedocumented in this encounter Care Teams Lunch Truck Operator Relationship Specialty Start Date End Date Sruthi Liao MD PCP - General 09/20/19 documented as of this encounter
--- OUTSIDE RECORDS SUMMARY | 2025-08-08 17:43 | XMS_ITS | Encounter Summary ---
Author Organization [facility] [place], Address [address] [place] [address] Phone Care Team Providers Care Fruit Raiser Name Role Phone Sruthi Liao MD Primary Care Provider [phone] Encounter Details Date Type Department Care Team (Late st Contact Info) Description 07/27/2024 Documentation Only [facility] [address] [place] [address] [place], [place] [address] [place] [address] Social History Tobacco Use Types [...] Visit [facility] [address] [place] [address] Scott Swain MD [address] [place] [address] documented as of this encounter Visit Diagnoses Not on filedocumented in this encounter Care Teams Fruit Raiser Relationship Specialty Start Date End Date Sruthi Liao MD PCP - General 09/20/19 documented as of this encounter
--- OUTSIDE RECORDS SUMMARY | 2025-08-08 17:43 | XMS_ITS | Encounter Summary ---
Author Organization [facility] [place], Address [address] [place] [address] Phone Care Team Providers Care Director Cost Name Role Phone Sruthi Liao MD Primary Care Provider [phone] Encounter Details Date Type Department Care Team (Late st Contact Info) Description 07/01/2024 Documentation Only [facility] [address] [place] [address] Elenita Nichols [address] [place] [phone] Social History Tobacco Use Types Packs/Day Years [...] Visit [facility] [address] [place] [address] Scott Swain MD [address] [place] [address] [place] [address] documented as of this encounter Visit Diagnoses Not on filedocumented in this encounter Care Teams Director Cost Relationship Specialty Start Date End Date Sruthi Liao MD PCP - General 09/20/19 documented as of this encounter
--- OUTSIDE RECORDS SUMMARY | 2025-08-08 17:43 | XMS_ITS ---
Author Name [facility] Organization Unknown Care Team Organization Name Specialty Phone Email Start Date End Da te [facility] Sruthi Liao Primary Care 09/23/2022 4
--- OUTSIDE RECORDS SUMMARY | 2025-08-08 17:43 | XMS_ITS | Encounter Summary ---
Author Organization [facility] [place], Address [address] [place] [address] Phone Care Team Providers Care Neuropsychiatric Aide Name Role Phone Sruthi Liao MD Primary Care Provider [phone] Encounter Details Date Type Department Care Team (Late st Contact Info) Description 12/13/2024 Documentation Only [facility] [address] [place] [address] Elenita Nichols [address] [place] [phone] Social History Tobacco Use Types Packs/Day Years [...] Visit [facility] [address] [place] [address] Scott Swain MD [address] [place] [address] [place] [address] documented as of this encounter Visit Diagnoses Not on filedocumented in this encounter Care Teams Neuropsychiatric Aide Relationship Specialty Start Date End Date Sruthi Liao MD PCP - General 09/20/19 documented as of this encounter
--- OUTSIDE RECORDS SUMMARY | 2025-08-08 17:43 | XMS_ITS | Encounter Summary ---
Author Organization [facility] [place], Address [address] [place] [address] Phone Care Team Providers Care Glass Embosser Name Role Phone Sruthi Liao MD Primary Care Provider [phone] Encounter Details Date Type Department Care Team (Late st Contact Info) Description 01/25/2024 Documentation Only [facility] [address] [place] [address] [place] [address] [place] [phone] Social History Tobacco Use Types Packs/Day Years [...] Visit [facility] [address] [place] [address] Scott Swain MD [address] [place] [address] [place] [phone] documented as of this encounter Visit Diagnoses Not on filedocumented in this encounter Care Teams Glass Embosser Relationship Specialty Start Date End Date Sruthi Liao MD PCP - General 09/20/19 documented as of this encounter
--- OUTSIDE RECORDS SUMMARY | 2025-08-08 17:43 | XMS_ITS | Encounter Summary ---
Author Organization [facility] [place], Address [address] [place] [address] Phone Care Team Providers Care Software Project Manager Name Role Phone Sruthi Liao MD Primary Care Provider [phone] Encounter Details Date Type Department Care Team (Late st Contact Info) Description 06/22/2024 Documentation Only [facility] [place], [address] [place] [address] Elenita Nichols [address] [place] [phone] Social History Tobacco Use Types Packs/Day Years [...] Visit [facility] [place], [address] [place] [address] Scott Swain MD [address] [place] [address] [place] [address] documented as of this encounter Visit Diagnoses Not on filedocumented in this encounter Care Teams Software Project Manager Relationship Specialty Start Date End Date Sruthi Liao MD PCP - General 09/20/19 documented as of this encounter
--- OUTSIDE RECORDS SUMMARY | 2025-08-08 17:43 | XMS_ITS | Encounter Summary ---
Author Organization [facility] [place], Address [address] [place] [address] Phone Care Team Providers Care Qualitative Executive Researcher Name Role Phone Sruthi Liao MD Primary Care Provider Encounter Details Date Type Department Care Team (Late st Contact Info) Description 08/04/2023 Documentation Only [facility] [address] [place] [address] Hiren Minor MD [address] [place] [address] [address] [place] [address] Social History Tobacco Use Types Packs/Day Years [...] [facility] [address] [place] [address] Scott Swain MD [address] [place] [address] [place] [address] documented as of this encounter Visit Diagnoses Not on filedocumented in this encounter Care Teams Qualitative Executive Researcher Relationship Specialty Start Date End Date Sruthi Liao MD PCP - General 09/20/19 documented as of this encounter
--- OUTSIDE RECORDS SUMMARY | 2025-08-08 17:43 | XMS_ITS | Encounter Summary ---
Author Organization [facility] [place], Address [address] [place] [address] Phone Care Team Providers Care Chief Ophthalmic Technician Name Role Phone Sruthi Liao MD Primary Care Provider [phone] Encounter Details Date Type Department Care Team (Late st Contact Info) Description 03/27/2023 Documentation Only [facility] [address] [place] [address] Scott Swain MD [address] [place] [address] [place] [address] Social History Tobacco Use Types [...] Visit [facility] [address] [place] [address] Scott Swain MD [address] [place] [address] [place] [address] documented as of this encounter [...] PM EDT) C4 Complement 44(H) (10-40) MG/DL [facility] Comment: Testing performed or reported by [facility], [place] [address] Jasen Finley MD, Blanking Machine Operator [facility]# [id number] Blood specimen (specimen) Venous blood / Unknown 03/27/2023 2:04 PM EDT 03/27/2023 2:05 PM EDT us Scott Swain MD LAB BLOOD ORDERABLES Final Re sult [facility] * C3 Complement (03/27/2023 2:04 PM EDT) C3 Complement 141 (90-180) MG/DL [facility] Comment: Testing performed or reported by [facility], a Service of [address] [address] Jasen Finley MD, Blanking Machine Operator CLIA# [id number] Blood specimen (specimen) Venous blood / Unknown 03/27/2023 2:04 PM EDT 03/27/2023 2:05 PM EDT Scott Swain MD LAB BLOOD ORDERABLES Final Re sult Performing Organization Address [facility]/ZIP Co de Phone Number [facility] * Anti-DNA antibody, double-stranded (03/27/2023 2:04 PM EDT) Pathologist [facility] Anti DNA, [place] [address] [facility] Comment: Reference range: 0 to 9 Unit: IU/mL (NOTE) Negative <5 Equivocal 5 - 9 Positive >9 Test performed by [facility], [address] [place] [address] Testing performed or reported by [facility], a Service of [facility], [address] [place], [place] [address] [address] Jasen Finley MD, Blanking Machine Operator [facility]# [id number] Blood specimen (specimen) Venous blood / Unknown 03/27/2023 2:04 PM EDT 03/27/2023 2:05 PM EDT Scott Swain MD LAB BLOOD ORDERABLES Final Re sult Performing Organization Address [facility] Co de Phone Number [facility] * (ABNORMAL) Urine Albumin / Creatinine Ratio (03/27/2023 2:04 PM EDT) Urine Microalbumin 50.5(H) (<20) MG/L [facility] Comment: The urine microalbumin test is designed to monitor renal function. When screening for Bence Uribe proteinuria, urine electrophoresis is recommended. Microalbumin/Creati nine Ratio 142.3(H) (0-20) MG/GM [facility] Microalb/Creat Ratio 35.5 MG/DL [facility] Comment: Testing performed or reported by [facility], a Service of [facility], [address] [place] [address] Jasen Finley MD, Blanking Machine Operator [facility]# [id number] Urine specimen (specimen) Urine specimen obtained by clean catch procedure / Unknown 03/27/2023 2:04 PM EDT 03/27/2023 2:06 PM EDT Scott Swain MD LAB URINE ORDERABLES Final Re sult Performing Organization Address [facility]/ZIP Co de Phone Number [facility] * (ABNORMAL) Urinalysis with microscopic (03/27/2023 2:04 PM EDT) Appearance COLORLESS [facility] Comment:CLEAR Specific [place] 1.007 (1.002-1. 030) [facility] pH Urine 7.0 (5.0-8.0) [facility] Albumin, Urine NEGATIVE (NEG) [facility] Glucose, Ur NEGATIVE (NEG) [facility] Ketones, Urine NEGATIVE (NEG) [facility] Bilirubin Urine NEGATIVE (NEG) [facility] Hemoglobin Presence in Urine 1+(A) (NEG) [facility] Nitrite, Urine NEGATIVE (NEG) [facility] Leukocyte Esterase Urine NEGATIVE (NEG) [facility] Urobilinogen Urine NORMAL (NORM) MG/DL [facility] WBC, Urine <1 (0-5) /HPF [facility] RBC, Urine 1 (0-3) /HPF [facility] Squamous Epithelial, Urine 2 (0-8) /HPF [facility] Comment: Testing performed or reported by [facility], a Service of [facility], [address] [place] [address] Jasen Finley MD, Blanking Machine Operator [facility]# [id number] Urine specimen (specimen) Urine specimen obtained by clean catch procedure / Unknown 03/27/2023 2:04 PM EDT 03/27/2023 2:06 PM EDT Scott Swain MD LAB URINE ORDERABLES Final Re sult Performing Organization Address [facility]/ZIP Co de Phone Number [facility] * (ABNORMAL) Renal Function Panel (03/27/2023 2:04 PM EDT) Glucose 90 (70-99) MG/DL [facility] BUN 14 (6-20) MG/DL [facility] Creatinine 1.5(H) (0.5-1.0) MG/DL [facility] Sodium 138 (133-145) MMOL/L [facility] Potassium 4.6 (3.6-5.2) MMOL/L [facility] Chloride 104 (98-107) MMOL/L [facility] Bicarbonate (CO2) 23 (22-29) MMOL/L [facility] Anion Gap 11 (4-17) [facility] Albumin 4.6 (3.4-4.8) GM/DL [facility] Calcium 9.6 (8.6-10.5) MG/DL [facility] Phosphorus, Serum 3.7 (2.5-4.5) MG/DL [facility] Est GFR Non 46 ML/MIN/1.7 3 M2 [facility] Comment: Creatinine based estimated glomerular filtration (eGFR) in adults is calculated using the National Kid[employer] recommended 2020 CKD-EPI equation. Estimates GFR from serum creatinine, age and sex. Testing performed or reported by [facility], a Service of [facility], [address] [place] [address] Jasen Finley MD, Blanking Machine Operator [facility]# [id number] Blood specimen (specimen) Venous blood / Unknown 03/27/2023 2:04 PM EDT 03/27/2023 2:05 PM EDT us Scott Swain MD LAB BLOOD ORDERABLES Final Re sult [facility] * (ABNORMAL) CBC and Differential (03/27/2023 2:04 PM EDT) White Blood Cells 7.0 (4.0-11.0) K/MM3 [facility] RBC 4.41 (4.20-5.40 ) M/MM3 [facility] Hgb 11.8 (11.7-15.5 ) GM/DL [facility] Hematocrit 39.5 (35.7-45.8 ) % [facility] MCV 89.6 (80.0-100. 0) FL [facility] MCH 26.8(L) (27.0-34.0 ) PG [facility] MCHC 29.9(L) (33.0-37.0 ) g/dL [facility] Platelets 212 (150-460) K/MM3 [facility] RDW-SD 44.1 (<47.0) [place] [facility] MPV 10.7 (9.4-12.4) [place] [facility] nRBC Count 0.0 #/100 WBC'S [facility] NRBC Absolute 0.0 K/MM3 [facility] Neutrophils Abs Auto 4.9 (1.3-7.0) K/MM3 [facility] Lymphocytes Relative 1.5 (0.8-3.1) K/MM3 [facility] Monocytes 0.6 (0.4-0.9) K/MM3 [facility] Eosinophils Relative 0.0 (0.0-0.4) K/MM3 [facility] Basophil ABS 0.0 (0.0-0.1) K/MM3 [facility] Granulocytes Absolute 0.0 K/MM3 [facility] Neutrophils % Auto 69.0 (44-76) % [facility] Lymphs 20.9 (15-43) % [facility] Monocytes Absolute 8.9 (4.5-10.5) % [facility] Eosinophils 0.6 (0-6) % [facility] Basophils Relative 0.3 (0-2) % [facility] Immature Granulocytes 0.3 % [facility] Comment: Testing performed or reported by [facility], a Service of [facility], [address] [place] [address] Jasen Finley MD, Blanking Machine Operator [facility]# [id number] Blood specimen (specimen) Venous blood / Unknown 03/27/2023 2:04 PM EDT 03/27/2023 2:05 PM EDT us Scott Swain MD LAB BLOOD ORDERABLES Final Re sult [facility] documented in this encounter Visit Diagnoses Diagnosis SLE glomerulonephritis syndrome (HCC)- Primary documented in this encounter Care Teams Chief Ophthalmic Technician Relationship Specialty Start Date End Date Sruthi Liao MD PCP - General 09/20/19 documented as of this encounter
--- OUTSIDE RECORDS SUMMARY | 2025-08-08 17:43 | XMS_ITS | Encounter Summary ---
Author Organization [facility] [place], Address [address] [place] [address] Phone Care Team Providers Care Grain Thresher Name Role Phone Sruthi Liao MD Primary Care Provider [phone] Encounter Details Date Type Department Care Team (Late st Contact Info) Description 07/01/2024 Documentation Only [facility] [address] [place] [address] Elenita Nichols [address] [place] [phone] Social History Tobacco Use Types Packs/Day Years [...] Visit [facility] [address] [place] [address] Scott Swain MD [address] [place] [address] [place] [address] documented as of this encounter Visit Diagnoses Not on filedocumented in this encounter Care Teams Grain Thresher Relationship Specialty Start Date End Date Sruthi Liao MD PCP - General 09/20/19 documented as of this encounter
--- OUTSIDE RECORDS SUMMARY | 2025-08-08 17:43 | XMS_ITS | Encounter Summary ---
Author Organization [facility], Address [address] [place] [address] Phone Care Team Providers Care Diver'S Tender Name Role Phone Sruthi Liao MD Primary Care Provider [phone] Reason for Visit * Reason Comments Med Refill Encounter Details Date Type Department Care Team (Late st Contact Info) Description 05/29/2020 Refill [facility] [address] [place] [phone] Anai Garcia MD Social History Tobacco Use [...] Visit [facility] [place], [address] [phone] Scott Swain MD [address] [place] [address] documented as of this encounter Visit Diagnoses Not on filedocumented in this encounter Care Teams Diver'S Tender Relationship Specialty Start Date End Date Sruthi Liao MD PCP - General 09/20/19 documented as of this encounter
--- OUTSIDE RECORDS SUMMARY | 2025-08-08 17:44 | XMS_ITS | Encounter Summary ---
Author Organization [facility] [place], Address [address] [place] [address] Phone Care Team Providers Care Stave Log Cut Off Saw Operator Name Role Phone Sruthi Liao MD Primary Care Provider [phone] Encounter Details Date Type Department Care Team (Late st Contact Info) Description 06/02/2025 Documentation Only [facility] [address] [place] [address] Elenita Nichols [address] [place] [phone] Social History Tobacco Use Types Packs/Day Years [...] Visit [facility] [address] [place] [address] Scott Swain MD [address] [place] [address] [place] [address] documented as of this encounter Visit Diagnoses Not on filedocumented in this encounter Care Teams Stave Log Cut Off Saw Operator Relationship Specialty Start Date End Date Sruthi Liao MD PCP - General 09/20/19 documented as of this encounter
--- OUTSIDE RECORDS SUMMARY | 2025-08-08 17:44 | XMS_ITS | Encounter Summary ---
Author Organization [facility] [place], Address [address] [place] [address] Phone Care Team Providers Care Data Processing Equipment Repairer Name Role Phone Sruthi Liao MD Primary Care Provider [phone] Encounter Details Date Type Department Care Team (Late st Contact Info) Description 10/02/2022 Documentation Only [facility] [address] [place] [address] Hiren Minor MD [address] [place] [address] [address] [place] [address] Social History Tobacco Use Types Packs/Day Years [...] Visit [facility] [address] [place] [address] Scott Swain MD [address] [place] [address] [place] [address] documented as of this encounter Visit Diagnoses Not on filedocumented in this encounter Care Teams Data Processing Equipment Repairer Relationship Specialty Start Date End Date Sruthi Liao MD PCP - General 09/20/19 documented as of this encounter
--- OUTSIDE RECORDS SUMMARY | 2025-08-08 17:44 | XMS_ITS | Patient Health Record ---
Author Organization [facility] Address [address] [facility] [address] [place] [address] Care Team Providers Care Pony Trimmer Name Role Phone Sruthi Liao Primary Care Provider AMISHA Valles Unavailable [phone] Allergies Allergen (clinical drug ingredient) Drug/Non Drug Allergy documented on EMR Reaction Allergy Type Onset Date Status hydralazine hydrALAZINE HCl lupus syndrome Drug Allergy Active Penicillin hives/urticaria Drug Allergy Active Reason For Referral No Information Medications Medication SIG (Take, Route, Frequency, Duration) Notes Start Date End Date Status Apixaban 5 MG as directed Orally BID 5 mg PO BID Active Acyclovir 200 MG 1 capsule Orally five times a day; Duration: 10 days 12/31/2023 Not-Taking predniSONE 5 MG 1 tablet Orally Once a day; Duration: 14 days 01/22/2024 Not-Taking Pantoprazole Sodium 40 MG 1 tablet Orall y Once a day Active Carvedilol 3.125 MG 1 tablet with food Orally Twice a day Not-Taking Hydroxychloroquine Sulfate 200 MG as directed Orally BID Active Diclofenac Sodium 1 % 1 gm to the affected foot Externally twice daily; Duration: 30 days 02/11/2022 Not-Taking Celecoxib 200 MG 1 capsule with food Orally Once a day; Duration: 14 days 01/06/2025 Active predniSONE 2.5 MG as directed Orally Once a day Active Mycophenolate Mofetil 500 MG as directed Orally BID Active Furosemide 20 MG 1 tablet Orally Once a day Not-Taking Ketoconazole 2 % 1 application to each affected toenail Externally Once a day; Duration: 30 days PRN Active Albuterol Sulfate 108 (90 Base) MCG/ACT 1 puff as needed Inhalation every 4 hrs PRN Active Iron Active Gabapentin 300 MG 1 capsule Orally Three times a day Not-Taking Benlysta Active Diclofenac Sodium 1 % 1 gm to the left foot Externally Twice a day; Duration: 30 days Active amLODIPine Besylate 10 MG 1 tablet Orall y Once a day Active Symbicort PRN Active Doxycycline Monohydrate 100 MG 1 capsule Orally Twice a day Not-Taking Problems Problem Type SNOMED Code ICD Code Onset Dates Problem Status W/U Status Risk Notes Problem Inflammatory arthritis (6803065) Inflammatory arthritis (M19.90) Active confirmed Vital Signs Heart Rate 86 /min 10/03/2024 Temperature 97.6 degrees Fahrenheit 10/03/2024 Respiratory Rate 16 /min 10/03/2024 Height 5ft 4in in 01/06/2025 Weight 361.9 lbs 01/06/2025 BMI 62.11 kg/m2 01/06/2025 Encounters Encounter Location Date Provider Diagnosis [facility] [address] [address] 10/03/2024 AMISHA VIDAL Peroneal tendinitis, left M76.72 ; Pain in left foot M79.672 and Pes planus of left foot M21.42 [facility] [address] [address] 01/06/2025 AMISHA VIDAL SLE (systemic lupus erythematosus related syndrome) M32.9 ; Inflammatory arthritis M19.90 and Pain in left foot M79.672 [facility] [address] [address] 06/06/2025 AMISHA VIDAL Assessments Encounter Date Diagnosis (ICD [...] She is in agreement with this plan. 01/06/2025 Inflammatory arthritis (ICD-10 - M19.90) 01/06/2025 SLE (systemic lupus erythematosus related syndrome) (ICD-10 - M32.9) I discussed with the patient that her symptoms are more related to a joint flare than tendinitis. She had no relief when wearing the walking boot. She states she has flares in her shoulders, hands, and knees from her lupus. We discussed that rest, ice, and anti-inflammatory medication will usually help a flare which typically lasts for 3-7 days. We discussed NSAIDs, steroid injections, and prednisone tapers. lupus joint flare is a period when the immune system becomes more active, leading to increased inflammation in the joints. This flare can significantly worsen joint symptoms and may also involve other systemic manifestations of lupus. Characteristics include: Increased Joint Inflammation: During a flare, joints often become more swollen, tender, and painful. Commonly affected areas include the hands, wrists, knees, and other joints. Stiffness and Reduced Mobility: Inflammation can lead to stiffness, especially in the morning or after periods of inactivity, making everyday tasks more challenging. Systemic Symptoms: Lupus flares can also bring additional symptoms such as fatigue, low-grade fever, and sometimes a worsening of other lupus-related issues (e.g., skin rashes or organ involvement). Potential Triggers: Factors like stress, infections, sun exposure, or even changes in medication can trigger or exacerbate a joint flare. Patient to contact the office if no improvement. She is in agreement with this plan. 01/06/2025 Pain in left foot (ICD-10 - M79.672) 10/03/2024 Pain in left foot (ICD-10 - M79.672) 10/03/2024 Pes planus of left foot (ICD-10 - M21.42) Plan Of Treatment Pending Test Test Name Order Date X ray : Foot, left 3v 11/24/2023 X ray : Foot, right 3v 02/03/2022 Insurance Providers Payer Name Payer Address Payer Phone Subscriber Number Group Number Insured Name Patient Relationship to Insured Coverage Start Date Coverage End Date [facility] [address] [facility] [place] [id number] [id number] Rodri Su Self - patient is the insured Medical (General) History Medical History History ICD Code Essential hypertension I10 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
--- OUTSIDE RECORDS SUMMARY | 2025-08-08 17:44 | XMS_ITS | Encounter Summary ---
Author Organization [facility] [place], Address [address] [place] [address] Phone Care Team Providers Care Denture Model Maker Name Role Phone Sruthi Liao MD Primary Care Provider [phone] Encounter Details Date Type Department Care Team (Late st Contact Info) Description 06/24/2022 Documentation Only [facility] [address] [place] [address] Hiren Minor MD [address] [place] [address] [address] [place] [address] Social History Tobacco Use Types Packs/Day Years [...] Services Of [address] [place] [address] Scott Swain MD [address] [place] [address] [place] [address] documented as of this encounter Visit Diagnoses Not on filedocumented in this encounter Care Teams Denture Model Maker Relationship Specialty Start Date End Date Sruthi Liao MD PCP - General 09/20/19 documented as of this encounter
--- OUTSIDE RECORDS SUMMARY | 2025-08-08 17:44 | XMS_ITS | Encounter Summary ---
Author Organization [facility] [place], Address [address] [place] [address] Phone Care Team Providers Care Vp Marketing Services And Skin Name Role Phone Sruthi Liao MD Primary Care Provider [phone] Encounter Details Date Type Department Care Team (Late st Contact Info) Description 06/02/2025 Documentation Only [facility] [address] [place] [address] Elenita Nichols [address] [place] [phone] Social History Tobacco Use Types Packs/Day Years [...] [facility] [address] [place] [address] Scott Swain MD [address] [place] [address] [place] [address] documented as of this encounter Visit Diagnoses Not on filedocumented in this encounter Care Teams Vp Marketing Services And Skin Relationship Specialty Start Date End Date Sruthi Liao MD PCP - General 09/20/19 documented as of this encounter
--- OUTSIDE RECORDS SUMMARY | 2025-08-08 17:44 | XMS_ITS | Encounter Summary ---
Author Organization [facility] [place], Address [address] [place] [address] Phone Care Team Providers Care Manager Oracle Retail Name Role Phone Sruthi Liao MD Primary Care Provider [phone] Encounter Details Date Type Department Care Team (Late st Contact Info) Description 07/11/2022 Documentation Only [facility] [address] [place] [address] Hiren Minor MD [address] [place] [address] [address] [place] [address] Social History Tobacco Use Types Packs/Day Years [...] Visit [facility] [address] [place] [address] Scott Swain MD [address] [place] [address] [place] [address] documented as of this encounter Visit Diagnoses Not on filedocumented in this encounter Care Teams Manager [employer] Relationship Specialty Start Date End Date Sruthi Liao MD PCP - General 09/20/19 documented as of this encounter
--- OUTSIDE RECORDS SUMMARY | 2025-08-08 17:44 | XMS_ITS | Encounter Summary ---
Author Organization [facility] [place], Address [address] [place] [address] Phone Care Team Providers Care Sql Ssrs Developer Name Role Phone Sruthi Liao MD Primary Care Provider [phone] Encounter Details Date Type Department Care Team (Late st Contact Info) Description 06/02/2025 Documentation Only [facility] [address] [address] Elenita Nichols [address] [place] [phone] Social History Tobacco Use Types Packs/Day Years [...] Visit [facility] [address] [place] [address] Scott Swain MD [address] [place] [address] [place] [address] documented as of this encounter Visit Diagnoses Not on filedocumented in this encounter Care Teams Sql Ssrs Developer Relationship Specialty Start Date End Date Sruthi Liao MD PCP - General 09/20/19 documented as of this encounter
--- OUTSIDE RECORDS SUMMARY | 2025-08-08 17:44 | XMS_ITS | Patient Health Record ---
Author Organization [facility] [address] Address [address] [place] [address] Care Team Providers Care Reservation Agent Name Role Phone COY MANCERA Unavailable [phone] Allergies Allergen (clinical drug ingredient) Drug/Non Drug Allergy documented on EMR Reaction Allergy Type Onset Date Status hydralazine Hydralazine lupus Drug Allergy Act aliyah Penicillin rash Drug Allergy Active Reason For Referral No Information Medications Medication SIG (Take, Route, Frequency, Duration) Notes Start Date End Date Status amLODIPine Besylate 10 MG 1 tablet Orall y Once a day Active Hydroxychloroquine Sulfate 200 MG as directed Orally twice daily Active predniSONE 2.5 MG 1 tablet Orally Once a day Active Zepbound 10 MG/0.5ML 10 mg Subcutaneous weekly; Duration: 90 days Active Eliquis 5 MG 1 tablet Orally Twic e a day Active Benlysta 200 MG/ML as directed Subcutaneous Active Problems Problem Type SNOMED Code ICD Code Onset Dates Problem Status W/U Status Risk Notes Problem Obesity (644758843) Other obesit y (E66.8) Active confirmed Problem Essential hypertension (31671321) Essential hypertension (I10) Active confirmed Problem Morbid obesity (786966656) Morbid obesity (E66.01) Active confirmed Problem Lupus (976654499) Lupus (M32.9) Active confirme d Problem Gastroesophageal reflux disease (disorder) (648632243) Chronic GERD (K21.9) Active confirmed Problem Body mass index 40+ - morbidly obese (432709717) BMI 60.0-69.9, adult (Z68.44) Active confirmed Problem Essential hypertension (44580241) Hypertension, essential (I10) Active confirmed Problem Gastroesophageal reflux disease (704171357) GERD (gastroesophage al reflux disease) (K21.9) Active confirmed Vital Signs Heart Rate 72 /min 07/10/2025 Oximetry 98 % 07/10/2025 Blood pressure diastolic 70 mm Hg 07/10/2025 Height 63 in 07/10/2025 Blood pressure systolic 122 mm Hg 07/10/2025 Weight 354.6 lbs 07/10/2025 BMI 62.81 kg/m2 07/10/2025 Encounters Encounter Location Date Provider Diagnosis [facility] [address] [place], [place] 02/01/2025 COY MANCERA BMI 60.0-69.9, adult Z68.44 ; Morbid obesity E66.01 ; Essential hypertension I10 ; Chronic GERD K21.9 and Lupus M32.[address] [facility] [place], [place] 03/07/2025 COY MANCERA BMI 60.0-69.9, adult Z68.44 ; Morbid obesity E66.01 ; Essential hypertension I10 ; Chronic GERD K21.9 ; Lupus M32.9 and Nutritional counseling Z71.[address] [facility] [place] [address] 05/17/2025 COY MANCERA BMI 60.0-69.9, adult Z68.44 ; Essential hypertension I10 ; Morbid obesity E66.01 ; Chronic GERD K21.9 ; Lupus M32.9 ; Nutritional counseling Z71.3 and Encounter for examination of blood pressure without abnormal findings Z01.[address] [facility] [place] [address] 07/10/2025 COY MANCERA BMI 60.0-69.9, adult Z68.44 ; Essential hypertension I10 ; Morbid obesity E66.01 ; Chronic GERD K21.9 ; Lupus M32.9 ; Nutritional counseling Z71.3 and Encounter for examination of blood pressure without abnormal findings Z01.[address] [place] [address] 02/01/[address] [facility] [address] [place] [address] 04/17/2025 COY MANCERA BMI 60.0-69.9, adult Z68.[address] [facility] [place] [address] 04/25/2025 COY MANCERA BMI 60.0-69.9, adult Z68.[address] [facility] [address] [facility] [place] [address] 07/20/2025 COY MANCERA Morbid obesity E66.0 1 ; Other obesity E66.8 and BMI 60.0-69.9, adult Z68.44 Assessments Encounter Date Diagnosis (ICD Code) Assessment Notes Treatment Notes Treatment Clinical Notes Section Notes 02/01/2025 Morbid obesity (ICD-10 - E66.01) Rodri Is a 44-year-old female who presents the office for weight [...] an appeal. She is going to contact [employer] [place] to see. Patient is considering trialing compounded semaglutide in office, as Wegovy most likely would not be covered until September. 02/01/2025: Weight 363, BMI 64. Patient working with Dr Ford getting her Lap-Band removed, and 6 weeks later getting a gastric sleeve. Patient states that the recommendation is to start a GLP-1 in the meantime. Will trial Zepbound 2.5 mg. Discussed proper use, side effects and prior authorization process. Patient is aware she has to be off of GLP-1's 2 weeks prior to surgery, did recommend not taking GLP-1's right after gastric sleeve. # Hypertension: Continue amlodipine 10 mg, mycophenolate 750 mg twice daily instead of 1000 BID. they are tapering her down. # GERD: Continue pantoprazole 40 mg # Lupus: Continue hydroxychloroquine 200 mg twice daily, prednisone 2.5 mg once daily, Eliquis 5 mg Time sent with patient 30 minutes or greater than 50% of patient case and care coordination. Follow-up in 4 weeks, sooner as needed. All quetsions answered to patients satisfaction. Patient verbalized understanding of diagnosis and treatments explained. To call sooner prior to next visit it any questions/concerns arise. Case discussed with collaborating physician Taisha Ivan who reviewed the assessment and plan. Chart, medications, labs, vital signs reviewed. Dictation was accomplished with the use of [employer] voice recognition software, prone to medical misidentifications and grammatical errors. This is unintentional and the practitioner does try to identify and correct these, but some could still be present. Please do not hesitate to contact practitioner for clarification. 02/01/2025 BMI 60.0-69.9, adult (ICD-10 - Z68.44) Rodri Is a 44-year-old female who presents the office for weight [...] to maintain it. Wants to submit for [employer]. Is aware of national shortage, and prior [...] been going to physical therapy for tendinitis. Krish was denied because she has not followed with our weight loss program for 6 consecutive months, but she has followed with a weight loss program with gastric band in 2018. She was following with Dr. Ford. She is wondering if this can help with an appeal. She is going to contact [facility] to see. Patient is considering trialing compounded semaglutide in office, as Krish most likely would not be covered until September. 02/01/2025: Weight 363, BMI 64. Patient working with Dr Ford getting her Lap-Band removed, and 6 weeks later getting a gastric sleeve. Patient states that the recommendation is to start a GLP-1 in the meantime. Will trial Zepbound 2.5 mg. Discussed proper use, side effects and prior authorization process. Patient is aware she has to be off of GLP-1's 2 weeks prior to surgery, did recommend not taking GLP-1's right after gastric sleeve. # Hypertension: Continue amlodipine 10 mg, mycophenolate 750 mg twice daily instead of 1000 BID. they are tapering her down. # GERD: Continue pantoprazole 40 mg # Lupus: Continue hydroxychloroquine 200 mg twice daily, prednisone 2.5 mg once daily, Eliquis 5 mg Time sent with patient 30 minutes or greater than 50% of patient case and care coordination. Follow-up in 4 weeks, sooner as needed. All quetsions answered to patients satisfaction. Patient verbalized understanding of diagnosis and treatments explained. To call sooner prior to next visit it any questions/concerns arise. Case discussed with collaborating physician Taisha Ivan who reviewed the assessment and plan. Chart, medications, labs, vital signs reviewed. Dictation was accomplished with the use of [employer] voice recognition software, prone to medical misidentifications and grammatical errors. This is unintentional and the practitioner does try to identify and correct these, but some could still be present. Please do not hesitate to contact practitioner for clarification. 04/17/2025 BMI 60.0-69.9, adult (ICD-10 - Z68.44) 04/25/2025 BMI 60.0-69.9, adult (ICD-10 - Z68.44) 05/17/2025 BMI 60.0-69.9, adult (ICD-10 - Z68.44) Rodri Is a 44-year-old female who presents the office for weight [...] an appeal. She is going to contact [employer] [place] to see. Patient is considering trialing compounded semaglutide in office, as Wegovy most likely would not be covered until September. 02/01/2025: Weight 363, BMI 64. Patient working with Dr Ford getting her Lap-Band removed, and 6 weeks later getting a gastric sleeve. Patient states that the recommendation is to start a GLP-1 in the meantime. Will trial Zepbound 2.5 mg. Discussed proper use, side effects and prior authorization process. Patient is aware she has to be off of GLP-1's 2 weeks prior to surgery, did recommend not taking GLP-1's right after gastric sleeve. 03/07/25: Weight 253, BMI 62. Patient has lost 10 pounds since last visit, pleased with progress. Reviewed body scan, goals to continue with fat loss. Patient also lost fat around her liver, and waist circumference inches. This is in comparison to May 2024. Continue with Zepbound 2.5 mg, patient is admitting to decreased appetite. Goals of getting the band removed over the next few weeks for which she will be off of GLP-1's at least 1 to 2 weeks prior to surgery, and she states that she was going to do the gastric sleeve, but is now interested in avoiding gastric sleeve and continuing with weight loss through GLP-1's. 05/17/2025: Weight 355, BMI 62. Patient's weight has maintained since last visit but when reviewing body scan she did lose fat, and gained muscle. She had her Lap-Band removed at the end of March, and has been feeling well. Will increase Zepbound from 5 mg to 7.5 mg and follow-up in 4 to 6 weeks. # Hypertension: Continue amlodipine 10 mg, mycophenolate 750 mg twice daily instead of 1000 BID. they are tapering her down. # GERD: Continue pantoprazole 40 mg # Lupus: Continue hydroxychloroquine 200 mg twice daily, prednisone 2.5 mg once daily, Eliquis 5 mg Time sent with patient 30 minutes or greater than 50% of patient case and care coordination. Follow-up in 4-6 weeks, sooner as needed. All quetsions answered to patients satisfaction. Patient verbalized understanding of diagnosis and treatments explained. To call sooner prior to next visit it any questions/concerns arise. Case discussed with collaborating physician Taisha Ivan who reviewed the assessment and plan. Chart, medications, labs, vital signs reviewed. Dictation was accomplished with the use of [employer] voice recognition software, prone to medical misidentifications and grammatical errors. This is unintentional and the practitioner does try to identify and correct these, but some could still be present. Please do not hesitate to contact practitioner for clarification. 07/10/2025 BMI 60.0-69.9, adult (ICD-10 - Z68.44) Rodri Is a 44-year-old female who presents the office for weight [...] to maintain it. Wants to submit for Krish. Is aware of national shortage, and prior [...] an appeal. She is going to contact [employer] [place] to see. Patient is considering trialing compounded semaglutide in office, as Wegovy most likely would not be covered until September. 02/01/2025: Weight 363, BMI 64. Patient working with Dr Ford getting her Lap-Band removed, and 6 weeks later getting a gastric sleeve. Patient states that the recommendation is to start a GLP-1 in the meantime. Will trial Zepbound 2.5 mg. Discussed proper use, side effects and prior authorization process. Patient is aware she has to be off of GLP-1's 2 weeks prior to surgery, did recommend not taking GLP-1's right after gastric sleeve. 03/07/25: Weight 253, BMI 62. Patient has lost 10 pounds since last visit, pleased with progress. Reviewed body scan, goals to continue with fat loss. Patient also lost fat around her liver, and waist circumference inches. This is in comparison to May 2024. Continue with Zepbound 2.5 mg, patient is admitting to decreased appetite. Goals of getting the band removed over the next few weeks for which she will be off of GLP-1's at least 1 to 2 weeks prior to surgery, and she states that she was going to do the gastric sleeve, but is now interested in avoiding gastric sleeve and continuing with weight loss through GLP-1's. 05/17/2025: Weight 355, BMI 62. Patient's weight has maintained since last visit but when reviewing body scan she did lose fat, and gained muscle. She had her Lap-Band removed at the end of March, and has been feeling well. Will increase Zepbound from 5 mg to 7.5 mg and follow-up in 4 to 6 weeks. 07/10/2025: Weight 354, BMI 62. Increase up to 10 mg, her insurance is changing in July requesting a 90-day supply through [employer], prescription sent. Patient is going to track and log her calories/track protein for the next 6 weeks, and will follow-up. # Hypertension: Continue amlodipine 10 mg, mycophenolate 750 mg twice daily instead of 1000 BID. they are tapering her down. # GERD: Continue pantoprazole 40 mg # Lupus: Continue hydroxychloroquine 200 mg twice daily, prednisone 2.5 mg once daily, Eliquis 5 mg Time sent with patient 30 minutes or greater than 50% of patient case and care coordination. Follow-up in 4-6 weeks, sooner as needed. All quetsions answered to patients satisfaction. Patient verbalized understanding of diagnosis and treatments explained. To call sooner prior to next visit it any questions/concerns arise. Case discussed with collaborating physician Taisha Ivan who reviewed the assessment and plan. Chart, medications, labs, vital signs reviewed. Dictation was accomplished with the use of [employer] voice recognition software, prone to medical misidentifications and grammatical errors. This is unintentional and the practitioner does try to identify and correct these, but some could still be present. Please do not hesitate to contact practitioner for clarification. 03/07/2025 BMI 60.0-69.9, adult (ICD-10 - Z68.44) Rodri Is a 44-year-old female who presents the office for weight [...] to maintain it. Wants to submit for [employer]. Is aware of national shortage, and prior [...] been going to physical therapy for tendinitis. Krish was denied because she has not followed with our weight loss program for 6 consecutive months, but she has followed with a weight loss program with gastric band in 2017. She was following with Dr. Ford. She is wondering if this can help with an appeal. She is going to contact [facility] to see. Patient is considering trialing compounded semaglutide in office, as Shal[employer] most likely would not be covered until September. 02/01/2025: Weight 363, BMI 64. Patient working with Dr Ford getting her Lap-Band removed, and 6 weeks later getting a gastric sleeve. Patient states that the recommendation is to start a GLP-1 in the meantime. Will trial Zepbound 2.5 mg. Discussed proper use, side effects and prior authorization process. Patient is aware she has to be off of GLP-1's 2 weeks prior to surgery, did recommend not taking GLP-1's right after gastric sleeve. 03/07/25: Weight 253, BMI 62. Patient has lost 10 pounds since last visit, pleased with progress. Reviewed body scan, goals to continue with fat loss. Patient also lost fat around her liver, and waist circumference inches. This is in comparison to May 2024. Continue with Zepbound 2.5 mg, patient is admitting to decreased appetite. Goals of getting the band removed over the next few weeks for which she will be off of GLP-1's at least 1 to 2 weeks prior to surgery, and she states that she was going to do the gastric sleeve, but is now interested in avoiding gastric sleeve and continuing with weight loss through GLP-1's. # Hypertension: Continue amlodipine 10 mg, mycophenolate 750 mg twice daily instead of 1000 BID. they are tapering her down. # GERD: Continue pantoprazole 40 mg # Lupus: Continue hydroxychloroquine 200 mg twice daily, prednisone 2.5 mg once daily, Eliquis 5 mg Time sent with patient 30 minutes or greater than 50% of patient case and care coordination. Follow-up in 4-6 weeks, sooner as needed. All quetsions answered to patients satisfaction. Patient verbalized understanding of diagnosis and treatments explained. To call sooner prior to next visit it any questions/concerns arise. Case discussed with collaborating physician Taisha Ivan who reviewed the assessment and plan. Chart, medications, labs, vital signs reviewed. Dictation was accomplished with the use of [employer] voice recognition software, prone to medical misidentifications and grammatical errors. This is unintentional and the practitioner does try to identify and correct these, but some could still be present. Please do not hesitate to contact practitioner for clarification. 07/20/2025 Morbid obesity (ICD-10 - E66.01) Electronic Prior Authorization was requested for Zepbound 10 MG/0.5ML Solution Auto-injector. Provider can order medication once approval received. 03/07/2025 Essential hypertension (ICD-10 - I10) Rodri Is a 44-year-old female who presents the office for weight [...] appeal. She is going to contact [facility] to see. Patient is considering trialing compounded semaglutide in office, as Krish most likely would not be covered until September. 02/01/2025: Weight 363, BMI 64. Patient working with Dr Ford getting her Lap-Band removed, and 6 weeks later getting a gastric sleeve. Patient states that the recommendation is to start a GLP-1 in the meantime. Will trial Zepbound 2.5 mg. Discussed proper use, side effects and prior authorization process. Patient is aware she has to be off of GLP-1's 2 weeks prior to surgery, did recommend not taking GLP-1's right after gastric sleeve. 03/07/25: Weight 253, BMI 62. Patient has lost 10 pounds since last visit, pleased with progress. Reviewed body scan, goals to continue with fat loss. Patient also lost fat around her liver, and waist circumference inches. This is in comparison to May 2024. Continue with Zepbound 2.5 mg, patient is admitting to decreased appetite. Goals of getting the band removed over the next few weeks for which she will be off of GLP-1's at least 1 to 2 weeks prior to surgery, and she states that she was going to do the gastric sleeve, but is now interested in avoiding gastric sleeve and continuing with weight loss through GLP-1's. # Hypertension: Continue amlodipine 10 mg, mycophenolate 750 mg twice daily instead of 1000 BID. they are tapering her down. # GERD: Continue pantoprazole 40 mg # Lupus: Continue hydroxychloroquine 200 mg twice daily, prednisone 2.5 mg once daily, Eliquis 5 mg Time sent with patient 30 minutes or greater than 50% of patient case and care coordination. Follow-up in 4-6 weeks, sooner as needed. All quetsions answered to patients satisfaction. Patient verbalized understanding of diagnosis and treatments explained. To call sooner prior to next visit it any questions/concerns arise. Case discussed with collaborating physician Taisha Ivan who reviewed the assessment and plan. Chart, medications, labs, vital signs reviewed. Dictation was accomplished with the use of [employer] voice recognition software, prone to medical misidentifications and grammatical errors. This is unintentional and the practitioner does try to identify and correct these, but some could still be present. Please do not hesitate to contact practitioner for clarification. 03/07/2025 Morbid obesity (ICD-10 - E66.01) Rodri Is a 44-year-old female who presents the office for weight [...] an appeal. She is going to contact [employer] [place] to see. Patient is considering trialing compounded semaglutide in office, as Wegovy most likely would not be covered until September. 02/01/2025: Weight 363, BMI 64. Patient working with Dr Ford getting her Lap-Band removed, and 6 weeks later getting a gastric sleeve. Patient states that the recommendation is to start a GLP-1 in the meantime. Will trial Zepbound 2.5 mg. Discussed proper use, side effects and prior authorization process. Patient is aware she has to be off of GLP-1's 2 weeks prior to surgery, did recommend not taking GLP-1's right after gastric sleeve. 03/07/25: Weight 253, BMI 62. Patient has lost 10 pounds since last visit, pleased with progress. Reviewed body scan, goals to continue with fat loss. Patient also lost fat around her liver, and waist circumference inches. This is in comparison to May 2024. Continue with Zepbound 2.5 mg, patient is admitting to decreased appetite. Goals of getting the band removed over the next few weeks for which she will be off of GLP-1's at least 1 to 2 weeks prior to surgery, and she states that she was going to do the gastric sleeve, but is now interested in avoiding gastric sleeve and continuing with weight loss through GLP-1's. # Hypertension: Continue amlodipine 10 mg, mycophenolate 750 mg twice daily instead of 1000 BID. they are tapering her down. # GERD: Continue pantoprazole 40 mg # Lupus: Continue hydroxychloroquine 200 mg twice daily, prednisone 2.5 mg once daily, Eliquis 5 mg Time sent with patient 30 minutes or greater than 50% of patient case and care coordination. Follow-up in 4-6 weeks, sooner as needed. All quetsions answered to patients satisfaction. Patient verbalized understanding of diagnosis and treatments explained. To call sooner prior to next visit it any questions/concerns arise. Case discussed with collaborating physician Taisha Ivan who reviewed the assessment and plan. Chart, medications, labs, vital signs reviewed. Dictation was accomplished with the use of [employer] voice recognition software, prone to medical misidentifications and grammatical errors. This is unintentional and the practitioner does try to identify and correct these, but some could still be present. Please do not hesitate to contact practitioner for clarification. 07/10/2025 Essential hypertension (ICD-10 - I10) Rodri Is a 44-year-old female who presents the office for weight [...] been going to physical therapy for tendinitis. Krish was denied because she has not followed with our weight loss program for 6 consecutive months, but she has followed with a weight loss program with gastric band in 2018. She was following with Dr. Ford. She is wondering if this can help with an appeal. She is going to contact [employer] [place] to see. Patient is considering trialing compounded semaglutide in office, as Krish most likely would not be covered until September. 02/01/2025: Weight 363, BMI 64. Patient working with Dr Ford getting her Lap-Band removed, and 6 weeks later getting a gastric sleeve. Patient states that the recommendation is to start a GLP-1 in the meantime. Will trial Zepbound 2.5 mg. Discussed proper use, side effects and prior authorization process. Patient is aware she has to be off of GLP-1's 2 weeks prior to surgery, did recommend not taking GLP-1's right after gastric sleeve. 03/07/25: Weight 253, BMI 62. Patient has lost 10 pounds since last visit, pleased with progress. Reviewed body scan, goals to continue with fat loss. Patient also lost fat around her liver, and waist circumference inches. This is in comparison to May 2024. Continue with Zepbound 2.5 mg, patient is admitting to decreased appetite. Goals of getting the band removed over the next few weeks for which she will be off of GLP-1's at least 1 to 2 weeks prior to surgery, and she states that she was going to do the gastric sleeve, but is now interested in avoiding gastric sleeve and continuing with weight loss through GLP-1's. 05/17/2025: Weight 355, BMI 62. Patient's weight has maintained since last visit but when reviewing body scan she did lose fat, and gained muscle. She had her Lap-Band removed at the end of March, and has been feeling well. Will increase Zepbound from 5 mg to 7.5 mg and follow-up in 4 to 6 weeks. 07/10/2025: Weight 354, BMI 62. Increase up to 10 mg, her insurance is changing in July requesting a 90-day supply through [employer], prescription sent. Patient is going to track and log her calories/track protein for the next 6 weeks, and will follow-up. # Hypertension: Continue amlodipine 10 mg, mycophenolate 750 mg twice daily instead of 1000 BID. they are tapering her down. # GERD: Continue pantoprazole 40 mg # Lupus: Continue hydroxychloroquine 200 mg twice daily, prednisone 2.5 mg once daily, Eliquis 5 mg Time sent with patient 30 minutes or greater than 50% of patient case and care coordination. Follow-up in 4-6 weeks, sooner as needed. All quetsions answered to patients satisfaction. Patient verbalized understanding of diagnosis and treatments explained. To call sooner prior to next visit it any questions/concerns arise. Case discussed with collaborating physician Taisha Ivan who reviewed the assessment and plan. Chart, medications, labs, vital signs reviewed. Dictation was accomplished with the use of [employer] voice recognition software, prone to medical misidentifications and grammatical errors. This is unintentional and the practitioner does try to identify and correct these, but some could still be present. Please do not hesitate to contact practitioner for clarification. 05/17/2025 Essential hypertension (ICD-10 - I10) Rodri Is a 44-year-old female who presents the office for weight [...] an appeal. She is going to contact [facility] [employer] [place] to see. Patient is considering trialing compounded semaglutide in office, as Krish most likely would not be covered until September. 02/01/2025: Weight 363, BMI 64. Patient working with Dr Ford getting her Lap-Band removed, and 6 weeks later getting a gastric sleeve. Patient states that the recommendation is to start a GLP-1 in the meantime. Will trial Zepbound 2.5 mg. Discussed proper use, side effects and prior authorization process. Patient is aware she has to be off of GLP-1's 2 weeks prior to surgery, did recommend not taking GLP-1's right after gastric sleeve. 03/07/25: Weight 253, BMI 62. Patient has lost 10 pounds since last visit, pleased with progress. Reviewed body scan, goals to continue with fat loss. Patient also lost fat around her liver, and waist circumference inches. This is in comparison to May 2024. Continue with Zepbound 2.5 mg, patient is admitting to decreased appetite. Goals of getting the band removed over the next few weeks for which she will be off of GLP-1's at least 1 to 2 weeks prior to surgery, and she states that she was going to do the gastric sleeve, but is now interested in avoiding gastric sleeve and continuing with weight loss through GLP-1's. 05/17/2025: Weight 355, BMI 62. Patient's weight has maintained since last visit but when reviewing body scan she did lose fat, and gained muscle. She had her Lap-Band removed at the end of March, and has been feeling well. Will increase Zepbound from 5 mg to 7.5 mg and follow-up in 4 to 6 weeks. # Hypertension: Continue amlodipine 10 mg, mycophenolate 750 mg twice daily instead of 1000 BID. they are tapering her down. # GERD: Continue pantoprazole 40 mg # Lupus: Continue hydroxychloroquine 200 mg twice daily, prednisone 2.5 mg once daily, Eliquis 5 mg Time sent with patient 30 minutes or greater than 50% of patient case and care coordination. Follow-up in 4-6 weeks, sooner as needed. All quetsions answered to patients satisfaction. Patient verbalized understanding of diagnosis and treatments explained. To call sooner prior to next visit it any questions/concerns arise. Case discussed with collaborating physician Taisha Ivan who reviewed the assessment and plan. Chart, medications, labs, vital signs reviewed. Dictation was accomplished with the use of [employer] voice recognition software, prone to medical misidentifications and grammatical errors. This is unintentional and the practitioner does try to identify and correct these, but some could still be present. Please do not hesitate to contact practitioner for clarification. 02/01/2025 Essential hypertension (ICD-10 - I10) Rodri Is a 44-year-old female who presents the office for weight [...] an appeal. She is going to contact [employer] to see. Patient is considering trialing compounded semaglutide in office, as We[facility] most likely would not be covered until September. 02/01/2025: Weight 363, BMI 64. Patient working with Dr Ford getting her Lap-Band removed, and 6 weeks later getting a gastric sleeve. Patient states that the recommendation is to start a GLP-1 in the meantime. Will trial Zepbound 2.5 mg. Discussed proper use, side effects and prior authorization process. Patient is aware she has to be off of GLP-1's 2 weeks prior to surgery, did recommend not taking GLP-1's right after gastric sleeve. # Hypertension: Continue amlodipine 10 mg, mycophenolate 750 mg twice daily instead of 1000 BID. they are tapering her down. # GERD: Continue pantoprazole 40 mg # Lupus: Continue hydroxychloroquine 200 mg twice daily, prednisone 2.5 mg once daily, Eliquis 5 mg Time sent with patient 30 minutes or greater than 50% of patient case and care coordination. Follow-up in 4 weeks, sooner as needed. All quetsions answered to patients satisfaction. Patient verbalized understanding of diagnosis and treatments explained. To call sooner prior to next visit it any questions/concerns arise. Case discussed with collaborating physician Taisha Ivan who reviewed the assessment and plan. Chart, medications, labs, vital signs reviewed. Dictation was accomplished with the use of [employer] voice recognition software, prone to medical misidentifications and grammatical errors. This is unintentional and the practitioner does try to identify and correct these, but some could still be present. Please do not hesitate to contact practitioner for clarification. 05/17/2025 Morbid obesity (ICD-10 - E66.01) Rodri Is a 44-year-old female who presents the office for weight [...] been going to physical therapy for tendinitis. Krish was denied because she has not followed with our weight loss program for 6 consecutive months, but she has followed with a weight loss program with gastric band in 2017. She was following with Dr. Ford. She is wondering if this can help with an appeal. She is going to contact [facility] to see. Patient is considering trialing compounded semaglutide in office, as Krish most likely would not be covered until September. 02/01/2025: Weight 363, BMI 64. Patient working with Dr Ford getting her Lap-Band removed, and 6 weeks later getting a gastric sleeve. Patient states that the recommendation is to start a GLP-1 in the meantime. Will trial Zepbound 2.5 mg. Discussed proper use, side effects and prior authorization process. Patient is aware she has to be off of GLP-1's 2 weeks prior to surgery, did recommend not taking GLP-1's right after gastric sleeve. 03/07/25: Weight 253, BMI 62. Patient has lost 10 pounds since last visit, pleased with progress. Reviewed body scan, goals to continue with fat loss. Patient also lost fat around her liver, and waist circumference inches. This is in comparison to May 2024. Continue with Zepbound 2.5 mg, patient is admitting to decreased appetite. Goals of getting the band removed over the next few weeks for which she will be off of GLP-1's at least 1 to 2 weeks prior to surgery, and she states that she was going to do the gastric sleeve, but is now interested in avoiding gastric sleeve and continuing with weight loss through GLP-1's. 05/17/2025: Weight 355, BMI 62. Patient's weight has maintained since last visit but when reviewing body scan she did lose fat, and gained muscle. She had her Lap-Band removed at the end of March, and has been feeling well. Will increase Zepbound from 5 mg to 7.5 mg and follow-up in 4 to 6 weeks. # Hypertension: Continue amlodipine 10 mg, mycophenolate 750 mg twice daily instead of 1000 BID. they are tapering her down. # GERD: Continue pantoprazole 40 mg # Lupus: Continue hydroxychloroquine 200 mg twice daily, prednisone 2.5 mg once daily, Eliquis 5 mg Time sent with patient 30 minutes or greater than 50% of patient case and care coordination. Follow-up in 4-6 weeks, sooner as needed. All quetsions answered to patients satisfaction. Patient verbalized understanding of diagnosis and treatments explained. To call sooner prior to next visit it any questions/concerns arise. Case discussed with collaborating physician Taisha Ivan who reviewed the assessment and plan. Chart, medications, labs, vital signs reviewed. Dictation was accomplished with the use of [employer] voice recognition software, prone to medical misidentifications and grammatical errors. This is unintentional and the practitioner does try to identify and correct these, but some could still be present. Please do not hesitate to contact practitioner for clarification. 02/01/2025 Chronic GERD (ICD-10 - K21.9) Rodri Is a 44-year-old female who presents the office for weight [...] to maintain it. Wants to submit for [employer]. Is aware of national shortage, and prior [...] appeal. She is going to contact [facility] to see. Patient is considering trialing compounded semaglutide in office, as Krish most likely would not be covered until September. 02/01/2025: Weight 363, BMI 64. Patient working with Dr Ford getting her Lap-Band removed, and 6 weeks later getting a gastric sleeve. Patient states that the recommendation is to start a GLP-1 in the meantime. Will trial Zepbound 2.5 mg. Discussed proper use, side effects and prior authorization process. Patient is aware she has to be off of GLP-1's 2 weeks prior to surgery, did recommend not taking GLP-1's right after gastric sleeve. # Hypertension: Continue amlodipine 10 mg, mycophenolate 750 mg twice daily instead of 1000 BID. they are tapering her down. # GERD: Continue pantoprazole 40 mg # Lupus: Continue hydroxychloroquine 200 mg twice daily, prednisone 2.5 mg once daily, Eliquis 5 mg Time sent with patient 30 minutes or greater than 50% of patient case and care coordination. Follow-up in 4 weeks, sooner as needed. All quetsions answered to patients satisfaction. Patient verbalized understanding of diagnosis and treatments explained. To call sooner prior to next visit it any questions/concerns arise. Case discussed with collaborating physician Taisha Ivan who reviewed the assessment and plan. Chart, medications, labs, vital signs reviewed. Dictation was accomplished with the use of [employer] voice recognition software, prone to medical misidentifications and grammatical errors. This is unintentional and the practitioner does try to identify and correct these, but some could still be present. Please do not hesitate to contact practitioner for clarification. 05/17/2025 Chronic GERD (ICD-10 - K21.9) Rodri Is a 44-year-old female who presents the office for weight [...] to maintain it. Wants to submit for [employer]. Is aware of national shortage, and prior [...] been going to physical therapy for tendinitis. Krish was denied because she has not followed with our weight loss program for 6 consecutive months, but she has followed with a weight loss program with gastric band in 2017. She was following with Dr. Ford. She is wondering if this can help with an appeal. She is going to contact [facility] to see. Patient is considering trialing compounded semaglutide in office, as [employer] most likely would not be covered until September. 02/01/2025: Weight 363, BMI 64. Patient working with Dr Ford getting her Lap-Band removed, and 6 weeks later getting a gastric sleeve. Patient states that the recommendation is to start a GLP-1 in the meantime. Will trial Zepbound 2.5 mg. Discussed proper use, side effects and prior authorization process. Patient is aware she has to be off of GLP-1's 2 weeks prior to surgery, did recommend not taking GLP-1's right after gastric sleeve. 03/07/25: Weight 253, BMI 62. Patient has lost 10 pounds since last visit, pleased with progress. Reviewed body scan, goals to continue with fat loss. Patient also lost fat around her liver, and waist circumference inches. This is in comparison to May 2024. Continue with Zepbound 2.5 mg, patient is admitting to decreased appetite. Goals of getting the band removed over the next few weeks for which she will be off of GLP-1's at least 1 to 2 weeks prior to surgery, and she states that she was going to do the gastric sleeve, but is now interested in avoiding gastric sleeve and continuing with weight loss through GLP-1's. 05/17/2025: Weight 355, BMI 62. Patient's weight has maintained since last visit but when reviewing body scan she did lose fat, and gained muscle. She had her Lap-Band removed at the end of March, and has been feeling well. Will increase Zepbound from 5 mg to 7.5 mg and follow-up in 4 to 6 weeks. # Hypertension: Continue amlodipine 10 mg, mycophenolate 750 mg twice daily instead of 1000 BID. they are tapering her down. # GERD: Continue pantoprazole 40 mg # Lupus: Continue hydroxychloroquine 200 mg twice daily, prednisone 2.5 mg once daily, Eliquis 5 mg Time sent with patient 30 minutes or greater than 50% of patient case and care coordination. Follow-up in 4-6 weeks, sooner as needed. All quetsions answered to patients satisfaction. Patient verbalized understanding of diagnosis and treatments explained. To call sooner prior to next visit it any questions/concerns arise. Case discussed with collaborating physician Taisha Ivan who reviewed the assessment and plan. Chart, medications, labs, vital signs reviewed. Dictation was accomplished with the use of [employer] voice recognition software, prone to medical misidentifications and grammatical errors. This is unintentional and the practitioner does try to identify and correct these, but some could still be present. Please do not hesitate to contact practitioner for clarification. 07/10/2025 Morbid obesity (ICD-10 - E66.01) Rodri Is a 44-year-old female who presents the office for weight [...] to maintain it. Wants to submit for [facility]. Is aware of national shortage, and prior [...] been going to physical therapy for tendinitis. [place] was denied because she has not followed with our weight loss program for 6 consecutive months, but she has followed with a weight loss program with gastric band in 2018. She was following with Dr. Ford. She is wondering if this can help with an appeal. She is going to contact [employer] [place] to see. Patient is considering trialing compounded semaglutide in office, as Krish most likely would not be covered until September. 02/01/2025: Weight 363, BMI 64. Patient working with Dr Ford getting her Lap-Band removed, and 6 weeks later getting a gastric sleeve. Patient states that the recommendation is to start a GLP-1 in the meantime. Will trial Zepbound 2.5 mg. Discussed proper use, side effects and prior authorization process. Patient is aware she has to be off of GLP-1's 2 weeks prior to surgery, did recommend not taking GLP-1's right after gastric sleeve. 03/07/25: Weight 253, BMI 62. Patient has lost 10 pounds since last visit, pleased with progress. Reviewed body scan, goals to continue with fat loss. Patient also lost fat around her liver, and waist circumference inches. This is in comparison to May 2024. Continue with Zepbound 2.5 mg, patient is admitting to decreased appetite. Goals of getting the band removed over the next few weeks for which she will be off of GLP-1's at least 1 to 2 weeks prior to surgery, and she states that she was going to do the gastric sleeve, but is now interested in avoiding gastric sleeve and continuing with weight loss through GLP-1's. 05/17/2025: Weight 355, BMI 62. Patient's weight has maintained since last visit but when reviewing body scan she did lose fat, and gained muscle. She had her Lap-Band removed at the end of March, and has been feeling well. Will increase Zepbound from 5 mg to 7.5 mg and follow-up in 4 to 6 weeks. 07/10/2025: Weight 354, BMI 62. Increase up to 10 mg, her insurance is changing in July requesting a 90-day supply through [employer], prescription sent. Patient is going to track and log her calories/track protein for the next 6 weeks, and will follow-up. # Hypertension: Continue amlodipine 10 mg, mycophenolate 750 mg twice daily instead of 1000 BID. they are tapering her down. # GERD: Continue pantoprazole 40 mg # Lupus: Continue hydroxychloroquine 200 mg twice daily, prednisone 2.5 mg once daily, Eliquis 5 mg Time sent with patient 30 minutes or greater than 50% of patient case and care coordination. Follow-up in 4-6 weeks, sooner as needed. All quetsions answered to patients satisfaction. Patient verbalized understanding of diagnosis and treatments explained. To call sooner prior to next visit it any questions/concerns arise. Case discussed with collaborating physician Taisha Ivan who reviewed the assessment and plan. Chart, medications, labs, vital signs reviewed. Dictation was accomplished with the use of [employer] voice recognition software, prone to medical misidentifications and grammatical errors. This is unintentional and the practitioner does try to identify and correct these, but some could still be present. Please do not hesitate to contact practitioner for clarification. 07/20/2025 Other obesity (ICD-10 - E66.8) Electronic Prior Authorization was requested for Zepbound 10 MG/0.5ML Solution Auto-injector. Provider can order medication once approval received. 03/07/2025 Chronic GERD (ICD-10 - K21.9) Rodri Is a 44-year-old female who presents the office for weight [...] an appeal. She is going to contact [employer] [place] to see. Patient is considering trialing compounded semaglutide in office, as Krish most likely would not be covered until September. 02/01/2025: Weight 363, BMI 64. Patient working with Dr Ford getting her Lap-Band removed, and 6 weeks later getting a gastric sleeve. Patient states that the recommendation is to start a GLP-1 in the meantime. Will trial Zepbound 2.5 mg. Discussed proper use, side effects and prior authorization process. Patient is aware she has to be off of GLP-1's 2 weeks prior to surgery, did recommend not taking GLP-1's right after gastric sleeve. 03/07/25: Weight 253, BMI 62. Patient has lost 10 pounds since last visit, pleased with progress. Reviewed body scan, goals to continue with fat loss. Patient also lost fat around her liver, and waist circumference inches. This is in comparison to May 2024. Continue with Zepbound 2.5 mg, patient is admitting to decreased appetite. Goals of getting the band removed over the next few weeks for which she will be off of GLP-1's at least 1 to 2 weeks prior to surgery, and she states that she was going to do the gastric sleeve, but is now interested in avoiding gastric sleeve and continuing with weight loss through GLP-1's. # Hypertension: Continue amlodipine 10 mg, mycophenolate 750 mg twice daily instead of 1000 BID. they are tapering her down. # GERD: Continue pantoprazole 40 mg # Lupus: Continue hydroxychloroquine 200 mg twice daily, prednisone 2.5 mg once daily, Eliquis 5 mg Time sent with patient 30 minutes or greater than 50% of patient case and care coordination. Follow-up in 4-6 weeks, sooner as needed. All quetsions answered to patients satisfaction. Patient verbalized understanding of diagnosis and treatments explained. To call sooner prior to next visit it any questions/concerns arise. Case discussed with collaborating physician Taisha Ivan who reviewed the assessment and plan. Chart, medications, labs, vital signs reviewed. Dictation was accomplished with the use of [employer] voice recognition software, prone to medical misidentifications and grammatical errors. This is unintentional and the practitioner does try to identify and correct these, but some could still be present. Please do not hesitate to contact practitioner for clarification. 07/10/2025 Chronic GERD (ICD-10 - K21.9) Rodri Is a 44-year-old female who presents the office for weight [...] to maintain it. Wants to submit for [employer]. Is aware of national shortage, and prior [...] an appeal. She is going to contact [employer] [place] to see. Patient is considering trialing compounded semaglutide in office, as [facility] most likely would not be covered until September. 02/01/2025: Weight 363, BMI 64. Patient working with Dr Ford getting her Lap-Band removed, and 6 weeks later getting a gastric sleeve. Patient states that the recommendation is to start a GLP-1 in the meantime. Will trial Zepbound 2.5 mg. Discussed proper use, side effects and prior authorization process. Patient is aware she has to be off of GLP-1's 2 weeks prior to surgery, did recommend not taking GLP-1's right after gastric sleeve. 03/07/25: Weight 253, BMI 62. Patient has lost 10 pounds since last visit, pleased with progress. Reviewed body scan, goals to continue with fat loss. Patient also lost fat around her liver, and waist circumference inches. This is in comparison to May 2024. Continue with Zepbound 2.5 mg, patient is admitting to decreased appetite. Goals of getting the band removed over the next few weeks for which she will be off of GLP-1's at least 1 to 2 weeks prior to surgery, and she states that she was going to do the gastric sleeve, but is now interested in avoiding gastric sleeve and continuing with weight loss through GLP-1's. 05/17/2025: Weight 355, BMI 62. Patient's weight has maintained since last visit but when reviewing body scan she did lose fat, and gained muscle. She had her Lap-Band removed at the end of March, and has been feeling well. Will increase Zepbound from 5 mg to 7.5 mg and follow-up in 4 to 6 weeks. 07/10/2025: Weight 354, BMI 62. Increase up to 10 mg, her insurance is changing in July requesting a 90-day supply through [employer], prescription sent. Patient is going to track and log her calories/track protein for the next 6 weeks, and will follow-up. # Hypertension: Continue amlodipine 10 mg, mycophenolate 750 mg twice daily instead of 1000 BID. they are tapering her down. # GERD: Continue pantoprazole 40 mg # Lupus: Continue hydroxychloroquine 200 mg twice daily, prednisone 2.5 mg once daily, Eliquis 5 mg Time sent with patient 30 minutes or greater than 50% of patient case and care coordination. Follow-up in 4-6 weeks, sooner as needed. All quetsions answered to patients satisfaction. Patient verbalized understanding of diagnosis and treatments explained. To call sooner prior to next visit it any questions/concerns arise. Case discussed with collaborating physician Taisha Ivan who reviewed the assessment and plan. Chart, medications, labs, vital signs reviewed. Dictation was accomplished with the use of [employer] voice recognition software, prone to medical misidentifications and grammatical errors. This is unintentional and the practitioner does try to identify and correct these, but some could still be present. Please do not hesitate to contact practitioner for clarification. 03/07/2025 Lupus (ICD-10 - M32.9) Rodri Is a 44-year-old female who presents the office for weight [...] an appeal. She is going to contact [employer] [place] to see. Patient is considering trialing compounded semaglutide in office, as We[employer] most likely would not be covered until September. 02/01/2025: Weight 363, BMI 64. Patient working with Dr Ford getting her Lap-Band removed, and 6 weeks later getting a gastric sleeve. Patient states that the recommendation is to start a GLP-1 in the meantime. Will trial Zepbound 2.5 mg. Discussed proper use, side effects and prior authorization process. Patient is aware she has to be off of GLP-1's 2 weeks prior to surgery, did recommend not taking GLP-1's right after gastric sleeve. 03/07/25: Weight 253, BMI 62. Patient has lost 10 pounds since last visit, pleased with progress. Reviewed body scan, goals to continue with fat loss. Patient also lost fat around her liver, and waist circumference inches. This is in comparison to May 2024. Continue with Zepbound 2.5 mg, patient is admitting to decreased appetite. Goals of getting the band removed over the next few weeks for which she will be off of GLP-1's at least 1 to 2 weeks prior to surgery, and she states that she was going to do the gastric sleeve, but is now interested in avoiding gastric sleeve and continuing with weight loss through GLP-1's. # Hypertension: Continue amlodipine 10 mg, mycophenolate 750 mg twice daily instead of 1000 BID. they are tapering her down. # GERD: Continue pantoprazole 40 mg # Lupus: Continue hydroxychloroquine 200 mg twice daily, prednisone 2.5 mg once daily, Eliquis 5 mg Time sent with patient 30 minutes or greater than 50% of patient case and care coordination. Follow-up in 4-6 weeks, sooner as needed. All quetsions answered to patients satisfaction. Patient verbalized understanding of diagnosis and treatments explained. To call sooner prior to next visit it any questions/concerns arise. Case discussed with collaborating physician Taisha Ivan who reviewed the assessment and plan. Chart, medications, labs, vital signs reviewed. Dictation was accomplished with the use of [employer] voice recognition software, prone to medical misidentifications and grammatical errors. This is unintentional and the practitioner does try to identify and correct these, but some could still be present. Please do not hesitate to contact practitioner for clarification. 07/20/2025 BMI 60.0-69.9, adult (ICD-10 - Z68.44) 05/17/2025 Lupus (ICD-10 - M32.9) Rodri Is a 44-year-old female who presents the office for weight [...] been going to physical therapy for tendinitis. Krish was denied because she has not followed with our weight loss program for 6 consecutive months, but she has followed with a weight loss program with gastric band in 2018. She was following with Dr. Ford. She is wondering if this can help with an appeal. She is going to contact [facility] to see. Patient is considering trialing compounded semaglutide in office, as Krish most likely would not be covered until September. 02/01/2025: Weight 363, BMI 64. Patient working with Dr Ford getting her Lap-Band removed, and 6 weeks later getting a gastric sleeve. Patient states that the recommendation is to start a GLP-1 in the meantime. Will trial Zepbound 2.5 mg. Discussed proper use, side effects and prior authorization process. Patient is aware she has to be off of GLP-1's 2 weeks prior to surgery, did recommend not taking GLP-1's right after gastric sleeve. 03/07/25: Weight 253, BMI 62. Patient has lost 10 pounds since last visit, pleased with progress. Reviewed body scan, goals to continue with fat loss. Patient also lost fat around her liver, and waist circumference inches. This is in comparison to May 2024. Continue with Zepbound 2.5 mg, patient is admitting to decreased appetite. Goals of getting the band removed over the next few weeks for which she will be off of GLP-1's at least 1 to 2 weeks prior to surgery, and she states that she was going to do the gastric sleeve, but is now interested in avoiding gastric sleeve and continuing with weight loss through GLP-1's. 05/17/2025: Weight 355, BMI 62. Patient's weight has maintained since last visit but when reviewing body scan she did lose fat, and gained muscle. She had her Lap-Band removed at the end of March, and has been feeling well. Will increase Zepbound from 5 mg to 7.5 mg and follow-up in 4 to 6 weeks. # Hypertension: Continue amlodipine 10 mg, mycophenolate 750 mg twice daily instead of 1000 BID. they are tapering her down. # GERD: Continue pantoprazole 40 mg # Lupus: Continue hydroxychloroquine 200 mg twice daily, prednisone 2.5 mg once daily, Eliquis 5 mg Time sent with patient 30 minutes or greater than 50% of patient case and care coordination. Follow-up in 4-6 weeks, sooner as needed. All quetsions answered to patients satisfaction. Patient verbalized understanding of diagnosis and treatments explained. To call sooner prior to next visit it any questions/concerns arise. Case discussed with collaborating physician Taisha Ivan who reviewed the assessment and plan. Chart, medications, labs, vital signs reviewed. Dictation was accomplished with the use of [employer] voice recognition software, prone to medical misidentifications and grammatical errors. This is unintentional and the practitioner does try to identify and correct these, but some could still be present. Please do not hesitate to contact practitioner for clarification. 02/01/2025 Lupus (ICD-10 - M32.9) Rodri Is a 44-year-old female who presents the office for weight [...] appeal. She is going to contact [facility] to see. Patient is considering trialing compounded semaglutide in office, as Wegovy most likely would not be covered until September. 02/01/2025: Weight 363, BMI 64. Patient working with Dr Ford getting her Lap-Band removed, and 6 weeks later getting a gastric sleeve. Patient states that the recommendation is to start a GLP-1 in the meantime. Will trial Zepbound 2.5 mg. Discussed proper use, side effects and prior authorization process. Patient is aware she has to be off of GLP-1's 2 weeks prior to surgery, did recommend not taking GLP-1's right after gastric sleeve. # Hypertension: Continue amlodipine 10 mg, mycophenolate 750 mg twice daily instead of 1000 BID. they are tapering her down. # GERD: Continue pantoprazole 40 mg # Lupus: Continue hydroxychloroquine 200 mg twice daily, prednisone 2.5 mg once daily, Eliquis 5 mg Time sent with patient 30 minutes or greater than 50% of patient case and care coordination. Follow-up in 4 weeks, sooner as needed. All quetsions answered to patients satisfaction. Patient verbalized understanding of diagnosis and treatments explained. To call sooner prior to next visit it any questions/concerns arise. Case discussed with collaborating physician Taisha Ivan who reviewed the assessment and plan. Chart, medications, labs, vital signs reviewed. Dictation was accomplished with the use of [employer] voice recognition software, prone to medical misidentifications and grammatical errors. This is unintentional and the practitioner does try to identify and correct these, but some could still be present. Please do not hesitate to contact practitioner for clarification. 07/10/2025 Lupus (ICD-10 - M32.9) Rodri Is a 44-year-old female who presents the office for weight [...] been going to physical therapy for tendinitis. Krish was denied because she has not followed with our weight loss program for 6 consecutive months, but she has followed with a weight loss program with gastric band in 2017. She was following with Dr. Ford. She is wondering if this can help with an appeal. She is going to contact [employer] [place] to see. Patient is considering trialing compounded semaglutide in office, as Wegovy most likely would not be covered until September. 02/01/2025: Weight 363, BMI 64. Patient working with Dr Ford getting her Lap-Band removed, and 6 weeks later getting a gastric sleeve. Patient states that the recommendation is to start a GLP-1 in the meantime. Will trial Zepbound 2.5 mg. Discussed proper use, side effects and prior authorization process. Patient is aware she has to be off of GLP-1's 2 weeks prior to surgery, did recommend not taking GLP-1's right after gastric sleeve. 03/07/25: Weight 253, BMI 62. Patient has lost 10 pounds since last visit, pleased with progress. Reviewed body scan, goals to continue with fat loss. Patient also lost fat around her liver, and waist circumference inches. This is in comparison to May 2024. Continue with Zepbound 2.5 mg, patient is admitting to decreased appetite. Goals of getting the band removed over the next few weeks for which she will be off of GLP-1's at least 1 to 2 weeks prior to surgery, and she states that she was going to do the gastric sleeve, but is now interested in avoiding gastric sleeve and continuing with weight loss through GLP-1's. 05/17/2025: Weight 355, BMI 62. Patient's weight has maintained since last visit but when reviewing body scan she did lose fat, and gained muscle. She had her Lap-Band removed at the end of March, and has been feeling well. Will increase Zepbound from 5 mg to 7.5 mg and follow-up in 4 to 6 weeks. 07/10/2025: Weight 354, BMI 62. Increase up to 10 mg, her insurance is changing in July requesting a 90-day supply through [employer], prescription sent. Patient is going to track and log her calories/track protein for the next 6 weeks, and will follow-up. # Hypertension: Continue amlodipine 10 mg, mycophenolate 750 mg twice daily instead of 1000 BID. they are tapering her down. # GERD: Continue pantoprazole 40 mg # Lupus: Continue hydroxychloroquine 200 mg twice daily, prednisone 2.5 mg once daily, Eliquis 5 mg Time sent with patient 30 minutes or greater than 50% of patient case and care coordination. Follow-up in 4-6 weeks, sooner as needed. All quetsions answered to patients satisfaction. Patient verbalized understanding of diagnosis and treatments explained. To call sooner prior to next visit it any questions/concerns arise. Case discussed with collaborating physician Taisha Ivan who reviewed the assessment and plan. Chart, medications, labs, vital signs reviewed. Dictation was accomplished with the use of [employer] voice recognition software, prone to medical misidentifications and grammatical errors. This is unintentional and the practitioner does try to identify and correct these, but some could still be present. Please do not hesitate to contact practitioner for clarification. 05/17/2025 Nutritional counseling (ICD-10 - Z71.3) Rodri Is a 44-year-old female who presents the office for weight [...] been going to physical therapy for tendinitis. Krish was denied because she has not followed with our weight loss program for 6 consecutive months, but she has followed with a weight loss program with gastric band in 2017. She was following with Dr. Ford. She is wondering if this can help with an appeal. She is going to contact [facility] to see. Patient is considering trialing compounded semaglutide in office, as Krish most likely would not be covered until September. 02/01/2025: Weight 363, BMI 64. Patient working with Dr Ford getting her Lap-Band removed, and 6 weeks later getting a gastric sleeve. Patient states that the recommendation is to start a GLP-1 in the meantime. Will trial Zepbound 2.5 mg. Discussed proper use, side effects and prior authorization process. Patient is aware she has to be off of GLP-1's 2 weeks prior to surgery, did recommend not taking GLP-1's right after gastric sleeve. 03/07/25: Weight 253, BMI 62. Patient has lost 10 pounds since last visit, pleased with progress. Reviewed body scan, goals to continue with fat loss. Patient also lost fat around her liver, and waist circumference inches. This is in comparison to May 2024. Continue with Zepbound 2.5 mg, patient is admitting to decreased appetite. Goals of getting the band removed over the next few weeks for which she will be off of GLP-1's at least 1 to 2 weeks prior to surgery, and she states that she was going to do the gastric sleeve, but is now interested in avoiding gastric sleeve and continuing with weight loss through GLP-1's. 05/17/2025: Weight 355, BMI 62. Patient's weight has maintained since last visit but when reviewing body scan she did lose fat, and gained muscle. She had her Lap-Band removed at the end of March, and has been feeling well. Will increase Zepbound from 5 mg to 7.5 mg and follow-up in 4 to 6 weeks. # Hypertension: Continue amlodipine 10 mg, mycophenolate 750 mg twice daily instead of 1000 BID. they are tapering her down. # GERD: Continue pantoprazole 40 mg # Lupus: Continue hydroxychloroquine 200 mg twice daily, prednisone 2.5 mg once daily, Eliquis 5 mg Time sent with patient 30 minutes or greater than 50% of patient case and care coordination. Follow-up in 4-6 weeks, sooner as needed. All quetsions answered to patients satisfaction. Patient verbalized understanding of diagnosis and treatments explained. To call sooner prior to next visit it any questions/concerns arise. Case discussed with collaborating physician Taisha Ivan who reviewed the assessment and plan. Chart, medications, labs, vital signs reviewed. Dictation was accomplished with the use of [employer] voice recognition software, prone to medical misidentifications and grammatical errors. This is unintentional and the practitioner does try to identify and correct these, but some could still be present. Please do not hesitate to contact practitioner for clarification. 03/07/2025 Nutritional counseling (ICD-10 - Z71.3) Rodri Is a 44-year-old female who presents the office for weight [...] appeal. She is going to contact [facility] to see. Patient is considering trialing compounded semaglutide in office, as Krish most likely would not be covered until September. 02/01/2025: Weight 363, BMI 64. Patient working with Dr Ford getting her Lap-Band removed, and 6 weeks later getting a gastric sleeve. Patient states that the recommendation is to start a GLP-1 in the meantime. Will trial Zepbound 2.5 mg. Discussed proper use, side effects and prior authorization process. Patient is aware she has to be off of GLP-1's 2 weeks prior to surgery, did recommend not taking GLP-1's right after gastric sleeve. 03/07/25: Weight 253, BMI 62. Patient has lost 10 pounds since last visit, pleased with progress. Reviewed body scan, goals to continue with fat loss. Patient also lost fat around her liver, and waist circumference inches. This is in comparison to May 2024. Continue with Zepbound 2.5 mg, patient is admitting to decreased appetite. Goals of getting the band removed over the next few weeks for which she will be off of GLP-1's at least 1 to 2 weeks prior to surgery, and she states that she was going to do the gastric sleeve, but is now interested in avoiding gastric sleeve and continuing with weight loss through GLP-1's. # Hypertension: Continue amlodipine 10 mg, mycophenolate 750 mg twice daily instead of 1000 BID. they are tapering her down. # GERD: Continue pantoprazole 40 mg # Lupus: Continue hydroxychloroquine 200 mg twice daily, prednisone 2.5 mg once daily, Eliquis 5 mg Time sent with patient 30 minutes or greater than 50% of patient case and care coordination. Follow-up in 4-6 weeks, sooner as needed. All quetsions answered to patients satisfaction. Patient verbalized understanding of diagnosis and treatments explained. To call sooner prior to next visit it any questions/concerns arise. Case discussed with collaborating physician Taisha Ivan who reviewed the assessment and plan. Chart, medications, labs, vital signs reviewed. Dictation was accomplished with the use of [employer] voice recognition software, prone to medical misidentifications and grammatical errors. This is unintentional and the practitioner does try to identify and correct these, but some could still be present. Please do not hesitate to contact practitioner for clarification. 07/10/2025 Nutritional counseling (ICD-10 - Z71.3) Rodri Is a 44-year-old female who presents the office for weight [...] an appeal. She is going to contact [employer] [place] to see. Patient is considering trialing compounded semaglutide in office, as Wegovy most likely would not be covered until September. 02/01/2025: Weight 363, BMI 64. Patient working with Dr Ford getting her Lap-Band removed, and 6 weeks later getting a gastric sleeve. Patient states that the recommendation is to start a GLP-1 in the meantime. Will trial Zepbound 2.5 mg. Discussed proper use, side effects and prior authorization process. Patient is aware she has to be off of GLP-1's 2 weeks prior to surgery, did recommend not taking GLP-1's right after gastric sleeve. 03/07/25: Weight 253, BMI 62. Patient has lost 10 pounds since last visit, pleased with progress. Reviewed body scan, goals to continue with fat loss. Patient also lost fat around her liver, and waist circumference inches. This is in comparison to May 2024. Continue with Zepbound 2.5 mg, patient is admitting to decreased appetite. Goals of getting the band removed over the next few weeks for which she will be off of GLP-1's at least 1 to 2 weeks prior to surgery, and she states that she was going to do the gastric sleeve, but is now interested in avoiding gastric sleeve and continuing with weight loss through GLP-1's. 05/17/2025: Weight 355, BMI 62. Patient's weight has maintained since last visit but when reviewing body scan she did lose fat, and gained muscle. She had her Lap-Band removed at the end of March, and has been feeling well. Will increase Zepbound from 5 mg to 7.5 mg and follow-up in 4 to 6 weeks. 07/10/2025: Weight 354, BMI 62. Increase up to 10 mg, her insurance is changing in July requesting a 90-day supply through [employer], prescription sent. Patient is going to track and log her calories/track protein for the next 6 weeks, and will follow-up. # Hypertension: Continue amlodipine 10 mg, mycophenolate 750 mg twice daily instead of 1000 BID. they are tapering her down. # GERD: Continue pantoprazole 40 mg # Lupus: Continue hydroxychloroquine 200 mg twice daily, prednisone 2.5 mg once daily, Eliquis 5 mg Time sent with patient 30 minutes or greater than 50% of patient case and care coordination. Follow-up in 4-6 weeks, sooner as needed. All quetsions answered to patients satisfaction. Patient verbalized understanding of diagnosis and treatments explained. To call sooner prior to next visit it any questions/concerns arise. Case discussed with collaborating physician Taisha Ivan who reviewed the assessment and plan. Chart, medications, labs, vital signs reviewed. Dictation was accomplished with the use of [employer] voice recognition software, prone to medical misidentifications and grammatical errors. This is unintentional and the practitioner does try to identify and correct these, but some could still be present. Please do not hesitate to contact practitioner for clarification. 05/17/2025 Encounter for examination of blood pressure without abnormal findings (ICD-10 - Z01.30) Rodri Is a 44-year-old female who presents the office for weight [...] weight loss program with gastric band in 2017. She was following with Dr. Ford. She is wondering if this can help with an appeal. She is going to contact [employer] [place] to see. Patient is considering trialing compounded semaglutide in office, as Wegovy most likely would not be covered until September. 02/01/2025: Weight 363, BMI 64. Patient working with Dr Ford getting her Lap-Band removed, and 6 weeks later getting a gastric sleeve. Patient states that the recommendation is to start a GLP-1 in the meantime. Will trial Zepbound 2.5 mg. Discussed proper use, side effects and prior authorization process. Patient is aware she has to be off of GLP-1's 2 weeks prior to surgery, did recommend not taking GLP-1's right after gastric sleeve. 03/07/25: Weight 253, BMI 62. Patient has lost 10 pounds since last visit, pleased with progress. Reviewed body scan, goals to continue with fat loss. Patient also lost fat around her liver, and waist circumference inches. This is in comparison to May 2024. Continue with Zepbound 2.5 mg, patient is admitting to decreased appetite. Goals of getting the band removed over the next few weeks for which she will be off of GLP-1's at least 1 to 2 weeks prior to surgery, and she states that she was going to do the gastric sleeve, but is now interested in avoiding gastric sleeve and continuing with weight loss through GLP-1's. 05/17/2025: Weight 355, BMI 62. Patient's weight has maintained since last visit but when reviewing body scan she did lose fat, and gained muscle. She had her Lap-Band removed at the end of March, and has been feeling well. Will increase Zepbound from 5 mg to 7.5 mg and follow-up in 4 to 6 weeks. # Hypertension: Continue amlodipine 10 mg, mycophenolate 750 mg twice daily instead of 1000 BID. they are tapering her down. # GERD: Continue pantoprazole 40 mg # Lupus: Continue hydroxychloroquine 200 mg twice daily, prednisone 2.5 mg once daily, Eliquis 5 mg Time sent with patient 30 minutes or greater than 50% of patient case and care coordination. Follow-up in 4-6 weeks, sooner as needed. All quetsions answered to patients satisfaction. Patient verbalized understanding of diagnosis and treatments explained. To call sooner prior to next visit it any questions/concerns arise. Case discussed with collaborating physician Taisha Ivan who reviewed the assessment and plan. Chart, medications, labs, vital signs reviewed. Dictation was accomplished with the use of [employer] voice recognition software, prone to medical misidentifications and grammatical errors. This is unintentional and the practitioner does try to identify and correct these, but some could still be present. Please do not hesitate to contact practitioner for clarification. 07/10/2025 Encounter for examination of blood pressure without abnormal findings (ICD-10 - Z01.30) Rodri Is a 44-year-old female who presents the office for weight [...] been going to physical therapy for tendinitis. Krish was denied because she has not followed with our weight loss program for 6 consecutive months, but she has followed with a weight loss program with gastric band in 2017. She was following with Dr. Ford. She is wondering if this can help with an appeal. She is going to contact [facility] to see. Patient is considering trialing compounded semaglutide in office, as Wegovy most likely would not be covered until September. 02/01/2025: Weight 363, BMI 64. Patient working with Dr Ford getting her Lap-Band removed, and 6 weeks later getting a gastric sleeve. Patient states that the recommendation is to start a GLP-1 in the meantime. Will trial Zepbound 2.5 mg. Discussed proper use, side effects and prior authorization process. Patient is aware she has to be off of GLP-1's 2 weeks prior to surgery, did recommend not taking GLP-1's right after gastric sleeve. 03/07/25: Weight 253, BMI 62. Patient has lost 10 pounds since last visit, pleased with progress. Reviewed body scan, goals to continue with fat loss. Patient also lost fat around her liver, and waist circumference inches. This is in comparison to May 2024. Continue with Zepbound 2.5 mg, patient is admitting to decreased appetite. Goals of getting the band removed over the next few weeks for which she will be off of GLP-1's at least 1 to 2 weeks prior to surgery, and she states that she was going to do the gastric sleeve, but is now interested in avoiding gastric sleeve and continuing with weight loss through GLP-1's. 05/17/2025: Weight 355, BMI 62. Patient's weight has maintained since last visit but when reviewing body scan she did lose fat, and gained muscle. She had her Lap-Band removed at the end of March, and has been feeling well. Will increase Zepbound from 5 mg to 7.5 mg and follow-up in 4 to 6 weeks. 07/10/2025: Weight 354, BMI 62. Increase up to 10 mg, her insurance is changing in July requesting a 90-day supply through [employer], prescription sent. Patient is going to track and log her calories/track protein for the next 6 weeks, and will follow-up. # Hypertension: Continue amlodipine 10 mg, mycophenolate 750 mg twice daily instead of 1000 BID. they are tapering her down. # GERD: Continue pantoprazole 40 mg # Lupus: Continue hydroxychloroquine 200 mg twice daily, prednisone 2.5 mg once daily, Eliquis 5 mg Time sent with patient 30 minutes or greater than 50% of patient case and care coordination. Follow-up in 4-6 weeks, sooner as needed. All quetsions answered to patients satisfaction. Patient verbalized understanding of diagnosis and treatments explained. To call sooner prior to next visit it any questions/concerns arise. Case discussed with collaborating physician Taisha Ivan who reviewed the assessment and plan. Chart, medications, labs, vital signs reviewed. Dictation was accomplished with the use of [employer] voice recognition software, prone to medical misidentifications and grammatical errors. This is unintentional and the practitioner does try to identify and correct these, but some could still be present. Please do not hesitate to contact practitioner for clarification. Plan Of Treatment Next Appt Details Provider Name:COY MANCERA, 09/08/2025 10:45:00 AM, [address] [facility], [place], [id number], Insurance Providers Payer Name Payer Address Payer Phone Subscriber Number Group Number Insured Name Patient Relationship to Insured Coverage Start Date Coverage End Date [facility] [address] [place] [address] [id number] Rodri Su Self - patient is the insured 3 Medications Administered Medication Instructions Date of Administration Dosage Notes Semaglutide 07/30/2024 0.25 mg Medical (General) History Medical History History ICD Code Lupus M32.9 Weight gain R63.5 Weight gain R63.5 GERD (gastroesophageal reflux disease) K 21.9 Hypertension, essential I10 Surgical History Surgery Date(Month/Year) lap band 2017 lab band removed March 2025 Hospitalization History Reason Date(Month/Year) shingles January 2024 lupus 2020
== END 2025-08-08 15:07 | disposition home or self-care (01) ==
LOC: HO.RHES 14:32
PROVIDERS: PCP Internal Medicine; Visit Provider Student in an Organized Health Care Education/Training Program
DX: M32.14 Glomerular disease in systemic lupus erythematosus (principal); M17.12 Unilateral primary osteoarthritis, left knee; Z79.899 Other long term (current) drug therapy; Z79.52 Long term (current) use of systemic steroids; Z51.81 Encounter for therapeutic drug level monitoring; Z79.620 Long term (current) use of immunosuppressive biologic
CPT/HCPCS: 99214; G2211

== ENCOUNTER 2025-08-08 14:31 | Outpatient (REF) | payer OTHER, SELFPAY ==
[2025-08-08 18:37] LABS: MANUAL DIFF FLAG NO
[2025-08-08 18:40] LABS: Hematocrit 38.1 % (37.0-47.0); Hemoglobin 12.2 g/dl (12.0-16.0); Imm Gran Abs Auto 0.02 X10*3/uL (0.00-0.03); Imm Gran Pct Auto 0.3 % (0.0-0.4); Lymphocytes Absolute Auto 1.5 X10*3/uL (1.2-4.9); Mean Corpuscular HGB Conc 32.0 g/dl (31.0-35.0); Mean Corpuscular Hemoglobin 28.4 pg (27.0-33.0); Mean Corpuscular Volume 88.6 fL (80.0-98.0); NRBC Abs Auto 0.000 X10*3/uL (0.0-0.012); NRBC Pct Auto 0.0 /100WBC (0.0-0.2); Platelet Count 199 X10*3/uL (160-400); Red Blood Count 4.30 X10*6/uL (4.20-5.50); White Blood Count 6.3 X10*3/uL (4.8-10.8)
[2025-08-08 18:53] LABS: Alanine Aminotransferase 10 U/L (0-31); Albumin Level 4.1 g/dL (3.5-5.0); Alkaline Phosphatase 68 U/L (39-117); Anion Gap 10 (12-20); Aspartate Amino Transferase 26 U/L (5-31); Blood Urea Nitrogen 22 mg/dL (9-16); Calcium 9.4 mg/dL (8.4-10.2); Carbon Dioxide 26 mmol/L (22-29); Chloride 105 mmol/L (96-108); Estimated Glomerular Filt Rate 43; Potassium 4.6 mmol/L (3.3-5.1); Sodium 136 mmol/L (135-145); Total Protein 7.3 g/dL (6.5-8.0)
[2025-08-08 18:56] LABS: Appearance Urine Clear; Glucose Urine UA Negative (Negative); PH 6.0 (5.0-9.0); Specific Gravity - Urine 1.015 (1.005-1.025); UMIC TRIGGER UACC YES
[2025-08-08 19:09] LABS: Protein/Creatinine Ratio, Ur 0.07 (<0.2); Total Protein Urine Random 8 mg/dL (<12)
== END 2025-08-08 14:32 | disposition home or self-care (01) ==
LOC: HO.HKASLDS 14:31
PROVIDERS: Visit Provider Student in an Organized Health Care Education/Training Program
DX: M32.14 Glomerular disease in systemic lupus erythematosus (principal); M17.12 Unilateral primary osteoarthritis, left knee; Z51.81 Encounter for therapeutic drug level monitoring; Z79.52 Long term (current) use of systemic steroids; Z79.899 Other long term (current) drug therapy; Z79.620 Long term (current) use of immunosuppressive biologic
CPT/HCPCS: 36415; 80053; 81001; 82570; 84156; 85025; 85652; 86140; 86160; 86225